=== PATIENT | male | born 1950 | race Caucasian/White ===

== ENCOUNTER 2020-04-26 06:22 | Inpatient (IN) | payer OTHER, SELFPAY ==
[2020-04-26] VITALS (37 sets, daily range): BP systolic 145–187; BP diastolic 67–129; PULSE 78–105; RESP 14–96; TEMP 36.2–37; O2SAT 20–98; BMI 22.8
--- NOTE | ~2020-04-26 | XR_ITS ---
XR chest 2V 04/28/2020 09:47 Indication: Shortness of breath and weakness Procedure: 2 view chest Comparison: 04/26/2020 Findings: There is improving bibasilar airspace disease. Heart size upper normal. There is atheroscle rosis. There is evidence for chronic granulomatous disease. The lungs are hyperinflated which is cons istent with, but not diagnostic of chronic obstructive pulmonary disease. No pneumothorax. Impression: 1: Improving bibasilar airspace disease which may represent resolving atelectasis and/or pneumonia. Reviewed, dictated and finalized at location B. Impression: 1: Improving bibasilar airspace disease which may represent resolving atelectas is and/or pneumonia.
--- NOTE | ~2020-04-26 | US_ITS ---
US renal BI 04/26/2020 13:56 Procedure: Realtime transabdominal ultrasound of the kidneys and bladder. Indication: Elevated creatinine Comparison: Ultrasound dated 01/27/2018 Findings: There multiple bilateral renal cysts, largest in the right kidney measuring 7.2 cm. Largest on the left measures 2.7 cm. The right kidney measures 14 cm and left kidney measures 9.7 cm. Bladd er within normal limits. Impression: 1: Multiple bilateral renal cysts. Reviewed, dictated and finalized at location B. Impression: 1: Multiple bilateral renal cysts.
--- NOTE | ~2020-04-26 | XR_ITS ---
EXAMINATION: XR chest 2V DATE: 04/26/2020 07:10 INDICATION: 2 weeks of shortness of breath and chest tightness TECHNIQUE: PA and lateral views of the chest were obtained. COMPARISON: None FINDINGS: Small bilateral pleural effusions. Airspace opacities in the right mid and bilateral lower lung zones . No pneumothorax. The cardiomediastinal silhouette is normal. Atherosclerotic aorta. Suggestion of r ight rotator cuff arthropathy. IMPRESSION: 1. Opacities in the right mid and bilateral lower lung zones which could represent pneumonia and/or a telectasis. 2. Small bilateral pleural effusions. Reviewed, dictated and finalized at location A. IMPRESSION: 1. Opacities in the right mid and bilateral lower lung zones which could repres ent pneumonia and/or atelectasis. 2. Small bilateral pleural effusions.
--- NOTE | 2020-04-26 06:47 | ECG_ITS ---
Measurements Intervals [place] Rate: 104 P: 70 KS: 189 QRS: 16 QRSD: 97 T: 146 QT: 357 QTc: 471 Interpretive Statements SINUS TACHYCARDIA LEFT VENTRICULAR HYPERTROPHY AND ST-T CHANGE CANNOT RULE OUT SEPTAL INFARCT, AGE INDETERMINATE ST-T WAVE ABNORMALITY IN ANTEROLAT/HIGH LAT LEADS- CONSIDER ISCHEMIA ABNORMAL ECG Electronically Signed On 04-26-2020 6:53:56 CDT by Corby Walters D.O.
[2020-04-26 06:59] LABS: Basophils Percent Auto 0.6 % (0.2-1.2); Eosinophils Absolute Auto 0.3 K/mm3 (0-0.3); Immature Granulocyte Absolute 0.08 K/mm3 (0.00-0.031); Immature Granulocyte Percent A 1.2 % (0-0.5); Lymphocytes Absolute Auto 0.96 K/mm3 (0.9-3.2); Lymphocytes Percent Auto 14.2 % (18.3-44.2); Mean Corpuscular HGB Conc 29.7 g/dl (32-36); Mean Corpuscular Hemoglobin 27.4 pg (26-34); Mean Corpuscular Volume 92.5 fl (80-100); Mean Platelet Volume 11.5 fl (7.4-10.4); Monocytes Absolute Auto 0.5 K/mm3 (0.1-0.6); Monocytes Percent Auto 7.7 % (2.6-8.5); Neutrophils Absolute Auto 4.9 K/mm3 (1.3-6.7); Neutrophils Percent Auto 72.3 % (45.5-73.1); Platelet Count Result 271 k/mm3 (150-375); Red Blood Count 2.26 M/mm3 (4.6-6.20); Red Cell Distribution Width 16.8 % (11.5-14.5); White Blood Count 6.8 K/mm3 (4.5-10.0)
[2020-04-26 07:05] LABS: Hematocrit 20.9 % (42.0-52.0); Hemoglobin 6.2 g/dL (14.0-18.0)
[2020-04-26 07:09] LABS: Anisocytosis 1+ (NORMAL); Burr Cells 1+ (NORMAL); Microcytosis 1+ (NORMAL); Ovalocytes 1+ (NORMAL); Poikilocytosis 1+ (NORMAL)
[2020-04-26 07:10] LABS: Anion Gap 19 mmol/L (8-16); Blood Urea Nitrogen 89 mg/dL (9-20); Calcium 6.6 mg/dL (8.4-10.2); Carbon Dioxide 11 mmol/L (22-30); Chloride 117 mmol/L (98-107); Estimated CRCL calculation 9 ml/min; Estimated Glomerular Filt Rate 8; Glucose 152 mg/dL (75-110); Hypochromasia 1+ (NORMAL); Platelet Estimate Adequate (Adequate); Potassium 5.3 mmol/L (3.4-5.0); Sodium 147 mmol/L (137-145)
--- NOTE | 2020-04-26 07:14 | ED.SOB ---
HPI - SOB/Dyspnea General Chief Complaint: Shortness of Breath/Dyspnea Stated Complaint: SOB Time Seen by Provider: 04/26/20 07:01 History of Present Illness HPI Narrative: 69 yo male w/ h/o COPD, HTN, CKD presents to the ED for SOB. He has had increasing SOB for quite some time. Worse over the past few days. orthopnea, ATKINSON. Associated with occasional chest pressure and cough. Daught noted that he does appear more pale. No dark or bloody stools. Denies fever, chills, nausea, vomiting. Related Data Home Medications Medication Instructions Recorded Confirmed amlodipine 04/26/20 hydralazine 04/26/20 insulin glargine [Lantus U-100 SUBCUT 04/26/20 Insulin] pravastatin 04/26/20 Allergies Allergy/AdvReac Type Severity Reaction Status Date / Time No Known Allergies Allergy Unknown Unverified 11/11/08 15:19 Review of Systems Review of Systems: All systems reviewed & are unremarkable except as noted in HPI and below Constitutional: Constitutional: Denies chills and Denies fever(s) ENT: Denies sore throat Cardiovascular: Cardiovascular: Denies chest pain Respiratory: Respiratory: Reports cough and Reports dyspnea Gastrointestinal: Gastrointestinal: Denies abdominal pain, Denies nausea and Denies vomiting Genitourinary: Genitourinary: Denies dysuria Neurologic: Denies dizziness Hematologic/Lymphatic: Hematologic/Lymphatic: Denies easy bleeding and Denies easy bruising PMFSH Past Medical History Medical History (Updated 04/26/20 @ 10:06 by Isaak Deleon MD) CKD (chronic kidney disease) COPD (chronic obstructive pulmonary disease) HTN (hypertension) Family History Family History (Updated 02/03/16 @ 23:19 by DOCTOR UNKNOWN) Father Family history of diabetes mellitus in first degree relative Mother Family history of primary malignant neoplasm of liver Social History Social History Second hand tobacco smoke exposure: Yes Alcohol intake: never Exam Const: General: no acute distress, alert and ill appearing Nutritional Appearance: well nourished Orientation/consciousness: patient oriented x3 HENMT: Head: normal to inspection Other: pale MM Eyes: Pupils: Equal, round and reactive pupils present Resp: Effort & Inspection: tachypneic Auscultation: clear to auscultation bilaterally and crackles bilateral in the lower lung wheeler Cardio: Rate: regular rate Rhythm: regular rhythm GI: GI Palp: Yes Soft to palpation and No Tenderness to palpation present (GI) Skin: General skin exam: normal color Neuro: General: patient oriented x3, moves all extremities and CN's II-XI intact bilaterally Speech: normal speech Extrem: General: edema bilateral (trace) Course Vital Signs Vital signs: Vital Signs Temperature 36.9 C 04/26/20 06:30 Pulse Rate 105 H 04/26/20 06:30 Respiratory Rate 21 H 04/26/20 06:30 Blood Pressure 156/73 H 04/26/20 06:30 Pulse Oximetry 96 04/26/20 06:30 Temperature 36.9 C 04/26/20 09:42 Pulse Rate 89 04/26/20 09:42 Respiratory Rate 20 04/26/20 09:42 Blood Pressure 162/67 H 04/26/20 09:42 Pulse Oximetry 96 04/26/20 09:42 MDM - SOB/Dyspnea Lab Data Result diagrams: 04/26/20 06:50 04/26/20 06:50 Labs: Lab Results 04/26/20 04/26/20 04/26/20 Range/Units 06:50 06:50 07:30 WBC 6.8 (4.5-10.0) K/mm3 RBC 2.26 L (4.6-6.20) M/mm3 Hgb 6.2 L* (14.0-18.0) g/dL Hct 20.9 L* (42.0-52.0) % MCV 92.5 (80-100) fl MCH 27.4 (26-34) pg MCHC 29.7 L (32-36) g/dl RDW 16.8 H (11.5-14.5) % Plt Count 271 (150-375) k/mm3 MPV 11.5 H (7.4-10.4) fl Immature Gran % (Auto) 1.2 H (0-0.5) % Neut % (Auto) 72.3 (45.5-73.1) % Lymph % (Auto) 14.2 L (18.3-44.2) % [place]lin % (Auto) 7.7 (2.6-8.5) % Eos % (Auto) 4.0 (0-4.4) % Baso % (Auto) 0.6 (0.2-1.2) % Lymph # (Auto) 0.96 (0.9-3.2) K/mm3 [place]lin # (Auto) 0.5 (0.1-0.6) K/mm3 Eos
[2020-04-26] MEDS: ALBUTEROL SULFATE NEB 2.5 MG/0.5 ML INH 5 MG INHALATION (07:35)
[2020-04-26] MEDS: IPRATROPIUM BR 0.02% INH SOLN 0.5 MG/2.5 ML VIAL INHALATION (07:35)
[2020-04-26 07:54] LABS: Alanine Aminotransferase 19 U/L (4-50); Albumin Level 4.1 g/dL (3.5-5.1); Alkaline Phosphatase 89 U/L (38-126); Aspartate Amino Transferase 20 U/L (17-59); Bilirubin,Total 0.1 mg/dL (0.2-1.3)
[2020-04-26 08:07] LABS: NT Pro B Type Natriuretic Pept > 35000 PG/ML (5-100); Troponin I 0.114 ng/mL (0.000-0.034)
[2020-04-26 08:30] LABS: Iron 46 ug/dL (49-181)
[2020-04-26 08:41] LABS: Percent Iron Saturation 20 % (20-50)
[2020-04-26] MEDS: FUROSEMIDE INJ 40 MG/4 ML VIAL 80 MG (09:14)
[2020-04-26] MEDS: SODIUM CHLORIDE 0.9% IV 250 ML 30 ML IV CONT (09:29)
[2020-04-26] MEDS: TUBING, BLOOD PLUM PUMP TUBING 1 EACH XX (09:38)
[2020-04-26 09:46] LABS: Folic Acid 4.9 ng/mL (2.76->20)
--- NOTE | 2020-04-26 10:00 | PC.NURSE ---
This patient, Cristi Adams, was admitted to IMU status, and placed in Intensive Care Unit-1. Patient/family oriented to hospital policies and general routines including ID bracelet, bed and alarms, visiting hours, pain management, procedures, bathroom and other care routines, personal items, smoking policy, room service/diet, and visiting hours. Valuables list has been completed. Information on how to activate the Rapid Response Team has been discussed. Patient/Family are encouraged to report perceived risks to care and to ask questions if they do not understand what they are told or what they should do.
--- NOTE | 2020-04-26 11:12 | PM.CNNEP ---
Assessment and Plan Assessment and plan (1) Chronic kidney disease, stage 4 (severe): Code(s): N18.4 - Chronic kidney disease, stage 4 (severe) Status: Acute Assessment and Plan: the patient has chronic kidney disease. This is due to diabetes and hypertension. Over year ago he had stage 4 chronic kidney disease with a GFR of around 17. At that time he was lost to follow-up in would not make an appointment. Most likely he does have chronic progression of his renal disease and his creatinine is higher now. It is possible that is my PA and acute insult: see below (2) Acute kidney failure, unspecified: Code(s): N17.9 - Acute kidney failure, unspecified Status: Acute Assessment and Plan: the patient has possible acute on chronic kidney disease. We do not have any labs between last August and his current labs, so it is unclear how much of this if any has an acute component. To evaluate this will get a renal ultrasound urine electrolytes and eosinophils. He has volume overload and so we need to get fluid off. (3) Erythropoietin deficiency anemia: Code(s): D63.1 - Anemia in chronic kidney disease Status: Acute Assessment and Plan: The patient has severe anemia. His hemoglobin is only 6.2. This may be from blood loss but also could be from chronic kidney disease. He is getting a blood transfusion now. Will go ahead start Epogen. We can check iron studies B12 and folate. We can check stool guaiacs as well. (4) Essential (primary) hypertension: Code(s): I10 - Essential (primary) hypertension Status: Acute Assessment and Plan: The patient has hypertension. His blood pressure is a bit high. He is on amlodipine and hydralazine for this. Taking fluid off with diuretics may help his blood pressure as well. So will restart his home medications. (5) Diabetes: Code(s): E11.9 - Type 2 diabetes mellitus without complications Status: Acute Assessment and Plan: The patient has diabetes. On Accu-Cheks and sliding-scale (6) Fluid overload, unspecified: Code(s): E87.70 - Fluid overload, unspecified Status: Acute Assessment and Plan: the patient has edema. He is short of breath. His chest x-ray is not convincingly expressive of volume overload though. He does have pleural effusions and some fluid in the fissures on the right. It is unclear if there is a component of pneumonia as well. COVID is being tested as well. Will try diuretics to see if this makes him feel better in addition to other measures to help his pulmonary status per hospitalist. (7) Electrolyte abnormality: Code(s): E87.8 - Other disorders of electrolyte and fluid balance, not elsewhere classified Status: Acute Assessment and Plan: the patient has a high sodium level. This is probably from his renal failure and not drinking enough fluid. Patient's potassium level is high. This is mild. Diuretics might help this. Bicarbonate level is low. Will start him on some bicarbonate pills. Calcium level is low as well. This can happen with chronic kidney disease.Check ionized calcium. Will also check a phosphorus level. History of Present Illness Reason for Consult Consult date: 04/27/20 Chief Complaint Chief complaint: Shortness of breath. History of Present Illness Narrative: Cristi is a very pleasant 61-year-old gentleman who has multiple medical problems including diabetes, hyperlipidemia, hypertension, chronic kidney disease last seen in my office about little more than a year ago and at that time he had a creatinine of 4 with a GFR of 14. His office note is unavailable because hisnote is not on my current medical record software. Patient was lost to follow-up after that. In 2019 the pharmacy called me for refill over [place] . We called him to make an appointment to get the refill but
[2020-04-26 11:35] LABS: Troponin I 0.113 ng/mL (0.000-0.034)
[2020-04-26] MEDS: SODIUM BICARBONATE TAB 650 MG TABLET 1300 MG PO ×2 (13:00→17:08)
[2020-04-26 14:10] LABS: Immature Reticulocyte Fraction 16.2 % (3.0-15.9); Reticulocyte Hemoglobin Conten 29.1 pg (28.2-35.7); Reticulocyte Percent 1.07 % (0.7-4.3); Reticulocytes Absolute 0.03 B/L (32.2-175.7)
[2020-04-26 14:15] LABS: Creatine Kinase 155 U/L (55-170)
[2020-04-26 14:27] LABS: Parathyroid Intact 362.9 pg/mL (7.5-53.5)
[2020-04-26 14:29] LABS: Troponin I 0.122 ng/mL (0.000-0.034)
[2020-04-26 14:37] LABS: Iron 89 ug/dL (49-181)
[2020-04-26 15:03] LABS: Hepatitis B Surface Antigen Negative (Negative)
[2020-04-26 15:06] LABS: Percent Iron Saturation 27 % (20-50); Vitamin D 25 Hydroxy 23.2 ng/mL
[2020-04-26 15:21] LABS: Hepatitis B Surface Anti Res Negative; Hepatitis C Virus Antibody Negative (Negative)
--- NOTE | 2020-04-26 16:30 | PM.IMHP ---
H&P: HPI History of Present Illness Date/Time: 04/26/20 16:30 Chief complaint: Shortness of breath. Narrative: Cristi Adams is a 69-year-old male with insulin-dependent type 2 diabetes, chronic kidney disease stage 4, hypertension, and hyperlipidemia who presented to the emergency department earlier today for evaluation of shortness of breath. He is a bit vague regarding his symptoms but notes that for ?quite some time? he has had progressive dyspnea on lesser and lesser exertion although it has been much worse in the past couple of days with the development of orthopnea and nonproductive cough. Additionally he has occasional midsternal chest heaviness or pressure that seems to occur around the time that he is feeling especially short of breath. He has not had fever, chills, sweats, cold or flu symptoms, pleuritic pain, palpitations, nausea, vomiting, or diarrhea. He denies epistaxis, hematemesis, melena, hematuria, and hematochezia. No significant lower extremity edema, calf pain, or tenderness. He denies recent travel, sick contacts, and history of venous thromboembolism. No known history of coronary artery disease or congestive heart failure. Review of Systems Review of Systems: Narrative: Twelve systems were reviewed with pertinent positives and negatives as per HPI. Denies headache, vertigo, and focal weakness. He has had some mild sinus congestion. No rhinorrhea, otalgia, or odynophagia. He denies pleuritic pain and palpitations. No significant lower extremity edema. Appetite has been okay. He has not noticed a significant change in his weight. No blurry vision, polydipsia, or polyuria. Except as documented, all other systems were reviewed and are negative. [facility] Past Medical History Medical History (Updated 04/26/20 @ 20:35 by Olga Shahid PA-C) Chronic kidney disease, stage 4 (severe) Has previously been followed by Dr. Federico Venegas. Creatinine in 2019 was around 4.0 with a GFR 14%. Erythropoietin deficiency anemia Hyperlipidemia Hypertension Insulin dependent type 2 diabetes mellitus Osteoarthritis Surgical History Surgical History (Updated 04/26/20 @ 18:36 by Olga Shahid PA-C) History of cardiac radiofrequency ablation History of right knee surgery Family History Family History Father Family history of diabetes mellitus in first degree relative Mother Family history of primary malignant neoplasm of liver Social History Social History (Updated 04/26/20 @ 20:32 by Olga Shahid PA-C) Social History: Surrogate decision maker: Kim Adams, spouse. Code status: Full code. Smoking packs per day: 0.5 Smoking cigarettes per day: 10.0 Years smoked: 50 Smoking pack-years: 25.00 Smoking status: Former smoker Tobacco type: cigarettes Second hand tobacco smoke exposure: Yes Alcohol intake: never Substance use: never Substance use type: does not use Additional living arrangements comments: Lives in [place] with his . Additional occupation/education comments: Retired. Spiritual care concerns: No Meds Home Medications and Allergies Home Medications Medication Instructions Recorded Confirmed Type amlodipine 10 mg PO DAILY 04/26/20 04/26/20 History hydralazine 50 mg PO TID 04/26/20 04/26/20 History hydrocodone-acetaminophen 1 tablet PO TID PRN 04/26/20 04/26/20 History insulin glargine [Lantus U-100 30 unit SUBCUT HS 04/26/20 04/26/20 History Insulin] pravastatin 20 mg PO DAILY 04/26/20 04/26/20 History Allergies Allergy/AdvReac Type Severity Reaction Status Date / Time No Known Allergies Allergy Unknown Verified 04/26/20 10:11 Vital Signs Vital Signs - 24 hr 04/26/20 06:30 04/26/20 06:56 04/26/20 07:13 Temperature 98.4 F Pulse Rate 105 H 91 Respiratory Rate 21 H 18 Blood Pressure 156/73 H Pulse Oximetry 96 96 97 04/26/20 07:15 04/26/20 0
[2020-04-26 19:01] LABS: SARS-CoV-2 RNA PCR Negative
[2020-04-26] MEDS: FUROSEMIDE INJ 100 MG/10 ML VIAL 80 MG IV PUSH (20:00)
[2020-04-26 20:03] LABS: Creatinine Urine 41.2 mg/dL; Sodium Urine Random 102 meq/L
[2020-04-26 20:25] LABS: Total Protein Urine Random 291 mg/dL
[2020-04-26] MEDS: INSULIN GLARGINE (*BKC) 100 UNITS/ML 30 UNITS SUB-Q (21:13)
[2020-04-26] MEDS: hydrALAZINE HCL 50 MG TABLET PO (21:15)
--- NOTE | 2020-04-26 21:27 | PCDIET ---
This patient, Cristi Adams, was received from [ icu1] on 04/26/20 at 2127. Personal belongings list checked and signed. Patient/family oriented to unit policies and routines
--- NOTE | 2020-04-26 21:52 | PC.NURSE ---
This patient, Cristi Adams, was transferred to [201 ] on 04/26/20 at 2140. Personal belongings sent with patient. Report given to [Darien GARCÍA]. Appropriate documentation sent with patient.
[2020-04-26 23:35] LABS: Glucose Point of Care 207 (65-105)
[2020-04-27] VITALS (10 sets, daily range): BP systolic 146–167; BP diastolic 62–80; PULSE 75–87; RESP 16–22; TEMP 35.9–37.3; O2SAT 96–99
[2020-04-27 00:10] LABS: IFOB Positive Control Positive; Immunochemical Fecal Occult Bl Negative (N)
[2020-04-27 05:27] LABS: Hematocrit 23.7 % (42.0-52.0); Hemoglobin 7.2 g/dL (14.0-18.0); Mean Corpuscular HGB Conc 30.4 g/dl (32-36); Mean Corpuscular Hemoglobin 27.5 pg (26-34); Mean Corpuscular Volume 90.5 fl (80-100); Mean Platelet Volume 11.8 fl (7.4-10.4); Platelet Count Result 253 k/mm3 (150-375); Red Blood Count 2.62 M/mm3 (4.6-6.20); Red Cell Distribution Width 16.7 % (11.5-14.5); White Blood Count 6.5 K/mm3 (4.5-10.0)
[2020-04-27] MEDS: hydrALAZINE HCL 50 MG TABLET PO ×3 (05:37→20:46)
[2020-04-27 05:43] LABS: Alanine Aminotransferase 15 U/L (4-50); Albumin Level 4.2 g/dL (3.5-5.1); Alkaline Phosphatase 86 U/L (38-126); Anion Gap 17 mmol/L (8-16); Aspartate Amino Transferase 20 U/L (17-59); Bilirubin,Total 0.3 mg/dL (0.2-1.3); Blood Urea Nitrogen 95 mg/dL (9-20); CRP 0.7 mg/dL (<1.0); Calcium 6.8 mg/dL (8.4-10.2); Carbon Dioxide 16 mmol/L (22-30); Chloride 112 mmol/L (98-107); Estimated CRCL calculation 9 ml/min; Estimated Glomerular Filt Rate 7; Glucose 61 mg/dL (75-110); Magnesium 2.3 mg/dL (1.6-2.3); Phosphorus 8.1 mg/dL (2.5-4.5); Potassium 4.9 mmol/L (3.4-5.0); Sodium 145 mmol/L (137-145)
[2020-04-27 05:45] LABS: Hemoglobin A1C 6.5 % (<5.7)
--- NOTE | 2020-04-27 06:00 | ECHO_ITS ---
Patient Info Name: Cristi Adams Age: 69 years : 1950 Gender: Male Ht: 68 in Wt: 150 lbs BSA: 1.81 m2 HR: 82 bpm BP: 148 / 80 mmHg Heart Rhythm: Sinus Rhythm Technical Quality: Good Exam Date: 04/27/2020 8:25 AM Exam Location: [facility] Patient Status: Inpatient Admit Date: 04/26/2020 Staff Ordering Physician: Isaak Deleon MD Hop Strainer: Nirmal Arteaga RDCS, RT Attending Provider: Ninfa Mcnally MD Referring Physician: Adrienne SAHU; Exam Type: CA echo doppler color flow Study Info Indications I50.9 - Heart failure, unspecified Complete two-dimensional, color flow and Doppler transthoracic echocardiogram is performed. Strain analysis performed. Summary 1. Complete two-dimensional, color flow and Doppler transthoracic echocardiogram is performed. 2. Left ventricular systolic function is moderately reduced, estimated at 35-40%. 3. There is moderately increased left ventricular wall thickness. 4. There is hypokinesis of the anterolateral and inferolateral abraham. 5. The left ventricular diastolic function is grade I diastolic dysfunction. 6. There is no aortic valve stenosis. 7. There is mild mitral valve regurgitation. 8. Unable to estimate PA systolic pressure due to poor spectral resolution of tricuspid regurgitant jet velocity. Left Ventricle Left ventricular chamber dimension is mildly enlarged. Left ventricular systolic function is moderately reduced, estimated at 35-40%. There is moderately increased left ventricular wall thickness. The left ventricular diastolic function is grade I diastolic dysfunction. Global longitudinal strain is severely elevated at -8 %. There is hypokinesis of the anterolateral and inferolateral abraham. Right Ventricle Right ventricular chamber dimension is normal. Right ventricular systolic function is normal. Left Atria Left atrial chamber dimension is mildly enlarged. Right Atria Right atrial chamber dimension is normal. Aortic Valve The aortic valve is not well visualized. There is mild aortic valve sclerosis. There is no aortic valve stenosis. There is no aortic valve regurgitation. Pulmonic Valve The pulmonic valve is not well visualized. Mitral Valve The mitral valve has thickened leaflets. There is mild mitral valve regurgitation. The mitral valve annulus is moderately calcified. Tricuspid Valve The tricuspid valve leaflets are normal. There is trace tricuspid valve regurgitation. Unable to estimate PA systolic pressure due to poor spectral resolution of tricuspid regurgitant jet velocity. Pericardium/Pleural The pericardium appears normal. There is no pericardial effusion. Inferior Vena Cava Normal inferior vena cava with >50% collapse upon inspiration consistent with normal right atrial pressure, 5 mmHg. Aorta The aortic root size at the sinus of Valsalva is normal. Left Ventricular Outflow Tract Name Value Normal LVOT 2D LVOT Diameter 2.3 cm LVOT Doppler LVOT Peak Gradient 3 mmHg LVOT Mean Gradient 2 mmHg LVOT VTI
[2020-04-27] MEDS: GLUCOSE ORAL GEL 15 GM OF GLUCSE IN 37.5 GM TUBE PO (07:59)
[2020-04-27 08:42] LABS: Glucose Point of Care 42 (65-105)
[2020-04-27 08:42] LABS: Glucose Point of Care 66 (65-105)
[2020-04-27] MEDS: SODIUM BICARBONATE TAB 650 MG TABLET 1300 MG PO ×3 (08:58→18:19)
[2020-04-27] MEDS: PRAVASTATIN SODIUM 20 MG TABLET PO (08:59)
[2020-04-27] MEDS: FUROSEMIDE INJ 100 MG/10 ML VIAL 80 MG IV PUSH (09:00)
[2020-04-27] MEDS: amLODIPine BESYLATE 5 MG TABLET 10 MG PO (09:01)
[2020-04-27 09:29] LABS: Glucose Point of Care 146 (65-105)
--- NOTE | 2020-04-27 10:35 | PM.PNNEP ---
Progress Note: A&P Assessment and Plan (1) Chronic kidney disease, stage 4 (severe): Code(s): N18.4 - Chronic kidney disease, stage 4 (severe) Status: Acute Assessment and Plan: the patient has chronic kidney disease. This is due to diabetes and hypertension. Over year ago he had stage 4 chronic kidney disease with a GFR of around 17. At that time he was lost to follow-up in would not make an appointment. Most likely he does have chronic progression of his renal disease and his creatinine is higher now. He has no symptoms of uremia. He denies weakness or nausea, however he is a bit stoic. His lungs are clear any does not have much swelling. Will change his diuretics to p.o.. We can recheck his creatinine tomorrow. Consider just getting access and starting treatments when he is more symptomatic. (2) Acute kidney failure, unspecified: Code(s): N17.9 - Acute kidney failure, unspecified Status: Acute Assessment and Plan: the patient has possible acute on chronic kidney disease. Ultrasound does not show hydronephrosis or other acute injury. Urine electrolytes are non pre renal. I suspect that he does not have acute kidney injury. (3) Erythropoietin deficiency anemia: Code(s): D63.1 - Anemia in chronic kidney disease Status: Acute Assessment and Plan: The patient has severe anemia. He received blood yesterday. T sat 27. Hemoccult negative. Will start Epogen. If he does not start on dialysis then we can have him see Dr. michelle guzman for outpatient EPO dosing. (4) Essential (primary) hypertension: Code(s): I10 - Essential (primary) hypertension Status: Acute Assessment and Plan: The patient has hypertension. His blood pressure is a bit high. He is on amlodipine and hydralazine for this. BP is a bit better this morning. (5) Diabetes: Code(s): E11.9 - Type 2 diabetes mellitus without complications Status: Acute Assessment and Plan: The patient has diabetes. On Accu-Cheks and sliding-scale (6) Fluid overload, unspecified: Code(s): E87.70 - Fluid overload, unspecified Status: Acute Assessment and Plan: Swelling is better. Breathing is better. Will cut diuretics to p.o. (7) Electrolyte abnormality: Code(s): E87.8 - Other disorders of electrolyte and fluid balance, not elsewhere classified Status: Acute Assessment and Plan: Sodium level is better. Potassium level is normal now. Bicarbonate level is low But better. On bicarbonate supplementation. Calcium level is low as well. This can happen with chronic kidney disease. Ionized calcium okay. Phosphorus very high. Will start binders. Subjective Date/time seen: 04/27/20 10:35 Interval history: Patient is getting an echocardiogram. He feels okay today. On no oxygen on lying flat and does not appear short of breath. he says he feels a little better than when he came to the ER. But he has not gotten up and walked yet. No nausea. Eating okay. Review of Systems Cardiovascular: Cardiovascular: Reports no additional cardiovascular complaints Respiratory: Respiratory: Reports no additional respiratory complaints Gastrointestinal: Gastrointestinal: Reports no additional gastrointestinal complaints Genitourinary: Genitourinary: Reports no additional male genitourinary complaints Exam Narrative: Exam Narrative: WDWN in NAD skin no rash head ncat lungs clear cor reg no rub abd BS+ nontender and soft ext no edema. Objective Data Vital Signs Vital Signs: Vital Signs - 24 hr 04/26/20 10:42 04/26/20 11:42 04/26/20 12:00 Temperature 36.7 C 36.4 C 36.4 C Pulse Rate 85 84 83 Respiratory Rate 17 17 14 Blood Pressure 167/70 H 145/71 H 163/73 H Pulse Oximetry 98 95 94 04/26/20 14:00 04/26/20 16:00 04/26/20 16:35 Temperature 36.8
[2020-04-27 12:09] LABS: Glucose Point of Care 194 (65-105)
[2020-04-27] MEDS: EPOETIN ALFA-EPBX 10,000 UNITS/ML VIAL 10000 UNITS SUB-Q (12:39)
[2020-04-27] MEDS: CALCIUM ACETATE 667 MG TABLET PO ×2 (12:39→18:19)
--- NOTE | 2020-04-27 13:44 | PM.IMPN ---
Progress Note: A&P Assessment and Plan (1) Shortness of breath: Code(s): R06.02 - Shortness of breath Status: Acute Assessment and Plan: 04/27/20 13:44 patient is 69-year-old male with history of hypertension diabetes and chronic kidney disease stage 4, patient presented emergency department with a complaint of shortness of breath and was progressive getting worse he also appeared pale with hemoglobin of 6.2 there was no complaint GI bleeding and stools Hemoccult is negative and patient is seen by Nephrology and suspect most likely secondary chronic kidney disease and patient was given pack RBC, in terms of patient's shortness of breath most likely volume overload due to chronic kidney disease patient had been seen by telephone appointment clerk a year ago his GFR was 17 and now it is 7, patient had been noncompliant with follow-up and has not seen the telephone appointment clerk in sometime, and in Hospital patient is seen by Dr Venegas patient being gently diuresed, patient is urinating well, today patient states is feeling little better not a short of breath as when he arrived, denies any chest pain palpitation fever or chills. will continue present management further recommendation to follow (2) Fluid overload, unspecified: Code(s): E87.70 - Fluid overload, unspecified Status: Acute Assessment and Plan: patient being diuresed will monitor (3) Acute kidney injury superimposed on chronic kidney disease: Code(s): N17.9 - Acute kidney failure, unspecified; N18.9 - Chronic kidney disease, unspecified Status: Acute Assessment and Plan: patient seen by telephone appointment clerk and further recommendation to follow (4) Profound anemia: Code(s): D64.9 - Anemia, unspecified Status: Acute Assessment and Plan: most likely secondary to chronic kidney disease will benefit from Epogen seen by telephone appointment clerk (5) Electrolyte abnormality: Code(s): E87.8 - Other disorders of electrolyte and fluid balance, not elsewhere classified Status: Acute Assessment and Plan: most likely secondary to acute on chronic kidney disease patient is being diuresed will monitor. (6) Elevated troponin level: Code(s): R77.8 - Other specified abnormalities of plasma proteins Status: Acute (7) Abnormality of lung on chest x-ray: Code(s): R91.8 - Other nonspecific abnormal finding of lung field Status: Acute (8) Insulin dependent type 2 diabetes mellitus: Code(s): E11.9 - Type 2 diabetes mellitus without complications; Z79.4 - termite exterminator (current) use of insulin Status: Inactive Assessment and Plan: will continue home regimen and monitor (9) Hypertension: Code(s): I10 - Essential (primary) hypertension Status: Inactive Assessment and Plan: continue home regimen and (10) Hyperlipidemia: Code(s): E78.5 - Hyperlipidemia, unspecified Status: Inactive Assessment and Plan: will continue home regimen and (11) Chronic obstructive pulmonary disease: Code(s): J44.9 - Chronic obstructive pulmonary disease, unspecified Status: Inactive Assessment and Plan: patient will benefit from CPAP Subjective Date/time seen: 04/27/20 13:44 patient is 69-year-old male with history of hypertension diabetes and chronic kidney disease stage 4, patient presented emergency department with a complaint of shortness of breath and was progressive getting worse he also appeared pale with hemoglobin of 6.2 there was no complaint GI bleeding and stools Hemoccult is negative and patient is seen by Nephrology and suspect most likely secondary chronic kidney disease and patient was given pack RBC, in terms of patient's shortness of breath most likely volume overload due to chronic kidney disease patient had been seen by telephone appointment clerk a year ago his GFR was 17 and now it is 7, patient had been noncompliant with follow-up and has not seen the neph
[2020-04-27 14:59] LABS: Add Urine Microscopic? YES; Appearance Urine Clear (Clear); Bilirubin Urine Negative (Negative); Blood Urine Negative (Negative); Color Urine Colorless (Yellow); Glucose Urine UA 1+ mg/dL (Negative); Ketones Urine Negative (Negative); Leukocyte Esterase Ur Negative LEU/UL (NEGATIVE); Mucus Urine Rare /lpf; Nitrate Urine Negative (Negative); Protein Urine 2+ mg/dL (Negative); RBC Urine 0-2 /hpf (0-2); Urobilinogen Urine Negative mg/dL (<2.0); WBC Urine 0-3 /hpf (0-3)
--- NOTE | 2020-04-27 15:19 | PC.NURSE ---
This patient, Cristi Adams, was transferred to [facility] on 04/27/20 at 1519. Personal belongings sent with patient. Report given to Travis GARCÍA. Appropriate documentation sent with patient.
--- NOTE | 2020-04-27 15:20 | PC.NURSE ---
This patient, Cristi Adams, was received from IMU on 04/27/20 at 1520. Report received from RAQUEL Vital. Patient/family oriented to unit policies and routines
[2020-04-27 16:42] LABS: Glucose Point of Care 71 (65-105)
[2020-04-27] MEDS: FUROSEMIDE 40 MG TABLET PO (18:19)
[2020-04-27 20:51] LABS: Glucose Point of Care 122 (65-105)
[2020-04-28] VITALS (12 sets, daily range): BP systolic 129–163; BP diastolic 46–69; PULSE 77–88; RESP 12–20; TEMP 36.6–37.7; O2SAT 96–99
[2020-04-28] MEDS: hydrALAZINE HCL 50 MG TABLET PO ×2 (05:21→13:17)
[2020-04-28 05:33] LABS: Mean Corpuscular HGB Conc 31.3 g/dl (32-36); Mean Corpuscular Hemoglobin 27.1 pg (26-34); Mean Corpuscular Volume 86.7 fl (80-100); Mean Platelet Volume 11.1 fl (7.4-10.4); Platelet Count Result 229 k/mm3 (150-375); Red Cell Distribution Width 16.3 % (11.5-14.5); White Blood Count 5.1 K/mm3 (4.5-10.0)
[2020-04-28 05:54] LABS: Hematocrit 20.8 % (42.0-52.0); Hemoglobin 6.5 g/dL (14.0-18.0)
[2020-04-28 05:58] LABS: Albumin Level 3.7 g/dL (3.5-5.1); Anion Gap 15 mmol/L (8-16); Blood Urea Nitrogen 90 mg/dL (9-20); Calcium 6.4 mg/dL (8.4-10.2); Carbon Dioxide 16 mmol/L (22-30); Chloride 111 mmol/L (98-107); Estimated CRCL calculation 9 ml/min; Estimated Glomerular Filt Rate 8; Glucose 42 mg/dL (75-110); Phosphorus 7.7 mg/dL (2.5-4.5); Potassium 4.4 mmol/L (3.4-5.0); Sodium 142 mmol/L (137-145)
--- NOTE | 2020-04-28 06:14 | PC.NURSE ---
called dr odom with am lab results: hgb 6.5 and glucose 45 and new orders recieved.
[2020-04-28] MEDS: SODIUM CHLORIDE 0.9% IV 250 ML 30 ML IV CONT (06:51)
[2020-04-28 07:43] LABS: Glucose Point of Care 164 (65-105)
[2020-04-28] MEDS: amLODIPine BESYLATE 5 MG TABLET 10 MG PO (07:51)
[2020-04-28] MEDS: SODIUM BICARBONATE TAB 650 MG TABLET 1300 MG PO ×3 (07:51→17:14)
[2020-04-28] MEDS: PRAVASTATIN SODIUM 20 MG TABLET PO (07:51)
[2020-04-28] MEDS: CALCIUM ACETATE 667 MG TABLET PO ×2 (07:51→11:43)
[2020-04-28] MEDS: FUROSEMIDE 40 MG TABLET PO ×2 (07:51→17:14)
[2020-04-28] MEDS: SODIUM CHLORIDE 0.9% IV 250 ML 30 ML (11:41)
[2020-04-28 11:50] LABS: Glucose Point of Care 142 (65-105)
--- NOTE | 2020-04-28 12:06 | PM.PNNEP ---
Progress Note: A&P Assessment and Plan (1) Chronic kidney disease, stage 4 (severe): Code(s): N18.4 - Chronic kidney disease, stage 4 (severe) Status: Acute Assessment and Plan: the patient has chronic kidney disease. This is due to diabetes and hypertension. Over year ago he had stage 4 chronic kidney disease with a GFR of around 17. he now has close to end-stage renal disease. He has no symptoms right now. I discussed at length with the patient. We discussed peritoneal dialysis and hemodialysis. Preliminarily, he thinks he would do peritoneal dialysis. He does need more education about the modalities so that he is well informed about which way he would want to go. I will have him get dialysis education as an outpatient and then we can place a peritoneal dialysis catheter if he wants to go this way. I do not think any of this needs to happen as an inpatient right now as he is not having any symptoms. (2) Acute kidney failure, unspecified: Code(s): N17.9 - Acute kidney failure, unspecified Status: Acute Assessment and Plan: No sign of a KI (3) Erythropoietin deficiency anemia: Code(s): D63.1 - Anemia in chronic kidney disease Status: Acute Assessment and Plan: The patient has severe anemia. He received blood yesterday and is getting another unit today. T sat 27. Hemoccult negative. He is on Epogen. Will consult Dr. Rasmussen for the anemia. We can continue outpatient EPO dosing. (4) Essential (primary) hypertension: Code(s): I10 - Essential (primary) hypertension Status: Acute Assessment and Plan: The patient has hypertension. BP is a bit better this morning. (5) Diabetes: Code(s): E11.9 - Type 2 diabetes mellitus without complications Status: Acute Assessment and Plan: The patient has diabetes. On Accu-Cheks and sliding-scale (6) Fluid overload, unspecified: Code(s): E87.70 - Fluid overload, unspecified Status: Acute Assessment and Plan: Swelling is better. Breathing is better. On oral diuretics (7) Electrolyte abnormality: Code(s): E87.8 - Other disorders of electrolyte and fluid balance, not elsewhere classified Status: Acute Assessment and Plan: Sodium level is better. Potassium level is normal now. Bicarbonate level is low But better. On bicarbonate supplementation. Calcium level is low as well. This can happen with chronic kidney disease. Ionized calcium okay. Phosphorus very high. on PhosLo. Subjective Date/time seen: 04/28/20 12:06 Interval history: He feels okay today. No nausea or vomiting. He is eating well. He is getting another unit of blood today. Review of Systems Cardiovascular: Cardiovascular: Reports no additional cardiovascular complaints Respiratory: Respiratory: Reports no additional respiratory complaints Gastrointestinal: Gastrointestinal: Reports no additional gastrointestinal complaints Genitourinary: Genitourinary: Reports no additional male genitourinary complaints Exam Narrative: Exam Narrative: WDWN in NAD skin no rash head ncat lungs clear To auscultation cor reg no rub or gallop abd BS+ nontender and soft ext no edema. Objective Data Vital Signs Vital Signs: Vital Signs - 24 hr 04/27/20 20:00 04/28/20 04:00 04/28/20 07:47 Temperature 37.3 C 36.7 C 36.6 C Pulse Rate 80 78 87 Respiratory Rate 16 20 18 Blood Pressure 146/64 H 143/59 H 129/46 L Pulse Oximetry 96 97 99 04/28/20 08:02 04/28/20 09:02 04/28/20 10:02 Temperature 36.8 C 36.8 C 37.3 C Pulse Rate 77 77 78 Respiratory Rate 14 16 18 Blood Pressure 144/59 H 147/61 H 154/68 H Pulse Oximetry 98 98 98 04/28/20 11:02 04/28/20 11:25 Temperature 37.2 C 37.4 C Pulse Rate 78 80 Respiratory Rate 12 16 Blood Pressure 148/66 H 147/62 H Pulse Oximetry 98 98 Inta
--- NOTE | 2020-04-28 12:32 | PM.DS ---
DS: Admitting Diagnosis Admitting Diagnosis Admitting Diagnosis: Shortness of breath. DS: Discharge Diagnosis Discharge Diagnosis (1) Shortness of breath: Code(s): R06.02 - Shortness of breath Status: Acute Assessment and Plan: patient is 69-year-old male with history of hypertension diabetes and chronic kidney disease stage 4, patient presented emergency department with a complaint of shortness of breath and was progressive getting worse he also appeared pale with hemoglobin of 6.2 there was no complaint GI bleeding and stools Hemoccult is negative and patient is seen by Nephrology and suspect most likely secondary chronic kidney disease and patient was given pack RBC, and has been on lasix for diuresis. Pt to follow with Nephrology and Hematology teams as outpatient. Pt will need dialysis education as an outpatient and a peritoneal dialysis catheter later maybe. Continue outpatient EPO dosing. (2) Fluid overload, unspecified: Code(s): E87.70 - Fluid overload, unspecified Status: Acute Assessment and Plan: Patient being diuresed (3) Acute kidney injury superimposed on chronic kidney disease: Code(s): N17.9 - Acute kidney failure, unspecified; N18.9 - Chronic kidney disease, unspecified Status: Acute Assessment and Plan: Patient seen by sail maker see recommendations (4) Profound anemia: Code(s): D64.9 - Anemia, unspecified Status: Acute Assessment and Plan: Most likely secondary to chronic kidney disease will benefit from Epogen, continue Epogen shots. (5) Electrolyte abnormality: Code(s): E87.8 - Other disorders of electrolyte and fluid balance, not elsewhere classified Status: Acute Assessment and Plan: Secondary to acute on chronic kidney disease (6) Elevated troponin level: Code(s): R77.8 - Other specified abnormalities of plasma proteins Status: Acute (7) Abnormality of lung on chest x-ray: Code(s): R91.8 - Other nonspecific abnormal finding of lung field Status: Acute (8) Insulin dependent type 2 diabetes mellitus: Code(s): E11.9 - Type 2 diabetes mellitus without complications; Z79.4 - ferry terminal agent (current) use of insulin Status: Inactive Assessment and Plan: Will continue home regimen and monitor (9) Hypertension: Code(s): I10 - Essential (primary) hypertension Status: Inactive Assessment and Plan: Continue home regimen and (10) Hyperlipidemia: Code(s): E78.5 - Hyperlipidemia, unspecified Status: Inactive Assessment and Plan: Continue home regimen (11) Chronic obstructive pulmonary disease: Code(s): J44.9 - Chronic obstructive pulmonary disease, unspecified Status: Inactive Assessment and Plan: Patient will benefit from CPAP DS: Summary Time Spent with Patient Time attestation: Total time spent providing and/or coordinating discharge services:40 minutes on day of discharge Exam Narrative: Exam Narrative: Chronically ill older than his age Patient is comfortable, NAD HEENT: eyes are clear and none icteric LUNGS: cleari HEART: RR S1S2 ABD: BS+, Soft and nontender Lower extremities: edema SKIN: nonjaundiced Neuro: grossly intact. DS: Data Data Completed and Pending Labs on day of discharge: Labs from last 24 hours 04/28/20 04/28/20 04/28/20 11:16 07:40 04:57 WBC 5.1 RBC 2.40 L Hgb 6.5 L* Hct 20.8 L* MCV 86.7 MCH 27.1 MCHC 31.3 L RDW 16.3 H Plt Count 229 MPV 11.1 H Sodium Potassium Chloride Carbon Dioxide Anion Gap BUN Creatinine Estim Creat Clear Calc Estimated GFR Glucose POC Capillary Glucose 142 H 164 H Calcium Phosphorus Albumin Urine Color Urine Appearance Urine pH Ur Specific [place] Urine Protein Urine Glucose (UA) Urine Ketones Ur Blood (Man) Urine Nitrat
[2020-04-28 13:53] LABS: Hepatitis B Surface Antigen Negative (Negative)
[2020-04-28 14:10] LABS: Hepatitis C Virus Antibody Negative (Negative)
[2020-04-28 16:33] LABS: Hematocrit 27.9 % (42.0-52.0); Hemoglobin 8.9 g/dL (14.0-18.0)
[2020-04-28 18:41] LABS: Hepatitis B Core Ab Total Nonreactive (Nonreactive)
[2020-04-29 04:43] LABS: Ionized Calcium 3.5 mg/dL (4.8-5.6)
== END 2020-04-28 17:45 | disposition home or self-care (01) | DRG 683 ==
LOC: ANHED 07:43 → ANHICU 10:30 → ANHIMU 21:28 → ANH2MED 04-27 21:58 → ANHIMU 05-02 14:06
PROVIDERS: Emergency Medicine; Internal Medicine Nephrology; Physician Assistant; Admitting Provider Family Medicine; Emergency Provider Emergency Medicine; PCP Family Medicine; Visit Provider Family Medicine
DX: I12.9 Hypertensive chronic kidney disease with stage 1 through stage 4 chronic kidney disease, or unspecified chronic kidney disease (principal); N17.9 Acute kidney failure, unspecified; N18.4 Chronic kidney disease, stage 4 (severe); E11.22 Type 2 diabetes mellitus with diabetic chronic kidney disease; D63.1 Anemia in chronic kidney disease; E87.70 Fluid overload, unspecified; Z20.828 Contact with and (suspected) exposure to other viral communicable diseases; E87.8 Other disorders of electrolyte and fluid balance, not elsewhere classified; R77.8 Other specified abnormalities of plasma proteins; R91.8 Other nonspecific abnormal finding of lung field; J44.9 Chronic obstructive pulmonary disease, unspecified; E78.5 Hyperlipidemia, unspecified; M19.90 Unspecified osteoarthritis, unspecified site; Z28.21 Immunization not carried out because of patient refusal; Z79.4 Long term (current) use of insulin; Z79.899 Other long term (current) drug therapy
CPT/HCPCS: 36415; 36430; 71046; 76775; 80048; 80053; 80069; 80076; 81001; 82274; 82306; 82330; 82550; 82570; 82607; 82728; 82746; 83036; 83540; 83550; 83735; 83880; 83970; 84100; 84145; 84156; 84300; 84443; 84484; 85014; 85018; 85025; 85027; 85046; 85999; 86140; 86704; 86706; 86803; 86850; 86900; 86901; 86923; 87040; 87340; 87635; 93005; 93306; 94640; 96361; 96365; 96367; 96375; 96376; 99285; A9270; C9803; G0378; J0456; J0696; J1815; J1940; J7050; P9016; Q5106; U0003

== ENCOUNTER → 2020-05-25 14:43 | Outpatient (CLI) | payer OTHER, SELFPAY ==
--- NOTE | ~2020-05-25 | XR_ITS ---
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 TECHNIQUE: Frontal and lateral projections of the chest obtained and reviewed. Comparison is made to prior examination from 04/28/2020. FINDINGS: The lungs are clear. There are no pleural effusions. The cardiomediastinal silhouette is within normal limits. There is no pneumothorax suspected. There is aortic arteriosclerosis. There a re mild bony degenerative changes. IMPRESSION: No acute cardiopulmonary findings. Reviewed, dictated and finalized at location A. IDE PROPERTY AGENT
== END ==
PROVIDERS: PCP Family Medicine; Visit Provider Internal Medicine Nephrology
DX: R76.11 Nonspecific reaction to tuberculin skin test without active tuberculosis (principal)
CPT/HCPCS: 71046

== ENCOUNTER 2020-07-05 10:04 | Inpatient (IN) | payer OTHER, SELFPAY ==
[2020-07-05] VITALS (40 sets, daily range): BP systolic 100–154; BP diastolic 54–96; PULSE 73–145; RESP 8–25; TEMP 36.1–36.6; O2SAT 95–99; BMI 20.9
--- NOTE | ~2020-07-05 | XR_ITS ---
EXAMINATION: XR chest 1V portable EXAM DATE: 07/05/2020 11:06 INDICATION: hypotension, dizziness. History of hypertension. TECHNIQUE: Frontal and lateral projections of the chest obtained and reviewed. Comparison is made to prior examination from 05/25/2020. FINDINGS: The lungs are clear. There are no pleural effusions. Cardiac silhouette is prominent but magnified on this AP technique. There is no pneumothorax suspected. The bones and soft tissues are unremarkable. There is aortic arteriosclerosis. IMPRESSION: No acute cardiopulmonary findings. Reviewed, dictated and finalized at location B. RENTAL SALES ASSISTANT
--- NOTE | 2020-07-05 10:38 | ECG_ITS ---
Measurements Intervals [place] Rate: 137 P: AL: 0 QRS: 19 QRSD: 104 T: 193 QT: 307 QTc: 465 Interpretive Statements ATRIAL FIBRILLATION WITH RAPID VENTRICULAR RESPONSE LEFT VENTRICULAR HYPERTROPHY WITH ST-T CHANGE ST-T WAVE ABNORMALITY IN DIFFUSE LEADS- CONSIDER ISCHEMIA ABNORMAL ECG Electronically Signed On 07-05-2020 13:31:23 MACHINE I ENGRAVER by Corby Walters D.O.
[2020-07-05 11:00] LABS: Hemoglobin 8.7 g/dL (14.0-18.0); Mean Corpuscular HGB Conc 32.2 g/dl (32-36); Mean Corpuscular Hemoglobin 29.3 pg (26-34); Mean Corpuscular Volume 90.9 fl (80-100); Mean Platelet Volume 12.3 fl (7.4-10.4); Platelet Count Result 233 k/mm3 (150-375); Red Blood Count 2.97 M/mm3 (4.6-6.20); Red Cell Distribution Width 15.2 % (11.5-14.5); White Blood Count 11.1 K/mm3 (4.5-10.0)
[2020-07-05 11:10] LABS: Lymphocytes Absolute Manual 0.33 K/mm3 (1.1-4.5); Monocytes Absolute Manual 0.33 K/mm3 (0.1-0.90); Monocytes Percent Manual 3 % (3-9); Neutrophils Percent Manual 94 % (46-73); Total Cells Counted 100
[2020-07-05 11:11] LABS: Hypochromasia 1+ (NORMAL); Ovalocytes 2+ (NORMAL); Platelet Estimate Adequate (Adequate)
[2020-07-05 11:17] LABS: Alanine Aminotransferase 16 U/L (4-50); Albumin Level 4.2 g/dL (3.5-5.1); Alkaline Phosphatase 92 U/L (38-126); Anion Gap 19 mmol/L (8-16); Aspartate Amino Transferase 23 U/L (17-59); Bilirubin,Total 0.4 mg/dL (0.2-1.3); Calcium 6.1 mg/dL (8.4-10.2); Carbon Dioxide 22 mmol/L (22-30); Chloride 94 mmol/L (98-107); Estimated CRCL calculation 8 ml/min; Estimated Glomerular Filt Rate 7; Glucose 410 mg/dL (75-110); Potassium 5.1 mmol/L (3.4-5.0); Sodium 135 mmol/L (137-145)
[2020-07-05 11:18] LABS: Lactic Acid Reflex 0.6 mmol/L (0.7-2.1)
[2020-07-05 11:31] LABS: Blood Urea Nitrogen 147 mg/dL (9-20)
[2020-07-05] MEDS: dilTIAZem HCl INJ 25 MG/5 ML VIAL 10 MG IV PUSH (11:57)
[2020-07-05 12:15] LABS: Add Urine Microscopic? YES; Appearance Urine Clear (Clear); Bilirubin Urine Negative (Negative); Blood Urine Negative (Negative); Color Urine Straw (Yellow); Glucose Urine UA 3+ mg/dL (Negative); Ketones Urine Negative (Negative); Leukocyte Esterase Ur Negative LEU/UL (Negative); Mucus Urine Rare /lpf; Nitrate Urine Negative (Negative); Protein Urine 3+ mg/dL (Negative); RBC Urine 0-2 /hpf (0-2); Specific Grav Ur 1.012 (1.001-1.035); Squamous Epithelial Cell Urine Rare /hpf (Few); Urobilinogen Urine Negative mg/dL (<2.0); WBC Urine 0-3 /hpf
--- NOTE | 2020-07-05 12:25 | ED.GENADULT ---
HPI - General Adult General Chief complaint: Recheck/Abnormal Lab/Rx Stated complaint: low bp per dialysis Time Seen by Provider: 07/05/20 10:07 Source: patient and family Mode of arrival: EMS Limitations: no limitations History of Present Illness HPI narrative: 69-year-old with a history of CKD on PD was sent from dialysis center with complaints of low blood pressure, lightheadedness since this morning. Patient states for the past few days has not been feeling well. No history of nausea, vomiting or abdominal pain he denies any fever or chills. Patient reports that they were at the dialysis center for training for home PD. According to his his systolic blood pressure was in 60s, he presently denies any other complaints. Onset (ago): day(s) Associated symptoms: denies other symptoms Related Data Home Medications Medication Instructions Recorded Confirmed Lantus U-100 Insulin 30 unit SUBCUT HS 04/26/20 04/26/20 amlodipine 10 mg PO DAILY 04/26/20 04/26/20 hydralazine 50 mg PO TID 04/26/20 04/26/20 hydrocodone-acetaminophen 1 tablet PO TID PRN 04/26/20 04/26/20 pravastatin 20 mg PO DAILY 04/26/20 04/26/20 Allergies Allergy/AdvReac Type Severity Reaction Status Date / Time No Known Allergies Allergy Unknown Verified 07/05/20 10:19 Review of Systems Review of Systems: All systems reviewed & are unremarkable except as noted in HPI and below Constitutional: Constitutional: Reports no additional constitutional complaints Eyes: Eyes: Reports no additional eye complaints ENT: Reports system reviewed and no additional complaints, except as documented Cardiovascular: Cardiovascular: Reports no additional cardiovascular complaints Respiratory: Respiratory: Reports no additional respiratory complaints Gastrointestinal: Gastrointestinal: Reports no additional gastrointestinal complaints Musculoskeletal: Musculoskeletal: Reports no additional musculoskeletal complaints PMFSH Past Medical History Medical History Chronic kidney disease, stage 4 (severe) Has previously been followed by Dr. Federico Venegas. Creatinine in 2019 was around 4.0 with a GFR 14%. Erythropoietin deficiency anemia Hyperlipidemia Hypertension Insulin dependent type 2 diabetes mellitus Osteoarthritis Surgical History Surgical History History of cardiac radiofrequency ablation History of right knee surgery Family History Family History Father Family history of diabetes mellitus in first degree relative Mother Family history of primary malignant neoplasm of liver Social History Social History Social History: Surrogate decision maker: Kim Adams, spouse. Code status: Full code. Smoking packs per day: 0.5 Smoking cigarettes per day: 10.0 Years smoked: 50 Smoking pack-years: 25.00 Smoking status: Former smoker Tobacco type: cigarettes Second hand tobacco smoke exposure: Yes Alcohol intake: never Substance use: never Substance use type: does not use Additional living arrangements comments: Lives in [place] with his . Additional occupation/education comments: Retired. Gender identity (if verbalized by the patient): Male Spiritual care concerns: No Exam Narrative: Exam Narrative: GENERAL: ill-appearing, well-nourished, and in no acute distress. HEAD: Normocephalic, atraumatic. EYES: PERRLA and EOMI. NECK: Supple. CHEST: Clear to auscultation. No respiratory distress. HEART: Tachycardic and irregularly irregular. ABDOMEN: Soft, nontender, nondistended, normal active bowel sounds.Has a PD cath EXTREMITIES: Normal range of motion. No edema. SKIN: Warm, dry, no rash. NEURO: No focal deficits. Alert and oriented x3. PSYCH: Normal mood and affect. Course Course Emergency
--- NOTE | 2020-07-05 13:45 | ADMGEN ---
This patient, Cristi Adams, was admitted [facility] VIA STRETCHER FROM ER AN IMU OF. Patient/family oriented to hospital policies and general routines including ID bracelet, bed and alarms, visiting hours, pain management, procedures, bathroom and other care routines, personal items, smoking policy, room service/diet, and visiting hours. CARDIZEM GTT RUNNING AT 10MG/HR (10ML/HR) VIA PUMP ON ARRIVAL. MONITOR AFIB. BP STABLE. DENIES CP, SOB, DIZZINESS OR NAUSEA ON ARRIVAL. WILL CONTINUE TO MONITOR. Information on how to activate the Rapid Response Team has been discussed. Patient/Family are encouraged to report perceived risks to care and to ask questions if they do not understand what they are told or what they should do.
--- NOTE | 2020-07-05 16:00 | PC.NURSE ---
DR. ANAYA HERE TO SEE PT. CONDITION UPDATE GIVEN. ORDERS RECEIVED TO CONSULT CARDIOLGY, HEART CARE GROUP, AND DO ACCUCHECKS AC/HS.
--- NOTE | 2020-07-05 16:03 | PC.NURSE ---
GAYLE BARKSDALE FERRYBOAT OPERATOR NOTIFIED OF CARDIOLOGY CONSULT AND THAT PT.CURRENTLY ON CARDIZEM GTT AT 10MG/HR.
[2020-07-05 16:19] LABS: Troponin I 0.226 ng/mL (0.000-0.034)
[2020-07-05 16:20] LABS: Glucose Point of Care 410 (65-105)
--- NOTE | 2020-07-05 16:30 | PM.IMHP ---
H&P: HPI History of Present Illness Date/Time: 07/05/20 16:30 Chief Complaint: hypotension Narrative: Cristi Adams is a 69 year old male with end-stage renal disease patient had decided to do the peritoneal dialysis and he was getting training at the dialysis center became hypotensive and was sent to emergency department for further evaluation, patient is a very poor historian he only response in few words, patient stated he did not have any complaint of chest pain, dizziness or palpitation, upon arrival to emergency depart patient was in AFib with RVR, does have history of atrial fibrillation and had abalation 20 years ago, in the emergency depart patient was placed on diltiazem drip and his rate is now trending down, he was here in April and had a cardiac echo showed patient has ejection fraction 35-40%, will consult residential treatment counselor for further recommendation, patient is scheduled to have peritoneal dialysis tonight and will be seen by e business consultant will continue to monitor the patient Review of Systems Review of Systems: All systems reviewed & are unremarkable except as noted in HPI and below PMFSH Past Medical History Medical History Chronic kidney disease, stage 4 (severe) Has previously been followed by Dr. Federico Venegas. Creatinine in 2019 was around 4.0 with a GFR 14%. Erythropoietin deficiency anemia Hyperlipidemia Hypertension Insulin dependent type 2 diabetes mellitus Osteoarthritis Surgical History Surgical History History of cardiac radiofrequency ablation History of right knee surgery Family History Family History Father Family history of diabetes mellitus in first degree relative Mother Family history of primary malignant neoplasm of liver Social History Social History Social History: Surrogate decision maker: Kim Adams, spouse. Code status: Full code. Smoking packs per day: 0.5 Smoking cigarettes per day: 10.0 Years smoked: 50 Smoking pack-years: 25.00 Smoking status: Former smoker Tobacco type: cigarettes Second hand tobacco smoke exposure: Yes Alcohol intake: never Substance use: never Substance use type: does not use Additional living arrangements comments: Lives in [place] with his . Additional occupation/education comments: Retired. Gender identity (if verbalized by the patient): Male Spiritual care concerns: No Meds Home Medications and Allergies Home Medications Medication Instructions Recorded Confirmed Type Lantus U-100 Insulin 30 unit SUBCUT HS 04/26/20 07/05/20 History amlodipine 10 mg PO DAILY 04/26/20 07/05/20 History hydralazine 50 mg PO TID 04/26/20 07/05/20 History hydrocodone-acetaminophen 1 tablet PO TID PRN 04/26/20 07/05/20 History pravastatin 20 mg PO DAILY 04/26/20 07/05/20 History calcium acetate(phosphat bind) 667 mg PO TIDWM #60 tablet 04/28/20 07/05/20 Rx epoetin sophy-epbx [Retacrit] 10,000 unit SUBCUT MoWeFr@0900 30 04/28/20 07/05/20 Rx Days #13 ml furosemide 40 mg PO BID #20 tablet 04/28/20 07/05/20 Rx sodium bicarbonate 1,300 mg PO TID #60 tablet 04/28/20 07/05/20 Rx Allergies Allergy/AdvReac Type Severity Reaction Status Date / Time No Known Allergies Allergy Unknown Verified 07/05/20 15:12 Vital Signs Vital Signs - 24 hr 07/05/20 10:11 07/05/20 10:16 07/05/20 10:17 Temperature 97 F L Pulse Rate 137 H 135 H 138 H Respiratory Rate 14 13 16 Blood Pressure 122/90 122/90 Pulse Oximetry 97 97 97 07/05/20 10:29 07/05/20 10:30 07/05/20 10:31 Temperature Pulse Rate 76 75 76 Respiratory Rate 12 10 L 13 Blood Pressure 154/67 H 149/67 H Pulse Oximetry 97 07/05/20 10:45 07/05/20 10:46 07/05/20 11:00 Temperature Pulse Rate 77 79 78 Respiratory Rate 20 17 12 Blood P
[2020-07-05 17:02] LABS: Troponin I 0.118 ng/mL (0.000-0.034)
[2020-07-05] MEDS: INSULIN ASPART (*BKC) 100 UNITS/ML 6 UNITS SUB-Q (17:20)
[2020-07-05] MEDS: INSULIN GLARGINE (*BKC) 100 UNITS/ML 20 UNITS SUB-Q (17:21)
[2020-07-05] MEDS: ONDANSETRON INJ 4 MG/2 ML VIAL IV PUSH (17:36)
--- NOTE | 2020-07-05 17:36 | PC.NURSE ---
PT. WITH EMESIS AND NAUSEA AFTER EATING DINNER. ZOFRAN 4MG GIVEN IVP.
--- NOTE | 2020-07-05 18:30 | PC.NURSE ---
CHANGE MANAGEMENT SPECIALIST, YADY RN, HERE FROM [facility] TO SET PT. UP ON PERITONEAL DIALYSIS.
[2020-07-05] MEDS: HEPARIN SODIUM 5,000 UNITS/ML VIAL 5000 UNITS SUB-Q (19:42)
[2020-07-05] MEDS: FUROSEMIDE 40 MG TABLET PO (19:43)
[2020-07-05] MEDS: hydrALAZINE HCL 50 MG TABLET PO (19:43)
[2020-07-05] MEDS: SODIUM BICARBONATE TAB 650 MG TABLET 1300 MG PO (19:43)
[2020-07-05] MEDS: CALCIUM ACETATE 667 MG TABLET PO (19:43)
[2020-07-05 20:19] LABS: Troponin I 0.362 ng/mL (0.000-0.034)
[2020-07-05 20:57] LABS: Glucose Point of Care 290 (65-105)
[2020-07-06] VITALS (16 sets, daily range): BP systolic 95–142; BP diastolic 53–75; PULSE 69–94; RESP 11–18; TEMP 36.1–36.7; O2SAT 99
[2020-07-06] MEDS: HEPARIN SODIUM 5,000 UNITS/ML VIAL 5000 UNITS SUB-Q ×3 (02:20→17:22)
[2020-07-06 05:42] LABS: Hematocrit 23.5 % (42.0-52.0); Hemoglobin 7.7 g/dL (14.0-18.0); Mean Corpuscular HGB Conc 32.8 g/dl (32-36); Mean Corpuscular Hemoglobin 28.5 pg (26-34); Mean Platelet Volume 11.7 fl (7.4-10.4); Platelet Count Result 215 k/mm3 (150-375); White Blood Count 6.5 K/mm3 (4.5-10.0)
[2020-07-06 06:07] LABS: Anion Gap 18 mmol/L (8-16); Calcium 6.3 mg/dL (8.4-10.2); Carbon Dioxide 23 mmol/L (22-30); Chloride 94 mmol/L (98-107); Estimated CRCL calculation 8 ml/min; Estimated Glomerular Filt Rate 7; Glucose 298 mg/dL (75-110); Magnesium 2.8 mg/dL (1.6-2.3); Potassium 4.3 mmol/L (3.4-5.0); Sodium 135 mmol/L (137-145)
[2020-07-06 06:40] LABS: Blood Urea Nitrogen 135 mg/dL (9-20)
[2020-07-06 07:25] LABS: Glucose Point of Care 282 (65-105)
[2020-07-06] MEDS: INSULIN ASPART (*BKC) 100 UNITS/ML SUB-Q ×3 (08:00→17:24)
[2020-07-06] MEDS: FUROSEMIDE 40 MG TABLET PO ×2 (08:01→17:18)
[2020-07-06] MEDS: SODIUM BICARBONATE TAB 650 MG TABLET 1300 MG PO ×3 (08:01→17:17)
[2020-07-06] MEDS: amLODIPine BESYLATE 5 MG TABLET 10 MG PO (08:01)
[2020-07-06] MEDS: CALCIUM ACETATE 667 MG TABLET PO ×3 (08:01→17:18)
[2020-07-06] MEDS: hydrALAZINE HCL 50 MG TABLET PO ×3 (08:02→17:17)
[2020-07-06] MEDS: PRAVASTATIN SODIUM 20 MG TABLET PO (08:02)
--- NOTE | 2020-07-06 09:00 | PM.CNCAR ---
Assessment and Plan Additional Plan 69-year-old man with background of hypertension diabetes and end-stage renal disease and a known history of paroxysmal atrial fibrillation presents with hypotension and noted to be in AFib with RVR. He is otherwise not greatly symptomatic with his atrial fib in history that I am obtaining today sounds like he probably has P AFib as an outpatient based on his symptoms. At this point I would recommend anticoagulation and rate control strategy. I am going to stop his diltiazem am and amlodipine and start metoprolol orally to see how he response hemodynamically and with rate control. According to the records he had a recent echocardiogram that shows his ejection fraction to be around 40% making long-term diltiazem treatment probably not the ideal agent for rate control. Depending on how he response to the beta-gucci he can be discharged for follow-up in the office. I told the patient that most likely he will be in the hospital until at least tomorrow to assess his hemodynamics/rate control response to metoprolol Michelet Bills MD [facility] History of Present Illness History of Present Illness Consult date/time: 07/06/20 09:00 Consult reason: atrial fibrillation Reason For Visit: Atrial Fibrillation w/RVR, CKD Narrative: This is a 69-year-old patient with the history of atrial fibrillation am seeing at the request of the hospitalist for assistance with evaluation and management of his arrhythmia. The patient is unknown to me prior to this consultation. According to the records and had the patient he has a history of atrial fibrillation which was treated by Cardiology/left electrophysiology at [facility] many years ago. He states that he underwent medical treatment followed by an ablation procedure which was successful and he followed with those physicians for a while and apparently it was deemed to be successful and ongoing longitudinal follow-up after that did not occur. He does not describe any other cardiac problems or have any knowledge of any other cardiac issues that he is aware of. No other cardiac problems are mentioned in the chart. He has hypertension and diabetes and developed end-stage renal disease within the last 1-2 years. He follows with Dr. Venegas for his renal failure and states that he was recently started on dialysis. He was at a dialysis center yesterday for a teaching session regarding peritoneal dialysis and was noted to be hypotensive and was sent to the emergency room. The patient was not specifically aware of palpitations at that time but in the emergency room he was found to be in atrial fib with rapid ventricular response. He was placed on intravenous diltiazem and [facility] as an [facility] overflow patient. He is essentially asymptomatic at this time and offers no complaints IV diltiazem still running. He states that he does occasionally have the sense of palpitations or irregularity of his heart that is occurs intermittently for quite a long time as an outpatient he really has not mentioned this to his physicians or had any further specific evaluation of these symptoms. He denies any symptoms of chest pain pressure or heaviness he has not been having any orthopnea PND or accumulating lower extremity edema he has never had a syncopal episode. Looking at his chart he is receiving intravenous diltiazem as I mentioned above at home he has been receiving amlodipine and hydralazine as part of his hypertension management the amlodipine has not been discontinued. Review of Systems Constitutional: Constitutional: Reports no additional constitutional complaints and Reports fatigue Eyes: Eyes: Reports no additional eye complaints ENT: Reports system reviewed and no additional complaints, except as documented Cardiovascular: Cardiovascular: Reports palpitations Respiratory: Respiratory: Reports no additional respiratory complaints Gastrointestinal: Gastroi
[2020-07-06] MEDS: METOPROLOL TARTRATE 50 MG TAB PO ×2 (10:06→20:46)
--- NOTE | 2020-07-06 11:58 | PM.CNNEP ---
Assessment and Plan Assessment and plan (1) End stage renal disease: Code(s): N18.6 - End stage renal disease Status: Chronic Assessment and Plan: continue low dose peritoneal dialysis while hospitalized follow electrolytes, volume status, and clearance will resume training for CCPD on dishcharge (2) Atrial fibrillation with rapid ventricular response: Code(s): I48.91 - Unspecified atrial fibrillation Status: Acute Assessment and Plan: continue rate control strategy wean off IV diltiazem transition to oral medications anticoagulation Cardiology following (3) Anemia: Code(s): D64.9 - Anemia, unspecified Status: Acute Assessment and Plan: most likely due to ESRD started on Epogen as an outpatient follow trend of H/H (4) Essential (primary) hypertension: Code(s): I10 - Essential (primary) hypertension Status: Acute Assessment and Plan: reasonable control follow trend with addition of rate-controlling agents (5) Diabetes: Code(s): E11.9 - Type 2 diabetes mellitus without complications Status: Acute Assessment and Plan: follow accuchecks glycemic control Will continue to follow. History of Present Illness Reason for Consult Consult date: 07/06/20 Reason for consult: end stage renal disease Chief Complaint Chief complaint: Atrial Fibrillation w/RVR, CKD History of Present Illness Narrative: Most of the information I have obtained is from review of the electronic medical record and discussion with the physicians/ nurses involved in his care as the patient is not very forthcoming with information regarding his history and the events that led to his presentation to [facility]. The patient is a 69 year old male With a past medical history as outlined below who presented to [facility] ER due to low blood pressure. The patient was at a training session with his peritoneal dialysis nurse at [facility] for ongoing instruction regarding his peritoneal dialysis for treatment of his end-stage renal disease. He recently had a peritoneal dialysis catheter placed for his long-term dialysis needs an and after adequate healing time, was being trained on the mechanics and strategy for his ongoing need for home peritoneal dialysis. During this training session, he became quite hypotensive and unresponsive to conservative therapy. Given the severity of the hypotension, he was transferred to [facility] Emergency room for further evaluation. Workup and evaluation in the emergency room demonstrated the patient to be relative highly hypotensive with BP readings in the 100 systolic however he was quite tachycardic. Subsequent testing demonstrated the patient was actually in atrial fibrillation with rapid ventricular response. Routine blood tests were consistent with his known history of end-stage renal disease and given his hemodynamic instability at his dialysis center ) he was reportedly in the 60 systolic), the patient was started on IV diltiazem with some improvement in his rate and he was subsequent admitted to the hospital for further evaluation and therapy as well as Cardiology consultation. Since his admission, he has been seen by Cardiology and has been instituted on rate control medications with the eventual plan to wean him off the IV diltiazem. It should be noted that he did not have any other real symptoms other than some lightheadedness with regard to chest pain, shortness of breath, dizzy days, lightheadedness, or palpitations. Renal consultation was requested due to his end-stage renal disease. The patient normally follows with Dr. Federico Venegas with regard to his end-stage renal disease and only recently in the last few weeks has he been initiated on peritoneal dialysis therapy. As already mentioned above, he was at a training session with his peritoneal dialysis
[2020-07-06 12:20] LABS: Glucose Point of Care 263 (65-105)
--- NOTE | 2020-07-06 15:06 | PM.IMPN ---
Progress Note: A&P Assessment and Plan (1) Atrial fibrillation with rapid ventricular response: Code(s): I48.91 - Unspecified atrial fibrillation Status: Acute Assessment and Plan: 07/06/20 15:06 Cristi Adams is a 69 year old male with end-stage renal disease patient had decided to do the peritoneal dialysis and he was getting training at the dialysis center became hypotensive and was sent to emergency department for further evaluation, patient is a very poor historian he only response in few words, patient stated he did not have any complaint of chest pain, dizziness or palpitation, upon arrival to emergency depart patient was in AFib with RVR, does have history of atrial fibrillation and had abalation 20 years ago, in the emergency depart patient was placed on diltiazem drip and his rate is now trending down, he was here in April and had a cardiac echo showed patient has ejection fraction 35-40%, will consult cone winder for further recommendation, patient is scheduled to have peritoneal dialysis tonight and will be seen by vehicle insurance agent will continue to monitor the patient Today patient was seen by cone winder Started the patient on metoprolol for rate control and will wean patient off diltiazem drip will monitor rate, will switch over to to Eliquis for anticoagulation, will monitor patient overnight and if remains clinically stable heart rate is trending down may discharge the patient home tomorrow, patient will be seen by Nephrology and may have have peritoneal dialysis. Patient states is feeling much better denies any chest pain shortness of breath palpitation fever or chills. (2) Acute kidney injury superimposed on chronic kidney disease: Code(s): N17.9 - Acute kidney failure, unspecified; N18.9 - Chronic kidney disease, unspecified Status: Acute Assessment and Plan: Patient will have return dialysis tonight be seen by vehicle insurance agent and further recommendation to follow (3) Essential (primary) hypertension: Code(s): I10 - Essential (primary) hypertension Status: Acute Assessment and Plan: Will continue home regimen and monitor (4) Diabetes: Code(s): E11.9 - Type 2 diabetes mellitus without complications Status: Acute Assessment and Plan: Will continue home regimen and monitor Subjective Date/time seen: 07/06/20 15:06 Cristi Adams is a 69 year old male with end-stage renal disease patient had decided to do the peritoneal dialysis and he was getting training at the dialysis center became hypotensive and was sent to emergency department for further evaluation, patient is a very poor historian he only response in few words, patient stated he did not have any complaint of chest pain, dizziness or palpitation, upon arrival to emergency depart patient was in AFib with RVR, does have history of atrial fibrillation and had abalation 20 years ago, in the emergency depart patient was placed on diltiazem drip and his rate is now trending down, he was here in April and had a cardiac echo showed patient has ejection fraction 35-40%, will consult cone winder for further recommendation, patient is scheduled to have peritoneal dialysis tonight and will be seen by vehicle insurance agent will continue to monitor the patient Today patient was seen by cone winder Started the patient on metoprolol for rate control and will wean patient off diltiazem drip will monitor rate, will switch over to to Eliquis for anticoagulation, will monitor patient overnight and if remains clinically stable heart rate is trending down may discharge the patient home tomorrow, patient will be seen by Nephrology and may have have peritoneal dialysis. Patient states is feeling much better denies any chest pain shortness of breath palpitation fever or chills. Review of Systems Review of Systems: All systems reviewed & are unremarkable except as noted in HPI and below Exam Narrative: Exam Narrative: Ap
[2020-07-06 17:31] LABS: Glucose Point of Care 204 (65-105)
[2020-07-06 17:31] LABS: Alanine Aminotransferase 13 U/L (4-50); Albumin Level 3.6 g/dL (3.5-5.1); Alkaline Phosphatase 61 U/L (38-126); Anion Gap 18 mmol/L (8-16); Aspartate Amino Transferase 16 U/L (17-59); Bilirubin,Total 0.3 mg/dL (0.2-1.3); Carbon Dioxide 23 mmol/L (22-30); Chloride 92 mmol/L (98-107); Estimated CRCL calculation 8 ml/min; Estimated Glomerular Filt Rate 7; Glucose 243 mg/dL (75-110); Potassium 4.3 mmol/L (3.4-5.0); Sodium 133 mmol/L (137-145)
[2020-07-06 17:53] LABS: Blood Urea Nitrogen 138 mg/dL (9-20)
[2020-07-06 20:49] LABS: Glucose Point of Care 320 (65-105)
[2020-07-07] VITALS (7 sets, daily range): BP systolic 126–134; BP diastolic 66–69; PULSE 55–58; RESP 12–16; TEMP 36.9–37.3; O2SAT 99
[2020-07-07] MEDS: HEPARIN SODIUM 5,000 UNITS/ML VIAL 5000 UNITS SUB-Q (01:32)
--- NOTE | 2020-07-07 01:50 | PC.NURSE ---
Mo from [facility] paged regarding low flow alarm. Directions received from Mo regarding restart of dialysis. Dialysis restarted at this time with no alarms. Will continue to monitor patient and dialysis and contact Mo as needed.
[2020-07-07 06:02] LABS: Hematocrit 22.6 % (42.0-52.0); Hemoglobin 7.4 g/dL (14.0-18.0); Mean Corpuscular HGB Conc 32.7 g/dl (32-36); Mean Corpuscular Hemoglobin 28.9 pg (26-34); Mean Corpuscular Volume 88.3 fl (80-100); Mean Platelet Volume 12.1 fl (7.4-10.4); Platelet Count Result 206 k/mm3 (150-375); Red Blood Count 2.56 M/mm3 (4.6-6.20); Red Cell Distribution Width 15.3 % (11.5-14.5); White Blood Count 5.9 K/mm3 (4.5-10.0)
[2020-07-07 07:22] LABS: Glucose Point of Care 259 (65-105)
[2020-07-07] MEDS: INSULIN ASPART (*BKC) 100 UNITS/ML SUB-Q ×2 (07:34→11:39)
[2020-07-07] MEDS: FUROSEMIDE 40 MG TABLET PO (09:33)
[2020-07-07] MEDS: SODIUM BICARBONATE TAB 650 MG TABLET 1300 MG PO ×2 (09:33→11:39)
[2020-07-07] MEDS: CALCIUM ACETATE 667 MG TABLET PO ×2 (09:33→11:39)
[2020-07-07] MEDS: METOPROLOL TARTRATE 50 MG TAB PO (09:34)
[2020-07-07] MEDS: PRAVASTATIN SODIUM 20 MG TABLET PO (09:34)
--- NOTE | 2020-07-07 09:36 | ECG_ITS ---
Measurements Intervals [place] Rate: 54 P: 51 [place]: 218 QRS: 13 QRSD: 101 T: 192 QT: 491 QTc: 467 Interpretive Statements SINUS BRADYCARDIA WITH FIRST DEGREE AV BLOCK POSSIBLE LEFT ATRIAL ENLARGEMENT LEFT VENTRICULAR HYPERTROPHY AND ST-T CHANGE ST-T WAVE ABNORMALITY IN ANTEROLAT/HIGH LAT LEADS- CONSIDER ISCHEMIA ABNORMAL ECG Electronically Signed On 07-07-2020 11:02:52 TAKE DOWN [employer]ORTER by Corby Walters D.O.
--- NOTE | 2020-07-07 09:49 | PM.PNCARD ---
Progress Note: A&P Assessment and Plan (1) Atrial fibrillation with rapid ventricular response: Code(s): I48.91 - Unspecified atrial fibrillation Status: Acute Assessment and Plan: Converted to normal sinus rhythm/sinus bradycardia at 10:21 p.m. on 07/06/2020. Maintaining sinus bradycardia of through the night. Had some hypotension yesterday afternoon after receiving his hydralazine. Discontinue hydralazine. Continue Metoprolol 50 mg q.12 hours. Anticoagulate with apixaban at 2.5 mg every 12 hours. First dose before discharge. Additional Plan OK to discharge from cardiac standpoint See discharge instructions for follow-up Plan discussed with Dr Ellen Limon0 07/07/2020 Subjective Date/time seen: 07/07/20 09:49 Interval history: Follow-up for: Atrial fibrillation with rapid ventricular response, hypotension Date of service: 07/07/2020 Subjective:. Denied chest discomfort, shortness of breath, lightheadedness or palpitations. Able to tell that he is in sinus rhythm. Review of Systems Constitutional: Constitutional: Denies fatigue Eyes: Eyes: Denies blurry vision ENT: Reports Normal hearing present and Denies dizziness Cardiovascular: Cardiovascular: Denies chest pain and Denies palpitations Respiratory: Respiratory: Denies cough and Denies dyspnea on exertion Gastrointestinal: Gastrointestinal: Denies abdominal pain, Denies nausea and Denies vomiting Musculoskeletal: Musculoskeletal: Denies back pain and Denies myalgias Neurologic: Reports Normal hearing present and Denies abnormal gait Psychiatric: Psychiatric: Denies depression Endocrine: Endocrine: Denies fatigue and Denies palpitations Hematologic/Lymphatic: Hematologic/Lymphatic: Denies easy bleeding and Denies easy bruising Allergic/Immunologic: Allergic/Immunologic: Denies lip swelling and Denies throat swelling Exam Const: General: comfortable and no acute distress Other: Pleasant, cooperative somewhat flat affect. No distress. Denied any discomfort HENMT: Mouth: Yes moist mucous membranes Eyes: Sclera: sclerae normal Pupils: Equal, round and reactive pupils present Neck: Neck: supple and no JVD Resp: Effort & Inspection: normal respiratory effort Auscultation: clear to auscultation bilaterally Cardio: Jugular venous distension: no JVD Rhythm: regular rhythm Peripheral pulses: Peripheral pulses 2+ throughout Other: Very soft systolic murmur which does not appear to radiate from the left sternal border GI: Auscultation: normal bowel sounds Skin: General skin exam: normal color Neuro: Cranial nerves: Yes Equal, round and reactive pupils present Cognition (Neuro): normal cognition Extrem: General: normal to inspection Psych: Appearance: grossly normal Mental Status: mental status grossly normal Speech and movement: Normal speech and movement present Affect: normal affect Attitude: cooperative Objective Data Vital Signs Vital Signs: Vital Signs - 24 hr 07/06/20 10:00 07/06/20 10:06 07/06/20 12:00 Temperature Pulse Rate 78 77 77 Respiratory Rate 13 Blood Pressure 138/72 Pulse Oximetry 99 07/06/20 13:52 07/06/20 16:00 07/06/20 17:48 Temperature Pulse Rate 69 74 75 Respiratory Rate 18 Blood Pressure 95/65 L Pulse Oximetry 99 07/06/20 20:00 07/06/20 20:46 07/06/20 22:00 Temperature 36.7 C Pulse Rate 90 87 81 Respiratory Rate 18 Blood Pressure 111/67 Pulse Oximetry 99 07/07/20 00:00 07/07/20 02:00 07/07/20 04:00 Temperature 37.3 C 36.9 C Pulse Rate 55 L 58 L 57 L Respiratory Rate 16 16 Blood Pressure 126/66 134/68 Pulse Oximetry 99 99 07/07/20 06:00 07/07/20 09:34 Temperature Pulse Rate 55 L 55 L Respiratory Rate Blood Pressure Pulse Oximetry Intake/Output Intake/Output: Intake & Output 07/04/20 07/05/20 07/06/20 07/07/20 23:59 23:59 23:59 23:59 Intake Total 357 1310 Output Total 375 67 Balance -18 1243 Meds/Results
--- NOTE | 2020-07-07 10:50 | PM.DS ---
DS: Admitting Diagnosis Admitting Diagnosis Admitting Diagnosis: hypotension DS: Discharge Diagnosis Discharge Diagnosis (1) Atrial fibrillation with rapid ventricular response: Code(s): I48.91 - Unspecified atrial fibrillation Status: Acute Assessment and Plan: Cristi Adams is a 69 year old male with end-stage renal disease patient had decided to do the peritoneal dialysis and he was getting training at the dialysis center became hypotensive and was sent to emergency department for further evaluation, patient is a very poor historian he only response in few words, patient stated he did not have any complaint of chest pain, dizziness or palpitation, upon arrival to emergency depart patient was in AFib with RVR, does have history of atrial fibrillation and had abalation 20 years ago, in the emergency depart patient was placed on diltiazem drip and his rate is now trending down, he was here in April and had a cardiac echo showed patient has ejection fraction 35-40%, will consult dough machine operator for further recommendation, patient is scheduled to have peritoneal dialysis tonight and will be seen by nursing clinical director will continue to monitor the patient (2) Acute kidney injury superimposed on chronic kidney disease: Code(s): N17.9 - Acute kidney failure, unspecified; N18.9 - Chronic kidney disease, unspecified Status: Acute Assessment and Plan: Patient will have return dialysis tonight be seen by nursing clinical director and further recommendation to follow (3) Essential (primary) hypertension: Code(s): I10 - Essential (primary) hypertension Status: Acute Assessment and Plan: Will continue home regimen and monitor (4) Diabetes: Code(s): E11.9 - Type 2 diabetes mellitus without complications Status: Acute Assessment and Plan: Will continue home regimen and monitor DS: Summary Hospital Course Reason for hospitalization: Chief Complaint: hypotension Narrative: Cristi Adams is a 69 year old male with end-stage renal disease patient had decided to do the peritoneal dialysis and he was getting training at the dialysis center became hypotensive and was sent to emergency department for further evaluation, patient is a very poor historian he only response in few words, patient stated he did not have any complaint of chest pain, dizziness or palpitation, upon arrival to emergency depart patient was in AFib with RVR, does have history of atrial fibrillation and had abalation 20 years ago, in the emergency depart patient was placed on diltiazem drip and his rate is now trending down, he was here in April and had a cardiac echo showed patient has ejection fraction 35-40%, will consult dough machine operator for further recommendation, patient is scheduled to have peritoneal dialysis tonight and will be seen by nursing clinical director will continue to monitor the patient Hospital Course: Patient is 69-year-old male with end-stage renal disease on peritoneal dialysis presented emergency department with a fibrillation with RVR, upon arrival patient was hypotension, he was gently hydrated patient converted back to sinus rhythm clinically stable, will monitor patient overnight patient was seen by Nephrology and Cardiology, clinically stable will discharge the patient today Status at Discharge Functional status at discharge: independent ambulation Overall status at discharge: patient is back to baseline Time Spent with Patient Time attestation: Total time spent providing and/or coordinating discharge services: Patient was seen and examined at the time of the discharge Condition at discharge is stable Code status: Full code. Time spent preparing discharge summary, discharge medications, discussing discharge planning with mattress spring encaser and patient is 35 minutes. Exam Narrative: Exam Narrative: Appears chronically ill older than his age Patient is comfortable, NAD HEENT: eyes are clear and none icteric LUNGS: Bilater
[2020-07-07] MEDS: APIXABAN 2.5 MG TABLET PO (11:37)
[2020-07-07 11:43] LABS: Glucose Point of Care 336 (65-105)
--- NOTE | 2020-07-07 12:01 | P.PNNP_ITS ---
Progress Note: A&P Assessment and Plan (1) End stage renal disease: Code(s): N18.6 - End stage renal disease Status: Chronic Assessment and Plan: * continue low dose peritoneal dialysis while hospitalized * follow electrolytes, volume status, and clearance * will resume training for CCPD on dishcharge (2) Atrial fibrillation with rapid ventricular response: Code(s): I48.91 - Unspecified atrial fibrillation Status: Acute Assessment and Plan: * continue rate control strategy * transition to oral medications (metoprolol) * anticoagulation * Cardiology following (3) Anemia: Code(s): D64.9 - Anemia, unspecified Status: Acute Assessment and Plan: * most likely due to ESRD * started on Epogen as an outpatient * follow trend of H/H (4) Essential (primary) hypertension: Code(s): I10 - Essential (primary) hypertension Status: Acute Assessment and Plan: * reasonable control * follow trend with addition of rate-controlling agents (5) Diabetes: Code(s): E11.9 - Type 2 diabetes mellitus without complications Status: Acute Assessment and Plan: * follow accuchecks * glycemic control Will continue to follow - not opposed to discharge from renal perspective. Subjective Date/time seen: 07/07/20 12:01 Tolerated CCPD overnight without any issues or problems; converted to normal sinus rhythm yesterday evening; no other acute issues or problems to report; no apparent distress at the time of my visit -- noted plans for discharge. Exam Narrative: Exam Narrative: General: WD/WN female in NAD Heart: normal S1 and S2; no rub Lungs: clear to auscultation Abdomen: soft, nontender, nondistended, positive bowel sounds Extremities: no cyanosis or clubbing; no edema Skin: warm and dry Objective Data Vital Signs Vital Signs: Vital Signs Temp Pulse Resp BP Pulse Ox 07/07/20 10:00 57 L 07/07/20 09:34 55 L 07/07/20 08:00 56 L 15 128/69 99 07/07/20 06:00 55 L 07/07/20 04:00 36.9 C 57 L 16 134/68 99 07/07/20 02:00 58 L 07/07/20 00:00 37.3 C 55 L 16 126/66 99 07/06/20 22:00 81 07/06/20 20:46 87 07/06/20 20:00 36.7 C 90 18 111/67 99 07/06/20 17:48 75 07/06/20 16:00 74 18 95/65 L 99 07/06/20 13:52 69 Intake/Output Intake/Output: Intake & Output 07/04/20 07/05/20 07/06/20 07/07/20 23:59 23:59 23:59 23:59 Intake Total 357 1310 240 Output Total 375 67 Balance -18 1243 240 Meds/Results Radiology Results: ITS Impressions Chest X-Ray 07/05/20 11:16 IMPRESSION: No acute cardiopulmonary findings. Labs Labs: Laboratory Tests 07/07/20 05:43 07/06/20 17:02 Microbiology 07/05/20 10:57 Blood Blood Culture - Preliminary 07/05/20 10:52 Blood Blood Culture - Preliminary Quality Patient tolerated peritoneal dialysis overnight without any problems or issues ([id number]).
== END 2020-07-07 12:31 | disposition home or self-care (01) | DRG 308 ==
LOC: ANHED 12:34 → ANHCPC 13:01
PROVIDERS: Admitting Provider Family Medicine; Emergency Provider Family Medicine; PCP Family Medicine; Visit Provider Family Medicine
DX: I48.91 Unspecified atrial fibrillation (principal); N18.6 End stage renal disease; I12.0 Hypertensive chronic kidney disease with stage 5 chronic kidney disease or end stage renal disease; E11.22 Type 2 diabetes mellitus with diabetic chronic kidney disease; D63.1 Anemia in chronic kidney disease; Z99.2 Dependence on renal dialysis; Z28.21 Immunization not carried out because of patient refusal; Z79.4 Long term (current) use of insulin; Z79.899 Other long term (current) drug therapy; Z87.891 Personal history of nicotine dependence
CPT/HCPCS: 36415; 71045; 80048; 80053; 81001; 83605; 83735; 84484; 85025; 85027; 87040; 90945; 93005; 96374; 99285; A9270; J1644; J1815; J2405

== ENCOUNTER 2020-08-05 13:59 | Outpatient (CLI) | payer OTHER, SELFPAY ==
--- NOTE | ~2020-08-05 | US_ITS ---
EXAMINATION: US arterial ankle brachial ind DATE: 08/05/2020 14:42 INDICATION: Peripheral vascular disease and claudication. TECHNIQUE: Segmental pressures and plethysmographic and Doppler waveforms of the brachial and lower e xtremity arteries were obtained. COMPARISON: None. FINDINGS: Right and left brachial artery pressures of 163 mm Hg and 180 mm Hg, respectively, are concordant (no rmal difference <= 30 mmHg). The right ankle-brachial index (KARAN) is unable to be obtained due to inability to occlude the vessels at the right ankle (normal >= 0.9-1.0). The right great toe-brachial index (TBI) is 0.22 (normal >= 0.65). Arterial Doppler waveforms at the right posterior tibial and dorsalis pedis arteries demonstra te broadened systolic peaks with delayed upstrokes. The left KARAN is also unable to be obtained due to inability to occlude the vessels at the left ankle. The left TBI is 0.23. Arterial Doppler waveforms at the left posterior tibial and dorsalis pedis art eries also demonstrate broad systolic peaks with delayed upstrokes. IMPRESSION: 1. Bilateral arterial occlusive disease with at least moderately decreased bilateral TBIs and with br oadened systolic peaks with delayed upstrokes at the bilateral posterior tibial and dorsalis pedis ar teries. Reviewed, dictated and finalized at location B. AR TACKER IMPRESSION: 1. Bilateral arterial occlusive disease with at least moderately decreased bila teral TBIs and with broadened systolic peaks with delayed upstrokes at the bila teral posterior tibial and dorsalis pedis arteries.
== END 2020-08-05 14:00 | disposition home or self-care (01) ==
PROVIDERS: Family Provider Family Medicine; PCP Internal Medicine; Visit Provider Internal Medicine
DX: I73.9 Peripheral vascular disease, unspecified (principal)
CPT/HCPCS: 93922

== ENCOUNTER → 2020-09-21 09:27 | Outpatient (CLI) | payer OTHER, SELFPAY ==
--- NOTE | ~2020-09-21 | XR_ITS ---
EXAMINATION: XR hand LT 2V, XR hand RT 2V DATE: 09/21/2020 10:27 INDICATION: Bilateral hand pain TECHNIQUE: 1. Posteroanterior and lateral views of the left hand were obtained. 2. Posteroanterior and lateral views of the right hand were obtained. COMPARISON: None. FINDINGS: Diffuse osteopenia at the bilateral hands and wrists. Minimal to mild palmar subluxation with mild to moderate osteoarthritis at the bilateral first-fourth metacarpophalangeal joints. Alignment is other bermudez normal. No fracture. Additional mild osteoarthritis at the bilateral distal radioulnar, first ca rpometacarpal and multiple predominantly distal interphalangeal joints. No erosions. Extensive Moncke larios vascular calcifications throughout the arteries at the bilateral hands and wrists. IMPRESSION: 1. Mild to moderate polyarticular osteoarthritis at the bilateral first and fourth metacarpophalangea l joints. Reviewed, dictated and finalized at location B. IMPRESSION: 1. Mild to moderate polyarticular osteoarthritis at the bilateral first and fou rth metacarpophalangeal joints.
--- NOTE | ~2020-09-21 | XR_ITS ---
EXAMINATION: XR lumbar spine min 4V EXAM DATE: 09/21/2020 10:27 INDICATION: Lumbago . Low back pain for years. TECHNIQUE: Lumbar spine frontal, lateral, lateral flexion, lateral extension, L5-S1 junction lateral projections. There is no prior study for comparison. FINDINGS: There is mild to moderate disc disease L3-4 and L5-S1, mild at the other lumbar levels. Th ere is 2 mm retrolisthesis L1 on L2 and L3 on L4 on the lateral projections. There is moderate lower lumbar facet arthropathy. Vertebral body heights relatively well-maintained. Rather extensive aortoil iac arterial sclerosis. There is a peritoneal dialysis catheter. Sacrum, sacroiliac joints, sacral ar randall lines are intact. IMPRESSION: Moderate lumbar arthropathy, mild to moderate disc disease. Reviewed, dictated and finalized at location A.
== END ==
PROVIDERS: Visit Provider Nurse Practitioner Family
DX: M51.36 Other intervertebral disc degeneration, lumbar region (principal); M19.041 Primary osteoarthritis, right hand; M19.042 Primary osteoarthritis, left hand
CPT/HCPCS: 72110; 73120

== ENCOUNTER → 2021-05-17 08:43 | Outpatient (CLI) | payer OTHER, SELFPAY ==
--- NOTE | ~2021-05-17 | XR_ITS ---
XR chest 2V 05/17/2021 08:54 Indication: Chronic cough Procedure: 2 view chest Comparison: Comparison to multiple prior studies sequentially, with oldest reviewed study dated 04/08. Findings: Bibasilar airspace disease. Heart size upper normal. There is atherosclerosis. Small pleura l effusion. No pneumothorax. No acute osseous abnormality. Impression: 1: Bibasilar airspace disease, suspicious for pneumonia. Reviewed, dictated and finalized at location A. RRING MACHINE OPERATOR Impression: 1: Bibasilar airspace disease, suspicious for pneumonia.
== END ==
PROVIDERS: Visit Provider Internal Medicine Nephrology
DX: R05.3 Chronic cough (principal); R91.8 Other nonspecific abnormal finding of lung field
CPT/HCPCS: 71046

== ENCOUNTER 2021-06-01 16:42 | Inpatient (IN) | payer OTHER, SELFPAY ==
[2021-06-01] VITALS (10 sets, daily range): BP systolic 120–163; BP diastolic 55–74; PULSE 58–66; RESP 17–20; TEMP 36.5–36.6; O2SAT 92–94; BMI 24.5
--- NOTE | ~2021-06-01 | XR_ITS ---
EXAMINATION: XR thoracic spine 3V EXAM DATE: 06/09/2021 14:01 INDICATION: Fall, back pain. TECHNIQUE: Frontal and lateral projections of the thoracic spine as well as lateral swimmers projecti on of the upper thoracic spine for interpretation. There is no prior study for comparison. FINDINGS: Mid and lower thoracic diffuse idiopathic skeletal hyperostosis. No fracture line identifi ed through the osteophytes. The vertebral body heights are maintained. Multifocal left basilar airspa ce disease. IMPRESSION: 1. No acute thoracic fracture identified. 2. Multifocal left basilar airspace disease. Reviewed, dictated and finalized at location B. Y IN WORKER
--- NOTE | ~2021-06-01 | XR_ITS ---
XR chest 1V portable 06/05/2021 09:02 Indication: Shortness of breath Procedure: AP portable chest Comparison: Comparison to multiple prior studies sequentially, with oldest reviewed study dated 06/08. Findings: There are patchy bilateral airspace disease. Small left pleural effusion. No pneumothorax. Cardiomegaly. There is atherosclerosis of the aorta. Impression: 1: Patchy bilateral airspace disease, compatible with pneumonia. 2: Small left pleural effusion. 3: Cardiomegaly. Reviewed, dictated and finalized at location B. M WINDOW INSTALLER Impression: 1: Patchy bilateral airspace disease, compatible with pneumonia. 2: Small left pleural effusion. 3: Cardiomegaly.
--- NOTE | ~2021-06-01 | XR_ITS ---
EXAMINATION: XR abdomen/kub 1V INDICATION: Peritoneal dialysis catheter insertion TECHNIQUE: Supine view of the abdomen is obtained. COMPARISON: None FINDINGS: A peritoneal dialysis catheter coils in the left pelvis. There is mild gaseous distention o f the stomach. An endovascular stent is noted in the right common iliac artery. Calcified atheroscler osis is noted. The bowel gas pattern is normal. IMPRESSION: 1. Peritoneal dialysis catheter coiling in the left pelvis. Reviewed, dictated and finalized at location A. FEEDER
--- NOTE | ~2021-06-01 | XR_ITS ---
EXAMINATION: XR chest 1V portable INDICATION: Shortness of breath TECHNIQUE: Portable AP chest at 1313 hours COMPARISON: 06/01/2021 FINDINGS: Patchy bilateral airspace opacities persist but have improved. Cardiomegaly is noted. There is no pleural effusion or pneumothorax. Calcified atherosclerosis is noted. IMPRESSION: 1. Persistent but improved bilateral airspace opacities, likely resolving pneumonia. Reviewed, dictated and finalized at location A. ETARY BOOK KEEPER IMPRESSION: 1. Persistent but improved bilateral airspace opacities, likely resolving pneum onia.
--- NOTE | ~2021-06-01 | XR_ITS ---
XR chest 2V 06/01/2021 17:11 Indication: Dyspnea for 3 days Procedure: AP portable chest Comparison: Comparison to multiple prior studies sequentially, with oldest reviewed study dated 04/08. Findings: Developing patchy bilateral airspace disease, compatible with pneumonia. Small pleural effu sions. No pneumothorax. No acute osseous abnormality. Impression: 1: Developing patchy bilateral pneumonia. Reviewed, dictated and finalized at location A. OLATE PRODUCTION MACHINE OPERATOR Impression: 1: Developing patchy bilateral pneumonia.
--- NOTE | ~2021-06-01 | XR_ITS ---
EXAMINATION: XR_RIBSBI_CR EXAM DATE: 06/09/2021 14:01 INDICATION: Ribs bilaterally. Fall. TECHNIQUE: Frontal projection of the upper left ribs, frontal projection of the lower left ribs, obli que projection of the left ribs. Frontal projection of the upper right ribs, frontal projection of t he lower right ribs, oblique projection of the right ribs, without chest x-ray(s) for interpretation. Comparison is made to prior examination from 06/07/2021 chest x-ray. FINDINGS: Suspicion of right 6th rib fracture which could be acute identified on the oblique projecti on. Probably probably anterolateral position. Age-indeterminate left 6th rib fracture. Multifocal lef t basilar airspace disease. There is aortic arteriosclerosis. IMPRESSION: 1. Right 6th rib fracture anterolaterally, could be acute. 2. Age-indeterminate left 6th rib fracture. Reviewed, dictated and finalized at location B. CIATE MANAGER
--- NOTE | ~2021-06-01 | CT_ITS ---
EXAMINATION: CT brain wo con EXAM DATE: 06/09/2021 14:06 INDICATION: Fall, on anticoagulation. TECHNIQUE: Spiral CT of the head was performed without contrast. Axial, coronal and sagittal images were reviewed. The dose-length product (DLP) for this examination was 681.00 mGy-cm. The exposure w as tailored according to patient size, and iterative reconstruction (ASIR) was used as additional dos e reduction technique. There is no prior study for comparison. FINDINGS: There is no acute intraparenchymal hemorrhage. No evidence of intraparenchymal brain mass lesion. No evidence of acute infarction. Please note that initial head CT has limited sensitivity f or small or acute infarctions. Punctate old right periventricular infarction. There is mild to mode rate periventricular and subcortical hypodensity, nonspecific but probably related to small vessel is chemic disease. There is mild prominence of the sulci and ventricles related to cerebral atrophy. There is intracranial carotid arteriosclerosis. There are no extra-axial collections. There is no mass effect or midline shift. Patient has had bilateral ocular lens surgery. Soft tissue is unremar kable. The visualized sinuses and mastoid air cells are well aerated. IMPRESSION: 1. No acute intracranial findings. 2. Chronic age related findings. 3. 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 Reviewed, dictated and finalized at location B. OGY TEACHER
--- NOTE | ~2021-06-01 | XR_ITS ---
EXAMINATION: XR chest 1V portable DATE: 06/07/2021 06:21 INDICATION: Shortness of breath TECHNIQUE: frontal view of the chest was obtained. COMPARISON: Chest radiograph dated 06/06/2021 FINDINGS: Opacities in the bilateral lower lung zones. This includes a small left pleural effusion. No pneumoth orax. Cardiomegaly. IMPRESSION: 1. Opacities in the bilateral lower lung zones consistent with small left pleural effusion and bibasi lar atelectasis, pneumonia and/or pulmonary edema. Reviewed, dictated and finalized at location A. BOARD WORKER IMPRESSION: 1. Opacities in the bilateral lower lung zones consistent with small left pleur al effusion and bibasilar atelectasis, pneumonia and/or pulmonary edema.
--- NOTE | ~2021-06-01 | XR_ITS ---
XR chest 2V 06/06/2021 11:26 Indication: Shortness of breath and weakness Procedure: 2 view chest Comparison: Comparison to multiple prior studies sequentially, with oldest reviewed study dated 05/08. Findings: Cardiomegaly. Patchy bilateral airspace disease. Small left pleural effusion. There is athe rosclerosis of the aorta. No acute osseous abnormality. Impression: 1: Patchy bilateral airspace disease, compatible with pneumonia. No significant change. 2: Small left pleural effusion. 3: Cardiomegaly. Reviewed, dictated and finalized at location B. CHUTE RIGGER Impression: 1: Patchy bilateral airspace disease, compatible with pneumonia. No significant change. 2: Small left pleural effusion. 3: Cardiomegaly.
[2021-06-01] MEDS: ALBUTEROL SULFATE NEB 2.5 MG/0.5 ML INH 5 MG INHALATION ×2 (17:09→17:58)
[2021-06-01] MEDS: IPRATROPIUM BR 0.02% INH SOLN 0.5 MG/2.5 ML VIAL INHALATION (17:09)
[2021-06-01] MEDS: FUROSEMIDE INJ 40 MG/4 ML VIAL 80 MG IV PUSH (17:20)
--- NOTE | 2021-06-01 17:22 | ED.SOB ---
HPI - SOB/Dyspnea General Chief Complaint: Shortness of Breath/Dyspnea Stated Complaint: dyspnea Time Seen by Provider: 06/01/21 16:48 Source: patient History of Present Illness HPI Narrative: Patient with a history of COPD, CHF, chronic kidney disease with peritoneal dialysis presents with shortness of breath. Reports he had increasing shortness of breath over the past few days today was more severe so he came to the ER for evaluation. Is not noted any cough fevers or congestion. Denies associated chest pain. Denies any nausea vomiting or diarrhea. Denies any known sick contacts. He reports he has not been doing his dialysis for the past few days due to his shortness of breath he wants to get up and move around Related Data Home Medications Medication Instructions Recorded Confirmed hydrocodone-acetaminophen 1 tablet PO TID PRN 04/26/20 05/25/21 sodium bicarbonate 650 mg tablet 650 mg PO TID tablet 09/12/20 05/25/21 doxycycline monohydrate 100 mg 100 mg PO DAILY 04/12/21 05/25/21 capsule fluconazole 100 mg tablet 100 mg PO DAILY 04/12/21 05/25/21 levofloxacin 250 mg tablet 250 mg PO DAILY 04/12/21 05/25/21 Allergies Allergy/AdvReac Type Severity Reaction Status Date / Time No Known Allergies Allergy Unknown Verified 05/25/21 10:19 Review of Systems Review of Systems: CONSTITUTIONAL: Denies fever, chills, or sweats. EYES: Denies visual changes, redness, or discharge. ENT: Denies rhinorrhea, congestion, sore throat, or otalgia. CARDIOVASCULAR: Denies chest pain, palpitations, or edema. RESPIRATORY: Reports shortness of breath GASTROINTESTINAL: Denies abdominal pain, nausea, vomiting, or diarrhea. GENITOURINARY: Denies dysuria or hematuria. SKIN: Denies rash or itching. MUSCULOSKELETAL: Denies back pain, joint pain, or myalgia. NEUROLOGIC: Denies headache, numbness, dizziness, or weakness. PSYCHIATRIC: Denies anxiety or depression. All systems reviewed & are unremarkable except as noted in HPI and below PMFSH Past Medical History Medical History Chronic kidney disease, stage 4 (severe) Has previously been followed by Dr. Federico Venegas. Creatinine in 2019 was around 4.0 with a GFR 14%. Erythropoietin deficiency anemia Hyperlipidemia Hypertension Insulin dependent type 2 diabetes mellitus Osteoarthritis Surgical History Surgical History History of cardiac radiofrequency ablation History of right knee surgery Family History Family History Father Family history of diabetes mellitus in first degree relative Mother Family history of primary malignant neoplasm of liver Social History Social History Social History: Surrogate decision maker: Kim Adams, spouse. Code status: Full code. Smoking packs per day: 0.5 Smoking cigarettes per day: 10.0 Years smoked: 30 Smoking pack-years: 15.00 Smoking status: Former smoker Tobacco type: cigarettes Second hand tobacco smoke exposure: No Smoking end date: 07/08/15 Alcohol intake: former Substance use: never Substance use type: does not use Additional living arrangements comments: Lives in [place] with his . Additional occupation/education comments: Retired. Gender identity (if verbalized by the patient): Male Spiritual care concerns: No Exam Narrative: GENERAL: Well-appearing, well-nourished, and in moderate acute distress. HEAD: Normocephalic, atraumatic. EYES: PERRLA and EOMI. ENT: Nares clear, no rhinorrhea or epistaxis. Mucous membranes moist. NECK: Supple. No masses. No JVD CHEST: Clear to auscultation. Moderate respiratory distress HEART: Regular rate and rhythm. No murmur heard. Normal peripheral pulses. ABDOMEN: Soft, nontender, nondistended, normal active bowel sounds. EXTREM
[2021-06-01 17:29] LABS: Basophils Absolute Auto 0.1 K/mm3 (0.0-0.1); Basophils Percent Auto 0.8 % (0.2-1.2); Eosinophils Absolute Auto 0.2 K/mm3 (0-0.3); Eosinophils Percent Auto 2.6 % (0-4.4); Hemoglobin 8.3 g/dL (14.0-18.0); Immature Granulocyte Absolute 0.05 K/mm3 (0.00-0.031); Immature Granulocyte Percent A 0.8 % (0-0.5); Lymphocytes Absolute Auto 0.47 K/mm3 (0.9-3.2); Lymphocytes Percent Auto 7.8 % (18.3-44.2); Mean Corpuscular HGB Conc 29.6 g/dl (32-36); Mean Corpuscular Volume 108.1 fl (80-100); Mean Platelet Volume 11.4 fl (7.4-10.4); Monocytes Absolute Auto 0.4 K/mm3 (0.1-0.6); Neutrophils Absolute Auto 4.9 K/mm3 (1.3-6.7); Platelet Count Result 281 k/mm3 (150-375); Red Blood Count 2.59 M/mm3 (4.6-6.20); Red Cell Distribution Width 17.3 % (11.5-14.5)
[2021-06-01 17:42] LABS: Alanine Aminotransferase 12 U/L (4-50); Alkaline Phosphatase 104 U/L (38-126); Anion Gap 21 mmol/L (8-16); Aspartate Amino Transferase 17 U/L (17-59); Bilirubin,Total 0.3 mg/dL (0.2-1.3); Blood Urea Nitrogen 106 mg/dL (9-20); Calcium 5.4 mg/dL (8.4-10.2); Carbon Dioxide 16 mmol/L (22-30); Chloride 108 mmol/L (98-107); Estimated CRCL calculation 6 ml/min; Estimated Glomerular Filt Rate 5; Glucose 238 mg/dL (65-110); Magnesium 2.1 mg/dL (1.6-2.3); Sodium 145 mmol/L (137-145)
--- NOTE | 2021-06-01 17:50 | ECG_ITS ---
Measurements Intervals Roxana Rate: 58 P: 24 NV: 182 QRS: -12 QRSD: 116 T: 168 QT: 545 QTc: 539 Interpretive Statements SINUS BRADYCARDIA INTRAVENTRICULAR CONDUCTION DELAY DELAYED PRECORDIAL R/S TRANSITION LEFT VENTRICULAR HYPERTROPHY AND ST-T CHANGE BORDERLINE ST-T WAVE ABNORMALITY- LATERAL LEADS BASELINE ARTIFACT- I, II, AVR, AVL, AVF, V1, V3-V6 ABNORMAL ECG Electronically Signed On 06-01-2021 22:03:30 [employer] by Corby Walters D.O.
[2021-06-01 17:56] LABS: NT Pro B Type Natriuretic Pept > 35000 pg/mL (5-100)
[2021-06-01] MEDS: INSULIN HUMAN REGULAR (*BKC) 100 UNITS/ML 10 UNITS IV PUSH (18:08)
[2021-06-01] MEDS: DEXTROSE 50% 25 GM/50 ML SYRINGE IV PUSH (18:09)
[2021-06-01] MEDS: CALCIUM GLUC 1,000 MG/NS 50 ML 1,000 MG/50 ML BAG 100 MG IVPB (18:10)
[2021-06-01] MEDS: SODIUM POLYSTYRENE SULFONONATE 15 GM/60 ML BTL 30 GM PO (18:23)
--- NOTE | 2021-06-01 19:52 | PM.IMHP ---
H&P: HPI History of Present Illness Date/Time: 06/01/21 19:52 Chief Complaint: Shortness of breath Narrative: This is a 70-year-old male with past medical history significant for arterial occlusive peripheral disease, status post stent, graft, recently in March of this year at outside facility, end-stage renal disease on peritoneal dialysis, hypertension, type 2 diabetes mellitus. Patient presented to the emergency room due to worsening shortness of breath, cough, sputum production, fevers chills. Preliminary workup was significant for chest x-ray with bilateral diffuse lung infiltrates, brain natriuretic peptide of 35,000, BUN 95 creatinine 9.5. Patient denies any palpitations chest pain, dizziness, lightheadedness, syncope or near-syncope, no nausea, no vomiting, no abdominal pain, no diarrhea. Patient received 1 dose of Rocephin and Zithromax in the emergency room. He has been admitted for further management evaluation and treatment. Review of Systems Review of Systems: Shortness of breath, cough, sputum production, chills, fevers. Constitutional: Constitutional: Reports chills, Reports fever(s) and Reports poor appetite Eyes: Eyes: Denies change in vision ENT: Denies dysphagia, Denies vertigo, Denies dizziness, Denies nasal congestion, Denies nasal discharge, Denies nasal obstruction and Denies odynophagia Cardiovascular: Cardiovascular: Reports pedal edema, Denies edema, Denies claudication, Reports leg edema, Denies lightheadedness, Denies radiating jaw, neck or arm pain, Denies palpitations, Denies dyspnea on exertion and Denies orthopnea Respiratory: Respiratory: Reports change in phlegm color, Reports cough, Reports excessive phlegm production and Reports dyspnea Gastrointestinal: Gastrointestinal: Denies abdominal pain, Denies dyspepsia, Denies heartburn, Denies diarrhea, Denies nausea and Denies vomiting Genitourinary: Genitourinary: Denies dysuria and Denies flank pain Musculoskeletal: Musculoskeletal: Denies arthralgias and Denies joint swelling Integumentary/Breasts: Skin/Breast: Denies rash Neurologic: Denies focal weakness and Denies Sensory deficit (Neuro) Psychiatric: Psychiatric: Reports no additional psychiatric complaints and Reports as per HPI Endocrine: Endocrine: Reports no additional endocrine complaints and Reports as per HPI Hematologic/Lymphatic: Hematologic/Lymphatic: Reports no additional hematologic/lymphatic complaints and Reports as per HPI Allergic/Immunologic: Allergic/Immunologic: Reports no additional allergic/immunologic complaints and Reports as per HPI PMFSH Past Medical History Medical History Chronic kidney disease, stage 4 (severe) Has previously been followed by Dr. Federico Venegas. Creatinine in 2019 was around 4.0 with a GFR 14%. Erythropoietin deficiency anemia Hyperlipidemia Hypertension Insulin dependent type 2 diabetes mellitus Osteoarthritis Surgical History Surgical History History of cardiac radiofrequency ablation History of right knee surgery Family History Family History Father Family history of diabetes mellitus in first degree relative Mother Family history of primary malignant neoplasm of liver Social History Social History Social History: Surrogate decision maker: Kim Adams, spouse. Code status: Full code. Smoking packs per day: 0.5 Smoking cigarettes per day: 10.0 Years smoked: 30 Smoking pack-years: 15.00 Smoking status: Former smoker Tobacco type: cigarettes Alcohol intake: never Substance use: never Substance use type: does not use Additional living arrangements comments: Lives in [place] with his . Additional occupation/education comments: Retired. Gender identity (if verbalized by th
[2021-06-01 20:22] LABS: Anion Gap 18 mmol/L (8-16); Blood Urea Nitrogen 95 mg/dL (9-20); Carbon Dioxide 15 mmol/L (22-30); Chloride 112 mmol/L (98-107); Estimated CRCL calculation 7 ml/min; Estimated Glomerular Filt Rate 6; Glucose 243 mg/dL (65-110); Sodium 145 mmol/L (137-145)
--- NOTE | 2021-06-01 21:55 | PC.NURSE ---
This patient, Cristi Adams, was admitted to IMU Room 231-01 on 06/01/21 at 2004. Patient/family oriented to hospital policies and general routines including ID bracelet, bed and alarms, visiting hours, pain management, procedures, bathroom and other care routines, personal items, smoking policy, room service/diet, and visiting hours. Information on how to activate the Rapid Response Team has been discussed. Patient/Family are encouraged to report perceived risks to care and to ask questions if they do not understand what they are told or what they should do.
[2021-06-02] VITALS (24 sets, daily range): BP systolic 126–185; BP diastolic 66–82; PULSE 42–129; RESP 20–22; TEMP 36.5–36.9; O2SAT 92–100
[2021-06-02] MEDS: ALBUTEROL SULFATE (*SP) INHALER 2 PUFF INHALATION ×4 (02:09→20:34)
[2021-06-02] MEDS: WATER FOR IRRIGATION, STERILE 1,000 ML BOTTLE 1000 ML (02:25)
[2021-06-02 08:28] LABS: Glucose Point of Care 123 mg/dl (65-105)
[2021-06-02] MEDS: OPTI-GEN TAB 1 TABLET PO ×2 (10:41→18:57)
[2021-06-02] MEDS: METOPROLOL TARTRATE 50 MG TAB PO ×2 (10:42→20:25)
[2021-06-02] MEDS: lisinopriL 20 MG TABLET PO ×2 (10:42→18:57)
[2021-06-02] MEDS: CALCIUM ACETATE 667 MG TABLET 1334 MG PO ×3 (10:43→18:56)
[2021-06-02] MEDS: hydrALAZINE HCL 50 MG TABLET PO ×3 (10:43→18:57)
[2021-06-02] MEDS: SODIUM BICARBONATE TAB 650 MG TABLET PO ×3 (10:44→18:57)
[2021-06-02] MEDS: amLODIPine BESYLATE 5 MG TABLET 10 MG PO (10:44)
[2021-06-02] MEDS: FUROSEMIDE 80 MG TABLET 160 MG PO (10:45)
[2021-06-02] MEDS: APIXABAN 2.5 MG TABLET PO (10:45)
[2021-06-02] MEDS: ASPIRIN 81 MG ENTERIC TABLET PO (10:45)
[2021-06-02] MEDS: INSULIN ASPART MIX 70/30 100 UNITS/ML 20 UNITS SUB-Q (11:06)
[2021-06-02 11:52] LABS: Hepatitis B Surface Antigen Negative (Negative)
[2021-06-02 12:07] LABS: Hepatitis B Surface Anti Res Negative
[2021-06-02 12:49] LABS: Glucose Point of Care 204 mg/dl (65-105)
--- NOTE | 2021-06-02 13:26 | PM.CNNEP ---
Assessment and Plan Assessment and plan (1) End stage renal disease: Code(s): N18.6 - End stage renal disease Status: Chronic Assessment and Plan: continue/resume CCPD while hospitalized follow electrolytes, volume status, and clearance (2) Hyperkalemia: Code(s): E87.5 - Hyperkalemia Status: Acute Assessment and Plan: better s/p medical management and CCPD follow repeat levels (3) Pneumonia: Qualifiers: Laterality: unspecified laterality Lung location: unspecified part of lung Pneumonia type: due to unspecified organism Qualified Code(s): J18.9 - Pneumonia, unspecified organism Code(s): J18.9 - Pneumonia, unspecified organism Status: Acute Assessment and Plan: as evidenced by admission CXR follow cultures continue antibiotic therapy (4) Anemia: Code(s): D64.9 - Anemia, unspecified Status: Chronic Assessment and Plan: due to ESRD and exacerbated by acute illness start Epogen 3x/week follow trend of H/H Will continue to follow. History of Present Illness Reason for Consult Consult date: 06/02/21 Reason for consult: end stage renal disease Chief Complaint Chief complaint: Hyperkalemia History of Present Illness Narrative: The patient is a 70-year-old male with a past medical history as outlined below who presented to [facility] Emergency room due to complaints of shortness of breath. The patient states that he has been having problems/issues with shortness of breath for the past several days associated with productive cough as well as fever and chills. Because of the symptoms he states he has been unable to his peritoneal dialysis for the last few days as well. As the symptoms seem to be progressively getting worse he came the emergency room for further evaluation. Workup and evaluation emergency room demonstrated the patient be hemodynamically stable with routine blood test that demonstrated labs consistent with his known history of end-stage renal disease although he was severely hyperkalemia with a potassium of 7.0, a BNP of greater than 35,000, and a chest x-ray that demonstrated bilateral diffuse lung infiltrates. He gave no other symptoms with regard to chest pain dizziness lightheadedness syncope nausea vomiting or diarrhea. It was felt that these findings were consistent with pneumonia with a possible component of fluid overload and so appropriate cultures were obtained and was started on IV antibiotic therapy with subsequent admission to the hospital. He did receive aggressive medical management for his hyperkalemia in the emergency room as well. Renal consultation was requested due to his end-stage renal disease. The patient normally does peritoneal dialysis at home under the care of Dr. Federico Venegas through [facility]. As already mentioned above, due to his symptoms he did not to his peritoneal dialysis for several days which likely explains his high BUN and creatinine as well as his significant Hyperkalemia. His repeat potassium was within normal limits and hopefully with continued renal replacement therapy/ peritoneal dialysis while he is hospitalized, his potassium will continue to stabilize as well as his volume status. Currently, at the time of the visit, he still feels a little bit short of breath but no worse than what he was on presentation to the hospital. Review of Systems Review of Systems: As per HPI. [facility] Past Medical History Medical History Chronic kidney disease, stage 4 (severe) Has previously been followed by Dr. Federico Venegas. Creatinine in 2019 was around 4.0 with a GFR 14%. Erythropoietin deficiency anemia Hyperlipidemia Hypertension Insulin dependent type 2 diabetes mellitus Osteoarthritis Surgical History Surgical History History
--- NOTE | 2021-06-02 15:53 | PM.IMPN ---
Progress Note: A&P Assessment and Plan (1) Pneumonia: Qualifiers: Laterality: unspecified laterality Lung location: unspecified part of lung Pneumonia type: due to unspecified organism Qualified Code(s): J18.9 - Pneumonia, unspecified organism Code(s): J18.9 - Pneumonia, unspecified organism Status: Acute Assessment and Plan: Patient received Rocephin and Zithromax Will discontinue Rocephin start cefepime and vancomycin due to patient's recent hospitalization in March Await cultures COVID PCR is pending 06/02/2021 interval history: patient is 70-year-old male with history of end-stage renal disease on peritoneal dialysis, patient presented emergency department with a complaint shortness of breath with BNP of 35,000 serum creatinine of 9.5 most likely patient is volume overload secondary to missed dialysis as patient symptoms of shortness of breath were worsening and he was not able home peritoneal dialysis, patient seen by building maintenance engineer patient is receiving peritoneal dialysis currently continue to monitor, patient is suspected of positive for COVID-19 tested an isolated will continue to monitor. (2) COPD (chronic obstructive pulmonary disease): Qualifiers: COPD type: unspecified COPD Qualified Code(s): J44.9 - Chronic obstructive pulmonary disease, unspecified Code(s): J44.9 - Chronic obstructive pulmonary disease, unspecified Status: Acute Assessment and Plan: Not actively wheezing Albuterol MDI 2 puffs q.4 hours (3) ESRD on peritoneal dialysis: Code(s): N18.6 - End stage renal disease; Z99.2 - Dependence on renal dialysis Status: Acute Assessment and Plan: Nephrology consult Patient does peritoneal dialysis (4) Essential (primary) hypertension: Code(s): I10 - Essential (primary) hypertension Status: Acute Assessment and Plan: Continue home meds Continue to monitor (5) CHF (congestive heart failure): Qualifiers: Heart failure chronicity: chronic Heart failure type: combined systolic and diastolic Qualified Code(s): I50.42 - Chronic combined systolic (congestive) and diastolic (congestive) heart failure Code(s): I50.9 - Heart failure, unspecified Status: Acute Assessment and Plan: BNP is 35,000 however patient has had these value before suspect renal disease contributing to this Patient is on peritoneal dialysis Monitor intake and output (6) Afib: Qualifiers: Atrial fibrillation type: paroxysmal Qualified Code(s): I48.0 - Paroxysmal atrial fibrillation Code(s): I48.91 - Unspecified atrial fibrillation Status: Acute Assessment and Plan: Rate controlled Anticoagulated (7) Peripheral vascular disease of extremity with claudication: Code(s): I73.9 - Peripheral vascular disease, unspecified Status: Acute Assessment and Plan: Status post right iliac artery angioplasty Right popliteal femoral bypass and right femoral endarterectomy Continue to monitor Subjective Date/time seen: 06/02/21 15:53 Chief Complaint: Shortness of breath Narrative: This is a 70-year-old male with past medical history significant for arterial occlusive peripheral disease, status post stent, graft, recently in March of this year at outside facility, end-stage renal disease on peritoneal dialysis, hypertension, type 2 diabetes mellitus. Patient presented to the emergency room due to worsening shortness of breath, cough, sputum production, fevers chills. Preliminary workup was significant for chest x-ray with bilateral diffuse lung infiltrates, brain natriuretic peptide of 35,000, BUN 95 creatinine 9.5. Patient denies any palpitations chest pain, dizziness, lightheadedness, syncope or near-syncope, no nausea, no vomiting, no abdominal pain, no diarrhea. Patient received 1 dose of Rocephin and Zithromax in the emergency room. He has been admitted for further management
[2021-06-02 17:02] LABS: Glucose Point of Care 73 mg/dl (65-105)
[2021-06-02 17:10] LABS: SARS-CoV-2 RNA PCR Negative
[2021-06-02 18:01] LABS: Glucose Point of Care 57 mg/dl (65-105)
[2021-06-02] MEDS: DEXTROSE 50% 25 GM/50 ML SYRINGE IV PUSH (18:02)
[2021-06-02] MEDS: PANTOPRAZOLE 40 MG TABLET PO (18:57)
[2021-06-02] MEDS: FUROSEMIDE 80 MG TABLET PO (18:57)
[2021-06-02 19:16] LABS: Glucose Point of Care 154 mg/dl (65-105)
--- NOTE | 2021-06-02 20:18 | PC.NURSE ---
Patient stated he wqas having chest pain. Preformed a STAT EKG. Called Olga Shahid with results. She ordered STAT Troponin. Patient stated he was feeling better.
[2021-06-02 20:21] LABS: Troponin I 0.078 ng/mL (0.000-0.034)
[2021-06-02] MEDS: GABAPENTIN 100 MG CAPSULE PO (20:25)
--- NOTE | 2021-06-02 20:35 | PC.NURSE ---
Blood sugar at 17:57 was 57. Gave glucose, called . Recheck at 19:13 was 154.
[2021-06-02 23:10] LABS: Add Urine Microscopic? YES; Appearance Urine Cloudy (Clear); Bacteria Urine 4+ /hpf; Bilirubin Urine Negative (Negative); Blood Urine 2+ (Negative); Color Urine Amber (Yellow); Glucose Urine UA 2+ mg/dL (Negative); Ketones Urine Negative (Negative); Leukocyte Esterase Ur Negative LEU/UL (Negative); Mucus Urine Few /lpf; Nitrate Urine Negative (Negative); Protein Urine 2+ mg/dL (Negative); RBC Urine 21-50 /hpf (0-2); Specific Grav Ur 1.013 (1.001-1.035); Squamous Epithelial Cell Urine Few /hpf (Few); Urobilinogen Urine Negative mg/dL (<2.0); WBC Urine 21-30 /hpf
[2021-06-03] VITALS (19 sets, daily range): BP systolic 101–168; BP diastolic 70–122; PULSE 62–126; RESP 16–20; TEMP 36.4–36.9; O2SAT 90–100
[2021-06-03] MEDS: ALBUTEROL SULFATE (*SP) INHALER 2 PUFF INHALATION ×4 (02:55→20:56)
[2021-06-03] MEDS: METOPROLOL TARTRATE 50 MG TAB PO ×2 (08:52→21:01)
[2021-06-03] MEDS: CALCIUM ACETATE 667 MG TABLET 1334 MG PO ×3 (08:52→17:14)
[2021-06-03] MEDS: SODIUM BICARBONATE TAB 650 MG TABLET PO ×3 (08:53→17:15)
[2021-06-03] MEDS: hydrALAZINE HCL 50 MG TABLET PO ×3 (08:53→17:14)
[2021-06-03] MEDS: OPTI-GEN TAB 1 TABLET PO ×2 (08:53→17:15)
[2021-06-03] MEDS: lisinopriL 20 MG TABLET PO ×2 (08:53→17:15)
[2021-06-03] MEDS: ASPIRIN 81 MG ENTERIC TABLET PO (08:54)
[2021-06-03] MEDS: APIXABAN 2.5 MG TABLET PO (08:54)
[2021-06-03] MEDS: amLODIPine BESYLATE 5 MG TABLET 10 MG PO (08:54)
[2021-06-03] MEDS: FUROSEMIDE 80 MG TABLET 160 MG PO (08:55)
[2021-06-03 09:38] LABS: Glucose Point of Care 122 mg/dl (65-105)
--- NOTE | 2021-06-03 10:50 | PM.PNNEP ---
Progress Note: A&P Assessment and Plan (1) End stage renal disease: Code(s): N18.6 - End stage renal disease Status: Chronic Assessment and Plan: On peritoneal dialysis. Patient has volume overload. Will increase fluid removal to use red bags. BUN coming down. (2) Hyperkalemia: Code(s): E87.5 - Hyperkalemia Status: Acute Assessment and Plan: better s/p medical management and CCPD follow repeat levels (3) Pneumonia: Qualifiers: Laterality: unspecified laterality Lung location: unspecified part of lung Pneumonia type: due to unspecified organism Qualified Code(s): J18.9 - Pneumonia, unspecified organism Code(s): J18.9 - Pneumonia, unspecified organism Status: Acute Assessment and Plan: as evidenced by admission CXR follow cultures continue antibiotic therapy (4) Anemia: Code(s): D64.9 - Anemia, unspecified Status: Chronic Assessment and Plan: due to ESRD and exacerbated by acute illness On Epogen. Hemoglobin 8.3 Will continue to follow. Subjective Date/time seen: 06/03/21 10:50 Interval history: Patient is on peritoneal dialysis. Tolerating it well. He has a cough still but it is a little better. Some shortness of breath. He was on all greens yesterday and got about 1500cc of fluid off. Will add reds tonight to get more fluid off. Exam Narrative: GENERAL APPEARANCE: well developed well nourished male in no acute distress HEENT: normocephalic, atraumatic, CARDIOVASCULAR: RRR, normal S1 and S2, no rub RESPIRATORY: coarse breath sounds ABDOMEN: soft, nontender, nondistended, positive bowel sounds present EXTREMITIES: no evidence of cyanosis, clubbing; 2+ edema Objective Data Vital Signs Vital Signs: Vital Signs - 24 hr 06/02/21 12:00 06/02/21 13:03 06/02/21 14:00 Temperature 36.6 C Pulse Rate 65 62 63 Respiratory Rate 20 Blood Pressure 173/80 H Pulse Oximetry 100 97 06/02/21 14:20 06/02/21 16:00 06/02/21 17:08 Temperature 36.6 C 36.9 C Pulse Rate 62 64 63 Respiratory Rate 20 20 Blood Pressure 173/80 H 185/66 H Pulse Oximetry 100 100 06/02/21 18:00 06/02/21 18:54 06/02/21 19:26 Temperature 36.6 C Pulse Rate 68 125 H 111 H Respiratory Rate 21 H Blood Pressure 126/82 Pulse Oximetry 100 06/02/21 20:00 06/02/21 20:25 06/02/21 20:34 Temperature Pulse Rate 111 H 125 H 72 Respiratory Rate 21 H Blood Pressure Pulse Oximetry 100 100 06/02/21 22:00 06/03/21 00:00 06/03/21 02:00 Temperature 36.6 C Pulse Rate 121 H 115 H 124 H Respiratory Rate 20 Blood Pressure 141/99 H Pulse Oximetry 99 06/03/21 03:35 06/03/21 03:53 06/03/21 04:00 Temperature 36.8 C Pulse Rate 120 H 120 H 115 H Respiratory Rate 18 18 Blood Pressure 135/81 Pulse Oximetry 98 98 06/03/21 05:49 06/03/21 08:00 06/03/21 08:52 Temperature 36.4 C L Pulse Rate 117 H 125 H 126 H Respiratory Rate 16 Blood Pressure 136/122 H Pulse Oximetry 90 06/03/21 08:54 Temperature 36.8 C Pulse Rate 120 H Respiratory Rate 18 Blood Pressure 135/81 Pulse Oximetry Intake/Output Intake/Output: Intake & Output 05/31/21 06/01/21 06/02/21 06/03/21 23:59 23:59 23:59 23:59 Intake Total 100 2020 100 Output Total 200 1415 Balance 100 1820 -1315 Meds/Results Medications: Active Medications Generic Name Dose Route Start Last Admin Trade Name Freq PRN Reason Stop Dose Admin Hydrocodone Bitart/Acetaminophen 1 tab 06/02/21 00:10 Hydrocodone/Acetaminophen (*Crx) 5-325 Mg Tablet PO TID PRN Pain Albuterol 2 puff 06/02/21 02:00 06/03/21 02:55 Albuterol Sulfate (*Sp) Inhaler INHALATION 2 puff Q6HRT PARISH Administration Amlodipine Besylate 10 mg 06/02/21 09:00 06/03/21 08:54 Amlodipine Besylate 5 Mg Tablet PO 10 mg DAILY PARISH Administration Apixaban 2.5 mg 06/02/21 09:00 06/03/21 08:54 Apixaban 2.5 M
[2021-06-03 11:05] LABS: Vancomycin Random 8.1 ug/mL (10-20)
[2021-06-03] MEDS: EPOETIN ALFA-EPBX 10,000 UNITS/ML VIAL 10000 UNITS SUB-Q (12:17)
[2021-06-03] MEDS: INSULIN ASPART MIX 70/30 100 UNITS/ML 20 UNITS SUB-Q (12:18)
[2021-06-03 16:32] LABS: Hematocrit 24.2 % (42.0-52.0); Hemoglobin 7.3 g/dL (14.0-18.0); Mean Corpuscular HGB Conc 30.2 g/dl (32-36); Mean Corpuscular Hemoglobin 31.7 pg (26-34); Mean Corpuscular Volume 105.2 fl (80-100); Mean Platelet Volume 11.1 fl (7.4-10.4); Platelet Count Result 271 k/mm3 (150-375); Red Cell Distribution Width 17.2 % (11.5-14.5); White Blood Count 5.3 K/mm3 (4.5-10.0)
--- NOTE | 2021-06-03 16:32 | PM.IMPN ---
Progress Note: A&P Assessment and Plan (1) Pneumonia: Qualifiers: Laterality: unspecified laterality Lung location: unspecified part of lung Pneumonia type: due to unspecified organism Qualified Code(s): J18.9 - Pneumonia, unspecified organism Code(s): J18.9 - Pneumonia, unspecified organism Status: Acute Assessment and Plan: Patient received Rocephin and Zithromax Will discontinue Rocephin start cefepime and vancomycin due to patient's recent hospitalization in March Await cultures COVID PCR is pending 06/02/2021 interval history: patient is 70-year-old male with history of end-stage renal disease on peritoneal dialysis, patient presented emergency department with a complaint shortness of breath with BNP of 35,000 serum creatinine of 9.5 most likely patient is volume overload secondary to missed dialysis as patient symptoms of shortness of breath were worsening and he was not able home peritoneal dialysis, patient seen by billing machine operator patient is receiving peritoneal dialysis currently continue to monitor, patient is suspected of positive for COVID-19 tested an isolated will continue to monitor. (2) COPD (chronic obstructive pulmonary disease): Qualifiers: COPD type: unspecified COPD Qualified Code(s): J44.9 - Chronic obstructive pulmonary disease, unspecified Code(s): J44.9 - Chronic obstructive pulmonary disease, unspecified Status: Acute Assessment and Plan: Not actively wheezing Albuterol MDI 2 puffs q.4 hours (3) ESRD on peritoneal dialysis: Code(s): N18.6 - End stage renal disease; Z99.2 - Dependence on renal dialysis Status: Acute Assessment and Plan: Nephrology consult Patient does peritoneal dialysis (4) Essential (primary) hypertension: Code(s): I10 - Essential (primary) hypertension Status: Acute Assessment and Plan: Continue home meds Continue to monitor (5) CHF (congestive heart failure): Qualifiers: Heart failure chronicity: chronic Heart failure type: combined systolic and diastolic Qualified Code(s): I50.42 - Chronic combined systolic (congestive) and diastolic (congestive) heart failure Code(s): I50.9 - Heart failure, unspecified Status: Acute Assessment and Plan: BNP is 35,000 however patient has had these value before suspect renal disease contributing to this Patient is on peritoneal dialysis Monitor intake and output (6) Afib: Qualifiers: Atrial fibrillation type: paroxysmal Qualified Code(s): I48.0 - Paroxysmal atrial fibrillation Code(s): I48.91 - Unspecified atrial fibrillation Status: Acute Assessment and Plan: Rate controlled Anticoagulated (7) Peripheral vascular disease of extremity with claudication: Code(s): I73.9 - Peripheral vascular disease, unspecified Status: Acute Assessment and Plan: Status post right iliac artery angioplasty Right popliteal femoral bypass and right femoral endarterectomy Continue to monitor Subjective Date/time seen: 06/02/2021 interval history: patient is 70-year-old male with history of end-stage renal disease on peritoneal dialysis, patient presented emergency department with a complaint shortness of breath with BNP of 35,000 serum creatinine of 9.5 most likely patient is volume overload secondary to missed dialysis as patient symptoms of shortness of breath were worsening and he was not able home peritoneal dialysis, patient seen by billing machine operator patient is receiving peritoneal dialysis currently continue to monitor, patient is suspected of positive for COVID-19 tested an isolated will continue to monitor. Exam Narrative: Patient is comfortable, NAD HEENT: eyes are clear and none icteric LUNGS: normal respiratory effort ABD: not distended Lower extremities: no edema SKIN: nonjaundiced Neuro: grossly intact. Objective Data Vital Signs Vital Signs: Vital Signs -
--- NOTE | 2021-06-03 16:35 | PM.IMPN ---
Progress Note: A&P Assessment and Plan (1) Pneumonia: Qualifiers: Laterality: unspecified laterality Lung location: unspecified part of lung Pneumonia type: due to unspecified organism Qualified Code(s): J18.9 - Pneumonia, unspecified organism Code(s): J18.9 - Pneumonia, unspecified organism Status: Acute Assessment and Plan: Patient received Rocephin and Zithromax Will discontinue Rocephin start cefepime and vancomycin due to patient's recent hospitalization in March Await cultures COVID PCR is pending 06/02/2021 interval history: patient is 70-year-old male with history of end-stage renal disease on peritoneal dialysis, patient presented emergency department with a complaint shortness of breath with BNP of 35,000 serum creatinine of 9.5 most likely patient is volume overload secondary to missed dialysis as patient symptoms of shortness of breath were worsening and he was not able home peritoneal dialysis, patient seen by machinery engineer patient is receiving peritoneal dialysis currently continue to monitor, patient is suspected of positive for COVID-19 tested an isolated will continue to monitor. 06/03/2021 Interval history: patient COVID test is negative, and had a peritoneal dialysis yesterday states feeling better, repeat chest x-ray showed slight improvement in infiltrats, will conitnue cefepime and vancomycin, patient is seen by Nephrology patient will have additional peritoneal dialysis will continue to monitor and further recommendation to follow. (2) COPD (chronic obstructive pulmonary disease): Qualifiers: COPD type: unspecified COPD Qualified Code(s): J44.9 - Chronic obstructive pulmonary disease, unspecified Code(s): J44.9 - Chronic obstructive pulmonary disease, unspecified Status: Acute Assessment and Plan: Not actively wheezing Albuterol MDI 2 puffs q.4 hours (3) ESRD on peritoneal dialysis: Code(s): N18.6 - End stage renal disease; Z99.2 - Dependence on renal dialysis Status: Acute Assessment and Plan: Nephrology consult Patient does peritoneal dialysis (4) Essential (primary) hypertension: Code(s): I10 - Essential (primary) hypertension Status: Acute Assessment and Plan: Continue home meds Continue to monitor (5) CHF (congestive heart failure): Qualifiers: Heart failure chronicity: chronic Heart failure type: combined systolic and diastolic Qualified Code(s): I50.42 - Chronic combined systolic (congestive) and diastolic (congestive) heart failure Code(s): I50.9 - Heart failure, unspecified Status: Acute Assessment and Plan: BNP is 35,000 however patient has had these value before suspect renal disease contributing to this Patient is on peritoneal dialysis Monitor intake and output (6) Afib: Qualifiers: Atrial fibrillation type: paroxysmal Qualified Code(s): I48.0 - Paroxysmal atrial fibrillation Code(s): I48.91 - Unspecified atrial fibrillation Status: Acute Assessment and Plan: Rate controlled Anticoagulated (7) Peripheral vascular disease of extremity with claudication: Code(s): I73.9 - Peripheral vascular disease, unspecified Status: Acute Assessment and Plan: Status post right iliac artery angioplasty Right popliteal femoral bypass and right femoral endarterectomy Continue to monitor Subjective Date/time seen: 06/03/21 16:35 06/02/2021 interval history: patient is 70-year-old male with history of end-stage renal disease on peritoneal dialysis, patient presented emergency department with a complaint shortness of breath with BNP of 35,000 serum creatinine of 9.5 most likely patient is volume overload secondary to missed dialysis as patient symptoms of shortness of breath were worsening and he was not able home peritoneal dialysis, patient seen by machinery engineer patient is receiving peritoneal dialysis currently continue
[2021-06-03 16:49] LABS: Albumin Level 3.5 g/dL (3.5-5.1); Anion Gap 15 mmol/L (8-16); Blood Urea Nitrogen 92 mg/dL (9-20); Calcium 6.9 mg/dL (8.4-10.2); Carbon Dioxide 24 mmol/L (22-30); Chloride 106 mmol/L (98-107); Estimated CRCL calculation 7 ml/min; Estimated Glomerular Filt Rate 6; Glucose 86 mg/dL (65-110); Magnesium 2.3 mg/dL (1.6-2.3); Phosphorus 8.8 mg/dL (2.5-4.5); Potassium 4.8 mmol/L (3.4-5.0); Sodium 145 mmol/L (137-145)
[2021-06-03 17:08] LABS: Glucose Point of Care 86 mg/dl (65-105)
[2021-06-03 17:12] LABS: Glucose Point of Care 69 mg/dl (65-105)
[2021-06-03] MEDS: PANTOPRAZOLE 40 MG TABLET PO (17:15)
[2021-06-03] MEDS: FUROSEMIDE 80 MG TABLET PO (17:16)
[2021-06-03] MEDS: GABAPENTIN 100 MG CAPSULE PO (21:01)
[2021-06-03 21:10] LABS: Glucose Point of Care 247 mg/dl (65-105)
[2021-06-04] VITALS (18 sets, daily range): BP systolic 135–180; BP diastolic 57–79; PULSE 53–86; RESP 14–20; TEMP 36.3–37.1; O2SAT 86–100
[2021-06-04] MEDS: ALBUTEROL SULFATE (*SP) INHALER 2 PUFF INHALATION ×4 (02:27→20:09)
[2021-06-04 07:39] LABS: Glucose Point of Care 257 mg/dl (65-105)
[2021-06-04] MEDS: FUROSEMIDE 80 MG TABLET 160 MG PO (08:16)
[2021-06-04] MEDS: lisinopriL 20 MG TABLET PO ×2 (08:17→17:09)
[2021-06-04] MEDS: METOPROLOL TARTRATE 50 MG TAB PO ×2 (08:17→20:01)
[2021-06-04] MEDS: ASPIRIN 81 MG ENTERIC TABLET PO (08:17)
[2021-06-04] MEDS: SODIUM BICARBONATE TAB 650 MG TABLET PO ×3 (08:17→17:09)
[2021-06-04] MEDS: APIXABAN 2.5 MG TABLET PO (08:17)
[2021-06-04] MEDS: CALCIUM ACETATE 667 MG TABLET 1334 MG PO ×3 (08:17→17:09)
[2021-06-04] MEDS: hydrALAZINE HCL 50 MG TABLET PO ×3 (08:17→17:09)
[2021-06-04] MEDS: OPTI-GEN TAB 1 TABLET PO ×2 (08:17→17:09)
[2021-06-04] MEDS: INSULIN ASPART MIX 70/30 100 UNITS/ML 20 UNITS SUB-Q (08:19)
--- NOTE | 2021-06-04 09:01 | PM.PNNEP ---
Progress Note: A&P Assessment and Plan (1) End stage renal disease: Code(s): N18.6 - End stage renal disease Status: Chronic Assessment and Plan: On peritoneal dialysis. Patient has volume overload. Will increase fluid removal to use red bags. His catheter did not work. We will need to use cathartics Will check an abdominal flat plate as well (2) Hyperkalemia: Code(s): E87.5 - Hyperkalemia Status: Acute Assessment and Plan: Resolved (3) Pneumonia: Qualifiers: Laterality: unspecified laterality Lung location: unspecified part of lung Pneumonia type: due to unspecified organism Qualified Code(s): J18.9 - Pneumonia, unspecified organism Code(s): J18.9 - Pneumonia, unspecified organism Status: Acute Assessment and Plan: as evidenced by admission CXR follow cultures continue antibiotic therapy (4) Anemia: Code(s): D64.9 - Anemia, unspecified Status: Chronic Assessment and Plan: due to ESRD and exacerbated by acute illness On Epogen. Hemoglobin 8.3 Subjective Date/time seen: 06/04/21 09:01 Interval history: Patient is on peritoneal dialysis. Tolerating it well. His catheter did not work well last night. On exchange 2 they had stopped the machine. He tried calling 1 800 number but their suggestions did not help. The patient has no shortness of breath but he is still swollen. Exam Narrative: GENERAL APPEARANCE: well developed well nourished male in no acute distress HEENT: normocephalic, atraumatic, CARDIOVASCULAR: RRR, normal S1 and S2, no rub RESPIRATORY: coarse breath sounds ABDOMEN: soft, nontender, nondistended, positive bowel sounds present EXTREMITIES: 2+ edema Objective Data Vital Signs Vital Signs: Vital Signs - 24 hr 06/03/21 10:00 06/03/21 12:00 06/03/21 14:00 Temperature Pulse Rate 117 H 121 H 107 H Respiratory Rate Blood Pressure Pulse Oximetry 99 06/03/21 16:00 06/03/21 18:00 06/03/21 18:33 Temperature 36.9 C 36.9 C Pulse Rate 104 H 62 102 H Respiratory Rate 18 18 Blood Pressure 101/75 101/75 Pulse Oximetry 99 06/03/21 20:00 06/03/21 20:57 06/03/21 21:01 Temperature 36.9 C Pulse Rate 64 65 Respiratory Rate 18 Blood Pressure 168/70 H Pulse Oximetry 99 98 06/03/21 22:00 06/04/21 00:00 06/04/21 02:00 Temperature 37.1 C Pulse Rate 65 59 L 55 L Respiratory Rate 19 Blood Pressure 135/70 Pulse Oximetry 94 06/04/21 03:32 06/04/21 04:00 06/04/21 06:00 Temperature 37.0 C Pulse Rate 56 L 54 L 53 L Respiratory Rate 19 Blood Pressure 158/78 H Pulse Oximetry 99 95 06/04/21 06:21 06/04/21 08:17 06/04/21 08:30 Temperature 37.0 C Pulse Rate 55 L 57 L Respiratory Rate 18 Blood Pressure 140/71 Pulse Oximetry 95 86 L 06/04/21 08:31 Temperature Pulse Rate Respiratory Rate Blood Pressure Pulse Oximetry 90 Intake/Output Intake/Output: Intake & Output 06/01/21 06/02/21 06/03/21 06/04/21 23:59 23:59 23:59 23:59 Intake Total 100 2020 100 150 Output Total 200 1415 100 Balance 100 1820 -1315 50 Meds/Results Medications: Active Medications Generic Name Dose Route Start Last Admin Trade Name Freq PRN Reason Stop Dose Admin Hydrocodone Bitart/Acetaminophen 1 tab 06/02/21 00:10 Hydrocodone/Acetaminophen (*Crx) 5-325 Mg Tablet PO TID PRN Pain Albuterol 2 puff 06/02/21 02:00 06/04/21 08:25 Albuterol Sulfate (*Sp) Inhaler INHALATION 2 puff Q6HRT PARISH Administration Amlodipine Besylate 10 mg 06/02/21 09:00 06/03/21 08:54 Amlodipine Besylate 5 Mg Tablet PO 10 mg DAILY PARISH Administration Apixaban 2.5 mg 06/02/21 09:00 06/04/21 08:17 Apixaban 2.5 Mg Tablet PO 2.5 mg QAM PARISH Administration Aspirin 81 mg 06/02/21 09:00 06/04/21 08:17 Aspirin 81 Mg Enteric Tablet PO 81 mg QAM PARISH Administration Calcium Acetate 1,334 mg 06/02/21
[2021-06-04 10:23] LABS: Hematocrit 24.5 % (42.0-52.0); Hemoglobin 7.2 g/dL (14.0-18.0); Mean Corpuscular HGB Conc 29.4 g/dl (32-36); Mean Corpuscular Hemoglobin 31.4 pg (26-34); Mean Platelet Volume 11.2 fl (7.4-10.4); Platelet Count Result 272 k/mm3 (150-375); Red Blood Count 2.29 M/mm3 (4.6-6.20); Red Cell Distribution Width 17.2 % (11.5-14.5); White Blood Count 5.7 K/mm3 (4.5-10.0)
[2021-06-04] MEDS: LACTULOSE 20 GM/30 ML UDC PO ×2 (10:30→15:44)
[2021-06-04 10:34] LABS: Albumin Level 3.6 g/dL (3.5-5.1); Anion Gap 15 mmol/L (8-16); Blood Urea Nitrogen 87 mg/dL (9-20); Calcium 6.9 mg/dL (8.4-10.2); Carbon Dioxide 24 mmol/L (22-30); Chloride 104 mmol/L (98-107); Estimated CRCL calculation 0 ml/min; Estimated Glomerular Filt Rate 6; Glucose 175 mg/dL (65-110); Phosphorus 8.5 mg/dL (2.5-4.5); Potassium 4.6 mmol/L (3.4-5.0); Sodium 143 mmol/L (137-145)
[2021-06-04 11:07] LABS: Vancomycin Trough 12.2 ug/mL (10.0-20.0)
[2021-06-04 12:17] LABS: Glucose Point of Care 160 mg/dl (65-105)
--- NOTE | 2021-06-04 13:56 | PM.IMPN ---
Progress Note: A&P Assessment and Plan (1) Pneumonia: Qualifiers: Laterality: unspecified laterality Lung location: unspecified part of lung Pneumonia type: due to unspecified organism Qualified Code(s): J18.9 - Pneumonia, unspecified organism Code(s): J18.9 - Pneumonia, unspecified organism Status: Acute Assessment and Plan: Patient received Rocephin and Zithromax Will discontinue Rocephin start cefepime and vancomycin due to patient's recent hospitalization in March Await cultures COVID PCR is pending 06/02/2021 interval history: patient is 70-year-old male with history of end-stage renal disease on peritoneal dialysis, patient presented emergency department with a complaint shortness of breath with BNP of 35,000 serum creatinine of 9.5 most likely patient is volume overload secondary to missed dialysis as patient symptoms of shortness of breath were worsening and he was not able home peritoneal dialysis, patient seen by substation mechanic patient is receiving peritoneal dialysis currently continue to monitor, patient is suspected of positive for COVID-19 tested an isolated will continue to monitor. 06/03/2021 Interval history: patient COVID test is negative, and had a peritoneal dialysis yesterday states feeling better, repeat chest x-ray showed slight improvement in infiltrats, will conitnue cefepime and vancomycin, patient is seen by Nephrology patient will have additional peritoneal dialysis will continue to monitor and further recommendation to follow. 06/04/2021 Interval history: patient COVID test is negative, and had a peritoneal dialysis daily, states feeling better, repeat chest x-ray on 06/03 showed slight improvement in infiltrats, will conitnue cefepime and vancomycin, patient is seen by Nephrology patient will have additional peritoneal dialysis will continue to monitor and further recommendation to follow.. (2) COPD (chronic obstructive pulmonary disease): Qualifiers: COPD type: unspecified COPD Qualified Code(s): J44.9 - Chronic obstructive pulmonary disease, unspecified Code(s): J44.9 - Chronic obstructive pulmonary disease, unspecified Status: Acute Assessment and Plan: Not actively wheezing Albuterol MDI 2 puffs q.4 hours (3) ESRD on peritoneal dialysis: Code(s): N18.6 - End stage renal disease; Z99.2 - Dependence on renal dialysis Status: Acute Assessment and Plan: Nephrology consult Patient does peritoneal dialysis (4) Essential (primary) hypertension: Code(s): I10 - Essential (primary) hypertension Status: Acute Assessment and Plan: Continue home meds Continue to monitor (5) CHF (congestive heart failure): Qualifiers: Heart failure chronicity: chronic Heart failure type: combined systolic and diastolic Qualified Code(s): I50.42 - Chronic combined systolic (congestive) and diastolic (congestive) heart failure Code(s): I50.9 - Heart failure, unspecified Status: Acute Assessment and Plan: BNP is 35,000 however patient has had these value before suspect renal disease contributing to this Patient is on peritoneal dialysis Monitor intake and output (6) Afib: Qualifiers: Atrial fibrillation type: paroxysmal Qualified Code(s): I48.0 - Paroxysmal atrial fibrillation Code(s): I48.91 - Unspecified atrial fibrillation Status: Acute Assessment and Plan: Rate controlled Anticoagulated (7) Peripheral vascular disease of extremity with claudication: Code(s): I73.9 - Peripheral vascular disease, unspecified Status: Acute Assessment and Plan: Status post right iliac artery angioplasty Right popliteal femoral bypass and right femoral endarterectomy Continue to monitor Subjective Date/time seen: 06/04/21 13:56 06/02/2021 interval history: patient is 70-year-old male with history of end-stage renal disease on peritoneal dialysis, josé manuel
[2021-06-04 17:07] LABS: Glucose Point of Care 118 mg/dl (65-105)
[2021-06-04] MEDS: PANTOPRAZOLE 40 MG TABLET PO (17:09)
[2021-06-04] MEDS: FUROSEMIDE 80 MG TABLET PO (17:10)
[2021-06-04] MEDS: GABAPENTIN 100 MG CAPSULE PO (20:02)
[2021-06-04] MEDS: HYDROcodone/acetaminophen (*CRX) 5-325 MG TABLET 1 TAB PO (20:02)
[2021-06-05] VITALS (21 sets, daily range): BP systolic 131–187; BP diastolic 57–86; PULSE 63–139; RESP 18–20; TEMP 35.8–37.2; O2SAT 91–99
[2021-06-05] MEDS: ALBUTEROL SULFATE (*SP) INHALER 2 PUFF INHALATION ×4 (02:07→22:41)
[2021-06-05] MEDS: METOPROLOL TARTRATE 50 MG TAB PO ×3 (02:14→21:04)
[2021-06-05] MEDS: HYDROcodone/acetaminophen (*CRX) 5-325 MG TABLET 1 TAB PO ×2 (04:37→19:34)
[2021-06-05 05:07] LABS: Hematocrit 26.3 % (42.0-52.0); Hemoglobin 7.7 g/dL (14.0-18.0); Mean Corpuscular HGB Conc 29.3 g/dl (32-36); Mean Platelet Volume 11.3 fl (7.4-10.4); Platelet Count Result 287 k/mm3 (150-375); Red Blood Count 2.48 M/mm3 (4.6-6.20); White Blood Count 5.9 K/mm3 (4.5-10.0)
[2021-06-05 05:20] LABS: Albumin Level 3.7 g/dL (3.5-5.1); Anion Gap 15 mmol/L (8-16); Blood Urea Nitrogen 77 mg/dL (9-20); Calcium 7.4 mg/dL (8.4-10.2); Carbon Dioxide 23 mmol/L (22-30); Chloride 100 mmol/L (98-107); Estimated CRCL calculation 8 ml/min; Estimated Glomerular Filt Rate 7; Glucose 419 mg/dL (65-110); Phosphorus 7.1 mg/dL (2.5-4.5); Potassium 4.4 mmol/L (3.4-5.0); Sodium 138 mmol/L (137-145)
--- NOTE | 2021-06-05 07:49 | PM.PNNEP ---
Progress Note: A&P Assessment and Plan (1) End stage renal disease: Code(s): N18.6 - End stage renal disease Status: Chronic Assessment and Plan: On peritoneal dialysis. Patient has volume overload. He is on red bags and lots of diuretics. Catheter worked better after catheterization are [place]. Abdominal flat Plate showed appropriate positioning of the peritoneal dialysis catheter. With edema and sudden resistance to fluid removal will check an echocardiogram to see what is going on. (2) Hyperkalemia: Code(s): E87.5 - Hyperkalemia Status: Acute Assessment and Plan: Resolved (3) Pneumonia: Qualifiers: Laterality: unspecified laterality Lung location: unspecified part of lung Pneumonia type: due to unspecified organism Qualified Code(s): J18.9 - Pneumonia, unspecified organism Code(s): J18.9 - Pneumonia, unspecified organism Status: Acute Assessment and Plan: as evidenced by admission CXR follow cultures On Zithromax and cefepime. (4) Anemia: Code(s): D64.9 - Anemia, unspecified Status: Chronic Assessment and Plan: due to ESRD and exacerbated by acute illness On Epogen. Hemoglobin 7.7 Subjective Date/time seen: 06/05/21 07:49 Interval history: Patient is on peritoneal dialysis. Tolerating it well. His catheter worked better last night after the bowel movement. However he only got about 800cc of ultrafiltration. \ He was seen at 7:30 a.m. He still has some swelling. Exam Narrative: GENERAL APPEARANCE: well developed well nourished male in no acute distress HEENT: normocephalic, atraumatic, CARDIOVASCULAR: RRR, normal S1 and S2, no rub RESPIRATORY: coarse breath sounds ABDOMEN: soft, nontender, nondistended, positive bowel sounds present EXTREMITIES: 2+ edema Objective Data Vital Signs Vital Signs: Vital Signs - 24 hr 06/04/21 08:00 06/04/21 08:17 06/04/21 08:30 Temperature Pulse Rate 56 L 57 L Respiratory Rate Blood Pressure Pulse Oximetry 95 86 L 06/04/21 08:31 06/04/21 10:00 06/04/21 12:00 Temperature 36.6 C Pulse Rate 58 L 56 L Respiratory Rate 16 Blood Pressure 147/65 H Pulse Oximetry 90 95 06/04/21 16:00 06/04/21 18:55 06/04/21 20:00 Temperature 36.6 C 36.6 C Pulse Rate 64 86 64 Respiratory Rate 14 16 Blood Pressure 177/79 H 147/65 H Pulse Oximetry 97 95 06/04/21 20:01 06/04/21 21:48 06/04/21 23:42 Temperature 36.3 C L 36.6 C Pulse Rate 64 66 64 Respiratory Rate 20 18 Blood Pressure 161/63 H 180/57 H Pulse Oximetry 95 98 99 06/05/21 00:00 06/05/21 00:24 06/05/21 01:55 Temperature Pulse Rate 63 Respiratory Rate Blood Pressure 187/57 H 145/86 H Pulse Oximetry 06/05/21 02:03 06/05/21 02:14 06/05/21 04:00 Temperature 36.4 C Pulse Rate 131 H 139 H 131 H Respiratory Rate 20 Blood Pressure 137/86 Pulse Oximetry 99 06/05/21 04:35 06/05/21 06:00 Temperature Pulse Rate 135 H 118 H Respiratory Rate Blood Pressure Pulse Oximetry Intake/Output Intake/Output: Intake & Output 06/02/21 06/03/21 06/04/21 06/05/21 23:59 23:59 23:59 23:59 Intake Total 2020 350 1200 200 Output Total 200 1415 100 0 Balance 1820 -1065 1100 200 Meds/Results Medications: Active Medications Generic Name Dose Route Start Last Admin Trade Name Freq PRN Reason Stop Dose Admin Hydrocodone Bitart/Acetaminophen 1 tab 06/02/21 00:10 06/05/21 04:37 Hydrocodone/Acetaminophen (*Crx) 5-325 Mg Tablet PO 1 tab TID PRN Administration Pain Albuterol 2 puff 06/02/21 02:00 06/05/21 02:07 Albuterol Sulfate (*Sp) Inhaler INHALATION 2 puff Q6HRT PARISH Administration Amlodipine Besylate 10 mg 06/02/21 09:00 06/03/21 08:54 Amlodipine Besylate 5 Mg Tablet PO 10 mg DAILY PARISH Administration Apixaban 2.5 mg 06/02/21 09:00 06/04/21 08:17 Apixaban 2.5 Mg Tablet PO 2.5 mg QAM PARISH
--- NOTE | 2021-06-05 07:50 | ECHO_ITS ---
Patient Info Name: Cristi Adams Age: 70 years : 1950 Gender: Male Ht: 68 in Wt: 163 lbs BSA: 1.89 m2 HR: 100 bpm BP: 137 / 86 mmHg Heart Rhythm: Atrial Fibrillation Technical Quality: Fair Exam Date: 06/05/2021 9:49 AM Exam Location: [facility] Patient Status: Inpatient Admit Date: 06/02/2021 Staff Ordering Physician: Federico Venegas MD Turning Sander Operator: Jojo Guan RDCS Attending Provider: Radha Cosme MD Referring Physician: Rubi CRAIG; Exam Type: CA echo doppler color flow Study Info Indications R60.9 - Edema, unspecified Complete two-dimensional, color flow and Doppler transthoracic echocardiogram is performed. Summary 1. Complete two-dimensional, color flow and Doppler transthoracic echocardiogram is performed. 2. Left ventricular systolic function is mildly reduced, estimated at 40-45%. 3. Left ventricular chamber dimension is mildly enlarged. 4. Left atrial chamber dimension is moderately enlarged. 5. There is mild aortic valve sclerosis. 6. The mitral valve annulus is mildly calcified. 7. Compared with examination from last year no significant change other than patient is now in AFib versus sinus rhythm. Left Ventricle Left ventricular chamber dimension is mildly enlarged. Left ventricular systolic function is mildly reduced, estimated at 40-45%. The left ventricular diastolic function is abnormal. Right Ventricle Right ventricular chamber dimension is normal. Left Atria Left atrial chamber dimension is moderately enlarged. Right Atria Right atrial chamber dimension is normal. Aortic Valve The aortic valve is trileaflet. There is mild aortic valve sclerosis. Pulmonic Valve The pulmonic valve is not well visualized. Mitral Valve The mitral valve has normal leaflets. The mitral valve annulus is mildly calcified. Tricuspid Valve The tricuspid valve leaflets are normal. There is trace tricuspid valve regurgitation. Pericardium/Pleural The pericardium appears normal. Aorta The aortic root size at the sinus of Valsalva is normal. Left Ventricular Outflow Tract Name Value Normal LVOT 2D LVOT Diameter 2.0 cm LVOT Doppler LVOT Peak Gradient 5 mmHg LVOT Mean Gradient 3 mmHg LVOT VTI 28 cm LVOT VTI/AV VTI Ratio 0.7 LVOT Stroke Volume 84 ml LVOT CO 3.3 l/min LVOT CI 1.8 l/min/m2 Pulmonic Valve Name Value Normal RVOT Doppler RVOT Peak Gradient 1 mmHg PV Doppler PV Peak Gradient 5 mmHg Mitral Valve
[2021-06-05 09:04] LABS: Glucose Point of Care 320 mg/dl (65-105)
[2021-06-05] MEDS: CALCIUM ACETATE 667 MG TABLET 1334 MG PO ×3 (10:06→19:05)
[2021-06-05] MEDS: ASPIRIN 81 MG ENTERIC TABLET PO (10:06)
[2021-06-05] MEDS: SODIUM BICARBONATE TAB 650 MG TABLET PO ×3 (10:07→19:06)
[2021-06-05] MEDS: APIXABAN 2.5 MG TABLET PO (10:07)
[2021-06-05] MEDS: hydrALAZINE HCL 50 MG TABLET PO ×3 (10:07→19:05)
[2021-06-05] MEDS: FUROSEMIDE 80 MG TABLET 160 MG PO (10:07)
[2021-06-05] MEDS: INSULIN ASPART MIX 70/30 100 UNITS/ML 20 UNITS SUB-Q (10:08)
[2021-06-05] MEDS: OPTI-GEN TAB 1 TABLET PO ×2 (10:08→19:05)
[2021-06-05] MEDS: lisinopriL 20 MG TABLET PO ×2 (10:08→19:06)
[2021-06-05 11:05] LABS: Glucose Point of Care 326 mg/dl (65-105)
[2021-06-05 11:14] LABS: Vancomycin Random 18.5 ug/mL (10-20)
--- NOTE | 2021-06-05 11:15 | PM.CNCAR ---
Assessment and Plan Additional Plan 70-year-old man with a history of paroxysmal atrial fibrillation. Despite his beta-gucci he is still having asymptomatic paroxysms of AFib since he has been in the hospital last week through the weekend. Consulted to see him today about this. Principal reason for admitting him to the hospital last week was because of volume overload and hyperkalemia which were the result of not being dialyzed for a few days. Regarding his arrhythmia I am going to initiate oral amiodarone at this time. Will start him on 400 mg q.12 hours and observe his rhythm while he is in the hospital. Since his atrial fibrillation is asymptomatic he does not have to be kept in the hospital for more than another day or 2 for this. I will stop the intravenous diltiazem and when he converts to sinus rhythm determine if his metoprolol dosage needs to be adjusted at all or not. He does tend to be mildly bradycardic when he is in sinus rhythm according to the telemetry strips that are in the chart. Another echocardiogram was ordered by his auto air conditioning mechanic on rounds today. Obviously that study has not been done he has had a significant outpatient workup I am not sure this will show any new pathology. Michelet Bills MD [facility] History of Present Illness History of Present Illness Consult date/time: 06/05/21 11:15 Consult reason: atrial fibrillation Reason For Visit: Hyperkalemia Narrative: This is a 70-year-old patient I am seeing today at the request of the hospitalist because of paroxysmal atrial fibrillation. He has a history of this arrhythmia and I have seen this patient in the hospital in the past as well as in the outpatient setting for ongoing management. The patient was admitted to the hospital here at the end of last week with fluid overload significant hyperkalemia because of lack of hemodialysis for several days. He is a patient with end-stage renal disease who does peritoneal dialysis and was not able to dialyze himself for several days. He became volume overloaded somewhat short of breath and was rather hyperkalemic on admission as last week as well. He has been dialyzed since he has been placed in the hospital and is symptomatic [place] improved today he was hoping to be discharged. During the hospitalization he has been on telemetry and he has been in paroxysmal atrial fibrillation with some rhythm strips demonstrating sinus rhythm with intraventricular conduction delay and other rhythm strips demonstrating AF with RVR. When he is in atrial fibrillation it appears that he is totally unaware of this and does not have any symptoms or complaints referable to his arrhythmia. When I saw this patient at the end of last year in June of 2020 initially this also appeared to be the case he was having episodes of atrial fib with which he was totally asymptomatic. At that time he was started on metoprolol and he did restore back into sinus rhythm and has not had any further episodes of AFib that I know of until now. As it happens he was just seen in my office a couple of times recently where he was undergoing an outpatient ischemia workup with a Lexiscan nuclear stress test several weeks ago and then a follow-up visit to discuss those findings. The patient had an ischemia workup done because he is known to have severe peripheral vascular disease and does have mild to moderately depressed LV systolic function raising the concern regarding coronary a occlusive disease as well. His nuclear stress test was negative for ischemia his ejection fraction is mildly reduced at about 40% on that exam. This is consistent with previous echocardiograms that have been done as well. Patient otherwise is comfortable today he does not offer any complaints he is somewhat unhappy about the concept of not being discharged today. He is now receiving intravenous diltiazem he is still in atrial fibrillation heart rate is well controlled at this time. Review of Systems Cons
--- NOTE | 2021-06-05 11:25 | PC.NURSE ---
Notified Dr. Mcnally of blood elevated sugars. 320 and the 326 upon recheck after giving 20 units of novolg 70/30. He said he will review orders and call me back.
[2021-06-05 12:41] LABS: Glucose Point of Care 253 mg/dl (65-105)
[2021-06-05] MEDS: AMIODARONE HCL 200 MG TABLET 400 MG PO ×2 (12:52→21:04)
--- NOTE | 2021-06-05 16:26 | PM.IMPN ---
Progress Note: A&P Assessment and Plan (1) Pneumonia: Qualifiers: Laterality: unspecified laterality Lung location: unspecified part of lung Pneumonia type: due to unspecified organism Qualified Code(s): J18.9 - Pneumonia, unspecified organism Code(s): J18.9 - Pneumonia, unspecified organism Status: Acute Assessment and Plan: Patient received Rocephin and Zithromax Will discontinue Rocephin start cefepime and vancomycin due to patient's recent hospitalization in March Await cultures COVID PCR is pending 06/02/2021 interval history: patient is 70-year-old male with history of end-stage renal disease on peritoneal dialysis, patient presented emergency department with a complaint shortness of breath with BNP of 35,000 serum creatinine of 9.5 most likely patient is volume overload secondary to missed dialysis as patient symptoms of shortness of breath were worsening and he was not able home peritoneal dialysis, patient seen by relocation associate patient is receiving peritoneal dialysis currently continue to monitor, patient is suspected of positive for COVID-19 tested an isolated will continue to monitor. 06/03/2021 Interval history: patient COVID test is negative, and had a peritoneal dialysis yesterday states feeling better, repeat chest x-ray showed slight improvement in infiltrats, will conitnue cefepime and vancomycin, patient is seen by Nephrology patient will have additional peritoneal dialysis will continue to monitor and further recommendation to follow. 06/04/2021 Interval history: patient COVID test is negative, and had a peritoneal dialysis daily, states feeling better, repeat chest x-ray on 06/03 showed slight improvement in infiltrats, will conitnue cefepime and vancomycin, patient is seen by Nephrology patient will have additional peritoneal dialysis will continue to monitor and further recommendation to follow.. 06/05/2021 Interval history: patient COVID test is negative, and had a peritoneal dialysis daily, states feeling better, repeat chest x-ray on 06/03 showed slight improvement in infiltrats, will conitnue cefepime and vancomycin, patient had developed atrial fibrillation and was placed on diltiazem drip, seen by cardiology S started the patient on amiodarone 400 mg b.i.d. and will monitor once the patient is in sinus stop the diltiazem drip, patient remains clinically stable has no symptoms, patient is seen by Nephrology, to further evaluate cardiac echo is ordered patient will have additional peritoneal dialysis will continue to monitor and further recommendation to follow.. (2) COPD (chronic obstructive pulmonary disease): Qualifiers: COPD type: unspecified COPD Qualified Code(s): J44.9 - Chronic obstructive pulmonary disease, unspecified Code(s): J44.9 - Chronic obstructive pulmonary disease, unspecified Status: Acute Assessment and Plan: Not actively wheezing Albuterol MDI 2 puffs q.4 hours (3) ESRD on peritoneal dialysis: Code(s): N18.6 - End stage renal disease; Z99.2 - Dependence on renal dialysis Status: Acute Assessment and Plan: Nephrology consult Patient does peritoneal dialysis (4) Essential (primary) hypertension: Code(s): I10 - Essential (primary) hypertension Status: Acute Assessment and Plan: Continue home meds Continue to monitor (5) CHF (congestive heart failure): Qualifiers: Heart failure type: combined systolic and diastolic Heart failure chronicity: chronic Qualified Code(s): I50.42 - Chronic combined systolic (congestive) and diastolic (congestive) heart failure Code(s): I50.9 - Heart failure, unspecified Status: Acute Assessment and Plan: BNP is 35,000 however patient has had these value before suspect renal disease contributing to this Patient is on peritoneal dialysis Monitor intake and output (6) Afib: Qualifiers: Atrial fibrillation typ
[2021-06-05 17:26] LABS: Glucose Point of Care 95 mg/dl (65-105)
[2021-06-05] MEDS: FUROSEMIDE 80 MG TABLET PO (19:06)
[2021-06-05] MEDS: PANTOPRAZOLE 40 MG TABLET PO (19:07)
[2021-06-05 19:28] LABS: Hepatitis B Core Ab Total Nonreactive (Nonreactive)
[2021-06-05 20:06] LABS: Glucose Point of Care 302 mg/dl (65-105)
[2021-06-05] MEDS: GABAPENTIN 100 MG CAPSULE PO (21:04)
[2021-06-06] VITALS (17 sets, daily range): BP systolic 138–178; BP diastolic 50–76; PULSE 53–104; RESP 12–20; TEMP 36.2–36.6; O2SAT 94–100
[2021-06-06] MEDS: ALBUTEROL SULFATE (*SP) INHALER 2 PUFF INHALATION ×4 (02:52→19:35)
[2021-06-06 05:38] LABS: Hematocrit 24.2 % (42.0-52.0); Hemoglobin 7.1 g/dL (14.0-18.0); Mean Corpuscular HGB Conc 29.3 g/dl (32-36); Mean Corpuscular Hemoglobin 31.4 pg (26-34); Mean Corpuscular Volume 107.1 fl (80-100); Mean Platelet Volume 12.4 fl (7.4-10.4); Platelet Count Result 304 k/mm3 (150-375); Red Blood Count 2.26 M/mm3 (4.6-6.20); Red Cell Distribution Width 17.2 % (11.5-14.5); White Blood Count 5.7 K/mm3 (4.5-10.0)
[2021-06-06 07:28] LABS: Albumin Level 3.6 g/dL (3.5-5.1); Anion Gap 17 mmol/L (8-16); Blood Urea Nitrogen 74 mg/dL (9-20); Calcium 7.8 mg/dL (8.4-10.2); Carbon Dioxide 19 mmol/L (22-30); Chloride 104 mmol/L (98-107); Estimated CRCL calculation 8 ml/min; Estimated Glomerular Filt Rate 7; Glucose 526 mg/dL (65-110); Phosphorus 6.2 mg/dL (2.5-4.5); Potassium 4.5 mmol/L (3.4-5.0); Sodium 140 mmol/L (137-145)
--- NOTE | 2021-06-06 07:49 | PM.PNNEP ---
Progress Note: A&P Assessment and Plan (1) End stage renal disease: Code(s): N18.6 - End stage renal disease Status: Chronic Assessment and Plan: On peritoneal dialysis. Patient has volume overload. He is on red bags and lots of diuretics. It is unclear what exactly happened with the machine last night. It sounds like he might have had low patient drain. I am not sure if the patient reprogrammed the machine and that is why all the fluid ran out. Yesterday when the nurse was setting the patient up he kept complaining about having too much fluid in so he talked her into lower volumes. The nurse called me and I had her increase the time on dialysis and do an extra exchange so that we get enough fluid removal. I will give more cathartics today to try to get the catheter working property. Abdominal flat Plate showed appropriate positioning of the peritoneal dialysis catheter. Echocardiogram shows 40% ejection fraction. Consider cardio consult? (2) Hyperkalemia: Code(s): E87.5 - Hyperkalemia Status: Acute Assessment and Plan: Resolved (3) Pneumonia: Qualifiers: Laterality: unspecified laterality Lung location: unspecified part of lung Pneumonia type: due to unspecified organism Qualified Code(s): J18.9 - Pneumonia, unspecified organism Code(s): J18.9 - Pneumonia, unspecified organism Status: Acute Assessment and Plan: as evidenced by admission CXR follow cultures On Zithromax and cefepime. Will repeat a chest x-ray to see where we are with the infiltrates. (4) Anemia: Code(s): D64.9 - Anemia, unspecified Status: Chronic Assessment and Plan: due to ESRD and exacerbated by acute illness On Epogen. Hemoglobin 7.1 Subjective Date/time seen: 06/06/21 07:49 Interval history: Patient is on peritoneal dialysis. Last night it did not work again. The nurse said that it ran out of fluid at 2 a.m.. She called the 1 [phone] number and that person told her to disconnect the patient and turn the machine off. The patient said that the machine mention ?check patient line ? and ?feel he would her bag ? Since the machine was turned off we have no information about how much fluid came off or where he was in his fill. Exam Narrative: GENERAL APPEARANCE: well developed well nourished male in no acute distress HEENT: normocephalic, atraumatic, CARDIOVASCULAR: RRR, normal S1 and S2, no rub RESPIRATORY: coarse breath sounds ABDOMEN: soft, nontender, nondistended, positive bowel sounds present EXTREMITIES: 2+ edema Objective Data Vital Signs Vital Signs: Vital Signs - 24 hr 06/05/21 08:00 06/05/21 10:00 06/05/21 10:05 Temperature 35.8 C L Pulse Rate 102 H 90 88 Respiratory Rate 18 Blood Pressure 142/80 H Pulse Oximetry 98 06/05/21 12:00 06/05/21 12:52 06/05/21 14:00 Temperature 36.3 C L Pulse Rate 84 96 76 Respiratory Rate 18 Blood Pressure 131/63 Pulse Oximetry 98 06/05/21 14:55 06/05/21 16:00 06/05/21 18:00 Temperature 37.2 C Pulse Rate 74 94 93 Respiratory Rate 20 Blood Pressure 147/84 H Pulse Oximetry 98 06/05/21 20:00 06/05/21 21:04 06/05/21 22:00 Temperature 36.6 C Pulse Rate 118 H 109 H 95 Respiratory Rate 18 Blood Pressure 137/80 Pulse Oximetry 99 06/05/21 22:42 06/06/21 00:00 06/06/21 02:00 Temperature 36.6 C Pulse Rate 115 H 104 H 57 L Respiratory Rate 20 20 Blood Pressure 141/76 H Pulse Oximetry 97 06/06/21 04:00 06/06/21 06:00 Temperature 36.4 C Pulse Rate 58 L 58 L Respiratory Rate 18 Blood Pressure 138/71 Pulse Oximetry 97 Intake/Output Intake/Output: Intake & Output 06/03/21 06/04/21 06/05/21 06/06/21 23:59 23:59 23:59 23:59 Intake Total 400 1200 1330 150 Output Total 1415 100 900 Balance -1015 1100 430 150 Meds/Results Medications: Active Medications Generic Name Dose Route Start Last Admin Tr
[2021-06-06] MEDS: LACTULOSE 20 GM/30 ML UDC PO ×2 (08:45→14:52)
[2021-06-06] MEDS: EPOETIN ALFA-EPBX 10,000 UNITS/ML VIAL 10000 UNITS SUB-Q (08:45)
[2021-06-06] MEDS: hydrALAZINE HCL 50 MG TABLET PO ×3 (08:48→17:42)
[2021-06-06] MEDS: OPTI-GEN TAB 1 TABLET PO ×2 (08:48→17:41)
[2021-06-06] MEDS: ASPIRIN 81 MG ENTERIC TABLET PO (08:49)
[2021-06-06] MEDS: CALCIUM ACETATE 667 MG TABLET 1334 MG PO ×3 (08:49→17:40)
[2021-06-06] MEDS: SODIUM BICARBONATE TAB 650 MG TABLET PO ×3 (08:49→17:41)
[2021-06-06 08:52] LABS: Glucose Point of Care 372 mg/dl (65-105)
[2021-06-06] MEDS: APIXABAN 2.5 MG TABLET PO (08:52)
[2021-06-06] MEDS: FUROSEMIDE 80 MG TABLET 160 MG PO (08:52)
[2021-06-06] MEDS: lisinopriL 20 MG TABLET PO ×2 (08:52→17:42)
[2021-06-06] MEDS: AMIODARONE HCL 200 MG TABLET 400 MG PO (08:53)
[2021-06-06] MEDS: INSULIN ASPART MIX 70/30 100 UNITS/ML 20 UNITS SUB-Q ×2 (08:56→17:38)
[2021-06-06] MEDS: INSULIN ASPART (*BKC) 100 UNITS/ML SUB-Q ×2 (08:56→12:40)
[2021-06-06 10:05] LABS: Vancomycin Random 16.7 ug/mL (10-20)
[2021-06-06] MEDS: INSULIN ASPART MIX 70/30 100 UNITS/ML 10 UNITS SUB-Q (12:39)
[2021-06-06 14:25] LABS: Glucose Point of Care 261 mg/dl (65-105)
--- NOTE | 2021-06-06 15:08 | PM.PNCARD ---
Progress Note: A&P Assessment and Plan (1) Afib: Qualifiers: Atrial fibrillation type: paroxysmal Qualified Code(s): I48.0 - Paroxysmal atrial fibrillation Code(s): I48.91 - Unspecified atrial fibrillation Status: Acute Assessment and Plan: Patient has converted to sinus rhythm on Amiodarone. Now is a little bradycardic. Will reduce amiodarone to 200 mg daily with close office follow-up to look for any significant bradycardia. Continue Eliquis. (2) CHF (congestive heart failure): Qualifiers: Heart failure type: combined systolic and diastolic Heart failure chronicity: chronic Qualified Code(s): I50.42 - Chronic combined systolic (congestive) and diastolic (congestive) heart failure Code(s): I50.9 - Heart failure, unspecified Status: Acute Assessment and Plan: Acute systolic CHF 2nd volume overload and CHF 2nd to cardiomyopathy and missing peritoneal dialysis. CXR improved though still on O2. OK for discharge when OK w/ others, though pt is still significantly volume overloaded. (3) Essential (primary) hypertension: Code(s): I10 - Essential (primary) hypertension Status: Acute Assessment and Plan: BP running on the high side here. (4) Cardiomyopathy: Code(s): I42.9 - Cardiomyopathy, unspecified Status: Acute Assessment and Plan: EF 40-45%. On guideline directed medical therapy with lisinopril, metoprolol, hydralazine. Unable to use Entresto because of his end-stage renal disease (5) End stage renal disease: Code(s): N18.6 - End stage renal disease Status: Chronic Assessment and Plan: On peritoneal dialysis, still volume overloaded. Subjective Date/time seen: 06/06/21 15:08 Interval history: Follow-up for paroxysmal atrial fibrillation, volume overload, hyperkalemia. Amiodarone initiated 06/05/2021 and IV diltiazem discontinued. Getting peritoneal dialysis and missed some treatments as he felt bad with cough and shortness of breath. Being treated for pneumonia.. Date of service 06/06/2021: Strongly desires to go home. Feels a lot better, denies SOB or ATKINSON when up in room. Tele = NSR HR 60's Echo showed EF of 40-45%. Review of Systems Constitutional: Constitutional: Reports no additional constitutional complaints Eyes: Eyes: Reports no additional eye complaints ENT: Denies epistaxis Cardiovascular: Cardiovascular: Denies chest pain, Reports pedal edema and Reports leg edema Comments: Swelling is still a lot more than normal. Respiratory: Respiratory: Denies dyspnea and Denies dyspnea on exertion Gastrointestinal: Gastrointestinal: Denies abdominal pain Genitourinary: Genitourinary: Reports no additional male genitourinary complaints Musculoskeletal: Musculoskeletal: Reports no additional musculoskeletal complaints Comments: Tired of sitting here. Integumentary/Breasts: Skin/Breast: Denies wounds Neurologic: Reports system reviewed and no additional complaints, except as documented Psychiatric: Psychiatric: Reports no additional psychiatric complaints Exam Narrative: Pt up in chair, family member at bedside. Appeared angry; No eye contact, did not initiate any conversation, answered questions briefly. Const: General: comfortable and no acute distress HENMT: General nose exam: no epistaxis Eyes: EOM: EOMs intact bilaterally Neck: Neck: supple Resp: Effort & Inspection: normal respiratory effort Auscultation: rales (rales 1/4 up bilaterally) Cardio: Rate: regular rate and bradycardic Rhythm: regular rhythm Heart sounds: Murmur heart sound present (2/6 harsh ANABELLA USB) GI: GI Palp: Yes Soft to palpation and No Tenderness to palpation present (GI) Skin: General skin exam: normal color Neuro: Speech: normal speech Extrem: General: edema and pedal edema Other: Jie
--- NOTE | 2021-06-06 15:54 | PM.IMPN ---
Progress Note: A&P Assessment and Plan (1) Pneumonia: Qualifiers: Laterality: unspecified laterality Lung location: unspecified part of lung Pneumonia type: due to unspecified organism Qualified Code(s): J18.9 - Pneumonia, unspecified organism Code(s): J18.9 - Pneumonia, unspecified organism Status: Acute Assessment and Plan: Patient received Rocephin and Zithromax Will discontinue Rocephin start cefepime and vancomycin due to patient's recent hospitalization in March Await cultures COVID PCR is pending 06/02/2021 interval history: patient is 70-year-old male with history of end-stage renal disease on peritoneal dialysis, patient presented emergency department with a complaint shortness of breath with BNP of 35,000 serum creatinine of 9.5 most likely patient is volume overload secondary to missed dialysis as patient symptoms of shortness of breath were worsening and he was not able home peritoneal dialysis, patient seen by egg separator patient is receiving peritoneal dialysis currently continue to monitor, patient is suspected of positive for COVID-19 tested an isolated will continue to monitor. 06/03/2021 Interval history: patient COVID test is negative, and had a peritoneal dialysis yesterday states feeling better, repeat chest x-ray showed slight improvement in infiltrats, will conitnue cefepime and vancomycin, patient is seen by Nephrology patient will have additional peritoneal dialysis will continue to monitor and further recommendation to follow. 06/04/2021 Interval history: patient COVID test is negative, and had a peritoneal dialysis daily, states feeling better, repeat chest x-ray on 06/03 showed slight improvement in infiltrats, will conitnue cefepime and vancomycin, patient is seen by Nephrology patient will have additional peritoneal dialysis will continue to monitor and further recommendation to follow.. 06/05/2021 Interval history: patient COVID test is negative, and had a peritoneal dialysis daily, states feeling better, repeat chest x-ray on 06/03 showed slight improvement in infiltrats, will conitnue cefepime and vancomycin, patient had developed atrial fibrillation and was placed on diltiazem drip, seen by cardiology S started the patient on amiodarone 400 mg b.i.d. and will monitor once the patient is in sinus stop the diltiazem drip, patient remains clinically stable has no symptoms, patient is seen by Nephrology, to further evaluate cardiac echo is ordered patient will have additional peritoneal dialysis 06/06/2021 Interval history: rpt cxr nico hopeful DC nico rpt CBC nico may need epogen shot prior to dc (2) COPD (chronic obstructive pulmonary disease): Qualifiers: COPD type: unspecified COPD Qualified Code(s): J44.9 - Chronic obstructive pulmonary disease, unspecified Code(s): J44.9 - Chronic obstructive pulmonary disease, unspecified Status: Acute Assessment and Plan: Not actively wheezing Albuterol MDI 2 puffs q.4 hours (3) ESRD on peritoneal dialysis: Code(s): N18.6 - End stage renal disease; Z99.2 - Dependence on renal dialysis Status: Acute Assessment and Plan: Nephrology consult Patient does peritoneal dialysis (4) Essential (primary) hypertension: Code(s): I10 - Essential (primary) hypertension Status: Acute Assessment and Plan: Continue home meds Continue to monitor (5) CHF (congestive heart failure): Qualifiers: Heart failure type: combined systolic and diastolic Heart failure chronicity: chronic Qualified Code(s): I50.42 - Chronic combined systolic (congestive) and diastolic (congestive) heart failure Code(s): I50.9 - Heart failure, unspecified Status: Acute Assessment and Plan: BNP is 35,000 however patient has had these value before suspect renal disease contributing to this Patient is on peritoneal dialysis Monitor intake and output (6) Afib: Qu
[2021-06-06 17:31] LABS: Glucose Point of Care 159 mg/dl (65-105)
[2021-06-06] MEDS: FUROSEMIDE 80 MG TABLET PO (17:42)
[2021-06-06] MEDS: PANTOPRAZOLE 40 MG TABLET PO (17:42)
[2021-06-06 20:12] LABS: Glucose Point of Care 171 mg/dl (65-105)
[2021-06-06] MEDS: GABAPENTIN 100 MG CAPSULE PO (20:23)
[2021-06-06] MEDS: HYDROcodone/acetaminophen (*CRX) 5-325 MG TABLET 1 TAB PO (20:23)
[2021-06-06] MEDS: METOPROLOL TARTRATE 50 MG TAB PO (20:23)
[2021-06-07] VITALS (14 sets, daily range): BP systolic 149–194; BP diastolic 57–90; PULSE 48–81; RESP 16–20; TEMP 36.5–36.7; O2SAT 94–100
[2021-06-07] MEDS: ALBUTEROL SULFATE (*SP) INHALER 2 PUFF INHALATION ×3 (03:58→13:34)
[2021-06-07 05:12] LABS: Hematocrit 27.6 % (42.0-52.0); Hemoglobin 8.2 g/dL (14.0-18.0); Mean Corpuscular HGB Conc 29.7 g/dl (32-36); Mean Corpuscular Hemoglobin 31.7 pg (26-34); Mean Corpuscular Volume 106.6 fl (80-100); Mean Platelet Volume 11.3 fl (7.4-10.4); Platelet Count Result 330 k/mm3 (150-375); Red Blood Count 2.59 M/mm3 (4.6-6.20); White Blood Count 5.7 K/mm3 (4.5-10.0)
[2021-06-07 05:25] LABS: Albumin Level 3.7 g/dL (3.5-5.1); Anion Gap 14 mmol/L (8-16); Blood Urea Nitrogen 66 mg/dL (9-20); Calcium 8.4 mg/dL (8.4-10.2); Carbon Dioxide 27 mmol/L (22-30); Chloride 102 mmol/L (98-107); Estimated CRCL calculation 7 ml/min; Estimated Glomerular Filt Rate 6; Glucose 353 mg/dL (65-110); Potassium 4.2 mmol/L (3.4-5.0); Sodium 143 mmol/L (137-145)
[2021-06-07] MEDS: METOPROLOL TARTRATE 50 MG TAB PO ×2 (08:49→20:47)
[2021-06-07] MEDS: CALCIUM ACETATE 667 MG TABLET 1334 MG PO ×3 (08:49→18:24)
[2021-06-07] MEDS: SODIUM BICARBONATE TAB 650 MG TABLET PO ×3 (08:49→18:28)
[2021-06-07] MEDS: APIXABAN 2.5 MG TABLET PO (08:49)
[2021-06-07] MEDS: FUROSEMIDE 80 MG TABLET 160 MG PO (08:50)
[2021-06-07] MEDS: lisinopriL 20 MG TABLET PO ×2 (08:50→18:27)
[2021-06-07] MEDS: hydrALAZINE HCL 50 MG TABLET PO ×2 (08:50→13:49)
[2021-06-07] MEDS: AMIODARONE HCL 200 MG TABLET PO (08:51)
[2021-06-07] MEDS: ASPIRIN 81 MG ENTERIC TABLET PO (08:51)
[2021-06-07] MEDS: OPTI-GEN TAB 1 TABLET PO ×2 (08:52→18:28)
[2021-06-07 08:59] LABS: Glucose Point of Care 278 mg/dl (65-105)
[2021-06-07] MEDS: INSULIN ASPART MIX 70/30 100 UNITS/ML 20 UNITS SUB-Q ×2 (09:00→18:23)
[2021-06-07] MEDS: INSULIN ASPART (*BKC) 100 UNITS/ML SUB-Q (09:01)
[2021-06-07 13:34] LABS: Glucose Point of Care 187 mg/dl (65-105)
[2021-06-07] MEDS: INSULIN ASPART MIX 70/30 100 UNITS/ML 10 UNITS SUB-Q (13:50)
--- NOTE | 2021-06-07 14:33 | PM.PNNEP ---
Progress Note: A&P Assessment and Plan (1) End stage renal disease: Code(s): N18.6 - End stage renal disease Status: Chronic Assessment and Plan: On peritoneal dialysis. Patient has volume overload. He is on red bags and lots of diuretics. dialysis work last night. I will give cathartics daily to keep the bowels moving. Abdominal flat Plate showed appropriate positioning of the peritoneal dialysis catheter. Echocardiogram shows 40% ejection fraction. Consider cardio consult? (2) Hyperkalemia: Code(s): E87.5 - Hyperkalemia Status: Acute Assessment and Plan: Resolved (3) Pneumonia: Qualifiers: Laterality: unspecified laterality Lung location: unspecified part of lung Pneumonia type: due to unspecified organism Qualified Code(s): J18.9 - Pneumonia, unspecified organism Code(s): J18.9 - Pneumonia, unspecified organism Status: Acute Assessment and Plan: as evidenced by admission CXR follow cultures On Zithromax and cefepime. Chest x-ray has been stable. (4) Anemia: Code(s): D64.9 - Anemia, unspecified Status: Chronic Assessment and Plan: due to ESRD and exacerbated by acute illness On Epogen. Hemoglobin Up to 8.2. (5) Renal osteodystrophy: Code(s): N25.0 - Renal osteodystrophy Status: Acute Assessment and Plan: calcium level is 6. Subjective Date/time seen: 06/07/21 14:33 Interval history: Patient is on peritoneal dialysis. His dialysis worked well last night. He did have 1 episode of low drain volume but otherwise had a good treatment. 1100cc came off last night. On dialysis and tolerating it well. Seen at 8:30 a.m. Exam Narrative: GENERAL APPEARANCE: well developed well nourished male in no acute distress HEENT: normocephalic, atraumatic, CARDIOVASCULAR: RRR, normal S1 and S2, no rub or gallop RESPIRATORY: coarse breath sounds ABDOMEN: soft, nontender, nondistended, positive bowel sounds present EXTREMITIES: 2+ edema Objective Data Vital Signs Vital Signs: Vital Signs - 24 hr 06/06/21 16:00 06/06/21 17:55 06/06/21 18:00 Temperature 36.5 C 36.5 C Pulse Rate 53 L 54 L 58 L Respiratory Rate 16 16 Blood Pressure 152/50 H 154/50 H Pulse Oximetry 100 06/06/21 19:36 06/06/21 20:00 06/06/21 20:23 Temperature 36.6 C Pulse Rate 58 L 59 L Respiratory Rate 20 Blood Pressure 141/71 H Pulse Oximetry 96 97 06/06/21 22:00 06/06/21 23:01 06/07/21 00:00 Temperature 36.6 C Pulse Rate 54 L 57 L 57 L Respiratory Rate 20 Blood Pressure 138/70 Pulse Oximetry 94 94 06/07/21 02:00 06/07/21 04:00 06/07/21 06:00 Temperature 36.6 C Pulse Rate 52 L 81 55 L Respiratory Rate 20 Blood Pressure 150/90 H Pulse Oximetry 95 06/07/21 06:50 06/07/21 08:00 06/07/21 10:00 Temperature 36.6 C 36.5 C Pulse Rate 81 58 L 57 L Respiratory Rate 20 20 Blood Pressure 150/90 H 194/72 H Pulse Oximetry 99 06/07/21 12:00 Temperature 36.6 C Pulse Rate 54 L Respiratory Rate 20 Blood Pressure 149/69 H Pulse Oximetry 98 Intake/Output Intake/Output: Intake & Output 06/04/21 06/05/21 06/06/21 06/07/21 23:59 23:59 23:59 23:59 Intake Total 1200 1330 855 100 Output Total 100 900 0 1380 Balance 1100 430 855 -1280 Meds/Results Medications: Active Medications Generic Name Dose Route Start Last Admin Trade Name Freq PRN Reason Stop Dose Admin Hydrocodone Bitart/Acetaminophen 1 tab 06/02/21 00:10 06/06/21 20:23 Hydrocodone/Acetaminophen (*Crx) 5-325 Mg Tablet PO 1 tab TID PRN Administration Pain Albuterol 2 puff 06/02/21 02:00 06/07/21 13:34 Albuterol Sulfate (*Sp) Inhaler INHALATION 2 puff Q6HRT PARISH Administration Amiodarone HCl 200 mg 06/07/21 08:00 06/07/21 08:51 Amiodarone Hcl 200 Mg Tablet PO 200 mg DAILY@0800 PARISH Administration Amlodipine Besylate 10 mg 06/02/21 09:
--- NOTE | 2021-06-07 15:57 | PM.PNCARD ---
Progress Note: A&P Assessment and Plan (1) Afib: Qualifiers: Atrial fibrillation type: paroxysmal Qualified Code(s): I48.0 - Paroxysmal atrial fibrillation Code(s): I48.91 - Unspecified atrial fibrillation Status: Acute Assessment and Plan: Patient has converted to sinus rhythm on Amiodarone. Now is a little bradycardic. Reduced amiodarone to 200 mg daily with close office follow-up to look for any significant bradycardia. Continue Eliquis. (2) CHF (congestive heart failure): Qualifiers: Heart failure type: combined systolic and diastolic Heart failure chronicity: chronic Qualified Code(s): I50.42 - Chronic combined systolic (congestive) and diastolic (congestive) heart failure Code(s): I50.9 - Heart failure, unspecified Status: Acute Assessment and Plan: Acute systolic CHF 2nd volume overload and CHF 2nd to cardiomyopathy and missing peritoneal dialysis. CXR improved though still on O2. OK for discharge when OK w/ others, though pt is still significantly volume overloaded. Hopefully with regular peritoneal dialysis this will improve. (3) Essential (primary) hypertension: Code(s): I10 - Essential (primary) hypertension Status: Acute Assessment and Plan: BP running on the high side here. (4) Cardiomyopathy: Code(s): I42.9 - Cardiomyopathy, unspecified Status: Acute Assessment and Plan: EF 40-45% this admission, was 35-40% in April 2020. On guideline directed medical therapy with lisinopril, metoprolol, hydralazine. Unable to use Entresto or Farxiga because of his end-stage renal disease. Unable to titrate the metoprolol further because of bradycardia. Not able to use spironolactone because of hyperkalemia (7.0 on admission). Blood pressure runs high, I can titrate these hydralazine to 75 mg b.i.d. and also add isosorbide mononitrate 30 mg daily. Can reduce amlodipine and push hydralazine/nitrates if blood pressure gets too low. (5) End stage renal disease: Code(s): N18.6 - End stage renal disease Status: Chronic Assessment and Plan: On peritoneal dialysis, still volume overloaded. Subjective Date/time seen: 06/07/21 15:57 Interval history: Follow-up for paroxysmal atrial fibrillation, volume overload, hyperkalemia. Amiodarone initiated 06/05/2021 and IV diltiazem discontinued. Getting peritoneal dialysis and missed some treatments as he felt bad with cough and shortness of breath. Being treated for pneumonia.. Date of service 06/06/2021: Strongly desires to go home. Feels a lot better, denies SOB or ATKINSON when up in room. Tele = NSR HR 60's Echo showed EF of 40-45%. Date of service 06/07/2021: Patient's peritoneal dialysis went well last night. He is still on O2. Heart rate is still in the 50s; amiodarone reduced yesterday. Wants to go home in thinks he will do fine without oxygen. Family member at bedside. Review of Systems Constitutional: Constitutional: Reports lethargy Eyes: Eyes: Reports no additional eye complaints ENT: Denies epistaxis Cardiovascular: Cardiovascular: Denies chest pain, Reports pedal edema, Reports leg edema, Denies dyspnea and Denies dyspnea on exertion Respiratory: Respiratory: Denies dyspnea and Denies dyspnea on exertion Gastrointestinal: Gastrointestinal: Denies abdominal pain Genitourinary: Genitourinary: Reports no additional male genitourinary complaints Musculoskeletal: Musculoskeletal: Reports no additional musculoskeletal complaints Integumentary/Breasts: Skin/Breast: Reports system reviewed and no additional complaints, except as docu and Denies wounds Neurologic: Reports system reviewed and no additional complaints, except as documented Psychiatric: Psychiatric: Reports no additional psychiatric complaints Endocrine: Endocrine: Reports no additi
[2021-06-07 17:06] LABS: Glucose Point of Care 92 mg/dl (65-105)
[2021-06-07 17:06] LABS: Glucose Point of Care 97 mg/dl (65-105)
[2021-06-07] MEDS: hydrALAZINE HCL 25 MG TABLET 75 MG PO (18:26)
[2021-06-07] MEDS: PANTOPRAZOLE 40 MG TABLET PO (18:28)
[2021-06-07] MEDS: FUROSEMIDE 80 MG TABLET PO (18:29)
[2021-06-07] MEDS: GABAPENTIN 100 MG CAPSULE PO (20:48)
[2021-06-07] MEDS: HYDROcodone/acetaminophen (*CRX) 5-325 MG TABLET 1 TAB PO (20:53)
--- NOTE | 2021-06-07 20:57 | PM.IMPN ---
Progress Note: A&P Assessment and Plan (1) Pneumonia: Qualifiers: Laterality: unspecified laterality Lung location: unspecified part of lung Pneumonia type: due to unspecified organism Qualified Code(s): J18.9 - Pneumonia, unspecified organism Code(s): J18.9 - Pneumonia, unspecified organism Status: Acute Assessment and Plan: Patient received Rocephin and Zithromax Will discontinue Rocephin start cefepime and vancomycin due to patient's recent hospitalization in March Await cultures COVID PCR is negative. 06/02/2021 interval history: patient is 70-year-old male with history of end-stage renal disease on peritoneal dialysis, patient presented emergency department with a complaint shortness of breath with BNP of 35,000 serum creatinine of 9.5 most likely patient is volume overload secondary to missed dialysis as patient symptoms of shortness of breath were worsening and he was not able home peritoneal dialysis, patient seen by hull inspector patient is receiving peritoneal dialysis currently continue to monitor, patient is suspected of positive for COVID-19 tested an isolated will continue to monitor. 06/03/2021 Interval history: patient COVID test is negative, and had a peritoneal dialysis yesterday states feeling better, repeat chest x-ray showed slight improvement in infiltrats, will conitnue cefepime and vancomycin, patient is seen by Nephrology patient will have additional peritoneal dialysis will continue to monitor and further recommendation to follow. 06/04/2021 Interval history: patient COVID test is negative, and had a peritoneal dialysis daily, states feeling better, repeat chest x-ray on 06/03 showed slight improvement in infiltrats, will conitnue cefepime and vancomycin, patient is seen by Nephrology patient will have additional peritoneal dialysis will continue to monitor and further recommendation to follow.. 06/05/2021 Interval history: patient COVID test is negative, and had a peritoneal dialysis daily, states feeling better, repeat chest x-ray on 06/03 showed slight improvement in infiltrats, will conitnue cefepime and vancomycin, patient had developed atrial fibrillation and was placed on diltiazem drip, seen by cardiology S started the patient on amiodarone 400 mg b.i.d. and will monitor once the patient is in sinus stop the diltiazem drip, patient remains clinically stable has no symptoms, patient is seen by Nephrology, to further evaluate cardiac echo is ordered patient will have additional peritoneal dialysis 06/06/2021 Interval history: rpt cxr nico hopeful DC nico rpt CBC nico may need epogen shot prior to dc (2) COPD (chronic obstructive pulmonary disease): Qualifiers: COPD type: unspecified COPD Qualified Code(s): J44.9 - Chronic obstructive pulmonary disease, unspecified Code(s): J44.9 - Chronic obstructive pulmonary disease, unspecified Status: Acute Assessment and Plan: Not actively wheezing Albuterol MDI 2 puffs q.4 hours (3) ESRD on peritoneal dialysis: Code(s): N18.6 - End stage renal disease; Z99.2 - Dependence on renal dialysis Status: Acute Assessment and Plan: Appreciate nephrology recommendation for pay toenail dialysis. (4) Essential (primary) hypertension: Code(s): I10 - Essential (primary) hypertension Status: Acute Assessment and Plan: Blood pressure moderately controlled. Single peak at 194/72 today. Remaining measurements in the 149/60 9-150 5/67 range. Continue home medication and aggressive ultrafiltration per Nephrology (5) CHF (congestive heart failure): Qualifiers: Heart failure type: combined systolic and diastolic Heart failure chronicity: chronic Qualified Code(s): I50.42 - Chronic combined systolic (congestive) and diastolic (congestive) heart failure Code(s): I50.9 - Heart failure, unspecified Status: Acute Assessment and Plan: Patient is clin
[2021-06-07 21:30] LABS: Glucose Point of Care 212 mg/dl (65-105)
[2021-06-08] VITALS (17 sets, daily range): BP systolic 93–157; BP diastolic 62–67; PULSE 47–112; RESP 18–22; TEMP 36.1–36.9; O2SAT 92–99
--- NOTE | 2021-06-08 00:35 | PCRCNOTE ---
Pt did not receive 20:00 inhaler on 06/07/21. RT not available to administer due to emergencies elsewhere in hospital.
[2021-06-08] MEDS: ALBUTEROL SULFATE (*SP) INHALER 2 PUFF INHALATION ×3 (02:17→14:34)
[2021-06-08 06:14] LABS: Hematocrit 28.5 % (42.0-52.0); Hemoglobin 8.4 g/dL (14.0-18.0); Mean Corpuscular HGB Conc 29.5 g/dl (32-36); Mean Corpuscular Hemoglobin 30.8 pg (26-34); Mean Corpuscular Volume 104.4 fl (80-100); Platelet Count Result 344 k/mm3 (150-375); Red Blood Count 2.73 M/mm3 (4.6-6.20); Red Cell Distribution Width 16.9 % (11.5-14.5); White Blood Count 6.3 K/mm3 (4.5-10.0)
[2021-06-08 06:19] LABS: Albumin Level 3.7 g/dL (3.5-5.1); Anion Gap 12 mmol/L (8-16); Blood Urea Nitrogen 67 mg/dL (9-20); Calcium 8.3 mg/dL (8.4-10.2); Carbon Dioxide 27 mmol/L (22-30); Chloride 100 mmol/L (98-107); Estimated CRCL calculation 8 ml/min; Estimated Glomerular Filt Rate 7; Glucose 384 mg/dL (65-110); Phosphorus 5.9 mg/dL (2.5-4.5); Potassium 4.3 mmol/L (3.4-5.0); Sodium 139 mmol/L (137-145)
[2021-06-08] MEDS: HYDROcodone/acetaminophen (*CRX) 5-325 MG TABLET 1 TAB PO ×2 (08:35→18:53)
[2021-06-08] MEDS: FUROSEMIDE 80 MG TABLET 160 MG PO (08:38)
[2021-06-08] MEDS: lisinopriL 20 MG TABLET PO ×2 (08:38→17:17)
[2021-06-08] MEDS: CALCIUM ACETATE 667 MG TABLET 1334 MG PO ×3 (08:38→17:16)
[2021-06-08] MEDS: AMIODARONE HCL 200 MG TABLET PO (08:38)
[2021-06-08] MEDS: METOPROLOL TARTRATE 50 MG TAB PO ×2 (08:38→20:38)
[2021-06-08] MEDS: OPTI-GEN TAB 1 TABLET PO ×2 (08:40→17:17)
[2021-06-08] MEDS: ASPIRIN 81 MG ENTERIC TABLET PO (08:40)
[2021-06-08] MEDS: SODIUM BICARBONATE TAB 650 MG TABLET PO ×3 (08:40→17:18)
[2021-06-08] MEDS: APIXABAN 2.5 MG TABLET PO (08:40)
[2021-06-08] MEDS: LACTULOSE 20 GM/30 ML UDC PO (08:41)
[2021-06-08] MEDS: ISOSORBIDE MONONITRATE 30 MG TAB.ER.24H PO (08:41)
[2021-06-08] MEDS: hydrALAZINE HCL 25 MG TABLET 75 MG PO ×3 (08:41→17:16)
[2021-06-08] MEDS: INSULIN ASPART (*BKC) 100 UNITS/ML SUB-Q ×2 (08:49→13:07)
[2021-06-08] MEDS: EPOETIN ALFA-EPBX 10,000 UNITS/ML VIAL 10000 UNITS SUB-Q (08:49)
[2021-06-08] MEDS: INSULIN ASPART MIX 70/30 100 UNITS/ML 20 UNITS SUB-Q ×2 (08:50→18:18)
[2021-06-08 10:23] LABS: Glucose Point of Care 324 mg/dl (65-105)
[2021-06-08 11:56] LABS: Glucose Point of Care 217 mg/dl (65-105)
[2021-06-08 12:03] LABS: Glucose Point of Care 244 mg/dl (65-105)
[2021-06-08] MEDS: INSULIN ASPART MIX 70/30 100 UNITS/ML 10 UNITS SUB-Q (13:07)
--- NOTE | 2021-06-08 13:36 | PC.NURSE ---
On 06/08/21, the student, [Donavon Harmon], provided care and completed [facility] documentation on this patient. I have reviewed the student's documentation and agree with the findings.
--- NOTE | 2021-06-08 13:40 | PM.PNNEP ---
Progress Note: A&P Assessment and Plan (1) End stage renal disease: Code(s): N18.6 - End stage renal disease Status: Chronic Assessment and Plan: On peritoneal dialysis. Patient has volume overload. He is on red bags and lots of diuretics. dialysis work last night. continue cathartics daily to keep the bowels moving. Abdominal flat Plate showed appropriate positioning of the peritoneal dialysis catheter. Echocardiogram shows 40% ejection fraction. (2) Hyperkalemia: Code(s): E87.5 - Hyperkalemia Status: Acute Assessment and Plan: Resolved (3) Pneumonia: Qualifiers: Laterality: unspecified laterality Lung location: unspecified part of lung Pneumonia type: due to unspecified organism Qualified Code(s): J18.9 - Pneumonia, unspecified organism Code(s): J18.9 - Pneumonia, unspecified organism Status: Acute Assessment and Plan: as evidenced by admission CXR follow cultures On Zithromax and cefepime. (4) Anemia: Code(s): D64.9 - Anemia, unspecified Status: Chronic Assessment and Plan: due to ESRD and exacerbated by acute illness On Epogen. Hemoglobin Up to 8.2. (5) Renal osteodystrophy: Code(s): N25.0 - Renal osteodystrophy Status: Acute Assessment and Plan: calcium level is up to 8.3. phos down to 5.9 Subjective Date/time seen: 06/08/21 13:40 Interval history: Patient is on peritoneal dialysis. his PD catheter put out 3800cc net. I think he needs to stay on lactulose daily. Discussed with patient and he agrees Exam Narrative: GENERAL APPEARANCE: well developed well nourished male in no acute distress HEENT: normocephalic, atraumatic, CARDIOVASCULAR: RRR, normal S1 and S2, no rub RESPIRATORY: coarse breath sounds ABDOMEN: soft, nontender, nondistended, positive bowel sounds present EXTREMITIES: 2+ edema and no cyanosis Objective Data Vital Signs Vital Signs: Vital Signs - 24 hr 06/07/21 14:00 06/07/21 16:00 06/07/21 18:00 Temperature 36.6 C Pulse Rate 56 L 53 L 54 L Respiratory Rate 20 Blood Pressure 155/67 H Pulse Oximetry 98 06/07/21 20:00 06/07/21 20:47 06/07/21 22:00 Temperature 36.7 C Pulse Rate 54 L 61 48 L Respiratory Rate 16 Blood Pressure 149/57 H Pulse Oximetry 100 06/08/21 00:00 06/08/21 02:00 06/08/21 02:18 Temperature 36.6 C Pulse Rate 48 L 47 L 49 L Respiratory Rate 20 Blood Pressure 157/67 H Pulse Oximetry 97 99 06/08/21 04:00 06/08/21 06:00 06/08/21 07:50 Temperature 36.8 C 36.8 C Pulse Rate 55 L 57 L 57 L Respiratory Rate 20 20 Blood Pressure 150/65 H 150/65 H Pulse Oximetry 94 06/08/21 08:00 06/08/21 09:13 06/08/21 12:00 Temperature 36.1 C L Pulse Rate 52 L Respiratory Rate 18 Blood Pressure 145/63 H Pulse Oximetry 92 92 92 Intake/Output Intake/Output: Intake & Output 06/05/21 06/06/21 06/07/21 06/08/21 23:59 23:59 23:59 23:59 Intake Total 1016 827 3613 1002 Output Total 900 0 3130 3875 Balance 430 968 -1954 -0475 Meds/Results Medications: Active Medications Generic Name Dose Route Start Last Admin Trade Name Freq PRN Reason Stop Dose Admin Hydrocodone Bitart/Acetaminophen 1 tab 06/02/21 00:10 06/08/21 08:35 Hydrocodone/Acetaminophen (*Crx) 5-325 Mg Tablet PO 1 tab TID PRN Administration Pain Albuterol 2 puff 06/02/21 02:00 06/08/21 09:11 Albuterol Sulfate (*Sp) Inhaler INHALATION 2 puff Q6HRT PARISH Administration Amiodarone HCl 200 mg 06/07/21 08:00 06/08/21 08:38 Amiodarone Hcl 200 Mg Tablet PO 200 mg DAILY@0800 PARISH Administration Amlodipine Besylate 10 mg 06/02/21 09:00 06/03/21 08:54 Amlodipine Besylate 5 Mg Tablet PO 10 mg DAILY PARISH Administration Apixaban 2.5 mg 06/02/21 09:00 06/08/21 08:40 Apixaban 2.5 Mg Tablet PO 2.5 mg QAM PARISH Administration Aspirin 81 mg 06/02/21 0
--- NOTE | 2021-06-08 16:07 | PM.PNCARD ---
Progress Note: A&P Assessment and Plan (1) Afib: Qualifiers: Atrial fibrillation type: paroxysmal Qualified Code(s): I48.0 - Paroxysmal atrial fibrillation Code(s): I48.91 - Unspecified atrial fibrillation Status: Acute Assessment and Plan: Patient had converted to NSR on amiodarone but has reverted to atrial fibrillation this morning. Rate in the 120's. He is asymptomatic. Will attempt to cardiovert with IV amiodarone. 150mg bolus x1 followed by 1mg/min x6 hours. Continue Oral amiodarone 200mg daily, may increase dose depending on response to IV load Continue Eliquis. (2) CHF (congestive heart failure): Qualifiers: Heart failure type: combined systolic and diastolic Heart failure chronicity: chronic Qualified Code(s): I50.42 - Chronic combined systolic (congestive) and diastolic (congestive) heart failure Code(s): I50.9 - Heart failure, unspecified Status: Acute Assessment and Plan: Acute systolic CHF 2nd volume overload and CHF 2nd to cardiomyopathy and missing peritoneal dialysis. Much better today, on room air and LE edema improved. Hopefully with regular peritoneal dialysis this will improve. (3) Essential (primary) hypertension: Code(s): I10 - Essential (primary) hypertension Status: Acute Assessment and Plan: BP running on the high side here. (4) Cardiomyopathy: Code(s): I42.9 - Cardiomyopathy, unspecified Status: Acute Assessment and Plan: EF 40-45% this admission, was 35-40% in April 2020. On guideline directed medical therapy with lisinopril, metoprolol, hydralazine. Unable to use Entresto or Farxiga because of his end-stage renal disease. Unable to titrate the metoprolol further because of bradycardia. Not able to use spironolactone because of hyperkalemia (7.0 on admission). Blood pressure runs high, I can titrate these hydralazine to 75 mg b.i.d. and also add isosorbide mononitrate 30 mg daily. Can reduce amlodipine and push hydralazine/nitrates if blood pressure gets too low. (5) End stage renal disease: Code(s): N18.6 - End stage renal disease Status: Chronic Assessment and Plan: On peritoneal dialysis, still volume overloaded. Subjective Date/time seen: 06/08/21 11:07 Interval history: Follow-up for paroxysmal atrial fibrillation, volume overload, hyperkalemia. Amiodarone initiated 06/05/2021 and IV diltiazem discontinued. Getting peritoneal dialysis and missed some treatments as he felt bad with cough and shortness of breath. Being treated for pneumonia.. Date of service 06/06/2021: Strongly desires to go home. Feels a lot better, denies SOB or ATKINSON when up in room. Tele = NSR HR 60's Echo showed EF of 40-45%. Date of service 06/07/2021: Patient's peritoneal dialysis went well last night. He is still on O2. Heart rate is still in the 50s; amiodarone reduced yesterday. Wants to go home in thinks he will do fine without oxygen. Family member at bedside. Date of service 06/08/2021: Sitting up in the chair this morning feeling well and denies complaints of any sort. On room air breathing comfortably. Unfortunately he has reverted back to atrial fibrillation with rate in the 120's. He is completely asymptomatic with this. Review of Systems Constitutional: Constitutional: Reports lethargy Eyes: Eyes: Reports no additional eye complaints ENT: Denies epistaxis Cardiovascular: Cardiovascular: Denies chest pain, Reports pedal edema, Reports leg edema, Denies dyspnea and Denies dyspnea on exertion Respiratory: Respiratory: Denies dyspnea and Denies dyspnea on exertion Gastrointestinal: Gastrointestinal: Denies abdominal pain Genitourinary: Genitourinary: Reports no additional male genitourinary complaints Musculoskeletal: Musculoskeletal: Reports no additional musculoskeletal
--- NOTE | 2021-06-08 16:34 | PM.IMPN ---
Progress Note: A&P Assessment and Plan (1) Pneumonia: Qualifiers: Laterality: unspecified laterality Lung location: unspecified part of lung Pneumonia type: due to unspecified organism Qualified Code(s): J18.9 - Pneumonia, unspecified organism Code(s): J18.9 - Pneumonia, unspecified organism Status: Acute Assessment and Plan: Patient is 70-year-old male with history of end-stage renal disease on peritoneal dialysis, patient presented emergency department with a complaint shortness of breath with BNP of 35,000 serum creatinine of 9.5 most likely patient is volume overload secondary to missed dialysis as patient symptoms of shortness of breath were worsening and he was not able to perform home peritoneal dialysis. Patient was initially started on Rocephin and Zithromax. Due to his recent hospitalization in March he was switched to cefepime and vancomycin. Blood cultures have remained negative to date. Patient has improved symptomatically. (2) COPD (chronic obstructive pulmonary disease): Qualifiers: COPD type: unspecified COPD Qualified Code(s): J44.9 - Chronic obstructive pulmonary disease, unspecified Code(s): J44.9 - Chronic obstructive pulmonary disease, unspecified Status: Acute Assessment and Plan: No recent cough, sputum production. On examination, the patient is not actively wheezing Albuterol MDI 2 puffs q.4 hours (3) ESRD on peritoneal dialysis: Code(s): N18.6 - End stage renal disease; Z99.2 - Dependence on renal dialysis Status: Acute Assessment and Plan: Peritoneal dialysis per Nephrology recommendation. Patient has daily exchanges with good ultrafiltration and improvement of his fluid balance status. (4) Essential (primary) hypertension: Code(s): I10 - Essential (primary) hypertension Status: Acute Assessment and Plan: Blood pressure moderately controlled, for the most part. Single peak at 194/72 yesterday. Blood pressure today is in the 108/66-157/67 range Continue home medication and aggressive ultrafiltration per Nephrology (5) CHF (congestive heart failure): Qualifiers: Heart failure type: combined systolic and diastolic Heart failure chronicity: chronic Qualified Code(s): I50.42 - Chronic combined systolic (congestive) and diastolic (congestive) heart failure Code(s): I50.9 - Heart failure, unspecified Status: Acute Assessment and Plan: Patient is clinically fluid overloaded on admission. In addition, his BNP is 35,000. In the setting of chronic renal failure, the significance of these persistent elevated BNP is uncertain. Patient is likely chronically fluid overloaded. Patient is on peritoneal dialysis. He has been undergoing daily exchanges with 4.25 dextrose, with adequate ultrafiltration and improvement of fluid balance status. Monitor intake and output (6) Afib: Qualifiers: Atrial fibrillation type: paroxysmal Qualified Code(s): I48.0 - Paroxysmal atrial fibrillation Code(s): I48.91 - Unspecified atrial fibrillation Status: Acute Assessment and Plan: Patient was rythm controlled in sinus rhythm; due to hypotension his amiodarone dose was reduced.Telemetry shows atrial fibrillation in the 120s. Patient has returned to atrial fibrillation in the 120s. Cardiology was updated about the current situation. They will perform an attempt at medical conversion to this normal sinus rhythm. Continue chronic anticoagulation with Eliquis. Patient started on amiodarone drip. Currently amlodipine 10 mg p.o. daily on hold in view of relative hypotension. Follow-up cardiology recommendations. (7) Peripheral vascular disease of extremity with claudication: Code(s): I73.9 - Peripheral vascular disease, unspecified Status: Acute Assessment and Plan: Status post right iliac artery angioplasty. Right popliteal femoral bypass and right femo
[2021-06-08] MEDS: AMIODARONE 150 MG/D5W 100 ML 150 MG/100 ML BAG 600 MG IV CONT (16:55)
[2021-06-08] MEDS: PANTOPRAZOLE 40 MG TABLET PO (17:17)
[2021-06-08] MEDS: FUROSEMIDE 80 MG TABLET PO (17:18)
[2021-06-08] MEDS: AMIODARONE 360 MG/D5W 200 ML 360 MG/200 ML BAG 33.33 MG IV CONT (17:28)
[2021-06-08 17:42] LABS: Glucose Point of Care 189 mg/dl (65-105)
[2021-06-08] MEDS: GABAPENTIN 100 MG CAPSULE PO (20:38)
[2021-06-08 22:15] LABS: Glucose Point of Care 146 mg/dl (65-105)
[2021-06-09] VITALS (9 sets, daily range): BP systolic 117–138; BP diastolic 51–83; PULSE 56–100; RESP 14–20; TEMP 36.4–37.1; O2SAT 94–99
[2021-06-09 05:41] LABS: Hematocrit 28.2 % (42.0-52.0); Hemoglobin 8.3 g/dL (14.0-18.0); Mean Corpuscular HGB Conc 29.4 g/dl (32-36); Mean Corpuscular Hemoglobin 30.7 pg (26-34); Mean Corpuscular Volume 104.4 fl (80-100); Mean Platelet Volume 11.6 fl (7.4-10.4); Platelet Count Result 346 k/mm3 (150-375); Red Cell Distribution Width 16.9 % (11.5-14.5); White Blood Count 7.2 K/mm3 (4.5-10.0)
[2021-06-09 06:06] LABS: Albumin Level 3.6 g/dL (3.5-5.1); Anion Gap 14 mmol/L (8-16); Blood Urea Nitrogen 68 mg/dL (9-20); Calcium 8.6 mg/dL (8.4-10.2); Carbon Dioxide 27 mmol/L (22-30); Chloride 101 mmol/L (98-107); Estimated CRCL calculation 8 ml/min; Estimated Glomerular Filt Rate 6; Glucose 272 mg/dL (65-110); Phosphorus 5.1 mg/dL (2.5-4.5); Potassium 4.5 mmol/L (3.4-5.0); Sodium 142 mmol/L (137-145)
[2021-06-09] MEDS: hydrALAZINE HCL 25 MG TABLET 75 MG PO ×2 (08:26→12:07)
[2021-06-09] MEDS: HYDROcodone/acetaminophen (*CRX) 5-325 MG TABLET 1 TAB PO (08:26)
[2021-06-09] MEDS: lisinopriL 20 MG TABLET PO (08:27)
[2021-06-09] MEDS: OPTI-GEN TAB 1 TABLET PO (08:27)
[2021-06-09] MEDS: AMIODARONE HCL 200 MG TABLET PO (08:27)
[2021-06-09] MEDS: APIXABAN 2.5 MG TABLET PO (08:27)
[2021-06-09] MEDS: ISOSORBIDE MONONITRATE 30 MG TAB.ER.24H PO (08:27)
[2021-06-09] MEDS: CALCIUM ACETATE 667 MG TABLET 1334 MG PO ×2 (08:27→12:07)
[2021-06-09] MEDS: ASPIRIN 81 MG ENTERIC TABLET PO (08:27)
[2021-06-09] MEDS: LACTULOSE 20 GM/30 ML UDC PO (08:27)
[2021-06-09] MEDS: SODIUM BICARBONATE TAB 650 MG TABLET PO ×2 (08:27→12:07)
[2021-06-09] MEDS: FUROSEMIDE 80 MG TABLET 160 MG PO (08:28)
[2021-06-09] MEDS: METOPROLOL TARTRATE 50 MG TAB PO (08:28)
[2021-06-09] MEDS: INSULIN ASPART MIX 70/30 100 UNITS/ML 20 UNITS SUB-Q (08:32)
[2021-06-09 08:48] LABS: Glucose Point of Care 258 mg/dl (65-105)
[2021-06-09] MEDS: ALBUTEROL SULFATE (*SP) INHALER 2 PUFF INHALATION (09:15)
--- NOTE | 2021-06-09 09:46 | PM.IMPN ---
Progress Note: A&P Assessment and Plan (1) Pneumonia: Qualifiers: Laterality: unspecified laterality Lung location: unspecified part of lung Pneumonia type: due to unspecified organism Qualified Code(s): J18.9 - Pneumonia, unspecified organism Code(s): J18.9 - Pneumonia, unspecified organism Status: Acute Assessment and Plan: Patient is 70-year-old male with history of end-stage renal disease on peritoneal dialysis, patient presented emergency department with a complaint shortness of breath with BNP of 35,000 serum creatinine of 9.5 most likely patient is volume overload secondary to missed dialysis as patient symptoms of shortness of breath were worsening and he was not able to perform home peritoneal dialysis. Patient was initially started on Rocephin and Zithromax. Due to his recent hospitalization in March he was switched to cefepime and vancomycin. Blood cultures have remained negative to date. Patient has improved symptomatically. Patient is 70-year-old male with history of end-stage renal disease on peritoneal dialysis, patient presented emergency department with a complaint shortness of breath with BNP of 35,000 serum creatinine of 9.5 most likely patient is volume overload secondary to missed dialysis as patient symptoms of shortness of breath were worsening and he was not able to perform home peritoneal dialysis. Patient was initially started on Rocephin and Zithromax. Due to his recent hospitalization in March he was switched to cefepime and vancomycin. Blood cultures have remained negative to date. Patient has improved symptomatically. (2) COPD (chronic obstructive pulmonary disease): Qualifiers: COPD type: unspecified COPD Qualified Code(s): J44.9 - Chronic obstructive pulmonary disease, unspecified Code(s): J44.9 - Chronic obstructive pulmonary disease, unspecified Status: Acute Assessment and Plan: No recent cough, sputum production. On examination, the patient is not actively wheezing Albuterol MDI 2 puffs q.4 hours No recent cough, sputum production. On examination, the patient is not actively wheezing Albuterol MDI 2 puffs q.4 hours (3) ESRD on peritoneal dialysis: Code(s): N18.6 - End stage renal disease; Z99.2 - Dependence on renal dialysis Status: Acute Assessment and Plan: Peritoneal dialysis per Nephrology recommendation. Patient has daily exchanges with good ultrafiltration and improvement of his fluid balance status. Peritoneal dialysis per Nephrology recommendation. Patient has daily exchanges with good ultrafiltration and improvement of his fluid balance status. (4) Essential (primary) hypertension: Code(s): I10 - Essential (primary) hypertension Status: Acute Assessment and Plan: Blood pressure moderately controlled, for the most part. Single peak at 194/72 yesterday. Blood pressure today is in the 108/66-157/67 range Continue home medication and aggressive ultrafiltration per Nephrology Blood pressure moderately controlled, for the most part. Single peak at 194/72 yesterday. Blood pressure today is in the 108/66-157/67 range Continue home medication and aggressive ultrafiltration per Nephrology (5) CHF (congestive heart failure): Qualifiers: Heart failure chronicity: chronic Heart failure type: combined systolic and diastolic Qualified Code(s): I50.42 - Chronic combined systolic (congestive) and diastolic (congestive) heart failure Code(s): I50.9 - Heart failure, unspecified Status: Acute Assessment and Plan: Patient is clinically fluid overloaded on admission. In addition, his BNP is 35,000. In the setting of chronic renal failure, the significance of these persistent elevated BNP is uncertain. Patient is likely chronically fluid overloaded. Patient is on peritoneal dialysis. He has been undergoing daily exchanges with 4.25 dextrose, with adequate ultrafiltratio
--- NOTE | 2021-06-09 10:24 | PCNWS ---
Weekly nutritional screen. Patient is tolerating current diet with adequate intake of 75-100% of meals. No weight loss reported. No nutritional needs at this time.
--- NOTE | 2021-06-09 11:07 | PM.PNNEP ---
Progress Note: A&P Assessment and Plan (1) End stage renal disease: Code(s): N18.6 - End stage renal disease Status: Chronic Assessment and Plan: On peritoneal dialysis. Patient has volume overload. He is on red bags and lots of diuretics. dialysis worked better last night than before but not quite as good is night before last. continue cathartics daily to keep the bowels moving. Abdominal flat Plate showed appropriate positioning of the peritoneal dialysis catheter. Echocardiogram shows 40% ejection fraction. (2) Hyperkalemia: Code(s): E87.5 - Hyperkalemia Status: Acute Assessment and Plan: Resolved (3) Pneumonia: Qualifiers: Laterality: unspecified laterality Lung location: unspecified part of lung Pneumonia type: due to unspecified organism Qualified Code(s): J18.9 - Pneumonia, unspecified organism Code(s): J18.9 - Pneumonia, unspecified organism Status: Acute Assessment and Plan: as evidenced by admission CXR follow cultures On Zithromax and cefepime. (4) Anemia: Code(s): D64.9 - Anemia, unspecified Status: Chronic Assessment and Plan: due to ESRD and exacerbated by acute illness On Epogen. Hemoglobin Up to 8.2. (5) Renal osteodystrophy: Code(s): N25.0 - Renal osteodystrophy Status: Acute Assessment and Plan: calcium level is up to 8.3. phos down to 5.9 (6) Atrial fibrillation with rapid ventricular response: Code(s): I48.91 - Unspecified atrial fibrillation Status: Acute Assessment and Plan: Patient had rapid ventricular rate last night. Cardiology saw and adjusted medications. Subjective Date/time seen: 06/09/21 11:07 Interval history: Patient is on peritoneal dialysis. his PD catheter put out 1355 yesterday. Was some trouble with the 5th exchange the patient says. He was seen at 10:45 a.m. Exam Narrative: GENERAL APPEARANCE: well developed well nourished male in no acute distress HEENT: normocephalic, atraumatic, CARDIOVASCULAR: IRR, rate in the 80s and 90s normal S1 and S2, no rub RESPIRATORY: coarse breath sounds ABDOMEN: soft, nontender, nondistended, positive bowel sounds present EXTREMITIES: 2+ edema and no cyanosis Objective Data Vital Signs Vital Signs: Vital Signs - 24 hr 06/08/21 12:00 06/08/21 14:00 06/08/21 16:00 Temperature 36.2 C L 36.4 C L Pulse Rate 108 H 109 H 103 H Respiratory Rate 22 H 20 Blood Pressure 108/66 Pulse Oximetry 95 99 06/08/21 17:00 06/08/21 18:00 06/08/21 20:00 Temperature 36.2 C L 36.9 C Pulse Rate 109 H 112 H 106 H Respiratory Rate 22 H 20 Blood Pressure 108/66 93/62 L Pulse Oximetry 94 06/08/21 20:38 06/08/21 22:00 06/09/21 00:00 Temperature 37.0 C Pulse Rate 110 H 102 H 98 Respiratory Rate 19 Blood Pressure 117/71 Pulse Oximetry 94 06/09/21 02:00 06/09/21 04:00 06/09/21 06:00 Temperature 37.1 C Pulse Rate 100 99 100 Respiratory Rate 20 Blood Pressure 123/80 Pulse Oximetry 95 06/09/21 07:41 06/09/21 08:00 Temperature 37.1 C 36.8 C Pulse Rate 100 62 Respiratory Rate 20 14 Blood Pressure 123/80 136/83 Pulse Oximetry 99 Intake/Output Intake/Output: Intake & Output 06/06/21 06/07/21 06/08/21 06/09/21 23:59 23:59 23:59 23:59 Intake Total 855 1170 1802 350 Output Total 0 3130 4175 1355 Balance 855 -1960 -2373 -1005 Meds/Results Medications: Active Medications Generic Name Dose Route Start Last Admin Trade Name Freq PRN Reason Stop Dose Admin Hydrocodone Bitart/Acetaminophen 1 tab 06/02/21 00:10 06/09/21 08:26 Hydrocodone/Acetaminophen (*Crx) 5-325 Mg Tablet PO 1 tab TID PRN Administration Pain Albuterol 2 puff 06/02/21 02:00 06/09/21 09:15 Albuterol Sulfate (*Sp) Inhaler INHALATION 2 puff Q6HRT PARISH Administration Amiodarone HCl 200 mg 06/07/21 08:00 06/09/21 08:27 Amiodarone Hcl
[2021-06-09 11:21] LABS: Vancomycin Random 24.8 ug/mL (10-20)
--- NOTE | 2021-06-09 12:03 | PM.PNCARD ---
Progress Note: A&P Assessment and Plan (1) Afib: Qualifiers: Atrial fibrillation type: paroxysmal Qualified Code(s): I48.0 - Paroxysmal atrial fibrillation Code(s): I48.91 - Unspecified atrial fibrillation Status: Acute Assessment and Plan: Patient had converted to NSR on amiodarone but has reverted to atrial fibrillation again yesterday. Rate in the 120's. Rec'd amiodarone bolus followed by amiodarione drip last evening. Remains on p.o. amiodarone now. Continue amiodarone 200mg daily Continue anticoagulation with apixiban (2) CHF (congestive heart failure): Qualifiers: Heart failure type: combined systolic and diastolic Heart failure chronicity: chronic Qualified Code(s): I50.42 - Chronic combined systolic (congestive) and diastolic (congestive) heart failure Code(s): I50.9 - Heart failure, unspecified Status: Acute Assessment and Plan: Acute systolic CHF secondary to volume overload and CHF secondary to cardiomyopathy and missing peritoneal dialysis. Improved with resumption of PD. Symptoms slightly worse today than yesterday due to missing part of PD treatment last night Hopefully this will continue to improve with consistent dialysis treatments (3) Essential (primary) hypertension: Code(s): I10 - Essential (primary) hypertension Status: Acute Assessment and Plan: BP running on the high side here. (4) Cardiomyopathy: Code(s): I42.9 - Cardiomyopathy, unspecified Status: Acute Assessment and Plan: EF 40-45% this admission, was 35-40% in April 2020. On guideline directed medical therapy with lisinopril, metoprolol, hydralazine. Unable to use Entresto or Farxiga because of his end-stage renal disease. Had some bradycardia during this admission limiting titration of metoprolol. Not able to use spironolactone because of hyperkalemia (7.0 on admission). (5) End stage renal disease: Code(s): N18.6 - End stage renal disease Status: Chronic Assessment and Plan: On peritoneal dialysis, still volume overloaded but improved. Subjective Date/time seen: 06/09/21 12:03 Interval history: Follow-up for paroxysmal atrial fibrillation, volume overload, hyperkalemia. Amiodarone initiated 06/05/2021 and IV diltiazem discontinued. Getting peritoneal dialysis and missed some treatments as he felt bad with cough and shortness of breath. Being treated for pneumonia.. Date of service 06/06/2021: Strongly desires to go home. Feels a lot better, denies SOB or ATKINSON when up in room. Tele = NSR HR 60's Echo showed EF of 40-45%. Date of service 06/07/2021: Patient's peritoneal dialysis went well last night. He is still on O2. Heart rate is still in the 50s; amiodarone reduced yesterday. Wants to go home in thinks he will do fine without oxygen. Family member at bedside. Date of service 06/08/2021: Sitting up in the chair this morning feeling well and denies complaints of any sort. On room air breathing comfortably. Unfortunately he has reverted back to atrial fibrillation with rate in the 120's. He is completely asymptomatic with this. Date of service 06/09/2021: No major changes overnight clinically. He remains in atrial fibrillation but his rate is better controlled today; mostly in the 80's, 90's. He does not have any chest pain, palpitations, shortness of breath. Apparently he had some trouble with his PD treatment last night and did not complete the treatment. Review of Systems Constitutional: Constitutional: Reports lethargy Eyes: Eyes: Reports no additional eye complaints ENT: Denies epistaxis Cardiovascular: Cardiovascular: Denies chest pain, Reports pedal edema, Reports leg edema, Denies dyspnea and Denies dyspnea on exertion Respiratory: Respiratory: Denies dyspnea and Denies dyspnea on exertion Gastrointe
[2021-06-09] MEDS: INSULIN ASPART (*BKC) 100 UNITS/ML SUB-Q (12:07)
[2021-06-09] MEDS: INSULIN ASPART MIX 70/30 100 UNITS/ML 10 UNITS SUB-Q (12:08)
--- NOTE | 2021-06-09 12:12 | PM.DS ---
DS: Admitting Diagnosis Discharge Date 06/09/2021 Admitting Diagnosis (1) Pneumonia: (2) COPD (chronic obstructive pulmonary disease): (3) ESRD on peritoneal dialysis: (4) Essential (primary) hypertension: (5) CHF (congestive heart failure): (6) Afib: (7) Peripheral vascular disease of extremity with claudication. DS: Discharge Diagnosis Discharge Diagnosis (1) Pneumonia: Qualifiers: Laterality: unspecified laterality Lung location: unspecified part of lung Pneumonia type: due to unspecified organism Qualified Code(s): J18.9 - Pneumonia, unspecified organism Code(s): J18.9 - Pneumonia, unspecified organism Status: Acute Assessment and Plan: Patient is 70-year-old male with history of end-stage renal disease on peritoneal dialysis, patient presented emergency department with a complaint shortness of breath with BNP of 35,000 serum creatinine of 9.5 most likely patient is volume overload secondary to missed dialysis as patient symptoms of shortness of breath were worsening and he was not able to perform home peritoneal dialysis. Patient was initially started on Rocephin and Zithromax. Due to his recent hospitalization in March he was switched to cefepime and vancomycin. Blood cultures have remained negative to date. Patient has improved symptomatically. (2) COPD (chronic obstructive pulmonary disease): Qualifiers: COPD type: unspecified COPD Qualified Code(s): J44.9 - Chronic obstructive pulmonary disease, unspecified Code(s): J44.9 - Chronic obstructive pulmonary disease, unspecified Status: Acute Assessment and Plan: No recent cough, sputum production. On examination, the patient is not actively wheezing Albuterol MDI 2 puffs q.4 hours (3) ESRD on peritoneal dialysis: Code(s): N18.6 - End stage renal disease; Z99.2 - Dependence on renal dialysis Status: Acute Assessment and Plan: Peritoneal dialysis per Nephrology recommendation. Patient has daily exchanges with good ultrafiltration and improvement of his fluid balance status. (4) Essential (primary) hypertension: Code(s): I10 - Essential (primary) hypertension Status: Acute Assessment and Plan: Blood pressure moderately controlled, for the most part. Single peak at 194/72 yesterday. Blood pressure today is in the 108/66-157/67 range Continue home medication and aggressive ultrafiltration per Nephrology (5) CHF (congestive heart failure): Qualifiers: Heart failure chronicity: chronic Heart failure type: combined systolic and diastolic Qualified Code(s): I50.42 - Chronic combined systolic (congestive) and diastolic (congestive) heart failure Code(s): I50.9 - Heart failure, unspecified Status: Acute Assessment and Plan: Patient is clinically fluid overloaded on admission. In addition, his BNP is 35,000. In the setting of chronic renal failure, the significance of these persistent elevated BNP is uncertain. Patient is likely chronically fluid overloaded. Patient is on peritoneal dialysis. He has been undergoing daily exchanges with 4.25 dextrose, with adequate ultrafiltration and improvement of fluid balance status. Monitor intake and output (6) Afib: Qualifiers: Atrial fibrillation type: paroxysmal Qualified Code(s): I48.0 - Paroxysmal atrial fibrillation Code(s): I48.91 - Unspecified atrial fibrillation Status: Acute Assessment and Plan: Patient was rythm controlled in sinus rhythm; due to hypotension his amiodarone dose was reduced.Telemetry shows atrial fibrillation in the 120s. Patient has returned to atrial fibrillation in the 120s. Cardiology was updated about the current situation. They will perform an attempt at medical conversion to this normal sinus rhythm. Continue chronic anticoagulation with Eliquis. Patient started on amiodarone drip. Currently amlodipine 10 mg p.o. daily on hold in view of re
[2021-06-09 13:01] LABS: Glucose Point of Care 205 mg/dl (65-105)
--- NOTE | 2021-06-09 14:17 | PCNSR ---
On 06/09/21, the student, Cass Rojas, provided care and completed [facility] documentation on this patient. I have reviewed the student's documentation and agree with the findings.
== END 2021-06-09 14:55 | disposition home health service (06) | DRG 193 ==
LOC: ANHED 18:43 → ANHIMU 18:54
PROVIDERS: Family Medicine; Internal Medicine; Internal Medicine Nephrology; Physician Assistant; Admitting Provider Internal Medicine; Emergency Provider Emergency Medicine; PCP Internal Medicine; Visit Provider Internal Medicine
DX: J18.9 Pneumonia, unspecified organism (principal); N18.6 End stage renal disease; S22.31XA Fracture of one rib, right side, initial encounter for closed fracture; I50.23 Acute on chronic systolic (congestive) heart failure; J44.0 Chronic obstructive pulmonary disease with (acute) lower respiratory infection; I13.2 Hypertensive heart and chronic kidney disease with heart failure and with stage 5 chronic kidney disease, or end stage renal disease; I42.9 Cardiomyopathy, unspecified; D63.1 Anemia in chronic kidney disease; E11.22 Type 2 diabetes mellitus with diabetic chronic kidney disease; E11.51 Type 2 diabetes mellitus with diabetic peripheral angiopathy without gangrene; Z99.2 Dependence on renal dialysis; W01.10XA Fall on same level from slipping, tripping and stumbling with subsequent striking against unspecified object, initial encounter; Z20.822 Contact with and (suspected) exposure to COVID-19; N25.0 Renal osteodystrophy; E87.5 Hyperkalemia; R09.02 Hypoxemia; E78.5 Hyperlipidemia, unspecified; I48.0 Paroxysmal atrial fibrillation; M19.90 Unspecified osteoarthritis, unspecified site; Z28.21 Immunization not carried out because of patient refusal; Z79.01 Long term (current) use of anticoagulants; Z79.4 Long term (current) use of insulin; Z79.82 Long term (current) use of aspirin; Z87.891 Personal history of nicotine dependence; Z95.820 Peripheral vascular angioplasty status with implants and grafts
CPT/HCPCS: 36415; 70450; 71045; 71046; 71110; 72072; 74018; 80048; 80053; 80069; 80202; 81001; 82948; 83735; 83880; 84484; 85025; 85027; 86704; 86706; 87040; 87086; 87340; 90945; 93005; 93306; 94640; 96365; 96367; 96375; 97161; 97165; 99285; A9270; C9803; G0378; J0282; J0456; J0610; J0692; J0696; J1815; J1940; J3370; Q5105; U0003; U0005

== ENCOUNTER 2021-06-20 06:24 | Inpatient (IN) | payer OTHER, SELFPAY ==
[2021-06-20] VITALS (36 sets, daily range): BP systolic 100–159; BP diastolic 60–134; PULSE 74–151; RESP 11–26; TEMP 36.6–38.1; O2SAT 83–98
--- NOTE | ~2021-06-20 | XR_ITS ---
EXAMINATION: XR chest 1V portable DATE: 06/26/2021 06:06 INDICATION: Shortness of breath. TECHNIQUE: A single frontal view of the chest was obtained. COMPARISON: Chest single view 06/20/2021, CT abdomen 01/31/2007 FINDINGS: There are airspace opacities in the mid and lower lung zones with a peripheral predominance . No pleural effusion or pneumothorax. Cardiomegaly is noted. IMPRESSION: 1. Worsened airspace opacities in the mid and lower lung zones with a peripheral predominance, consis tent with pulmonary edema versus pneumonia. 2. Cardiomegaly. Reviewed, dictated and finalized at location A. GRINDER MACHINE IMPRESSION: 1. Worsened airspace opacities in the mid and lower lung zones with a periphera l predominance, consistent with pulmonary edema versus pneumonia. 2. Cardiomegaly.
--- NOTE | ~2021-06-20 | XR_ITS ---
EXAMINATION: XR tibia fibula RT 2V DATE: 06/20/2021 10:39 INDICATION: Right leg pain post fall TECHNIQUE: AP and lateral views of the right lower leg were obtained on overlapping proximal and dist al images. COMPARISON: None. FINDINGS: Bone alignment is normal. No fracture. There is a metallic staple at the posterolateral aspect of the intercondylar notch expected location of the femoral insertion of the anterior cruciate ligament sug gesting prior cruciate ligament repair. Joint spaces appear relatively preserved on nonweightbearing imaging. Small Achilles calcaneal spur. No right knee or ankle joint effusion. Extensive scattered at herosclerotic calcifications extending from the popliteal artery into multiple arteries at the right lower leg. IMPRESSION: 1. No acute osseous abnormality. 2. Metallic staple at the intercondylar notch suggesting prior anterior cruciate ligament repair. Cor relate with surgical history. Reviewed, dictated and finalized at location A. [employer] IMPRESSION: 1. No acute osseous abnormality. 2. Metallic staple at the intercondylar notch suggesting prior anterior cruciat e ligament repair. Correlate with surgical history.
--- NOTE | ~2021-06-20 | CT_ITS ---
EXAMINATION: CT abdomen pelvis w con DATE: 06/30/2021 17:11 INDICATION: Leukocytosis and thrombocytosis TECHNIQUE: Computed tomography (CT) of the abdomen and pelvis was performed with 100 mL Omnipaque-350 intravenous contrast. Automated exposure control and iterative reconstruction technique were employe d. The dose-length product was 537.91 mGy-cm. COMPARISON: 01/31/2007 FINDINGS: Respiratory motion and mild atelectasis at the bilateral lung bases. Cardiomegaly. Atherosclerotic co ronary artery calcification. Aortic valve and mitral annular calcification. No pericardial or pleural effusion. Calcified mediastinal lymph nodes along with scattered hepatic and splenic calcifications consistent with old granulomatous disease. Gallbladder and bilateral adrenal glands are normal. Appro ximately 5 mm calcification in the region of the distal common bile duct which is at the upper limits of normal measuring 6 mm in diameter is unclear this represents a stone within the duct or in the im mediately adjacent head of the pancreas. There are a couple additional calcifications at the neck of the pancreas suggesting sequela of chronic pancreatitis. Moderate diffuse parenchymal atrophy of the pancreas. Mild bilateral renal atrophy. Bilateral renal cysts, the largest on the right measuring 6.1 cm. Oral contrast material in the distal small bowel and proximal colon likely related to a modified barium swallow study performed earlier in the day. No bowel obstruction. There is moderate colonic d iverticulosis with a sigmoid and descending colon predominance. There is no adjacent inflammatory ch marce to suggest diverticulitis. Small fat-containing left inguinal hernia. Diffuse mild bladder wall thickening. Likely peritoneal dialysis catheter arising slightly left and cephalad to the umbilicus w hich extends into the pelvis with distal coil in the deep right pelvis. Trace amount of ascites in th e pelvis. No abscess or free intraperitoneal gas. There is extensive calcified atherosclerosis of the aorta and numerous arteries throughout the abdomen and pelvis which could be seen with diabetes. No pathologically enlarged abdominal or pelvic lymphadenopathy. Mild thoracolumbar spondylosis with brid ging osteophytes at multiple levels in the lower thoracic spine, consistent with diffuse idiopathic s keletal hyperostosis (DISH). IMPRESSION: 1. A couple calcifications at the head and neck of the pancreas most likely sequela of chronic pancre atitis although one lies near the distal common bile duct which is at the upper limits of normal alecia uring 6 mm in diameter and could not absolutely exclude choledocholithiasis. There is however no intr ahepatic biliary ductal dilation. Correlate with liver function tests and if indicated could consider MRCP for further evaluation. 2. Peritoneal dialysis catheter in the pelvis with mild bilateral renal atrophy. 3. Diffuse mild bladder wall thickening which could be due to incomplete distention although differen tial would include cystitis either acute or chronic. Correlate with urinalysis. 4. Prominent descending and sigmoid: Predominant diverticulosis. Reviewed, dictated and finalized at location H. SPRAYER IMPRESSION: 1. A couple calcifications at the head and neck of the pancreas most likely seq uela of chronic pancreatitis although one lies near the distal common bile duct which is at the upper limits of normal measuring 6 mm in diameter and could no t absolutely exclude choledocholithiasis. There is however no intrahepatic bili layo ductal dilation. Correlate with liver function tests and if indicated could consider MRCP for further evaluation. 2. Peritoneal dialysis catheter in the pelvis with mild bilateral renal atrophy . 3. Diffuse mild bladder wall thickening which coul
--- NOTE | ~2021-06-20 | XR_ITS ---
EXAMINATION: XR barium swallow modified DATE: 06/30/2021 09:36 INDICATION: Dysphagia. TECHNIQUE: The patient was given barium-containing material of multiple consistencies to swallow by t abida speech pathologist while I performed fluoroscopy. Dose-area product was 1.695 Gy-cm2. 3 minutes fluoroscopy time FINDINGS: Oral Stage: Within functional limits Pharyngeal Phase: Reduced tongue base retraction Reduced pharyngeal squeeze Vallecular and piriform sinus residue Cervical/Esophageal Stage: Within functional limits IMPRESSION: Modified esophagram findings as above. Please refer to the speech therapy report [facility]. Reviewed, dictated and finalized at Location A. Reviewed, dictated and finalized at location A. [employer] IMPRESSION: Modified esophagram findings as above. Please refer to the speech t herapy report for specific recommendations.
--- NOTE | ~2021-06-20 | XR_ITS ---
EXAMINATION: XR foot LT min 3V EXAM DATE: 06/20/2021 12:32 INDICATION: Left toe ulcer. TECHNIQUE: Left foot dorsoplantar, lateral and oblique projections obtained and reviewed. There is n o prior study for comparison. FINDINGS: Left metatarsal bones unremarkable. There are no acute fractures or dislocations identifi ed. There is no subcutaneous gas. There are arterial calcifications, arteriosclerosis. There are no radiopaque foreign bodies. There are no bony erosions identified. IMPRESSION: No acute osseous findings. Reviewed, dictated and finalized at location B. LABORER IMPRESSION: No acute osseous findings.
--- NOTE | ~2021-06-20 | US_ITS ---
EXAMINATION: US art doppler w arianne CORREA DATE: 06/30/2021 10:25 INDICATION: Bilateral foot pain. TECHNIQUE: Segmental pressures and plethysmographic and Doppler waveforms of the brachial and lower e xtremity arteries were obtained. COMPARISON: None. FINDINGS: Right and left brachial artery pressures of 200 mm Hg and 182 mm Hg, respectively, are concordant (no rmal difference <= 30 mmHg). The right ankle-brachial index (KARAN) is 0.07 (normal >= 0.9-1) based only upon pressures at the right posterior tibial artery with no discernible pulse at the right dorsalis pedis artery. The right grea t toe-brachial index (TBI) was also unable to be obtained due to inability to discern a pulse at the great toe. Arterial waveforms are biphasic at the right common femoral, superficial femoral arteries and monophasic with delayed upstrokes and broadened systolic peaks at the right popliteal and more pr ominently at the right posterior tibial arteries. The left KARAN is 0.28. As at the right lower limb there was no discernible pulse at either the left do rsalis pedis or left great toe precluding a left great toe brachial index measurement. Arterial wavef orms are biphasic with brisk systolic upstrokes at both the left common femoral and superficial femor al arteries with monophasic waveforms with mildly broadened systolic peaks and mildly delayed upstrok es at the left popliteal and posterior tibial arteries. IMPRESSION: 1. Severe arterial occlusive disease to the bilateral lower limbs with severely decreased bilateral A BIs, right greater than left, based upon measurements in the posterior tibial arteries with no discer nible pulses in the bilateral dorsalis pedis arteries or at the great toes. Reviewed, dictated and finalized at location H. RN IMPRESSION: 1. Severe arterial occlusive disease to the bilateral lower limbs with severely decreased bilateral ABIs, right greater than left, based upon measurements in the posterior tibial arteries with no discernible pulses in the bilateral dorsa lis pedis arteries or at the great toes.
--- NOTE | ~2021-06-20 | CT_ITS ---
EXAMINATION: CT brain wo con DATE: 06/20/2021 07:26 INDICATION: Seizure activity TECHNIQUE: Computed tomography (CT) of the head was performed without intravenous contrast. Sagittal and coronal reconstructions were performed. The mA was adjusted according to patient size. Iterative reconstruction technique was employed. The dose-length product was 605.33 mGy-cm. COMPARISON: head CT dated 06/09/2021 FINDINGS: No acute intracranial hemorrhage, acute infarction or abnormal extra axial fluid collection. Unchange d small old lacunar infarct in the periventricular right parietal lobe. There is moderate scattered w cortez matter hypoattenuation consistent with chronic small vessel ischemic disease. Symmetric prominen ce of the sulci and ventricles consistent with mild age-appropriate diffuse cerebral volume loss. No mass/mass effect. Changes of bilateral intraocular lens replacement. The orbits, paranasal sinuses an d mastoid air cells are normal. Intracranial calcified cerebral atherosclerosis is noted. IMPRESSION: 1. No acute intracranial process. 2. Unchanged small lacunar infarct in the right parietal periventricular white matter. 3. Age-related changes including mild diffuse volume loss and mild to moderate scattered white matter hypoattenuation consistent with chronic small vessel ischemic disease. Reviewed, dictated and finalized at location A. MATIC CHIEF IMPRESSION: 1. No acute intracranial process. 2. Unchanged small lacunar infarct in the right parietal periventricular white matter. 3. Age-related changes including mild diffuse volume loss and mild to moderate scattered white matter hypoattenuation consistent with chronic small vessel isc hemic disease.
--- NOTE | ~2021-06-20 | XR_ITS ---
EXAMINATION: XR lumbar spine 2-3V DATE: 06/20/2021 10:39 INDICATION: Back pain post fall TECHNIQUE: Anteroposterior and lateral views of the lumbar spine, and cone-down lateral view of the l umbosacral junction were obtained. COMPARISON: 09/21/2020 FINDINGS: Alignment is normal. Vertebral body heights are normal. Mild disc height loss with tiny foci of vacuu m phenomena at T12-L1 and L1-L2. Mild disc height loss at L3-L4. Mild to moderate disc height loss at L5-S1. Mild to moderate lower lumbar predominant facet osteoarthritis. Moderate bilateral sacroiliac osteoarthritis. Scattered atherosclerotic calcifications along the aorta and many of the other arter ies in the abdomen and pelvis. Stenting at the right common iliac artery. Peroneal dialysis catheter coiled in the right hemipelvis. IMPRESSION: 1. Mild to moderate lumbar spondylosis. No evident acute osseous abnormality. Reviewed, dictated and finalized at location A. OR OF PHARMACY
--- NOTE | ~2021-06-20 | XR_ITS ---
EXAMINATION: XR chest 1V portable DATE: 07/01/2021 14:07 INDICATION: Pulmonary edema. Pneumonia. TECHNIQUE: frontal view of the chest was obtained. COMPARISON: Chest radiograph dated 06/26/2021 FINDINGS: Ulnar vascular congestion. Interval resolution of the prior mild opacities scattered throughout both lungs. No pulmonary edema, pleural effusion or pneumothorax. Cardiomegaly. Retained oral contrast mat erial in the visualized colon. Right rotator cuff arthropathy. IMPRESSION: 1. Resolution of prior bilateral lung disease which may represent pulmonary edema, pneumonia and/or a telectasis. 2. Cardiomegaly with persistent pulmonary vascular congestion. Reviewed, dictated and finalized at location . CT MARKETING COORDINATOR IMPRESSION: 1. Resolution of prior bilateral lung disease which may represent pulmonary lei ma, pneumonia and/or atelectasis. 2. Cardiomegaly with persistent pulmonary vascular congestion.
--- NOTE | ~2021-06-20 | XR_ITS ---
EXAMINATION: XR chest 1V DATE: 06/20/2021 07:28 INDICATION: Seizure. Hypertension. TECHNIQUE: frontal view of the chest was obtained. COMPARISON: Chest radiograph dated 06/07/2021 FINDINGS: Cardiomegaly and pulmonary vascular congestion without yaritza pulmonary edema. Somewhat bandlike opaci ty at the left lower lung zone and favor atelectasis over pneumonia. Skin folds project over the bila teral apices of the lungs. No pleural effusion or pneumothorax. Atherosclerotic aorta. IMPRESSION: 1. Cardiomegaly with pulmonary vascular congestion but without yaritza pulmonary edema. 2. Bandlike opacity in the left lower lung zone and favor discoid atelectasis over pneumonia. Reviewed, dictated and finalized at location A. TMENT PROPERTY MANAGER IMPRESSION: 1. Cardiomegaly with pulmonary vascular congestion but without yaritza pulmonary edema. 2. Bandlike opacity in the left lower lung zone and favor discoid atelectasis o la nena pneumonia.
--- NOTE | 2021-06-20 06:28 | ECG_ITS ---
Measurements Intervals [place] Rate: 127 P: [place]: 0 QRS: 24 QRSD: 105 T: 197 QT: 330 QTc: 480 Interpretive Statements ATRIAL FIBRILLATION WITH RAPID VENTRICULAR RESPONSE LEFT VENTRICULAR HYPERTROPHY WITH ST-T CHANGE ST-T WAVE ABNORMALITY IN DIFFUSE LEADS- CONSIDER ISCHEMIA BASELINE ARTIFACT- II, III, AVF, V3-V5 ABNORMAL ECG Electronically Signed On 06-20-2021 7:24:09 ECONOMETRICIAN by Corby Walters D.O.
--- NOTE | 2021-06-20 06:30 | ED.SEIZURE ---
HPI - Seizure General Chief Complaint: Seizure <Johnnie Abel MD - Last Filed: 06/20/21 07:18> Stated Complaint: possible sz <Johnnie Abel MD - Last Filed: 06/20/21 07:18> Time Seen by Provider: 06/20/21 06:27 <Johnnie Abel MD - Last Filed: 06/20/21 07:18> Source: EMS <Johnnie Abel MD - Last Filed: 06/20/21 07:18> History of Present Illness HPI Narrative: Patient presents with concern for seizure. Patient has a history of A. fib, CHF, peritoneal dialysis, diabetes. Patient is resting in his recliner overnight per his usual routine family found him fall out of the recliner multiple times and replaced him back up in the recliner the last episode when they went to check on him they noted full body repetitive motion they were concerned for seizures so EMS was called. EMS blood sugar report was in the 300s he seemed confused no witnessed seizure activity by EMS arrival to the ER they report he appeared to be waking up. <Johnnie Abel MD - Last Filed: 06/20/21 07:18> Related Data Home Medications: Home Medications Medication Instructions Recorded Confirmed hydrocodone-acetaminophen 1 tablet PO TID PRN 04/26/20 06/01/21 sodium bicarbonate 650 mg tablet 650 mg PO TID tablet 09/12/20 06/01/21 Eliquis 2.5 mg PO QAM 06/01/21 06/01/21 aspirin [Adult Aspirin Regimen] 81 mg PO QAM 06/01/21 06/01/21 calcium acetate(phosphat bind) 1,334 mg PO TIDWM 06/01/21 06/01/21 furosemide 80 mg PO QPM 06/01/21 06/01/21 furosemide 160 mg PO QAM 06/01/21 06/01/21 omeprazole 40 mg PO QPM 06/01/21 06/01/21 insulin asp prt-insulin aspart 20 unit SUBCUT QPM 06/02/21 06/02/21 [Novolog Mix 70-30FlexPen U-100] <Johnnie Abel MD - Last Filed: 06/20/21 07:18> Allergies/Adverse Reactions: Allergies Allergy/AdvReac Type Severity Reaction Status Date / Time No Known Allergies Allergy Unknown Verified 06/20/21 07:21 <Johnnie bAel MD - Last Filed: 06/20/21 07:18> Review of Systems Review of Systems: ROS unobtainable: Yes unobtainable due to mental status <Johnnie Abel MD - Last Filed: 06/20/21 07:18> PMFSH Past Medical History Medical History: Medical History Cardiomyopathy Chronic kidney disease, stage 4 (severe) Has previously been followed by Dr. Federico Venegas. Creatinine in 2019 was around 4.0 with a GFR 14%. Erythropoietin deficiency anemia Hyperlipidemia Hypertension Insulin dependent type 2 diabetes mellitus Osteoarthritis Renal osteodystrophy Rib fracture <Johnnie Abel MD - Last Filed: 06/20/21 07:18> Surgical History Surgical History: Surgical History History of cardiac radiofrequency ablation History of right knee surgery <Johnnie Abel MD - Last Filed: 06/20/21 07:18> Family History Family History: Family History Father Family history of diabetes mellitus in first degree relative Mother Family history of primary malignant neoplasm of liver <Johnnie Abel MD - Last Filed: 06/20/21 07:18> Social History Social History: Social History Social History: Surrogate decision maker: Kim Adams, spouse. Code status: Full code. Smoking packs per day: 0.5 Smoking cigarettes per day: 10.0 Years smoked: 30 Smoking pack-years: 15.00 Smoking status: Former smoker Tobacco type: cigarettes Alcohol intake: never Substance use: never Substance use type: does not use Additional living arrangements comments: Lives in [place] with his . Additional occupation/education comments: Retired. Gender identity (if verbalized by the patient): Male Spiritual care concerns: No <Johnnie Abel MD - Last Filed: 06/20/21 07:18> Exam Narrative: GENERAL: Well-appearing, well-nourished, and in n
[2021-06-20] MEDS: levETIRAcetam 1000MG/NACL100ML 1,000 MG/100 ML BAG 400 MG IVPB (06:37)
[2021-06-20 07:28] LABS: Basophils Absolute Auto 0.1 K/mm3 (0.0-0.1); Basophils Percent Auto 0.6 % (0.2-1.2); Eosinophils Absolute Auto 0.1 K/mm3 (0-0.3); Eosinophils Percent Auto 0.7 % (0-4.4); Hematocrit 26.8 % (42.0-52.0); Immature Granulocyte Absolute 0.08 K/mm3 (0.00-0.031); Immature Granulocyte Percent A 0.5 % (0-0.5); Lymphocytes Absolute Auto 0.36 K/mm3 (0.9-3.2); Lymphocytes Percent Auto 2.4 % (18.3-44.2); Mean Corpuscular HGB Conc 29.9 g/dl (32-36); Mean Corpuscular Hemoglobin 31.1 pg (26-34); Mean Corpuscular Volume 104.3 fl (80-100); Mean Platelet Volume 11.3 fl (7.4-10.4); Monocytes Absolute Auto 1.5 K/mm3 (0.1-0.6); Monocytes Percent Auto 10.3 % (2.6-8.5); Neutrophils Absolute Auto 12.7 K/mm3 (1.3-6.7); Neutrophils Percent Auto 85.5 % (45.5-73.1); Platelet Count Result 275 k/mm3 (150-375); Red Blood Count 2.57 M/mm3 (4.6-6.20); Red Cell Distribution Width 17.4 % (11.5-14.5); White Blood Count 14.8 K/mm3 (4.5-10.0)
[2021-06-20 07:34] LABS: Ammonia < 9 umol/L (9-30)
[2021-06-20 07:35] LABS: Add Urine Microscopic? YES; Appearance Urine Clear (Clear); Bilirubin Urine Negative (Negative); Blood Urine Negative (Negative); Color Urine Yellow (Yellow); Glucose Urine UA 1+ mg/dL (Negative); Ketones Urine Negative (Negative); Leukocyte Esterase Ur Negative LEU/UL (Negative); Mucus Urine Rare /lpf; Nitrate Urine Negative (Negative); Protein Urine 2+ mg/dL (Negative); RBC Urine 0-2 /hpf (0-2); Specific Grav Ur 1.016 (1.001-1.035); Urobilinogen Urine Negative mg/dL (<2.0); WBC Urine 0-3 /hpf
[2021-06-20 07:35] LABS: Alanine Aminotransferase 12 U/L (4-50); Albumin Level 3.6 g/dL (3.5-5.1); Alkaline Phosphatase 90 U/L (38-126); Anion Gap 27 mmol/L (8-16); Aspartate Amino Transferase 16 U/L (17-59); Bilirubin,Total 0.4 mg/dL (0.2-1.3); Blood Urea Nitrogen 67 mg/dL (9-20); Calcium 5.9 mg/dL (8.4-10.2); Carbon Dioxide 19 mmol/L (22-30); Chloride 97 mmol/L (98-107); Estimated CRCL calculation 5 ml/min; Estimated Glomerular Filt Rate 4; Glucose 293 mg/dL (65-110); Potassium 3.5 mmol/L (3.4-5.0); Sodium 143 mmol/L (137-145)
[2021-06-20 07:40] LABS: Partial Thromboplastin Time 40.6 SECONDS (22.3-36.8)
[2021-06-20 07:43] LABS: INR 1.3; Prothrombin Time 16.3 Seconds (11.1-14.7)
[2021-06-20] MEDS: METOPROLOL TARTRATE INJ 5 MG/5 ML VIAL IV PUSH (07:44)
[2021-06-20] MEDS: SODIUM CHLORIDE 0.9% IV 500 ML 999 ML IV CONT (07:45)
[2021-06-20 08:14] LABS: Anisocytosis 1+ (NORMAL); Hypochromasia 1+ (NORMAL); Platelet Estimate Adequate (Adequate)
[2021-06-20 09:15] LABS: Lactic Acid Reflex 0.7 mmol/L (0.7-2.1)
[2021-06-20 10:04] LABS: Amphetamine Screen Urine Negative (Negative); Barbiturate Screen Urine Negative (Negative); Benzodiazepines Screen Urine Negative (Negative); Cannabinoid Screen Urine Negative (Negative); Cocaine Screen Urine Negative (Negative); Methadone Screen Urine Negative (Negative); Opiate Screen Urine Positive (Negative); Phencyclidine Screen Urine Negative (Negative)
[2021-06-20 10:55] LABS: Eosinophils Peritoneal Fluid 3 %; Lymphocytes Peritoneal Fluid 36 %; Macrophages Peritoneal Fluid 19 %; Monocytes Peritoneal Fluid 36 %; Other Cells Peritoneal Fluid 7 %
[2021-06-20 10:56] LABS: Appearance Peritoneal Fluid Clear (Clear); Source Peritoneal Fluid Peritoneal Fluid
[2021-06-20 10:57] LABS: Color Peritoneal Fluid Colorless (Colorless)
[2021-06-20 10:58] LABS: Nucleated Cells Peritoneal Flu 54 /uL (0-500); RBC Peritoneal Fluid 0 /uL (0-100000)
--- NOTE | 2021-06-20 12:40 | WPDNEURCNPN ---
Consult date: 06/20/21 HPI: Cristi Adams is a 70 year old male admitted to the hospital for the possibility of seizure in addition to the ongoing history of 1. Atrial fibrillation 2. Congestive heart failure 3. Peritoneal dialysis 4. Diabetes mellitus. Family reportedly found him with fall out of the recliner multiple times they picked him up and put him in the recliner and when they checked on him a subsequent they found him with full-body rapidity of motion which made them concerned about the possibility of seizure. EMS were called to the scene his blood sugar was documented 300 he was reportedly confused but no obvious seizure activity and EMS brought him to the emergency. Patient has been on Eliquis 2.5 mg every morning along with aspirin 81 mg daily and furosemide, omeprazole, and insulin . Review of Systems Review of Systems: All systems reviewed & are unremarkable except as noted in HPI and below PMFSH Past Medical History Medical History Cardiomyopathy Chronic kidney disease, stage 4 (severe) Has previously been followed by Dr. Federico Venegas. Creatinine in 2019 was around 4.0 with a GFR 14%. Erythropoietin deficiency anemia Hyperlipidemia Hypertension Insulin dependent type 2 diabetes mellitus Osteoarthritis Renal osteodystrophy Rib fracture Surgical History Surgical History History of cardiac radiofrequency ablation History of right knee surgery Family History Family History Father Family history of diabetes mellitus in first degree relative Mother Family history of primary malignant neoplasm of liver Social History Social History Social History: Surrogate decision maker: Kim Adams, spouse. Code status: Full code. Smoking packs per day: 0.5 Smoking cigarettes per day: 10.0 Years smoked: 30 Smoking pack-years: 15.00 Smoking status: Former smoker Tobacco type: cigarettes Alcohol intake: never Substance use: never Substance use type: does not use Additional living arrangements comments: Lives in [place] with his . Additional occupation/education comments: Retired. Gender identity (if verbalized by the patient): Male Spiritual care concerns: No Meds Home Medications and Allergies Home Medications Medication Instructions Recorded Confirmed Type hydrocodone-acetaminophen 1 tablet PO TID PRN 10/20/20 11/25/21 History metoprolol tartrate 50 mg PO Q12HR #60 tablet 07/07/20 06/01/21 Rx blood sugar diagnostic #300 ea 09/12/20 06/03/21 Rx lancets 33 gauge #300 ea 09/12/20 06/03/21 Rx sodium bicarbonate 650 mg tablet 650 mg PO TID tablet 09/12/20 06/01/21 History blood sugar diagnostic #400 ea 09/13/20 06/03/21 Rx blood-glucose meter #1 ea 09/13/20 06/03/21 Rx pen needle, diabetic 32 gauge x #200 ea 03/14/21 06/03/21 Rx amlodipine 10 mg tablet 10 mg PO DAILY #90 tablet 04/11/21 06/01/21 Rx gabapentin 100 mg capsule 100 mg PO QHS #1 cap 04/11/21 06/01/21 Rx hydralazine 50 mg tablet 50 mg PO TID #1 tablet 04/11/21 06/01/21 Rx lisinopril 20 mg tablet 20 mg PO BID #1 tablet 04/11/21 06/01/21 Rx vit C 250 mg-vit E 90 mg-zinc 40 1 tablet PO BID #1 cap 04/11/21 06/01/21 Rx mg-copper 1 [id number] capsule Eliquis 2.5 mg PO QAM 06/01/21 06/01/21 History aspirin [Adult Aspirin Regimen] 81 mg PO QAM 06/01/21 06/01/21 History calcium acetate(phosphat bind) 1,334 mg PO TIDWM 06/01/21 06/01/21 History furosemide 80 mg PO QPM 06/01/21 06/01/21 History furosemide 160 mg PO QAM 06/01/21 06/01/21 History omeprazole 40 mg PO QPM 06/01/21 06/01/21 History insulin asp prt-insulin aspart 20 unit SUBCUT QPM 06/02/21 06/02/21 History [Novolog Mix 70-30FlexPen U-100] amiodarone [Pacerone] 200 mg PO DAILY@0800 #30 tablet 06/09/21 Rx isosorbide mononitrate 30 mg PO
[2021-06-20 12:58] LABS: EDCOVIDSCREEN Negative (Negative)
--- NOTE | 2021-06-20 14:52 | ADMGEN ---
This patient, Cristi Adams, was admitted to Medical Room 248-. Patient oriented to hospital policies and general routines including ID bracelet, bed and alarms, visiting hours, pain management, procedures, bathroom and other care routines, personal items, smoking policy, room service/diet, and visiting hours. Information on how to activate the Rapid Response Team has been discussed. Patient are encouraged to report perceived risks to care and to ask questions if they do not understand what they are told or what they should do.
--- NOTE | 2021-06-20 21:40 | PM.IMHP ---
H&P: HPI History of Present Illness Date/Time: 06/20/21 21:40 Chief Complaint: Possible seizure Narrative: Patient presents to the ER today via EMS due to recurrent falls and possible seizure. He states he was at his usual state of health until last evening while was resting in his recliner overnight and family found him out of his recliner multiple times. He was helped to get back on his recliner by his family multiple times until the last episode when family found him noted to have full body repetitive motion. EMS was then called. EMS reported him to be confused without any seizure-like activity and following some commands. He was tachycardic on evaluation with his blood sugar in 300s noted. He was then brought to the ER for evaluation. He reports no recollection of what has happened today but does mention that he had fallen quite a bit last night during his dialysis. He denies any fever or chills and denies any abdominal pain or nausea vomiting he also denies any diarrhea shortness of breath or chest pain. He was noted to be febrile in the ER at 100.6 degree. He reports he recently had a surgery on his right leg done in complains of pain in bilateral feet but right worse than left. In the ED was initially noted to be in AFib with RVR but has now gotten better. He was also noted to be mildly hypoxic on arrival which improved with oxygen supplementation via nasal cannula. He however is off oxygen and on room air currently. Workup in the ER showed a WBC count of 14.8 which is elevated hemoglobin of 8 which is around his baseline. His creatinine at 13.1 glucose of 293 normal lactic acid low calcium at 5.9 normal LFTs ammonia level of less than 9 CRP elevated at 21 prolactin level is pending. Urinalysis negative for any infection peritoneal fluid has been evaluated. Urine drug screen is positive for opiates otherwise negative for any other substances. Rapid COVID test has been done and is negative as well. Head CT was done which did not show any acute intracranial process but noted unchanged small lacunar infarct in the right parietal periventricular white matter.. Chest x-ray showed cardiomegaly with pulmonary vascular congestion but without yaritza pulmonary edema. There is band like opacity in the left lower lung zone which favored atelectasis over pneumonia. Right leg x-ray showed no acute osseous abnormality. Metallic staple at the intercondylar notch suggesting prior anterior cruciate ligament repair. Left foot x-ray showed no acute osseous finding. Lumbar x-ray showed mild to moderate lumbar spondylosis with no acute osseous abnormality. Blood cultures has been obtained. And culture from the peritoneal fluid has also been sent.. He has been given 1 g of Keppra and started on broad-spectrum antibiotic with vancomycin and Zosyn. Review of Systems Review of Systems: - CONSTITUTIONAL: Denies weight loss, fever and chills. - HEENT: Denies changes in vision and hearing - RESPIRATORY: Denies SOB and cough. - CV: Denies palpitations and CP. - GI: Denies abdominal pain, nausea, vomiting and diarrhea. - : Denies dysuria and urinary frequency. - MSK: Denies myalgia and reports joint pain. Particularly in both lower legs - SKIN: Reports rash and ulceration in his lower legs - NEUROLOGICAL: Denies headache and syncope. Recurrent falls as noted in HPI - PSYCHIATRIC: Denies recent changes in mood. Denies anxiety and depression. All systems reviewed & are unremarkable except as noted in HPI and below Constitutional: Constitutional: Reports fatigue and Reports weakness Neurologic: Reports weakness Endocrine: Endocrine: Reports fatigue [facility] Past Medical History Medical History Cardiomyopathy Chronic kidney disease, stage 4 (severe) Has previously been followed by Dr. Federico Venegas. Creatinine in 2019 was around 4.0 with a GFR 14%. Erythropoietin deficiency anemia Hyperlipid
[2021-06-20 23:30] LABS: Hemoglobin A1C 6.9 % (<5.7)
[2021-06-21] VITALS (15 sets, daily range): BP systolic 116–124; BP diastolic 48–71; PULSE 59–102; RESP 15–20; TEMP 36.6–37.2; O2SAT 90–97
[2021-06-21] MEDS: GABAPENTIN 100 MG CAPSULE PO ×2 (00:18→21:41)
[2021-06-21] MEDS: HYDROcodone/acetaminophen (*CRX) 5-325 MG TABLET 1 TAB PO (00:19)
[2021-06-21] MEDS: lisinopriL 20 MG TABLET PO ×2 (00:19→09:32)
[2021-06-21] MEDS: levETIRAcetam 500 MG TABLET PO ×3 (00:19→21:41)
[2021-06-21] MEDS: METOPROLOL TARTRATE 50 MG TAB PO ×3 (00:19→21:41)
[2021-06-21 06:31] LABS: Basophils Absolute Auto 0.1 K/mm3 (0.0-0.1); Basophils Percent Auto 0.4 % (0.2-1.2); Eosinophils Absolute Auto 0.2 K/mm3 (0-0.3); Eosinophils Percent Auto 1.3 % (0-4.4); Hematocrit 25.7 % (42.0-52.0); Hemoglobin 7.7 g/dL (14.0-18.0); Immature Granulocyte Absolute 0.08 K/mm3 (0.00-0.031); Immature Granulocyte Percent A 0.7 % (0-0.5); Lymphocytes Absolute Auto 0.64 K/mm3 (0.9-3.2); Lymphocytes Percent Auto 5.4 % (18.3-44.2); Mean Corpuscular Volume 103.6 fl (80-100); Mean Platelet Volume 11.7 fl (7.4-10.4); Monocytes Absolute Auto 1.1 K/mm3 (0.1-0.6); Monocytes Percent Auto 9.3 % (2.6-8.5); Neutrophils Absolute Auto 9.9 K/mm3 (1.3-6.7); Neutrophils Percent Auto 82.9 % (45.5-73.1); Platelet Count Result 269 k/mm3 (150-375); Red Blood Count 2.48 M/mm3 (4.6-6.20); Red Cell Distribution Width 17.2 % (11.5-14.5); White Blood Count 11.9 K/mm3 (4.5-10.0)
[2021-06-21 06:42] LABS: Glucose Point of Care 306 mg/dl (65-105)
[2021-06-21 06:43] LABS: Alanine Aminotransferase 8 U/L (4-50); Albumin Level 3.5 g/dL (3.5-5.1); Alkaline Phosphatase 79 U/L (38-126); Anion Gap 20 mmol/L (8-16); Aspartate Amino Transferase 16 U/L (17-59); Bilirubin,Total 0.4 mg/dL (0.2-1.3); Blood Urea Nitrogen 68 mg/dL (9-20); Calcium 6.1 mg/dL (8.4-10.2); Carbon Dioxide 24 mmol/L (22-30); Chloride 94 mmol/L (98-107); Estimated CRCL calculation 5 ml/min; Estimated Glomerular Filt Rate 4; Glucose 247 mg/dL (65-110); Potassium 3.5 mmol/L (3.4-5.0); Sodium 138 mmol/L (137-145)
[2021-06-21 08:05] LABS: Glucose Point of Care 191 mg/dl (65-105)
[2021-06-21] MEDS: AMIODARONE HCL 200 MG TABLET PO (09:27)
[2021-06-21] MEDS: CALCIUM ACETATE 667 MG TABLET 1334 MG PO ×3 (09:28→18:24)
[2021-06-21] MEDS: ASPIRIN 81 MG ENTERIC TABLET PO (09:28)
[2021-06-21] MEDS: OPTI-GEN TAB 1 TABLET PO ×2 (09:29→18:24)
[2021-06-21] MEDS: SODIUM BICARBONATE TAB 650 MG TABLET PO ×3 (09:29→18:24)
[2021-06-21] MEDS: ISOSORBIDE MONONITRATE 30 MG TAB.ER.24H PO (09:29)
[2021-06-21] MEDS: PANTOPRAZOLE 40 MG TABLET PO ×2 (09:29→18:23)
[2021-06-21] MEDS: LACTULOSE 20 GM/30 ML UDC PO (09:29)
[2021-06-21] MEDS: amLODIPine BESYLATE 5 MG TABLET 10 MG PO (09:32)
[2021-06-21] MEDS: hydrALAZINE HCL 50 MG TABLET PO ×3 (09:32→18:24)
[2021-06-21] MEDS: FUROSEMIDE 80 MG TABLET 160 MG PO (09:32)
--- NOTE | 2021-06-21 09:41 | PM.IMPN ---
Progress Note: A&P Assessment and Plan (1) Sepsis: Qualifiers: Sepsis acute organ dysfunction status: unspecified Sepsis type: sepsis due to unspecified organism Qualified Code(s): A41.9 - Sepsis, unspecified organism Code(s): A41.9 - Sepsis, unspecified organism Status: Acute Assessment and Plan: Concern for pneumonia COVID-19 is negative constipation on IV vanc and cefepime follow culture results Repeat chest x-ray in a.m. (2) Atrial fibrillation: Qualifiers: Atrial fibrillation type: unspecified Qualified Code(s): I48.91 - Unspecified atrial fibrillation Code(s): I48.91 - Unspecified atrial fibrillation Status: Acute Assessment and Plan: Associated with RVR improved continue amiodarone and Eliquis (3) ESRD (end stage renal disease) on dialysis: Code(s): N18.6 - End stage renal disease; Z99.2 - Dependence on renal dialysis Status: Acute Assessment and Plan: Patient on peritoneal dialysis no evidence of peritonitis nephrology consult (4) Fall: Code(s): W19.XXXA - Unspecified fall, initial encounter Status: Acute Assessment and Plan: Probably related to seizure PT OT evaluation seizure precaution fall precaution (5) Renal osteodystrophy: Code(s): N25.0 - Renal osteodystrophy Status: Acute Assessment and Plan: Pain control (6) Cardiomyopathy: Code(s): I42.9 - Cardiomyopathy, unspecified Status: Acute Assessment and Plan: Patient has ejection fraction 40-45% most likely chronic systolic CHF stable avoid fluid overload (7) Anemia: Code(s): D64.9 - Anemia, unspecified Status: Chronic Assessment and Plan: Most likely anemia of chronic disease transfuse if hemoglobin below 7 (8) Hyperkalemia: Code(s): E87.5 - Hyperkalemia Status: Acute Assessment and Plan: On peritoneal dialysis (9) Peripheral vascular disease of extremity with claudication: Code(s): I73.9 - Peripheral vascular disease, unspecified Status: Acute Assessment and Plan: Continue aspirin pain control (10) Type 2 diabetes mellitus with hyperglycemia: Qualifiers: Diabetes mellitus watermelon inspector insulin use: with fci use Qualified Code(s): E11.65 - Type 2 diabetes mellitus with hyperglycemia; Z79.4 - FPC (current) use of insulin Code(s): E11.65 - Type 2 diabetes mellitus with hyperglycemia Status: Acute Assessment and Plan: Uncontrolled with hyperglycemia and nephropathy continue insulin sliding scale continue home medication (11) Essential (primary) hypertension: Code(s): I10 - Essential (primary) hypertension Status: Acute Assessment and Plan: Stable continue amlodipine (12) Altered mental status: Code(s): R41.82 - Altered mental status, unspecified Status: Acute Assessment and Plan: Most likely acute metabolic encephalopathy secondary to seizure neurology was consulted patient was given loading dose of Keppra patient currently on Keppra 500 mg twice a day pending neurology final recommendation Subjective Date/time seen: 06/21/21 09:41 Interval history: 70 years old male with past medical history of AFib on Eliquis renal failure on peritoneal dialysis patient was in his usual state of health patient was sitting in recliner he had it been found on the floor has seizure-like activity patient had another seizure in the ER patient was found to have probable seizure AFib with RVR concern for sepsis in the ER chest x-ray shows concern for pneumonia patient was started on broad-spectrum IV antibiotic also was loaded with IV Keppra neurology and Nephrology was consulted Patient feels weak today Patient denies fever headache chest pain shortness of breath I am seeing the patient for sepsis Exam Narrative: Alert Chest decreased air entry bilateral intermittent cough Abdomen nontender nondist
--- NOTE | 2021-06-21 09:56 | WPDNEUROLOGY ---
Neurology EEG Report General Information Date of Study: 06/21/21 TEST eeg DIAGNOSIS Seizures CONDITION OF RECORDING awake drowsy and sleep EEG NUMBER [id number] CLINICAL HISTORY family found him on the floor shaking all over EEG DESCRIPTION basic resting occipital frequency consists of moderate amount of poorly organized low voltage 8 to 10 hertz per 2nd alpha admixed with low-voltage 15 to 18 hertz per 2nd beta. Low to medium voltage 5 to 7 hertz per 2nd theta activity seen intermittently during wakefulness and drowsiness. Hyperventilation not done. Photic stimulation not done. Non paroxysmal. Nonfocal. Nonlateralizing. IMPRESSION abnormal record due to the presence of excess amount of theta activity though there is no evidence of paroxysmal discharge throughout the tracing as per Se, this tracing is not diagnostic of seizure disorder but could be compatible with the postictal state or underlying encephalopathy clinical correlation recommended
--- NOTE | 2021-06-21 10:48 | PCHDNOTE ---
Initial drain 136 and total UF 864. Fluid was clear and yellow. Patient states machine ran without difficulty last night.
[2021-06-21] MEDS: APIXABAN 2.5 MG TABLET PO (11:13)
[2021-06-21 11:42] LABS: Glucose Point of Care 225 mg/dl (65-105)
[2021-06-21] MEDS: INSULIN ASPART (*BKC) 100 UNITS/ML SUB-Q (12:15)
--- NOTE | 2021-06-21 12:21 | WPDNEURCNPN ---
Assessment and Plan Additional Plan 1. Seven 2. Atrial fibrillation 3. Renal disease on dialysis 4. Seizure disorder has been loaded with Keppra continued on also will obtain the EEG Consult date: 06/21/21 HPI: Cristi Adams is a 70 year old male admitted to the hospital through the emergency room where he was brought with the complaints of recurrent falls and possible seizures as per the information available he was at his usual state of health up until the evening while resting in the recliner overnight and family found him out of her recliner multiple times though he was helped to get back on his [place] 9 it by family members multiple times EMS were called on the last fall with full-body rapidity of motion on observation EMS found him to be confused without any seizure-like activity but EB able to follow the simple commands he was noted to be 1. Tachycardic 2. Hypoglycemic with blood sugar of 300 3. With no recall what has actually happened today but he was febrile in the ER with temp of 100.6? he has had surgery on his right lower extremity and was complaining of bilateral foot pain he was also found to be in atrial fibrillation with rapid ventricular response in addition was found to mildly hypoxic on arrival which improved with the oxygen supplement subsequently was found to have leukocytosis, creatinine of 13.1, glucose of 293, normal lactic acid, normal serum ammonia level, CRP elevated and prolactin level 21, urine drug screen was positive for opiates rapid COVID testing was negative, CT scan of the head was negative for the bleed, except this small lacunar infarct in the right parietal periventricular white matter, x-ray of the chest suggestive of atelectasis versus pneumonia, he was given Keppra in the emergency room, past history particularly consistent with cardiomyopathy is stage IV chronic renal disease hypertension insulin-dependent diabetes mellitus renal osteodystrophy and osteoarthritis Review of Systems Review of Systems: All systems reviewed & are unremarkable except as noted in HPI and below [facility] Past Medical History Medical History Cardiomyopathy Chronic kidney disease, stage 4 (severe) Has previously been followed by Dr. Federico Venegas. Creatinine in 2019 was around 4.0 with a GFR 14%. Erythropoietin deficiency anemia Hyperlipidemia Hypertension Insulin dependent type 2 diabetes mellitus Osteoarthritis Renal osteodystrophy Rib fracture Surgical History Surgical History History of cardiac radiofrequency ablation History of right knee surgery Family History Family History Father Family history of diabetes mellitus in first degree relative Mother Family history of primary malignant neoplasm of liver Social History Social History Social History: Surrogate decision maker: Kim Adams, spouse. Code status: Full code. Smoking packs per day: 0.5 Smoking cigarettes per day: 10.0 Years smoked: 30 Smoking pack-years: 15.00 Smoking status: Former smoker Tobacco type: cigarettes Alcohol intake: never Substance use: never Substance use type: does not use Additional living arrangements comments: Lives in [place] with his . Additional occupation/education comments: Retired. Gender identity (if verbalized by the patient): Male Spiritual care concerns: No Meds Home Medications and Allergies Home Medications Medication Instructions Recorded Confirmed Type hydrocodone-acetaminophen 1 tablet PO TID PRN 04/26/20 06/20/21 History metoprolol tartrate 50 mg PO Q12HR #60 tablet 07/07/20 06/20/21 Rx blood sugar diagnostic #300 ea 09/12/20 06/20/21 Rx lancets 33 gauge #300 ea 09/12/20 06/20/21 Rx sodium bicarbonate 650 mg tablet 650 mg PO TID tablet 09/12/20 06/20/21 History b
--- NOTE | 2021-06-21 16:01 | PM.CNNEP ---
Assessment and Plan Assessment and plan (1) End stage renal disease: Code(s): N18.6 - End stage renal disease Status: Chronic Assessment and Plan: resume home CCPD while hospitalized follow electroltyes, volume status, and clearance (2) Seizure: Code(s): R56.9 - Unspecified convulsions Status: Acute Assessment and Plan: unclear if this is a true issue or not s/p initiation of keppra Neurology following (3) Pneumonia: Code(s): J18.9 - Pneumonia, unspecified organism Status: Acute Assessment and Plan: suggestive by admission CXR febrile on admission on antibiotics (4) Atrial fibrillation: Qualifiers: Atrial fibrillation type: unspecified Qualified Code(s): I48.91 - Unspecified atrial fibrillation Code(s): I48.91 - Unspecified atrial fibrillation Status: Resolved Assessment and Plan: rate control strategy on anticoagulation (5) Hypertension: Code(s): I10 - Essential (primary) hypertension Status: Chronic Assessment and Plan: reasonable control follow trend of hemodynamics (6) Anemia: Code(s): D64.9 - Anemia, unspecified Status: Chronic Assessment and Plan: related to ESRD and acute illness Epogen 3x/seek follow trend of H/H (7) Diabetes: Qualifiers: Diabetes mellitus type: type 2 Diabetes mellitus intermediate card tender insulin use: with shelter use Diabetes mellitus complication status: with kidney complications Diabetes mellitus complication detail: with chronic kidney disease Chronic kidney disease stage: on chronic dialysis Qualified Code(s): E11.22 - Type 2 diabetes mellitus with diabetic chronic kidney disease; N18.6 - End stage renal disease; Z79.4 - ocean transportation intermediary (current) use of insulin; Z99.2 - Dependence on renal dialysis Code(s): E11.9 - Type 2 diabetes mellitus without complications Status: Chronic Assessment and Plan: follow accuchecks glycemic control Will continue to follow. History of Present Illness Reason for Consult Consult date: 06/21/21 Reason for consult: end stage renal disease Chief Complaint Chief complaint: sepsis History of Present Illness Narrative: The patient is a 70-year-old male with extensive past medical history as outlined below who presented to [facility] Emergency room via EMS due to recurrent falls and possible seizure activity. The patient was just recently hospitalized here [facility] for generalized weakness, inability to do his peritoneal dialysis at home, and volume overload. He was treated with physical and occupational therapy and more aggressive dialysis in effort to optimize his volume status prior to his discharge. He was in his usual state of health up until the evening before this admission when it was noted by his family that he had seem to have fallen out of his recliner multiple times. On his last episode of this phenomenon, his family found him to be having repetitive body motions concerning for possible seizure activity. 911/EMS was called and found him to be confused but without any specific seizure-like activity and he was able to follow some commands. His blood sugar was elevated and he was tachycardic but he did not appear to be in any distress. He was subsequently brought to the emergency room for further evaluation. Workup and evaluation emergency room demonstrated that the patient was unaware of the events that led to his presentation to the ER. He did admit that he has fallen multiple times out of his recliner chair but did not think much of it. He gave no other cysts systemic symptoms with regard to fevers chills nausea vomiting diarrhea or abdominal pain. It should be noted that on evaluation in the emergency room he was noted to be febrile with a temperature 100.6?. There is no clear-cut source of infection noted at that time. He was also noted to be
[2021-06-21 17:11] LABS: Glucose Point of Care 195 mg/dl (65-105)
[2021-06-21] MEDS: FUROSEMIDE 80 MG TABLET PO (18:24)
[2021-06-21] MEDS: CEFEPIME 0.5 GM in DEXTROSE 5% IN WATER 50 ML IVPB (20:41)
[2021-06-21 21:13] LABS: Alveolar/Arterial O2 Gradient 103.8 mmHg; Base Excess ABG -0.5 mEq/l (+/-2.0); Carboxyhemoglobin 0.7 % THb (0-2.0); Fractional Inspired Oxygen 32 %; HCO3 ABG 23.5 mEq/l (22.0-26.0); Methemoglobin ABG 0.3 %THb (0-1.5); Oxygen Content ABG 11.2 %vol (16.0-22.0); Oxygen Saturation ABG 96.5 % (95.0-100.0); PCO2 ABG 35.7 mmHg (35.0-45.0); PO2 ABG 82.6 mmHg (80.0-100.0); PO2 FiO2 Ratio Arterial Blood 2.58 %; Total Hemoglobin 8.5 g/dL (12.0-18.0); pH ABG 7.437 (7.350-7.450)
[2021-06-21 21:14] LABS: Hepatitis B Surface Antigen Negative (Negative)
[2021-06-21 21:18] LABS: Device NASAL CANNULA; Modified Allen's Test Pass; Site Drawn RIGHT BRACHIAL
[2021-06-21 21:31] LABS: Hepatitis B Surface Anti Res Negative
[2021-06-21 21:55] LABS: Glucose Point of Care 54 mg/dl (65-105)
[2021-06-21 22:21] LABS: Glucose Point of Care 69 mg/dl (65-105)
[2021-06-21 23:51] LABS: Glucose Point of Care 96 mg/dl (65-105)
[2021-06-21 23:51] LABS: Glucose Point of Care 67 mg/dl (65-105)
[2021-06-22] VITALS (16 sets, daily range): BP systolic 103–128; BP diastolic 50–78; PULSE 55–100; RESP 16–18; TEMP 37.1–37.3; O2SAT 90–100
[2021-06-22 06:02] LABS: Basophils Absolute Auto 0.1 K/mm3 (0.0-0.1); Basophils Percent Auto 0.5 % (0.2-1.2); Eosinophils Absolute Auto 0.1 K/mm3 (0-0.3); Eosinophils Percent Auto 0.8 % (0-4.4); Hematocrit 25.3 % (42.0-52.0); Hemoglobin 7.5 g/dL (14.0-18.0); Immature Granulocyte Absolute 0.07 K/mm3 (0.00-0.031); Immature Granulocyte Percent A 0.5 % (0-0.5); Lymphocytes Absolute Auto 0.76 K/mm3 (0.9-3.2); Lymphocytes Percent Auto 5.7 % (18.3-44.2); Mean Corpuscular HGB Conc 29.6 g/dl (32-36); Mean Corpuscular Hemoglobin 30.5 pg (26-34); Mean Corpuscular Volume 102.8 fl (80-100); Mean Platelet Volume 11.4 fl (7.4-10.4); Monocytes Absolute Auto 1.2 K/mm3 (0.1-0.6); Monocytes Percent Auto 8.8 % (2.6-8.5); Neutrophils Absolute Auto 11.1 K/mm3 (1.3-6.7); Neutrophils Percent Auto 83.7 % (45.5-73.1); Platelet Count Result 287 k/mm3 (150-375); Red Blood Count 2.46 M/mm3 (4.6-6.20); Red Cell Distribution Width 17.1 % (11.5-14.5); White Blood Count 13.2 K/mm3 (4.5-10.0)
[2021-06-22 06:15] LABS: Alanine Aminotransferase 8 U/L (4-50); Albumin Level 3.3 g/dL (3.5-5.1); Alkaline Phosphatase 78 U/L (38-126); Anion Gap 23 mmol/L (8-16); Aspartate Amino Transferase 18 U/L (17-59); Bilirubin,Total 0.4 mg/dL (0.2-1.3); Blood Urea Nitrogen 64 mg/dL (9-20); Calcium 6.8 mg/dL (8.4-10.2); Carbon Dioxide 25 mmol/L (22-30); Chloride 96 mmol/L (98-107); Estimated CRCL calculation 5 ml/min; Estimated Glomerular Filt Rate 4; Glucose 281 mg/dL (65-110); Potassium 3.3 mmol/L (3.4-5.0); Sodium 144 mmol/L (137-145)
[2021-06-22 06:21] LABS: Vancomycin Random 21.3 ug/mL (10-20)
[2021-06-22 07:14] LABS: Anisocytosis 1+ (NORMAL); Hypochromasia 1+ (NORMAL); Large Platelets Present; Macrocytosis 1+ (NORMAL); Platelet Estimate Adequate (Adequate)
[2021-06-22 07:15] LABS: Hypersegmented Neutrophils Present
[2021-06-22 07:59] LABS: Glucose Point of Care 198 mg/dl (65-105)
[2021-06-22] MEDS: AMIODARONE HCL 200 MG TABLET PO (08:54)
[2021-06-22] MEDS: ASPIRIN 81 MG ENTERIC TABLET PO (08:55)
[2021-06-22] MEDS: CALCIUM ACETATE 667 MG TABLET 1334 MG PO ×3 (08:55→16:48)
[2021-06-22] MEDS: ISOSORBIDE MONONITRATE 30 MG TAB.ER.24H PO (08:56)
[2021-06-22] MEDS: METOPROLOL TARTRATE 50 MG TAB PO ×2 (08:56→20:40)
[2021-06-22] MEDS: OPTI-GEN TAB 1 TABLET PO ×2 (08:56→16:48)
[2021-06-22] MEDS: levETIRAcetam 500 MG TABLET PO (08:56)
[2021-06-22] MEDS: PANTOPRAZOLE 40 MG TABLET PO ×2 (08:56→16:48)
[2021-06-22] MEDS: LACTULOSE 20 GM/30 ML UDC PO (08:56)
[2021-06-22] MEDS: FUROSEMIDE 80 MG TABLET 160 MG PO (08:56)
[2021-06-22] MEDS: SODIUM BICARBONATE TAB 650 MG TABLET PO ×3 (08:57→16:48)
--- NOTE | 2021-06-22 10:46 | PM.IMPN ---
Progress Note: A&P Assessment and Plan (1) Sepsis: Qualifiers: Sepsis acute organ dysfunction status: unspecified Sepsis type: sepsis due to unspecified organism Qualified Code(s): A41.9 - Sepsis, unspecified organism Code(s): A41.9 - Sepsis, unspecified organism Status: Acute Assessment and Plan: Concern for pneumonia from cxr COVID-19 is negative pt is on iv vancomycin and iv zosyn cxr shows - Bandlike opacity in the left lower lung zone and favor discoid atelectasis over pneumonia. wcc still high, following cultures Wcc still [id number] (2) Atrial fibrillation: Qualifiers: Atrial fibrillation type: unspecified Qualified Code(s): I48.91 - Unspecified atrial fibrillation Code(s): I48.91 - Unspecified atrial fibrillation Status: Resolved Assessment and Plan: Associated with RVR improved continue amiodarone and Eliquis (3) ESRD (end stage renal disease) on dialysis: Code(s): N18.6 - End stage renal disease; Z99.2 - Dependence on renal dialysis Status: Acute Assessment and Plan: Patient on peritoneal dialysis no evidence of peritonitis, nephrology rounding (4) Fall: Code(s): W19.XXXA - Unspecified fall, initial encounter Status: Acute Assessment and Plan: Probably related to seizure PT OT evaluation seizure precaution fall precaution (5) Renal osteodystrophy: Code(s): N25.0 - Renal osteodystrophy Status: Acute Assessment and Plan: Pain control (6) Cardiomyopathy: Code(s): I42.9 - Cardiomyopathy, unspecified Status: Acute Assessment and Plan: Patient has ejection fraction 40-45% most likely chronic systolic CHF stable avoid fluid overload (7) Anemia: Code(s): D64.9 - Anemia, unspecified Status: Chronic Assessment and Plan: Most likely anemia of chronic disease transfuse if hemoglobin below 7 (8) Hyperkalemia: Code(s): E87.5 - Hyperkalemia Status: Acute Assessment and Plan: On peritoneal dialysis (9) Peripheral vascular disease of extremity with claudication: Code(s): I73.9 - Peripheral vascular disease, unspecified Status: Acute Assessment and Plan: Continue aspirin pain control (10) Type 2 diabetes mellitus with hyperglycemia: Qualifiers: Diabetes mellitus long-term insulin use: with roasterman use Qualified Code(s): E11.65 - Type 2 diabetes mellitus with hyperglycemia; Z79.4 - exterminator helper termite (current) use of insulin Code(s): E11.65 - Type 2 diabetes mellitus with hyperglycemia Status: Acute Assessment and Plan: Uncontrolled with hyperglycemia and nephropathy continue insulin sliding scale continue home medication (11) Essential (primary) hypertension: Code(s): I10 - Essential (primary) hypertension Status: Acute Assessment and Plan: Stable continue amlodipine (12) Altered mental status: Code(s): R41.82 - Altered mental status, unspecified Status: Resolved Assessment and Plan: Most likely acute metabolic encephalopathy secondary to seizure and infection -neurology was consulted patient was given loading dose of Keppra patient currently on Keppra 500 mg twice a day. Neurology rounding, CT head is negative AMS seems to have resolved. Subjective Date/time seen: 06/22/21 10:46 Interval history: Patient presents to the ER today via EMS due to recurrent falls and possible seizure. He states he was at his usual state of health until last evening while was resting in his recliner overnight and family found him out of his recliner multiple times. He was helped to get back on his recliner by his family multiple times until the last episode when family found him noted to have full body repetitive motion. Pt admitted for sepsis and AMS. pt has history of ESRD, DM Pt appears more alert and is answering questions appropriately. Review of Systems Review of Syst
[2021-06-22] MEDS: APIXABAN 2.5 MG TABLET PO (11:23)
[2021-06-22 11:28] LABS: Glucose Point of Care 231 mg/dl (65-105)
[2021-06-22] MEDS: INSULIN ASPART (*BKC) 100 UNITS/ML SUB-Q (11:58)
--- NOTE | 2021-06-22 13:08 | PM.PNNEP ---
Progress Note: A&P Assessment and Plan (1) End stage renal disease: Code(s): N18.6 - End stage renal disease Status: Chronic Assessment and Plan: resume home CCPD while hospitalized follow electroltyes, volume status, and clearance (2) Seizure: Code(s): R56.9 - Unspecified convulsions Status: Acute Assessment and Plan: unclear if this is a true issue or not s/p initiation of keppra Neurology following (3) Pneumonia: Code(s): J18.9 - Pneumonia, unspecified organism Status: Acute Assessment and Plan: suggestive by admission CXR febrile on admission on antibiotics (4) Atrial fibrillation: Qualifiers: Atrial fibrillation type: unspecified Qualified Code(s): I48.91 - Unspecified atrial fibrillation Code(s): I48.91 - Unspecified atrial fibrillation Status: Resolved Assessment and Plan: rate control strategy on anticoagulation (5) Hypertension: Code(s): I10 - Essential (primary) hypertension Status: Chronic Assessment and Plan: reasonable control follow trend of hemodynamics (6) Anemia: Code(s): D64.9 - Anemia, unspecified Status: Chronic Assessment and Plan: related to ESRD and acute illness Epogen 3x/seek follow trend of H/H (7) Diabetes: Qualifiers: Chronic kidney disease stage: on chronic dialysis Diabetes mellitus complication detail: with chronic kidney disease Diabetes mellitus complication status: with kidney complications Diabetes mellitus intermediate card tender insulin use: with fdc use Diabetes mellitus type: type 2 Qualified Code(s): E11.22 - Type 2 diabetes mellitus with diabetic chronic kidney disease; N18.6 - End stage renal disease; Z79.4 - alf (current) use of insulin; Z99.2 - Dependence on renal dialysis Code(s): E11.9 - Type 2 diabetes mellitus without complications Status: Chronic Assessment and Plan: follow accuchecks glycemic control Will continue to follow. Subjective Date/time seen: 06/22/21 13:08 Tolerated peritoneal dialysis treatment overnight without any issues or problems; awake and alert at this time; no distress voiced; mentation seems at baseline if not better since admission; no events overnight or earlier this morning; no other complaints to report. Exam Narrative: General: WD/WN male in NAD Heart: normal S1 and S2; no rub Lungs: clear to auscultation Abdomen: soft, nontender, nondistended, positive bowel sounds Extremities: no cyanosis or clubbing; no edema Skin: warm and dry Objective Data Vital Signs Vital Signs: Vital Signs Temp Pulse Resp BP Pulse Ox 06/22/21 13:07 103/64 06/22/21 12:00 86 06/22/21 08:58 113/61 06/22/21 08:56 89 06/22/21 08:54 89 06/22/21 08:34 37.2 C 17 06/22/21 08:00 84 99 06/22/21 04:00 99 06/22/21 03:16 37.2 C 65 17 128/70 95 06/22/21 00:00 100 06/21/21 23:51 37.2 C 102 H 20 124/71 90 06/21/21 22:00 97 06/21/21 21:41 100 06/21/21 20:00 61 06/21/21 19:45 36.6 C 62 15 116/48 L 94 Intake/Output Intake/Output: Intake & Output 06/19/21 06/20/21 06/21/21 06/22/21 23:59 23:59 23:59 23:59 Intake Total 1240 990 540 Output Total 900 0 Balance 340 990 540 Meds/Results Medications: Active Medications Generic Name Dose Route Start Last Admin Trade Name Freq PRN Reason Stop Dose Admin Hydrocodone Bitart/Acetaminophen 1 tab 06/20/21 22:11 06/21/21 00:19 Hydrocodone/Acetaminophen (*Crx) 5-325 Mg Tablet PO 1 tab TID PRN Administration Pain Rated 4-6 Amiodarone HCl 200 mg 06/21/21 08:00 06/22/21 08:54 Amiodarone Hcl 200 Mg Tablet PO 200 mg DAILY@0800 [place] Administration Amlodipine Besylate 10 mg 06/21/21 09:00 06/22/21 10:20 Amlodipine Besylate 5 Mg Tablet PO Not Given DAILY [facility] Apixaban 2.5 mg 06/22/21
--- NOTE | 2021-06-22 13:08 | P.PNNP_ITS ---
Progress Note: A&P Assessment and Plan (1) End stage renal disease: Code(s): N18.6 - End stage renal disease Status: Chronic Assessment and Plan: * resume home CCPD while hospitalized * follow electroltyes, volume status, and clearance (2) Seizure: Code(s): R56.9 - Unspecified convulsions Status: Acute Assessment and Plan: * unclear if this is a true issue or not * s/p initiation of keppra * Neurology following (3) Pneumonia: Code(s): J18.9 - Pneumonia, unspecified organism Status: Acute Assessment and Plan: * suggestive by admission CXR * febrile on admission * on antibiotics (4) Atrial fibrillation: Qualifiers: Atrial fibrillation type: unspecified Qualified Code(s): I48.91 - Unspecified atrial fibrillation Code(s): I48.91 - Unspecified atrial fibrillation Status: Resolved Assessment and Plan: * rate control strategy * on anticoagulation (5) Hypertension: Code(s): I10 - Essential (primary) hypertension Status: Chronic Assessment and Plan: * reasonable control * follow trend of hemodynamics (6) Anemia: Code(s): D64.9 - Anemia, unspecified Status: Chronic Assessment and Plan: * related to ESRD and acute illness * Epogen 3x/seek * follow trend of H/H (7) Diabetes: Qualifiers: Chronic kidney disease stage: on chronic dialysis Diabetes mellitus complication detail: with chronic kidney disease Diabetes mellitus complication status: with kidney complications Diabetes mellitus rn long term care insulin use: with half-way use Diabetes mellitus type: type 2 Qualified Code(s): E11.22 - Type 2 diabetes mellitus with diabetic chronic kidney disease; N18.6 - End stage renal disease; Z79.4 - care home (current) use of insulin; Z99.2 - Dependence on renal dialysis Code(s): E11.9 - Type 2 diabetes mellitus without complications Status: Chronic Assessment and Plan: * follow accuchecks * glycemic control Will continue to follow. Subjective Date/time seen: 06/22/21 13:08 Tolerated peritoneal dialysis treatment overnight without any issues or problems; awake and alert at this time; no distress voiced; mentation seems at baseline if not better since admission; no events overnight or earlier this morning; no other complaints to report. Exam Narrative: General: WD/WN male in NAD Heart: normal S1 and S2; no rub Lungs: clear to auscultation Abdomen: soft, nontender, nondistended, positive bowel sounds Extremities: no cyanosis or clubbing; no edema Skin: warm and dry Objective Data Vital Signs Vital Signs: Vital Signs Temp Pulse Resp BP Pulse Ox 06/22/21 13:07 103/64 06/22/21 12:00 86 06/22/21 08:58 113/61 06/22/21 08:56 89 06/22/21 08:54 89 06/22/21 08:34 37.2 C 17 06/22/21 08:00 84 99 06/22/21 04:00 99 06/22/21 03:16 37.2 C 65 17 128/70 95 06/22/21 00:00 100 06/21/21 23:51 37.2 C 102 H 20 124/71 90 06/21/21 22:00 97 06/21/21 21:41 100 06/21/21 20:00 61 06/21/21 19:45 36.6 C 62 15 116/48 L 94 Intake/Output Intake/Output: Intake & Output 06/19/21 06/20/21 06/21/21
[2021-06-22 16:38] LABS: Glucose Point of Care 153 mg/dl (65-105)
[2021-06-22] MEDS: FUROSEMIDE 80 MG TABLET PO (16:49)
[2021-06-22] MEDS: CEFEPIME 0.5 GM in DEXTROSE 5% IN WATER 50 ML IVPB (20:38)
[2021-06-22] MEDS: GABAPENTIN 100 MG CAPSULE PO (20:40)
[2021-06-22] MEDS: levETIRAcetam 250 MG TABLET PO (20:40)
[2021-06-22] MEDS: lisinopriL 20 MG TABLET PO (20:40)
[2021-06-22 21:48] LABS: Glucose Point of Care 350 mg/dl (65-105)
[2021-06-23] VITALS (11 sets, daily range): BP systolic 122–140; BP diastolic 61–71; PULSE 55–102; RESP 16; TEMP 37.1; O2SAT 91–96
[2021-06-23 05:25] LABS: Basophils Percent Auto 0.4 % (0.2-1.2); Eosinophils Absolute Auto 0.2 K/mm3 (0-0.3); Eosinophils Percent Auto 1.5 % (0-4.4); Hematocrit 25.7 % (42.0-52.0); Hemoglobin 7.6 g/dL (14.0-18.0); Immature Granulocyte Absolute 0.05 K/mm3 (0.00-0.031); Immature Granulocyte Percent A 0.4 % (0-0.5); Lymphocytes Percent Auto 4.4 % (18.3-44.2); Mean Corpuscular HGB Conc 29.6 g/dl (32-36); Mean Corpuscular Hemoglobin 30.5 pg (26-34); Mean Corpuscular Volume 103.2 fl (80-100); Mean Platelet Volume 11.5 fl (7.4-10.4); Monocytes Percent Auto 9.2 % (2.6-8.5); Neutrophils Absolute Auto 9.5 K/mm3 (1.3-6.7); Neutrophils Percent Auto 84.1 % (45.5-73.1); Platelet Count Result 296 k/mm3 (150-375); Red Blood Count 2.49 M/mm3 (4.6-6.20); Red Cell Distribution Width 17.1 % (11.5-14.5); White Blood Count 11.3 K/mm3 (4.5-10.0)
[2021-06-23 05:43] LABS: Alanine Aminotransferase 8 U/L (4-50); Albumin Level 3.3 g/dL (3.5-5.1); Alkaline Phosphatase 82 U/L (38-126); Anion Gap 20 mmol/L (8-16); Aspartate Amino Transferase 14 U/L (17-59); Bilirubin,Total 0.4 mg/dL (0.2-1.3); Blood Urea Nitrogen 62 mg/dL (9-20); Calcium 6.8 mg/dL (8.4-10.2); Carbon Dioxide 27 mmol/L (22-30); Chloride 97 mmol/L (98-107); Estimated CRCL calculation 5 ml/min; Estimated Glomerular Filt Rate 4; Glucose 345 mg/dL (65-110); Potassium 3.5 mmol/L (3.4-5.0); Sodium 144 mmol/L (137-145)
[2021-06-23 07:52] LABS: Glucose Point of Care 226 mg/dl (65-105)
[2021-06-23] MEDS: AMIODARONE HCL 200 MG TABLET PO (09:11)
[2021-06-23] MEDS: CALCIUM ACETATE 667 MG TABLET 1334 MG PO ×3 (09:11→16:49)
[2021-06-23] MEDS: APIXABAN 2.5 MG TABLET PO (09:12)
[2021-06-23] MEDS: amLODIPine BESYLATE 5 MG TABLET 10 MG PO (09:12)
[2021-06-23] MEDS: ASPIRIN 81 MG ENTERIC TABLET PO (09:13)
[2021-06-23] MEDS: ISOSORBIDE MONONITRATE 30 MG TAB.ER.24H PO (09:13)
[2021-06-23] MEDS: FUROSEMIDE 80 MG TABLET 160 MG PO (09:13)
[2021-06-23] MEDS: levETIRAcetam 250 MG TABLET PO ×2 (09:13→20:53)
[2021-06-23] MEDS: LACTULOSE 20 GM/30 ML UDC PO (09:13)
[2021-06-23] MEDS: OPTI-GEN TAB 1 TABLET PO ×2 (09:14→16:49)
[2021-06-23] MEDS: METOPROLOL TARTRATE 50 MG TAB PO ×2 (09:14→20:52)
[2021-06-23] MEDS: PANTOPRAZOLE 40 MG TABLET PO ×2 (09:14→16:48)
[2021-06-23] MEDS: SODIUM BICARBONATE TAB 650 MG TABLET PO ×3 (09:15→16:48)
[2021-06-23] MEDS: INSULIN ASPART (*BKC) 100 UNITS/ML SUB-Q ×3 (09:30→16:51)
[2021-06-23 10:58] LABS: Glucose Point of Care 204 mg/dl (65-105)
--- NOTE | 2021-06-23 12:13 | PM.IMPN ---
Progress Note: A&P Assessment and Plan (1) Sepsis: Qualifiers: Sepsis acute organ dysfunction status: unspecified Sepsis type: sepsis due to unspecified organism Qualified Code(s): A41.9 - Sepsis, unspecified organism Code(s): A41.9 - Sepsis, unspecified organism Status: Acute Assessment and Plan: Concern for pneumonia from cxr COVID-19 is negative pt is on iv vancomycin and iv zosyn cxr shows - Bandlike opacity in the left lower lung zone and favor discoid atelectasis [place] [id number] BC are negative to date (2) Atrial fibrillation: Qualifiers: Atrial fibrillation type: unspecified Qualified Code(s): I48.91 - Unspecified atrial fibrillation Code(s): I48.91 - Unspecified atrial fibrillation Status: Resolved Assessment and Plan: Associated with RVR improved continue amiodarone and Eliquis (3) ESRD (end stage renal disease) on dialysis: Code(s): N18.6 - End stage renal disease; Z99.2 - Dependence on renal dialysis Status: Acute Assessment and Plan: Patient on peritoneal dialysis no evidence of peritonitis, nephrology rounding (4) Fall: Code(s): W19.XXXA - Unspecified fall, initial encounter Status: Acute Assessment and Plan: Probably related to seizure PT OT evaluation seizure precaution fall precaution (5) Renal osteodystrophy: Code(s): N25.0 - Renal osteodystrophy Status: Acute Assessment and Plan: Pain control (6) Cardiomyopathy: Code(s): I42.9 - Cardiomyopathy, unspecified Status: Acute Assessment and Plan: Patient has ejection fraction 40-45% most likely chronic systolic CHF stable avoid fluid overload (7) Anemia: Code(s): D64.9 - Anemia, unspecified Status: Chronic Assessment and Plan: Most likely anemia of chronic disease transfuse if hemoglobin below 7, continue to monitor (8) Hyperkalemia: Code(s): E87.5 - Hyperkalemia Status: Acute Assessment and Plan: On peritoneal dialysis (9) Peripheral vascular disease of extremity with claudication: Code(s): I73.9 - Peripheral vascular disease, unspecified Status: Acute Assessment and Plan: Continue aspirin pain control (10) Type 2 diabetes mellitus with hyperglycemia: Qualifiers: Diabetes mellitus chcf insulin use: with chcf use Qualified Code(s): E11.65 - Type 2 diabetes mellitus with hyperglycemia; Z79.4 - roasterman (current) use of insulin Code(s): E11.65 - Type 2 diabetes mellitus with hyperglycemia Status: Acute Assessment and Plan: Uncontrolled with hyperglycemia and nephropathy continue insulin sliding scale continue home medication (11) Essential (primary) hypertension: Code(s): I10 - Essential (primary) hypertension Status: Acute Assessment and Plan: Stable continue amlodipine (12) Altered mental status: Code(s): R41.82 - Altered mental status, unspecified Status: Resolved Assessment and Plan: Most likely acute metabolic encephalopathy secondary to seizure and infection -neurology was consulted patient was given loading dose of Keppra patient currently on Keppra 500 mg twice a day. Neurology rounding, CT head is negative Subjective Date/time seen: 06/23/21 12:13 Interval history: Pt admitted for sepsis and AMS. pt has history of ESRD, DM Pt appears very tired pt started on keppra for new seizures, I am thinking it is making him tired. Review of Systems Review of Systems: All systems reviewed & are unremarkable except as noted in HPI and below Exam Narrative: Alert, elderly man very tired appearing Chest decreased BS Abdomen nontender nondistended CVS S1 + S2 Lower extremity non edematous Objective Data Vital Signs Vital Signs: Vital Signs - 24 hr 06/22/21 13:07 06/22/21 15:03 06/22/21 16:00 Temperature 37.3 C Pu
--- NOTE | 2021-06-23 12:39 | PM.PNNEP ---
Progress Note: A&P Assessment and Plan (1) End stage renal disease: Code(s): N18.6 - End stage renal disease Status: Chronic Assessment and Plan: continue CCPD while hospitalized follow electroltyes, volume status, and clearance (2) Seizure: Code(s): R56.9 - Unspecified convulsions Status: Acute Assessment and Plan: unclear if this is a true issue or not s/p initiation of keppra Neurology following (3) Pneumonia: Code(s): J18.9 - Pneumonia, unspecified organism Status: Acute Assessment and Plan: suggestive by admission CXR febrile on admission on antibiotics (4) Atrial fibrillation: Qualifiers: Atrial fibrillation type: unspecified Qualified Code(s): I48.91 - Unspecified atrial fibrillation Code(s): I48.91 - Unspecified atrial fibrillation Status: Resolved Assessment and Plan: rate control strategy on anticoagulation (5) Hypertension: Code(s): I10 - Essential (primary) hypertension Status: Chronic Assessment and Plan: reasonable control follow trend of hemodynamics (6) Anemia: Code(s): D64.9 - Anemia, unspecified Status: Chronic Assessment and Plan: related to ESRD and acute illness Epogen 3x/seek follow trend of H/H (7) Diabetes: Qualifiers: Chronic kidney disease stage: on chronic dialysis Diabetes mellitus complication detail: with chronic kidney disease Diabetes mellitus complication status: with kidney complications Diabetes mellitus terminal computer operator insulin use: with alf use Diabetes mellitus type: type 2 Qualified Code(s): E11.22 - Type 2 diabetes mellitus with diabetic chronic kidney disease; N18.6 - End stage renal disease; Z79.4 - shelter (current) use of insulin; Z99.2 - Dependence on renal dialysis Code(s): E11.9 - Type 2 diabetes mellitus without complications Status: Chronic Assessment and Plan: follow accuchecks glycemic control Will continue to follow. Subjective Date/time seen: 06/23/21 12:39 He appears more fatigued/tired in comparison to yesterday when I saw him; tolerated peritoneal dialysis treatment yesterday evening without any issue or problems; no apparent distress voiced; no other events overnight or earlier this morning. Exam Narrative: General: WD/WN male in NAD Heart: normal S1 and S2; no rub Lungs: clear to auscultation Abdomen: soft, nontender, nondistended, positive bowel sounds Extremities: no cyanosis or clubbing; no edema Skin: warm and dry Objective Data Vital Signs Vital Signs: Vital Signs Temp Pulse Resp BP Pulse Ox 06/23/21 12:00 89 06/23/21 09:14 87 06/23/21 09:11 93 06/23/21 09:03 122/62 06/23/21 05:20 37.1 C 88 16 125/61 91 06/23/21 04:00 102 H 06/23/21 00:00 91 06/22/21 22:00 37.1 C 55 L 16 122/50 L 100 06/22/21 20:40 95 06/22/21 20:00 89 100 06/22/21 17:48 37.3 C 18 06/22/21 16:00 87 Intake/Output Intake/Output: Intake & Output 06/20/21 06/21/21 06/22/21 06/23/21 23:59 23:59 23:59 23:59 Intake Total 1240 990 940 560 Output Total 900 0 Balance 340 990 940 560 Meds/Results Medications: Active Medications Generic Name Dose Route Start Last Admin Trade Name Freq PRN Reason Stop Dose Admin Hydrocodone Bitart/Acetaminophen 1 tab 06/20/21 22:11 06/21/21 00:19 Hydrocodone/Acetaminophen (*Crx) 5-325 Mg Tablet PO 1 tab TID PRN Administration Pain Rated 4-6 Amiodarone HCl 200 mg 06/21/21 08:00 06/23/21 09:11 Amiodarone Hcl 200 Mg Tablet PO 200 mg DAILY@0800 PARISH Administration Amlodipine Besylate 10 mg 06/21/21 09:00 06/23/21 09:12 Amlodipine Besylate 5 Mg Tablet PO 10 mg DAILY PARISH Administration Apixaban 2.5 mg 06/22/21 09:00 06/23/21 09:12 Apixaban 2.5 Mg Tablet PO 2.5 mg QAM PARISH Administration Aspirin 81 mg 12
--- NOTE | 2021-06-23 12:39 | P.PNNP_ITS ---
Progress Note: A&P Assessment and Plan (1) End stage renal disease: Code(s): N18.6 - End stage renal disease Status: Chronic Assessment and Plan: * continue CCPD while hospitalized * follow electroltyes, volume status, and clearance (2) Seizure: Code(s): R56.9 - Unspecified convulsions Status: Acute Assessment and Plan: * unclear if this is a true issue or not * s/p initiation of keppra * Neurology following (3) Pneumonia: Code(s): J18.9 - Pneumonia, unspecified organism Status: Acute Assessment and Plan: * suggestive by admission CXR * febrile on admission * on antibiotics (4) Atrial fibrillation: Qualifiers: Atrial fibrillation type: unspecified Qualified Code(s): I48.91 - U nspecified atrial fibrillation Code(s): I48.91 - Unspecified atrial fibrillation Status: Resolved Assessment and Plan: * rate control strategy * on anticoagulation (5) Hypertension: Code(s): I10 - Essential (primary) hypertension Status: Chronic Assessment and Plan: * reasonable control * follow trend of hemodynamics (6) Anemia: Code(s): D64.9 - Anemia, unspecified Status: Chronic Assessment and Plan: * related to ESRD and acute illness * Epogen 3x/seek * follow trend of H/H (7) Diabetes: Qualifiers: Chronic kidney disease stage: on chronic dialysis Diabetes mellitus complication detail: with chronic kidney disease Diabetes mellitus complication status: with kidney complications Diabetes mellitus snf insulin use: with buttermaker helper use Diabetes mellitus type: type 2 Qualified Code(s): E11.22 - Type 2 diabetes mellitus with diabetic chronic kidney disease; N18.6 - End stage renal disease; Z79.4 - termite treater (current) use of insulin; Z99.2 - Dependence on renal dialysis Code(s): E11.9 - Type 2 diabetes mellitus without complications Status: Chronic Assessment and Plan: * follow accuchecks * glycemic control Will continue to follow. Subjective Date/time seen: 06/23/21 12:39 He appears more fatigued/tired in comparison to yesterday when I saw him; tolerated peritoneal dialysis treatment yesterday evening without any issue or problems; no apparent distress voiced; no other events overnight or earlier this morning. Exam Narrative: General: WD/WN male in NAD Heart: normal S1 and S2; no rub Lungs: clear to auscultation Abdomen: soft, nontender, nondistended, positive bowel sounds Extremities: no cyanosis or clubbing; no edema Skin: warm and dry Objective Data Vital Signs Vital Signs: Vital Signs Temp Pulse Resp BP Pulse Ox 06/23/21 12:00 89 06/23/21 09:14 87 06/23/21 09:11 93 06/23/21 09:03 122/62 06/23/21 05:20 37.1 C 88 16 125/61 91 06/23/21 04:00 102 H 06/23/21 00:00 91 06/22/21 22:00 37.1 C 55 L 16 122/50 L 100 06/22/21 20:40 95 06/22/21 20:00 89 100 06/22/21 17:48 37.3 C 18 06/22/21 16:00 87 Intake/Output Intake/Output: Intake & Output 06/20/21 06/21/21 06/22/21 06/23/21 23:59 23:59 23:59 23:59 Intake Total 1240 990 940 560 Output Total 900 0 Balance 340 990 940 560
[2021-06-23 16:27] LABS: Glucose Point of Care 226 mg/dl (65-105)
[2021-06-23] MEDS: FUROSEMIDE 80 MG TABLET PO (17:50)
[2021-06-23] MEDS: hydrALAZINE HCL 50 MG TABLET PO (17:51)
[2021-06-23] MEDS: EPOETIN ALFA-EPBX 20,000 UNITS/ML VIAL 20000 UNITS SUB-Q (17:53)
[2021-06-23] MEDS: GABAPENTIN 100 MG CAPSULE PO (20:53)
[2021-06-23] MEDS: CEFEPIME 0.5 GM in DEXTROSE 5% IN WATER 50 ML IVPB (20:53)
[2021-06-23 22:04] LABS: Glucose Point of Care 264 mg/dl (65-105)
[2021-06-24] VITALS (8 sets, daily range): BP systolic 114–149; BP diastolic 42–76; PULSE 76–89; RESP 16–18; TEMP 36.6–37.4; O2SAT 90–99
[2021-06-24 05:50] LABS: Basophils Percent Auto 0.3 % (0.2-1.2); Eosinophils Absolute Auto 0.2 K/mm3 (0-0.3); Eosinophils Percent Auto 1.4 % (0-4.4); Hematocrit 26.7 % (42.0-52.0); Hemoglobin 7.9 g/dL (14.0-18.0); Immature Granulocyte Absolute 0.07 K/mm3 (0.00-0.031); Immature Granulocyte Percent A 0.6 % (0-0.5); Lymphocytes Absolute Auto 0.54 K/mm3 (0.9-3.2); Lymphocytes Percent Auto 4.6 % (18.3-44.2); Mean Corpuscular HGB Conc 29.6 g/dl (32-36); Mean Corpuscular Hemoglobin 30.5 pg (26-34); Mean Corpuscular Volume 103.1 fl (80-100); Mean Platelet Volume 11.2 fl (7.4-10.4); Monocytes Percent Auto 8.5 % (2.6-8.5); Neutrophils Percent Auto 84.6 % (45.5-73.1); Platelet Count Result 335 k/mm3 (150-375); Red Blood Count 2.59 M/mm3 (4.6-6.20); Red Cell Distribution Width 16.8 % (11.5-14.5); White Blood Count 11.8 K/mm3 (4.5-10.0)
[2021-06-24 06:01] LABS: Alanine Aminotransferase 10 U/L (4-50); Albumin Level 3.5 g/dL (3.5-5.1); Alkaline Phosphatase 85 U/L (38-126); Anion Gap 18 mmol/L (8-16); Aspartate Amino Transferase 18 U/L (17-59); Bilirubin,Total 0.4 mg/dL (0.2-1.3); Blood Urea Nitrogen 61 mg/dL (9-20); Calcium 7.2 mg/dL (8.4-10.2); Carbon Dioxide 29 mmol/L (22-30); Chloride 95 mmol/L (98-107); Estimated CRCL calculation 4 ml/min; Estimated Glomerular Filt Rate 4; Glucose 364 mg/dL (65-110); Potassium 3.3 mmol/L (3.4-5.0); Sodium 142 mmol/L (137-145)
[2021-06-24 06:07] LABS: Vancomycin Random 19.4 ug/mL (10-20)
[2021-06-24 08:26] LABS: Glucose Point of Care 273 mg/dl (65-105)
[2021-06-24] MEDS: LACTULOSE 20 GM/30 ML UDC PO (09:16)
[2021-06-24] MEDS: APIXABAN 2.5 MG TABLET PO (09:16)
[2021-06-24] MEDS: CALCIUM ACETATE 667 MG TABLET 1334 MG PO ×3 (09:16→17:23)
[2021-06-24] MEDS: ISOSORBIDE MONONITRATE 30 MG TAB.ER.24H PO (09:16)
[2021-06-24] MEDS: hydrALAZINE HCL 50 MG TABLET PO ×3 (09:16→17:24)
[2021-06-24] MEDS: amLODIPine BESYLATE 5 MG TABLET 10 MG PO (09:17)
[2021-06-24] MEDS: FUROSEMIDE 80 MG TABLET 160 MG PO (09:17)
[2021-06-24] MEDS: AMIODARONE HCL 200 MG TABLET PO (09:17)
[2021-06-24] MEDS: levETIRAcetam 250 MG TABLET PO ×2 (09:18→21:37)
[2021-06-24] MEDS: ASPIRIN 81 MG ENTERIC TABLET PO (09:18)
[2021-06-24] MEDS: METOPROLOL TARTRATE 50 MG TAB PO ×2 (09:19→21:43)
[2021-06-24] MEDS: SODIUM BICARBONATE TAB 650 MG TABLET PO ×3 (09:19→17:25)
[2021-06-24] MEDS: lisinopriL 20 MG TABLET PO ×2 (09:19→21:37)
[2021-06-24] MEDS: OPTI-GEN TAB 1 TABLET PO ×2 (09:19→17:24)
[2021-06-24] MEDS: PANTOPRAZOLE 40 MG TABLET PO ×2 (09:19→17:25)
[2021-06-24] MEDS: INSULIN ASPART (*BKC) 100 UNITS/ML SUB-Q ×3 (09:25→17:27)
--- NOTE | 2021-06-24 11:02 | PM.PNNEP ---
Progress Note: A&P Assessment and Plan (1) End stage renal disease: Code(s): N18.6 - End stage renal disease Status: Chronic Assessment and Plan: continue CCPD while hospitalized follow electroltyes, volume status, and clearance (2) Seizure: Code(s): R56.9 - Unspecified convulsions Status: Acute Assessment and Plan: unclear if this is a true issue or not s/p initiation of keppra Neurology following (3) Pneumonia: Code(s): J18.9 - Pneumonia, unspecified organism Status: Acute Assessment and Plan: suggestive by admission CXR febrile on admission on antibiotics (4) Atrial fibrillation: Qualifiers: Atrial fibrillation type: unspecified Qualified Code(s): I48.91 - Unspecified atrial fibrillation Code(s): I48.91 - Unspecified atrial fibrillation Status: Resolved Assessment and Plan: rate control strategy on anticoagulation (5) Hypertension: Code(s): I10 - Essential (primary) hypertension Status: Chronic Assessment and Plan: reasonable control follow trend of hemodynamics (6) Anemia: Code(s): D64.9 - Anemia, unspecified Status: Chronic Assessment and Plan: related to ESRD and acute illness Epogen 3x/seek follow trend of H/H (7) Diabetes: Qualifiers: Chronic kidney disease stage: on chronic dialysis Diabetes mellitus complication detail: with chronic kidney disease Diabetes mellitus complication status: with kidney complications Diabetes mellitus rn long term care insulin use: with penitentiary use Diabetes mellitus type: type 2 Qualified Code(s): E11.22 - Type 2 diabetes mellitus with diabetic chronic kidney disease; N18.6 - End stage renal disease; Z79.4 - snf (current) use of insulin; Z99.2 - Dependence on renal dialysis Code(s): E11.9 - Type 2 diabetes mellitus without complications Status: Chronic Assessment and Plan: follow accuchecks glycemic control Will continue to follow. Subjective Date/time seen: 06/24/21 11:02 No real issues or complaints voiced at this time; reports some discomfort in his feet/lower extremities due to his known diabetic neuropathy; tolerated his peritoneal dialysis treatment yesterday evening without any issue or problems; no apparent distress noted. Exam Narrative: General: WD/WN male in NAD Heart: normal S1 and S2; no rub Lungs: clear to auscultation Abdomen: soft, nontender, nondistended, positive bowel sounds Extremities: no cyanosis or clubbing; trace edema Skin: warm and intact Objective Data Vital Signs Vital Signs: Vital Signs Temp Pulse Resp BP Pulse Ox 06/24/21 09:19 89 06/24/21 09:17 89 06/24/21 05:39 37.4 C 89 16 149/72 H 92 06/23/21 22:00 37.1 C 55 L 16 127/71 94 06/23/21 20:52 63 06/23/21 20:50 94 06/23/21 14:55 37.1 C 63 16 140/70 96 Intake/Output Intake/Output: Intake & Output 06/21/21 06/22/21 06/23/21 06/24/21 23:59 23:59 23:59 23:59 Intake Total 990 940 730 860 Output Total 0 Balance 990 940 730 860 Meds/Results Medications: Active Medications Generic Name Dose Route Start Last Admin Trade Name Freq PRN Reason Stop Dose Admin Hydrocodone Bitart/Acetaminophen 1 tab 06/20/21 22:11 06/21/21 00:19 Hydrocodone/Acetaminophen (*Crx) 5-325 Mg Tablet PO 1 tab TID PRN Administration Pain Rated 4-6 Amiodarone HCl 200 mg 06/21/21 08:00 06/24/21 09:17 Amiodarone Hcl 200 Mg Tablet PO 200 mg DAILY@0800 PARISH Administration Amlodipine Besylate 10 mg 06/21/21 09:00 06/24/21 09:17 Amlodipine Besylate 5 Mg Tablet PO 10 mg DAILY PARISH Administration Apixaban 2.5 mg 06/22/21 09:00 06/24/21 09:16 Apixaban 2.5 Mg Tablet PO 2.5 mg QAM PARISH Administration Aspirin 81 mg 06/21/21 09:00 06/24/21 09:18 Aspirin 81 Mg Enteric Tablet PO 81 mg QAM PARISH Administration
--- NOTE | 2021-06-24 11:02 | P.PNNP_ITS ---
Progress Note: A&P Assessment and Plan (1) End stage renal disease: Code(s): N18.6 - End stage renal disease Status: Chronic Assessment and Plan: * continue CCPD while hospitalized * follow electroltyes, volume status, and clearance (2) Seizure: Code(s): R56.9 - Unspecified convulsions Status: Acute Assessment and Plan: * unclear if this is a true issue or not * s/p initiation of keppra * Neurology following (3) Pneumonia: Code(s): J18.9 - Pneumonia, unspecified organism Status: Acute Assessment and Plan: * suggestive by admission CXR * febrile on admission * on antibiotics (4) Atrial fibrillation: Qualifiers: Atrial fibrillation type: unspecified Qualified Code(s): I48.91 - U nspecified atrial fibrillation Code(s): I48.91 - Unspecified atrial fibrillation Status: Resolved Assessment and Plan: * rate control strategy * on anticoagulation (5) Hypertension: Code(s): I10 - Essential (primary) hypertension Status: Chronic Assessment and Plan: * reasonable control * follow trend of hemodynamics (6) Anemia: Code(s): D64.9 - Anemia, unspecified Status: Chronic Assessment and Plan: * related to ESRD and acute illness * Epogen 3x/seek * follow trend of H/H (7) Diabetes: Qualifiers: Chronic kidney disease stage: on chronic dialysis Diabetes mellitus complication detail: with chronic kidney disease Diabetes mellitus complication status: with kidney complications Diabetes mellitus continuous churn buttermaker insulin use: with retirement use Diabetes mellitus type: type 2 Qualified Code(s): E11.22 - Type 2 diabetes mellitus with diabetic chronic kidney disease; N18.6 - End stage renal disease; Z79.4 - custodial (current) use of insulin; Z99.2 - Dependence on renal dialysis Code(s): E11.9 - Type 2 diabetes mellitus without complications Status: Chronic Assessment and Plan: * follow accuchecks * glycemic control Will continue to follow. Subjective Date/time seen: 06/24/21 11:02 No real issues or complaints voiced at this time; reports some discomfort in his feet/lower extremities due to his known diabetic neuropathy; tolerated his peritoneal dialysis treatment yesterday evening without any issue or problems; no apparent distress noted. Exam Narrative: General: WD/WN male in NAD Heart: normal S1 and S2; no rub Lungs: clear to auscultation Abdomen: soft, nontender, nondistended, positive bowel sounds Extremities: no cyanosis or clubbing; trace edema Skin: warm and intact Objective Data Vital Signs Vital Signs: Vital Signs Temp Pulse Resp BP Pulse Ox 06/24/21 09:19 89 06/24/21 09:17 89 06/24/21 05:39 37.4 C 89 16 149/72 H 92 06/23/21 22:00 37.1 C 55 L 16 127/71 94 06/23/21 20:52 63 06/23/21 20:50 94 06/23/21 14:55 37.1 C 63 16 140/70 96 Intake/Output Intake/Output: Intake & Output 06/21/21 06/22/21 06/23/21 06/24/21 23:59 23:59 23:59 23:59 Intake Total 990 940 730 860 Output Total 0 Balance 990 940 730 860 Meds/Results Medications: Active Medications Generic Name Dose Route Start Last Admin
--- NOTE | 2021-06-24 11:40 | PM.IMPN ---
Progress Note: A&P Assessment and Plan (1) Sepsis: Qualifiers: Sepsis acute organ dysfunction status: unspecified Sepsis type: sepsis due to unspecified organism Qualified Code(s): A41.9 - Sepsis, unspecified organism Code(s): A41.9 - Sepsis, unspecified organism Status: Acute Assessment and Plan: -Concern for pneumonia from cxr -COVID-19 is negative -pt is on iv cefepime -WBC improving, 11.8 today -BC are negative to date -fevers and tachycardia have resolved (2) Atrial fibrillation: Qualifiers: Atrial fibrillation type: unspecified Qualified Code(s): I48.91 - Unspecified atrial fibrillation Code(s): I48.91 - Unspecified atrial fibrillation Status: Resolved Assessment and Plan: -Associated with RVR improved continue amiodarone and Eliquis (3) ESRD (end stage renal disease) on dialysis: Code(s): N18.6 - End stage renal disease; Z99.2 - Dependence on renal dialysis Status: Acute Assessment and Plan: -Patient on peritoneal dialysis no evidence of peritonitis, nephrology rounding (4) Fall: Code(s): W19.XXXA - Unspecified fall, initial encounter Status: Acute Assessment and Plan: -Probably related to seizure PT OT evaluation -seizure precautions -fall precautions (5) Renal osteodystrophy: Code(s): N25.0 - Renal osteodystrophy Status: Acute Assessment and Plan: Pain control (6) Cardiomyopathy: Code(s): I42.9 - Cardiomyopathy, unspecified Status: Acute Assessment and Plan: Patient has ejection fraction 40-45% most likely chronic systolic CHF stable avoid fluid overload (7) Anemia: Code(s): D64.9 - Anemia, unspecified Status: Chronic Assessment and Plan: Most likely anemia of chronic disease transfuse if hemoglobin below 7, continue to monitor (8) Hyperkalemia: Code(s): E87.5 - Hyperkalemia Status: Acute Assessment and Plan: On peritoneal dialysis (9) Peripheral vascular disease of extremity with claudication: Code(s): I73.9 - Peripheral vascular disease, unspecified Status: Acute Assessment and Plan: Continue aspirin pain control (10) Type 2 diabetes mellitus with hyperglycemia: Qualifiers: Diabetes mellitus terminal operations supervisor insulin use: with terminal operations supervisor use Qualified Code(s): E11.65 - Type 2 diabetes mellitus with hyperglycemia; Z79.4 - intermediate designer (current) use of insulin Code(s): E11.65 - Type 2 diabetes mellitus with hyperglycemia Status: Acute Assessment and Plan: -Uncontrolled with hyperglycemia and nephropathy -continue insulin sliding scale, increased to high dose sliding scale -was 364 this morning -he is on 70/30 novolog 20 units qpm, this had been held. Will do 10 units of Lantus tonight and continue monitoring closely. (11) Essential (primary) hypertension: Code(s): I10 - Essential (primary) hypertension Status: Acute Assessment and Plan: Stable continue amlodipine (12) Altered mental status: Code(s): R41.82 - Altered mental status, unspecified Status: Resolved Assessment and Plan: -CT head is negative -Most likely acute metabolic encephalopathy secondary to seizure and infection -Neurology was consulted patient was given loading dose of Keppra patient currently on Keppra 500 mg twice a day. -Neurology rounding -Improved Subjective Date/time seen: 06/24/21 11:40 Interval history: Pt is a 70 yo male w/ hx of HTN, HLD, DM, anemia, afib on eliquis, renal failure on peritoneal dialysis, admitted to the hospital for sepsis, pneumonia, and possible seizure activity. Today patient complains of tingling in his bilateral feet consistent with his chronic neuropathy. Otherwise he has no complaints. Had dialysis yesterday. No cp/sob. Review of Systems Review
[2021-06-24 12:20] LABS: Glucose Point of Care 283 mg/dl (65-105)
[2021-06-24 16:53] LABS: Prolactin 44.6 ng/mL (***)
[2021-06-24] MEDS: HYDROcodone/acetaminophen (*CRX) 5-325 MG TABLET 1 TAB PO (17:23)
[2021-06-24] MEDS: EPOETIN ALFA-EPBX 10,000 UNITS/ML VIAL 10000 UNITS SUB-Q (17:25)
[2021-06-24] MEDS: FUROSEMIDE 80 MG TABLET PO (17:26)
[2021-06-24 18:01] LABS: Glucose Point of Care 205 mg/dl (65-105)
[2021-06-24] MEDS: CEFEPIME 0.5 GM in DEXTROSE 5% IN WATER 50 ML IVPB (21:37)
[2021-06-24] MEDS: GABAPENTIN 100 MG CAPSULE PO (21:37)
[2021-06-24] MEDS: INSULIN GLARGINE (*BKC) 100 UNITS/ML 10 UNITS SUB-Q (21:49)
[2021-06-24 22:12] LABS: Glucose Point of Care 354 mg/dl (65-105)
[2021-06-24] MEDS: INSULIN ASPART (*BKC) 100 UNITS/ML 6 UNITS SUB-Q (22:46)
[2021-06-25] VITALS (7 sets, daily range): BP systolic 113–127; BP diastolic 51–55; PULSE 47–57; RESP 14–18; TEMP 36.5–36.6; O2SAT 2–100
[2021-06-25 06:59] LABS: Basophils Percent Auto 0.3 % (0.2-1.2); Eosinophils Absolute Auto 0.3 K/mm3 (0-0.3); Eosinophils Percent Auto 2.3 % (0-4.4); Hematocrit 26.6 % (42.0-52.0); Hemoglobin 7.8 g/dL (14.0-18.0); Immature Granulocyte Absolute 0.06 K/mm3 (0.00-0.031); Immature Granulocyte Percent A 0.4 % (0-0.5); Lymphocytes Absolute Auto 0.58 K/mm3 (0.9-3.2); Mean Corpuscular HGB Conc 29.3 g/dl (32-36); Mean Corpuscular Hemoglobin 30.2 pg (26-34); Mean Corpuscular Volume 103.1 fl (80-100); Mean Platelet Volume 11.5 fl (7.4-10.4); Monocytes Absolute Auto 1.1 K/mm3 (0.1-0.6); Monocytes Percent Auto 7.7 % (2.6-8.5); Neutrophils Absolute Auto 12.2 K/mm3 (1.3-6.7); Neutrophils Percent Auto 85.3 % (45.5-73.1); Platelet Count Result 380 k/mm3 (150-375); Red Blood Count 2.58 M/mm3 (4.6-6.20); Red Cell Distribution Width 16.9 % (11.5-14.5); White Blood Count 14.4 K/mm3 (4.5-10.0)
[2021-06-25 07:15] LABS: Alanine Aminotransferase 13 U/L (4-50); Albumin Level 3.5 g/dL (3.5-5.1); Alkaline Phosphatase 96 U/L (38-126); Anion Gap 20 mmol/L (8-16); Aspartate Amino Transferase 22 U/L (17-59); Bilirubin,Total 0.4 mg/dL (0.2-1.3); Blood Urea Nitrogen 65 mg/dL (9-20); Calcium 7.9 mg/dL (8.4-10.2); Carbon Dioxide 28 mmol/L (22-30); Chloride 97 mmol/L (98-107); Estimated CRCL calculation 5 ml/min; Estimated Glomerular Filt Rate 4; Glucose 200 mg/dL (65-110); Potassium 3.6 mmol/L (3.4-5.0); Sodium 145 mmol/L (137-145)
[2021-06-25] MEDS: ISOSORBIDE MONONITRATE 30 MG TAB.ER.24H PO (08:10)
[2021-06-25] MEDS: METOPROLOL TARTRATE 50 MG TAB PO ×2 (08:10→21:25)
[2021-06-25] MEDS: AMIODARONE HCL 200 MG TABLET PO (08:10)
[2021-06-25] MEDS: levETIRAcetam 250 MG TABLET PO ×2 (08:10→21:19)
[2021-06-25] MEDS: LACTULOSE 20 GM/30 ML UDC PO (08:10)
[2021-06-25] MEDS: hydrALAZINE HCL 50 MG TABLET PO ×3 (08:10→17:05)
[2021-06-25] MEDS: CALCIUM ACETATE 667 MG TABLET 1334 MG PO ×3 (08:10→17:04)
[2021-06-25] MEDS: APIXABAN 2.5 MG TABLET PO (08:10)
[2021-06-25] MEDS: OPTI-GEN TAB 1 TABLET PO ×2 (08:11→17:05)
[2021-06-25] MEDS: FUROSEMIDE 80 MG TABLET 160 MG PO (08:11)
[2021-06-25] MEDS: SODIUM BICARBONATE TAB 650 MG TABLET PO ×3 (08:11→17:06)
[2021-06-25] MEDS: lisinopriL 20 MG TABLET PO ×2 (08:11→21:19)
[2021-06-25] MEDS: ASPIRIN 81 MG ENTERIC TABLET PO (08:12)
[2021-06-25] MEDS: PANTOPRAZOLE 40 MG TABLET PO ×2 (08:12→17:05)
[2021-06-25] MEDS: amLODIPine BESYLATE 5 MG TABLET 10 MG PO (08:12)
[2021-06-25] MEDS: HYDROcodone/acetaminophen (*CRX) 5-325 MG TABLET 1 TAB PO ×2 (08:17→13:40)
[2021-06-25 09:22] LABS: Glucose Point of Care 183 mg/dl (65-105)
--- NOTE | 2021-06-25 10:11 | PCOTNOTE ---
Patient declined treatment this date due to pain and fatigue; currently receiving peritoneal dialysis.
--- NOTE | 2021-06-25 10:11 | PM.IMPN ---
Progress Note: A&P Assessment and Plan (1) Sepsis: Qualifiers: Sepsis acute organ dysfunction status: unspecified Sepsis type: sepsis due to unspecified organism Qualified Code(s): A41.9 - Sepsis, unspecified organism Code(s): A41.9 - Sepsis, unspecified organism Status: Acute Assessment and Plan: -Concern for pneumonia from cxr -COVID-19 is negative -pt is on iv cefepime -BC are negative to date -fevers and tachycardia have resolved, still has leukocytosis of 14.4 (2) Atrial fibrillation: Qualifiers: Atrial fibrillation type: unspecified Qualified Code(s): I48.91 - Unspecified atrial fibrillation Code(s): I48.91 - Unspecified atrial fibrillation Status: Resolved Assessment and Plan: -Associated with RVR improved continue amiodarone and Eliquis (3) ESRD (end stage renal disease) on dialysis: Code(s): N18.6 - End stage renal disease; Z99.2 - Dependence on renal dialysis Status: Acute Assessment and Plan: -Patient on peritoneal dialysis no evidence of peritonitis, nephrology rounding (4) Fall: Code(s): W19.XXXA - Unspecified fall, initial encounter Status: Acute Assessment and Plan: -Probably related to seizure -EEG reviewed -PT OT evaluation -seizure precautions -fall precautions -loaded with Keppra which was then continued -neurology rounding (5) Renal osteodystrophy: Code(s): N25.0 - Renal osteodystrophy Status: Acute Assessment and Plan: Pain control (6) Cardiomyopathy: Code(s): I42.9 - Cardiomyopathy, unspecified Status: Acute Assessment and Plan: -Patient has ejection fraction 40-45% most likely chronic systolic CHF -stable -avoid fluid overload -check BNP as pt is still requiring oxygen at this time (7) Anemia: Code(s): D64.9 - Anemia, unspecified Status: Chronic Assessment and Plan: -Most likely anemia of chronic disease -transfuse if hemoglobin below 7 -gets Epo 3x per week -continue to monitor (8) Hyperkalemia: Code(s): E87.5 - Hyperkalemia Status: Acute Assessment and Plan: On peritoneal dialysis (9) Peripheral vascular disease of extremity with claudication: Code(s): I73.9 - Peripheral vascular disease, unspecified Status: Acute Assessment and Plan: Continue aspirin pain control (10) Type 2 diabetes mellitus with hyperglycemia: Qualifiers: Diabetes mellitus mcfp insulin use: with mcfp use Qualified Code(s): E11.65 - Type 2 diabetes mellitus with hyperglycemia; Z79.4 - middle or intermediate school principal (current) use of insulin Code(s): E11.65 - Type 2 diabetes mellitus with hyperglycemia Status: Acute Assessment and Plan: -Uncontrolled with hyperglycemia and nephropathy -continue insulin sliding scale, increased to high dose sliding scale -was up to 364 yesterday 06/24/21 -he is on 70/30 novolog 20 units qpm, this had been held. -Replaced with 10 units of Lantus overnight, today he had improvement of his BS which was 200 this AM -Will increase to 12 units tonight -continue monitoring (11) Essential (primary) hypertension: Code(s): I10 - Essential (primary) hypertension Status: Acute Assessment and Plan: Stable continue amlodipine (12) Altered mental status: Code(s): R41.82 - Altered mental status, unspecified Status: Resolved Assessment and Plan: -CT head is negative -Most likely acute metabolic encephalopathy secondary to seizure and infection -Neurology was consulted patient was given loading dose of Keppra patient currently on Keppra 500 mg twice a day. -Neurology rounding -Improved -A/Ox3 at this time, no confusion Subjective Date/time seen: 06/25/21 10:11 Interval history: Pt is a 70 yo male w/ hx of HTN, HLD, DM, anemia, afib on
--- NOTE | 2021-06-25 11:45 | PM.PNNEP ---
Progress Note: A&P Assessment and Plan (1) End stage renal disease: Code(s): N18.6 - End stage renal disease Status: Chronic Assessment and Plan: continue CCPD while hospitalized follow electroltyes, volume status, and clearance (2) Seizure: Code(s): R56.9 - Unspecified convulsions Status: Acute Assessment and Plan: unclear if this is a true issue/event or not s/p initiation of [facility] following mentation back to baseline (3) Pneumonia: Code(s): J18.9 - Pneumonia, unspecified organism Status: Acute Assessment and Plan: suggestive by admission CXR febrile on admission on antibiotics recheck CXR since still requiring oxygen (4) Atrial fibrillation: Qualifiers: Atrial fibrillation type: unspecified Qualified Code(s): I48.91 - Unspecified atrial fibrillation Code(s): I48.91 - Unspecified atrial fibrillation Status: Resolved Assessment and Plan: rate control strategy on anticoagulation (5) Hypertension: Code(s): I10 - Essential (primary) hypertension Status: Chronic Assessment and Plan: reasonable control follow trend of hemodynamics (6) Anemia: Code(s): D64.9 - Anemia, unspecified Status: Chronic Assessment and Plan: related to ESRD and acute illness Epogen 3x/seek follow trend of H/H (7) Diabetes: Qualifiers: Chronic kidney disease stage: on chronic dialysis Diabetes mellitus complication detail: with chronic kidney disease Diabetes mellitus complication status: with kidney complications Diabetes mellitus shelter insulin use: with long term care administrator use Diabetes mellitus type: type 2 Qualified Code(s): E11.22 - Type 2 diabetes mellitus with diabetic chronic kidney disease; N18.6 - End stage renal disease; Z79.4 - longterm (current) use of insulin; Z99.2 - Dependence on renal dialysis Code(s): E11.9 - Type 2 diabetes mellitus without complications Status: Chronic Assessment and Plan: follow accuchecks on Lantus and SSI Will continue to follow. Subjective Date/time seen: 06/25/21 11:45 Continues to tolerate CCPD while hospitalized; still requiring supplement oxygen at this time but he denies any shortness of breath at the time of my visit.; no other acute issues or complaints voiced other severe neuropathy pain in his feet; mentation seems at baseline; no other events overnight or earlier this morning. Exam Narrative: General: WD/WN male in NAD Heart: normal S1 and S2; no rub Lungs: clear anteriorly; decreased at bases Abdomen: soft, nontender, nondistended, positive bowel sounds Extremities: no cyanosis or clubbing; trace edema Skin: no rash Objective Data Vital Signs Vital Signs: Vital Signs Temp Pulse Resp BP Pulse Ox 06/25/21 08:10 53 L 06/25/21 04:00 36.5 C 53 L 17 127/55 L 99 06/24/21 21:43 76 06/24/21 20:20 90 06/24/21 20:17 36.6 C 76 17 114/42 L 90 Intake/Output Intake/Output: Intake & Output 06/22/21 06/23/21 06/24/21 06/25/21 23:59 23:59 23:59 23:59 Intake Total 474 437 0387 320 Balance 305 012 7592 320 Meds/Results Medications: Active Medications Generic Name Dose Route Start Last Admin Trade Name Freq PRN Reason Stop Dose Admin Hydrocodone Bitart/Acetaminophen 1 tab 06/20/21 22:11 06/25/21 13:40 Hydrocodone/Acetaminophen (*Crx) 5-325 Mg Tablet PO 1 tab TID PRN Administration Pain Rated 4-6 Amiodarone HCl 200 mg 06/21/21 08:00 06/25/21 08:10 Amiodarone Hcl 200 Mg Tablet PO 200 mg DAILY@0800 PARISH Administration Amlodipine Besylate 10 mg 06/21/21 09:00 06/25/21 08:12 Amlodipine Besylate 5 Mg Tablet PO 10 mg DAILY PARISH Administration Apixaban 2.5 mg 06/22/21 09:00 06/25/21 08:10 Apixaban 2.5 Mg Tablet PO 2.5 mg QAM PARISH Administration Aspirin 81 mg 06/21/21 09:00 06/25/21 08:12 Aspir
--- NOTE | 2021-06-25 11:45 | P.PNNP_ITS ---
Progress Note: A&P Assessment and Plan (1) End stage renal disease: Code(s): N18.6 - End stage renal disease Status: Chronic Assessment and Plan: * continue CCPD while hospitalized * follow electroltyes, volume status, and clearance (2) Seizure: Code(s): R56.9 - Unspecified convulsions Status: Acute Assessment and Plan: * unclear if this is a true issue/event or not * s/p initiation of keppra * Neurology following * mentation back to baseline (3) Pneumonia: Code(s): J18.9 - Pneumonia, unspecified organism Status: Acute Assessment and Plan: * suggestive by admission CXR * febrile on admission * on antibiotics * recheck CXR since still requiring oxygen (4) Atrial fibrillation: Qualifiers: Atrial fibrillation type: unspecified Qualified Code(s): I48.91 - Unspecified atrial fibrillation Code(s): I48.91 - Unspecified atrial fibrillation Status: Resolved Assessment and Plan: * rate control strategy * on anticoagulation (5) Hypertension: Code(s): I10 - Essential (primary) hypertension Status: Chronic Assessment and Plan: * reasonable control * follow trend of hemodynamics (6) Anemia: Code(s): D64.9 - Anemia, unspecified Status: Chronic Assessment and Plan: * related to ESRD and acute illness * Epogen 3x/seek * follow trend of H/H (7) Diabetes: Qualifiers: Chronic kidney disease stage: on chronic dialysis Diabetes mellitus complication detail: with chronic kidney disease Diabetes mellitus complication status: with kidney complications Diabetes mellitus group home insulin use: with rat exterminator use Diabetes mellitus type: type 2 Qualified Code(s): E11.22 - Type 2 diabetes mellitus with diabetic chronic kidney disease; N18.6 - End stage renal disease; Z79.4 - snf (current) use of insulin; Z99.2 - Dependence on renal dialysis Code(s): E11.9 - Type 2 diabetes mellitus without complications Status: Chronic Assessment and Plan: * follow accuchecks * on Lantus and SSI Will continue to follow. Subjective Date/time seen: 06/25/21 11:45 Continues to tolerate CCPD while hospitalized; still requiring supplement oxygen at this time but he denies any shortness of breath at the time of my visit.; no other acute issues or complaints voiced other severe neuropathy pain in his feet; mentation seems at baseline; no other events overnight or earlier this morning. Exam Narrative: General: WD/WN male in NAD Heart: normal S1 and S2; no rub Lungs: clear anteriorly; decreased at bases Abdomen: soft, nontender, nondistended, positive bowel sounds Extremities: no cyanosis or clubbing; trace edema Skin: no rash Objective Data Vital Signs Vital Signs: Vital Signs Temp Pulse Resp BP Pulse Ox 06/25/21 08:10 53 L 06/25/21 04:00 36.5 C 53 L 17 127/55 L 99 06/24/21 21:43 76 06/24/21 20:20 90 06/24/21 20:17 36.6 C 76 17 114/42 L 90 Intake/Output Intake/Output: Intake & Output 06/22/21 06/23/21 06/24/21 06/25/21 23:59 23:59 23:59 23:59 Intake Total 251 577 1803 320 Balance 249 667 3084 320 Meds/Results Medications: Active Medications Gene
[2021-06-25] MEDS: FUROSEMIDE 80 MG TABLET PO (17:06)
[2021-06-25] MEDS: INSULIN ASPART (*BKC) 100 UNITS/ML SUB-Q (17:07)
[2021-06-25 17:32] LABS: Glucose Point of Care 284 mg/dl (65-105)
[2021-06-25 17:32] LABS: Glucose Point of Care 181 mg/dl (65-105)
[2021-06-25] MEDS: CEFEPIME 0.5 GM in DEXTROSE 5% IN WATER 50 ML IVPB (21:18)
[2021-06-25] MEDS: GABAPENTIN 100 MG CAPSULE 200 MG PO (21:19)
[2021-06-25] MEDS: INSULIN GLARGINE (*BKC) 100 UNITS/ML 12 UNITS SUB-Q (21:19)
[2021-06-25 22:12] LABS: Glucose Point of Care 268 mg/dl (65-105)
[2021-06-26] VITALS (9 sets, daily range): BP systolic 90–127; BP diastolic 52–59; PULSE 59–99; RESP 14–18; TEMP 36.5–37.2; O2SAT 92–98
[2021-06-26 05:17] LABS: Basophils Absolute Auto 0.1 K/mm3 (0.0-0.1); Basophils Percent Auto 0.5 % (0.2-1.2); Eosinophils Absolute Auto 0.5 K/mm3 (0-0.3); Eosinophils Percent Auto 3.5 % (0-4.4); Hematocrit 27.6 % (42.0-52.0); Immature Granulocyte Absolute 0.09 K/mm3 (0.00-0.031); Immature Granulocyte Percent A 0.7 % (0-0.5); Lymphocytes Absolute Auto 0.49 K/mm3 (0.9-3.2); Lymphocytes Percent Auto 3.6 % (18.3-44.2); Mean Corpuscular Hemoglobin 30.4 pg (26-34); Mean Corpuscular Volume 104.9 fl (80-100); Mean Platelet Volume 11.7 fl (7.4-10.4); Monocytes Absolute Auto 0.9 K/mm3 (0.1-0.6); Monocytes Percent Auto 6.5 % (2.6-8.5); Neutrophils Absolute Auto 11.6 K/mm3 (1.3-6.7); Neutrophils Percent Auto 85.2 % (45.5-73.1); Platelet Count Result 428 k/mm3 (150-375); Red Blood Count 2.63 M/mm3 (4.6-6.20); White Blood Count 13.6 K/mm3 (4.5-10.0)
[2021-06-26 05:25] LABS: Alanine Aminotransferase 12 U/L (4-50); Albumin Level 3.5 g/dL (3.5-5.1); Alkaline Phosphatase 99 U/L (38-126); Anion Gap 17 mmol/L (8-16); Aspartate Amino Transferase 16 U/L (17-59); Bilirubin,Total 0.4 mg/dL (0.2-1.3); Blood Urea Nitrogen 60 mg/dL (9-20); Carbon Dioxide 28 mmol/L (22-30); Chloride 93 mmol/L (98-107); Estimated CRCL calculation 5 ml/min; Estimated Glomerular Filt Rate 4; Glucose 349 mg/dL (65-110); Potassium 3.3 mmol/L (3.4-5.0); Sodium 138 mmol/L (137-145)
[2021-06-26 05:34] LABS: NT Pro B Type Natriuretic Pept > 35000 pg/mL (5-100)
[2021-06-26 05:56] LABS: Vancomycin Random 15.8 ug/mL (10-20)
[2021-06-26 08:01] LABS: Glucose Point of Care 265 mg/dl (65-105)
[2021-06-26] MEDS: INSULIN ASPART (*BKC) 100 UNITS/ML SUB-Q (08:19)
[2021-06-26] MEDS: amLODIPine BESYLATE 5 MG TABLET 10 MG PO (08:21)
[2021-06-26] MEDS: APIXABAN 2.5 MG TABLET PO (08:21)
[2021-06-26] MEDS: CALCIUM ACETATE 667 MG TABLET 1334 MG PO ×3 (08:21→16:25)
[2021-06-26] MEDS: ASPIRIN 81 MG ENTERIC TABLET PO (08:21)
[2021-06-26] MEDS: hydrALAZINE HCL 50 MG TABLET PO ×3 (08:21→16:57)
[2021-06-26] MEDS: PANTOPRAZOLE 40 MG TABLET PO ×2 (08:22→16:25)
[2021-06-26] MEDS: LACTULOSE 20 GM/30 ML UDC PO (08:22)
[2021-06-26] MEDS: lisinopriL 20 MG TABLET PO ×2 (08:22→21:41)
[2021-06-26] MEDS: METOPROLOL TARTRATE 50 MG TAB PO ×2 (08:22→21:41)
[2021-06-26] MEDS: levETIRAcetam 250 MG TABLET PO ×2 (08:22→21:40)
[2021-06-26] MEDS: SODIUM BICARBONATE TAB 650 MG TABLET PO ×3 (08:22→16:25)
[2021-06-26] MEDS: ISOSORBIDE MONONITRATE 30 MG TAB.ER.24H PO (08:22)
[2021-06-26] MEDS: AMIODARONE HCL 200 MG TABLET PO (08:23)
[2021-06-26] MEDS: FUROSEMIDE 80 MG TABLET 160 MG PO (08:23)
[2021-06-26] MEDS: OPTI-GEN TAB 1 TABLET PO ×2 (08:23→16:25)
--- NOTE | 2021-06-26 10:26 | P.PNNP_ITS ---
Progress Note: A&P Assessment and Plan (1) End stage renal disease: Code(s): N18.6 - End stage renal disease Status: Chronic Assessment and Plan: * continue CCPD while hospitalized * volume status looks better. * Electrolytes are okay (2) Seizure: Code(s): R56.9 - Unspecified convulsions Status: Acute Assessment and Plan: * unclear if this is a true issue/event or not * s/p initiation of keppra * Neurology following * mentation back to baseline (3) Pneumonia: Code(s): J18.9 - Pneumonia, unspecified organism Status: Acute Assessment and Plan: * suggestive by admission CXR * febrile on admission * on antibiotics * recheck CXR since still requiring oxygen (4) Atrial fibrillation: Qualifiers: Atrial fibrillation type: unspecified Qualified Code(s): I48.91 - Unspecified atrial fibrillation Code(s): I48.91 - Unspecified atrial fibrillation Status: Resolved Assessment and Plan: * heart rate under good control * on anticoagulation (5) Hypertension: Code(s): I10 - Essential (primary) hypertension Status: Chronic Assessment and Plan: * reasonable control * follow trend of hemodynamics (6) Anemia: Code(s): D64.9 - Anemia, unspecified Status: Chronic Assessment and Plan: * related to ESRD and acute illness * Epogen 3x/seek * follow trend of H/H (7) Diabetes: Qualifiers: Diabetes mellitus type: type 2 Diabetes mellitus fci insulin use: with technician terminal and repeater use Diabetes mellitus complication status: with kidney complications Diabetes mellitus complication detail: with chronic kidney disease Chronic kidney disease stage: on chronic dialysis Qualified Code(s): E11.22 - Type 2 diabetes mellitus with diabetic chronic kidney disease; N18.6 - End stage renal disease; Z79.4 - alf (current) use of insulin; Z99.2 - Dependence on renal dialysis Code(s): E11.9 - Type 2 diabetes mellitus without complications Status: Chronic Assessment and Plan: * follow accuchecks * on Lantus and SSI * he probably has diabetic neuropathy. * Will see if increased Gabapentin helps. Subjective Date/time seen: 06/26/21 10:26 Interval history: Patient is on PD and tolerating it well. 2L was removed. He is breathing okay. He is not coughing. His swelling is much better. He has tingling and burning in his feet. He can hardly walk. Exam Narrative: General: WD/WN male in NAD Heart: normal S1 and S2; no rub or gallop Lungs: clear anteriorly; decreased at bases Abdomen: soft, nontender, nondistended, positive bowel sounds Extremities: no cyanosis or clubbing; no edema Skin: no rash or subcu nodules Objective Data Vital Signs Vital Signs: Vital Signs - 24 hr 06/25/21 14:00 06/25/21 21:25 06/25/21 21:34 Temperature 36.6 C Pulse Rate 47 L 57 L Respiratory Rate 18 Blood Pressure 113/52 L Pulse Oximetry 98 98 06/25/21 21:51 06/26/21 06:00 06/26/21 08:00 Temperature 36.5 C 36.5 C Pulse Rate 52 L 59 L Respiratory Rate 14 16 Blood Pressure 118/51 L 120/57 L Pulse Oximetry 100 98 97 06/26/21 08:22 06/26/21 08:23 Temperature Pulse Rate 62 62 Respiratory Rate
--- NOTE | 2021-06-26 10:26 | PM.PNNEP ---
Progress Note: A&P Assessment and Plan (1) End stage renal disease: Code(s): N18.6 - End stage renal disease Status: Chronic Assessment and Plan: continue CCPD while hospitalized volume status looks better. Electrolytes are okay (2) Seizure: Code(s): R56.9 - Unspecified convulsions Status: Acute Assessment and Plan: unclear if this is a true issue/event or not s/p [facility] following mentation back to baseline (3) Pneumonia: Code(s): J18.9 - Pneumonia, unspecified organism Status: Acute Assessment and Plan: suggestive by admission CXR febrile on admission on antibiotics recheck CXR since still requiring oxygen (4) Atrial fibrillation: Qualifiers: Atrial fibrillation type: unspecified Qualified Code(s): I48.91 - Unspecified atrial fibrillation Code(s): I48.91 - Unspecified atrial fibrillation Status: Resolved Assessment and Plan: heart rate under good control on anticoagulation (5) Hypertension: Code(s): I10 - Essential (primary) hypertension Status: Chronic Assessment and Plan: reasonable control follow trend of hemodynamics (6) Anemia: Code(s): D64.9 - Anemia, unspecified Status: Chronic Assessment and Plan: related to ESRD and acute illness Epogen 3x/seek follow trend of H/H (7) Diabetes: Qualifiers: Diabetes mellitus type: type 2 Diabetes mellitus manager long term care insulin use: with shelter use Diabetes mellitus complication status: with kidney complications Diabetes mellitus complication detail: with chronic kidney disease Chronic kidney disease stage: on chronic dialysis Qualified Code(s): E11.22 - Type 2 diabetes mellitus with diabetic chronic kidney disease; N18.6 - End stage renal disease; Z79.4 - ocean transportation intermediary (current) use of insulin; Z99.2 - Dependence on renal dialysis Code(s): E11.9 - Type 2 diabetes mellitus without complications Status: Chronic Assessment and Plan: follow accuchecks on Lantus and SSI he probably has diabetic neuropathy. Will see if increased Gabapentin helps. Subjective Date/time seen: 06/26/21 10:26 Interval history: Patient is on PD and tolerating it well. 2L was removed. He is breathing okay. He is not coughing. His swelling is much better. He has tingling and burning in his feet. He can hardly walk. Exam Narrative: General: WD/WN male in NAD Heart: normal S1 and S2; no rub or gallop Lungs: clear anteriorly; decreased at bases Abdomen: soft, nontender, nondistended, positive bowel sounds Extremities: no cyanosis or clubbing; no edema Skin: no rash or subcu nodules Objective Data Vital Signs Vital Signs: Vital Signs - 24 hr 06/25/21 14:00 06/25/21 21:25 06/25/21 21:34 Temperature 36.6 C Pulse Rate 47 L 57 L Respiratory Rate 18 Blood Pressure 113/52 L Pulse Oximetry 98 98 06/25/21 21:51 06/26/21 06:00 06/26/21 08:00 Temperature 36.5 C 36.5 C Pulse Rate 52 L 59 L Respiratory Rate 14 16 Blood Pressure 118/51 L 120/57 L Pulse Oximetry 100 98 97 06/26/21 08:22 06/26/21 08:23 Temperature Pulse Rate 62 62 Respiratory Rate Blood Pressure Pulse Oximetry Intake/Output Intake/Output: Intake & Output 06/23/21 06/24/21 06/25/21 06/26/21 23:59 23:59 23:59 23:59 Intake Total 730 1350 950 440 Output Total 0 Balance 730 1350 950 440 Meds/Results Medications: Active Medications Generic Name Dose Route Start Last Admin Trade Name Freq PRN Reason Stop Dose Admin Hydrocodone Bitart/Acetaminophen 1 tab 06/20/21 22:11 06/25/21 13:40 Hydrocodone/Acetaminophen (*Crx) 5-325 Mg Tablet PO 1 tab TID PRN Administration Pain Rated 4-6 Amiodarone HCl 200 mg 06/21/21 08:00 06/26/21 08:23 Amiodarone Hcl 200 Mg Tablet PO 200 mg DAILY@0800 PAR[facility] Administration Amlodipine Be
[2021-06-26 11:35] LABS: Glucose Point of Care 108 mg/dl (65-105)
[2021-06-26] MEDS: GABAPENTIN 100 MG CAPSULE 200 MG PO ×2 (13:57→21:58)
--- NOTE | 2021-06-26 14:41 | PM.IMPN ---
Progress Note: A&P Assessment and Plan (1) Altered mental status: Code(s): R41.82 - Altered mental status, unspecified Status: Resolved Assessment and Plan: -CT head is negative -Most likely acute metabolic encephalopathy secondary to seizure and infection -Neurology was consulted patient was given loading dose of Keppra patient currently on Keppra 500 mg twice a day. -Neurology rounding -Improved -A/Ox3 at this time, no confusion (2) Fall: Code(s): W19.XXXA - Unspecified fall, initial encounter Status: Acute Assessment and Plan: -Possibly related to seizure -EEG reviewed -PT OT evaluation -seizure precautions -fall precautions -loaded with Keppra which was then continued -neurology rounding (3) Diabetic neuropathy: Code(s): E11.40 - Type 2 diabetes mellitus with diabetic neuropathy, unspecified Status: Acute Assessment and Plan: -chronic tank terminal gauger problem -increase gabapentin to 200 mg TID, will see if any improvement (4) Peripheral vascular disease of extremity with claudication: Code(s): I73.9 - Peripheral vascular disease, unspecified Status: Acute Assessment and Plan: -Continue aspirin and pain control -chronic changes -continue outpatient follow up (5) Pneumonia: Code(s): J18.9 - Pneumonia, unspecified organism Status: Acute Assessment and Plan: -Concern for pneumonia from cxr -rapid COVID-19 is negative -pt is on iv cefepime #5 -BC are negative to date -fevers and tachycardia have resolved, still has leukocytosis of 13.6 -repeat CXR w/ worsened opacities in the mid and lower lung zones with a peripheral predominance, consistent with pulmonary edema versus pneumonia. -will do covid pcr, check MRSA swab, add incentive spirometer, and add vancomycin to cover for HCAP (6) Cardiomyopathy: Code(s): I42.9 - Cardiomyopathy, unspecified Status: Acute Assessment and Plan: -Patient has ejection fraction 40-45% most likely chronic systolic CHF -repeat CXR w/ worsened opacities in the mid and lower lung zones with a peripheral predominance, consistent with pulmonary edema versus pneumonia. Cardiomegaly. -on lasix 80 mg QPM and 160 QAM -BP has been on the soft side -receiving PD dialysis daily (7) Type 2 diabetes mellitus with hyperglycemia: Qualifiers: Diabetes mellitus tank terminal gauger insulin use: with tank terminal gauger use Qualified Code(s): E11.65 - Type 2 diabetes mellitus with hyperglycemia; Z79.4 - tank terminal gauger (current) use of insulin Code(s): E11.65 - Type 2 diabetes mellitus with hyperglycemia Status: Acute Assessment and Plan: -Uncontrolled with hyperglycemia and nephropathy -continue insulin sliding scale, increased to high dose sliding scale -he is on 70/30 novolog 20 units qpm, this had been held. -Replaced with 12 units of Lantus QHS, BS was 349 this morning, will increase to 15 units QHS -continue monitoring (8) ESRD (end stage renal disease) on dialysis: Code(s): N18.6 - End stage renal disease; Z99.2 - Dependence on renal dialysis Status: Acute Assessment and Plan: -Patient on peritoneal dialysis no evidence of peritonitis, nephrology rounding (9) Essential (primary) hypertension: Code(s): I10 - Essential (primary) hypertension Status: Acute Assessment and Plan: -Stable continue amlodipine (10) Renal osteodystrophy: Code(s): N25.0 - Renal osteodystrophy Status: Acute Assessment and Plan: -Pain control (11) Hyperkalemia: Code(s): E87.5 - Hyperkalemia Status: Acute Assessment and Plan: -On peritoneal dialysis (12) Anemia: Code(s): D64.9 - Anemia, unspecified Status: Chronic Assessment and Plan: -Most likely anemia of chronic disease -transfuse if hemoglobin below 7 -gets Epo 3x per w
[2021-06-26 16:22] LABS: Glucose Point of Care 184 mg/dl (65-105)
[2021-06-26] MEDS: FUROSEMIDE 80 MG TABLET PO (16:57)
--- NOTE | 2021-06-26 17:31 | PC.NURSE ---
Patient transferred to room 328 via bed. Report given to RAQUEL Camp.
--- NOTE | 2021-06-26 18:04 | PC.NURSE ---
This patient, Cristi Adams, was received from [facility] on 06/26/21 at 1730. Patient/family oriented to unit policies and routines
[2021-06-26] MEDS: CEFEPIME 0.5 GM in DEXTROSE 5% IN WATER 50 ML IVPB (21:38)
[2021-06-26] MEDS: INSULIN GLARGINE (*BKC) 100 UNITS/ML 15 UNITS SUB-Q (21:59)
[2021-06-26 23:43] LABS: Glucose Point of Care 261 mg/dl (65-105)
[2021-06-27] VITALS (10 sets, daily range): BP systolic 101–116; BP diastolic 42–61; PULSE 50–94; RESP 12–18; TEMP 36.2–37; O2SAT 90–97
[2021-06-27] MEDS: GABAPENTIN 100 MG CAPSULE 200 MG PO ×3 (05:42→22:34)
[2021-06-27 06:02] LABS: Basophils Percent Auto 0.3 % (0.2-1.2); Eosinophils Absolute Auto 0.3 K/mm3 (0-0.3); Eosinophils Percent Auto 2.3 % (0-4.4); Hematocrit 27.5 % (42.0-52.0); Immature Granulocyte Absolute 0.09 K/mm3 (0.00-0.031); Immature Granulocyte Percent A 0.7 % (0-0.5); Lymphocytes Absolute Auto 0.53 K/mm3 (0.9-3.2); Lymphocytes Percent Auto 4.3 % (18.3-44.2); Mean Corpuscular HGB Conc 29.1 g/dl (32-36); Mean Corpuscular Hemoglobin 30.1 pg (26-34); Mean Corpuscular Volume 103.4 fl (80-100); Monocytes Absolute Auto 0.8 K/mm3 (0.1-0.6); Monocytes Percent Auto 6.7 % (2.6-8.5); Neutrophils Absolute Auto 10.6 K/mm3 (1.3-6.7); Neutrophils Percent Auto 85.7 % (45.5-73.1); Platelet Count Result 464 k/mm3 (150-375); Red Blood Count 2.66 M/mm3 (4.6-6.20); Red Cell Distribution Width 17.2 % (11.5-14.5); White Blood Count 12.4 K/mm3 (4.5-10.0)
[2021-06-27 06:30] LABS: Alanine Aminotransferase 11 U/L (4-50); Albumin Level 3.3 g/dL (3.5-5.1); Alkaline Phosphatase 91 U/L (38-126); Anion Gap 18 mmol/L (8-16); Aspartate Amino Transferase 15 U/L (17-59); Bilirubin,Total 0.4 mg/dL (0.2-1.3); Blood Urea Nitrogen 64 mg/dL (9-20); Calcium 7.9 mg/dL (8.4-10.2); Carbon Dioxide 30 mmol/L (22-30); Chloride 96 mmol/L (98-107); Estimated CRCL calculation 5 ml/min; Estimated Glomerular Filt Rate 4; Glucose 302 mg/dL (65-110); Potassium 3.3 mmol/L (3.4-5.0); Sodium 144 mmol/L (137-145)
--- NOTE | 2021-06-27 07:30 | P.PNNP_ITS ---
Progress Note: A&P Assessment and Plan (1) End stage renal disease: Code(s): N18.6 - End stage renal disease Status: Chronic Assessment and Plan: * continue CCPD while hospitalized * volume status looks better. * Electrolytes are okay * Will continue current prescription. (2) Seizure: Code(s): R56.9 - Unspecified convulsions Status: Acute Assessment and Plan: * unclear if this is a true issue/event or not * s/p initiation of keppra * Neurology following * mentation back to baseline (3) Pneumonia: Code(s): J18.9 - Pneumonia, unspecified organism Status: Acute Assessment and Plan: * suggestive by admission CXR * febrile on admission * Fevers have gone away and a white cell count has decreased. * Repeat chest x-ray shows some worsening. * On cefepime and now vancomycin. (4) Atrial fibrillation: Qualifiers: Atrial fibrillation type: unspecified Qualified Code(s): I48.91 - Unspecified atrial fibrillation Code(s): I48.91 - Unspecified atrial fibrillation Status: Resolved Assessment and Plan: * heart rate under good control * on anticoagulation (5) Hypertension: Code(s): I10 - Essential (primary) hypertension Status: Chronic Assessment and Plan: * Blood pressure is well controlled. (6) Anemia: Code(s): D64.9 - Anemia, unspecified Status: Chronic Assessment and Plan: * related to ESRD and acute illness * Epogen 3x/seek * follow trend of H/H (7) Diabetes: Qualifiers: Diabetes mellitus type: type 2 Diabetes mellitus medical terminologist insulin use: with group home use Diabetes mellitus complication status: with kidney complications Diabetes mellitus complication detail: with chronic kidney disease Chronic kidney disease stage: on chronic dialysis Qualified Code(s): E11.22 - Type 2 diabetes mellitus with diabetic chronic kidney disease; N18.6 - End stage renal disease; Z79.4 - jail (current) use of insulin; Z99.2 - Dependence on renal dialysis Code(s): E11.9 - Type 2 diabetes mellitus without complications Status: Chronic Assessment and Plan: * follow accuchecks * on Lantus and SSI * he probably has diabetic neuropathy. * Will see if increased Gabapentin helps. Subjective Date/time seen: 06/27/21 07:30 Interval history: Patient is on PD Ultrafiltration was about 1300cc overnight. Fluid is clear in flows are good. He is sleepy today. He is on isolation because they swabbed him for COVID-19 Exam Narrative: General: WD/WN male in NAD Heart: normal S1 and S2; no rub Lungs: clear anteriorly; decreased at bases Abdomen: soft, nontender, nondistended, positive bowel sounds Extremities: no edema Skin: no rash Objective Data Vital Signs Vital Signs: Vital Signs - 24 hr 06/26/21 08:00 06/26/21 08:22 06/26/21 08:23 Temperature Pulse Rate 62 62 Respiratory Rate Blood Pressure Pulse Oximetry 97 06/26/21 14:00 06/26/21 16:56 06/26/21 19:56 Temperature 37.2 C 36.7 C Pulse Rate 93 87 Respiratory Rate 16 18 Blood Pressure 90/58 L 118/52 L Pulse Oximetry 94 92 06/26/21 21:41 06/26/21 22:00 06/27/21 01:38 Temperature 36.7 C 36.4 C L Pu
--- NOTE | 2021-06-27 07:30 | PM.PNNEP ---
Progress Note: A&P Assessment and Plan (1) End stage renal disease: Code(s): N18.6 - End stage renal disease Status: Chronic Assessment and Plan: continue CCPD while hospitalized volume status looks better. Electrolytes are okay Will continue current prescription. (2) Seizure: Code(s): R56.9 - Unspecified convulsions Status: Acute Assessment and Plan: unclear if this is a true issue/event or not s/p initiation of kera Neurology following mentation back to baseline (3) Pneumonia: Code(s): J18.9 - Pneumonia, unspecified organism Status: Acute Assessment and Plan: suggestive by admission CXR febrile on admission Fevers have gone away and a white cell count has decreased. Repeat chest x-ray shows some worsening. On cefepime and now vancomycin. (4) Atrial fibrillation: Qualifiers: Atrial fibrillation type: unspecified Qualified Code(s): I48.91 - Unspecified atrial fibrillation Code(s): I48.91 - Unspecified atrial fibrillation Status: Resolved Assessment and Plan: heart rate under good control on anticoagulation (5) Hypertension: Code(s): I10 - Essential (primary) hypertension Status: Chronic Assessment and Plan: Blood pressure is well controlled. 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 Will see if increased Gabapentin helps. Subjective Date/time seen: 06/27/21 07:30 Interval history: Patient is on PD Ultrafiltration was about 1300cc overnight. Fluid is clear in flows are good. He is sleepy today. He is on isolation because they swabbed him for COVID-19 Exam Narrative: General: WD/WN male in NAD Heart: normal S1 and S2; no rub Lungs: clear anteriorly; decreased at bases Abdomen: soft, nontender, nondistended, positive bowel sounds Extremities: no edema Skin: no rash Objective Data Vital Signs Vital Signs: Vital Signs - 24 hr 06/26/21 08:00 06/26/21 08:22 06/26/21 08:23 Temperature Pulse Rate 62 62 Respiratory Rate Blood Pressure Pulse Oximetry 97 06/26/21 14:00 06/26/21 16:56 06/26/21 19:56 Temperature 37.2 C 36.7 C Pulse Rate 93 87 Respiratory Rate 16 18 Blood Pressure 90/58 L 118/52 L Pulse Oximetry 94 92 06/26/21 21:41 06/26/21 22:00 06/27/21 01:38 Temperature 36.7 C 36.4 C L Pulse Rate 99 99 91 Respiratory Rate 14 14 Blood Pressure 127/59 L 108/59 L Pulse Oximetry 96 95 06/27/21 06:00 Temperature 36.2 C L Pulse Rate 69 Respiratory Rate 14 Blood Pressure 116/54 L Pulse Oximetry 96 Intake/Output Intake/Output: Intake & Output 06/24/21 06/25/21 06/26/21 06/27/21 23:59 23:59 23:59 23:59 Intake Total 6395 283 4555 Output Total 0 0 Balance 9904 049 9001 0 Meds/Results Medications: Active Medications Generic Name Dose Route Start Last Admin Trade Name Freq PRN Reason Stop Dose Admin Hydrocodone Bitart/Acetaminophen 1 tab 06/20/21 22:11 06/25/21 13:40 Hydrocodone/Acetaminophen (*Crx) 5-325 Mg Tablet PO 1 tab TID PRN Adm
[2021-06-27 08:36] LABS: Glucose Point of Care 216 mg/dl (65-105)
[2021-06-27 09:12] LABS: Large Platelets Present; Macrocytosis 1+ (NORMAL)
[2021-06-27 09:13] LABS: Anisocytosis 1+ (NORMAL)
[2021-06-27] MEDS: CALCIUM ACETATE 667 MG TABLET 1334 MG PO ×3 (09:34→18:27)
[2021-06-27] MEDS: FUROSEMIDE 80 MG TABLET 160 MG PO (09:35)
[2021-06-27] MEDS: PANTOPRAZOLE 40 MG TABLET PO ×2 (09:35→18:29)
[2021-06-27] MEDS: levETIRAcetam 250 MG TABLET PO ×2 (09:35→22:22)
[2021-06-27] MEDS: ASPIRIN 81 MG ENTERIC TABLET PO (09:35)
[2021-06-27] MEDS: OPTI-GEN TAB 1 TABLET PO ×2 (09:35→18:29)
[2021-06-27] MEDS: AMIODARONE HCL 200 MG TABLET PO (09:36)
[2021-06-27] MEDS: INSULIN ASPART (*BKC) 100 UNITS/ML SUB-Q (09:37)
[2021-06-27] MEDS: amLODIPine BESYLATE 5 MG TABLET 10 MG PO (09:37)
[2021-06-27] MEDS: hydrALAZINE HCL 50 MG TABLET PO (09:38)
[2021-06-27] MEDS: SODIUM BICARBONATE TAB 650 MG TABLET PO ×3 (09:38→18:29)
[2021-06-27] MEDS: lisinopriL 20 MG TABLET PO (09:38)
[2021-06-27] MEDS: APIXABAN 2.5 MG TABLET PO (09:38)
[2021-06-27] MEDS: METOPROLOL TARTRATE 50 MG TAB PO (09:39)
[2021-06-27] MEDS: ISOSORBIDE MONONITRATE 30 MG TAB.ER.24H PO (09:39)
[2021-06-27 12:25] LABS: Glucose Point of Care 145 mg/dl (65-105)
[2021-06-27 15:19] LABS: Hepatitis B Core Ab Total Nonreactive (Nonreactive)
[2021-06-27 15:41] LABS: SARS-CoV-2 RNA PCR Negative (Negative)
--- NOTE | 2021-06-27 16:18 | PM.IMPN ---
Progress Note: A&P Assessment and Plan (1) Altered mental status: Code(s): R41.82 - Altered mental status, unspecified Status: Resolved Assessment and Plan: Presented with increased confusion after suspected seizure activity -CT head is negative -Most likely acute metabolic encephalopathy secondary to seizure and infection -Neurology was consulted patient was given loading dose of Keppra patient currently on Keppra 500 mg twice a day. -Neurology following -resolved. He is A&O x4 on my encounter (2) Seizure: Code(s): R56.9 - Unspecified convulsions Status: Acute Assessment and Plan: Noted to have 45 seconds of seizure-like activity by his -he was loaded with Keppra, remains on Keppra 500 mg b.i.d. -EEG reviewed, compatible with postictal state -seizure precautions in place -appreciate neurology consultation (3) Fall: Code(s): W19.XXXA - Unspecified fall, initial encounter Status: Acute Assessment and Plan: Likely secondary to seizure. -PT OT evaluation -seizure precautions -fall precautions (4) Pneumonia: Code(s): J18.9 - Pneumonia, unspecified organism Status: Acute Assessment and Plan: Concern for pneumonia from cxr -rapid COVID-19 is negative/PCR negative -pt is on iv cefepime #6 -started on vancomycin 06/27 to cover for HCAP -BC negative -fevers and tachycardia have resolved, still has mild leukocytosis which is improving -repeat CXR 06/26 w/ worsened opacities in the mid and lower lung zones with a peripheral predominance, consistent with pulmonary edema versus pneumonia. 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 No acute issues -Continue aspirin and pain control -continue outpatient follow up (7) Cardiomyopathy: Code(s): I42.9 - Cardiomyopathy, unspecified Status: Acute Assessment and Plan: -Patient has ejection fraction 40-45% most likely chronic systolic CHF -repeat CXR w/ worsened opacities in the mid and lower lung zones with a peripheral predominance, consistent with pulmonary edema versus pneumonia. Cardiomegaly. -on lasix 80 mg QPM and 160 QAM -BP has been on the soft side; continue to monitor closely will monitoring volume status -receiving PD dialysis daily -he appears generally euvolemic on exam today (8) Type 2 diabetes mellitus with hyperglycemia: Qualifiers: Diabetes mellitus [facility] [place] use: with [facility] Qualified Code(s): E11.65 - Type 2 diabetes mellitus with hyperglycemia; Z79.4 - residential (current) use of insulin Code(s): E11.65 - Type 2 diabetes mellitus with hyperglycemia Status: Acute Assessment and Plan: Uncontrolled with hyperglycemia and nephropathy. A1c is 6.9 -continue insulin sliding scale, increased to high dose sliding scale -home regimen 70/30 novolog 20 units qpm, this had been held. -Continue 15 units of Lantus qHS, sugars better controlled this afternoon though still elevated this AM -continue monitoring (9) ESRD (end stage renal disease) on dialysis: Code(s): N18.6 - End stage renal disease; Z99.2 - Dependence on renal dialysis Status: Acute Assessment and Plan: Patient on peritoneal dialysis -no evidence of peritonitis -nephrology rounding (10) Essential (primary) hypertension: Code(s): I10 - Essential (primary) hypertension Status: Acute Assessment and Plan: Blood pressures have been somewhat fluctuant -last
[2021-06-27 17:04] LABS: Glucose Point of Care 177 mg/dl (65-105)
[2021-06-27 17:17] LABS: Add Urine Microscopic? YES; Appearance Urine Clear (Clear); Bilirubin Urine Negative (Negative); Blood Urine Negative (Negative); Budding Yeast Urine Present /hpf; Color Urine Yellow (Yellow); Glucose Urine UA Negative (Negative); Ketones Urine Negative (Negative); Leukocyte Esterase Ur 1+ LEU/UL (Negative); Nitrate Urine Negative (Negative); Protein Urine 2+ mg/dL (Negative); Specific Grav Ur 1.015 (1.001-1.035); Urobilinogen Urine Negative mg/dL (<2.0)
[2021-06-27] MEDS: FUROSEMIDE 80 MG TABLET PO (18:29)
[2021-06-27] MEDS: EPOETIN ALFA-EPBX 10,000 UNITS/ML VIAL 10000 UNITS SUB-Q (19:02)
[2021-06-27] MEDS: INSULIN GLARGINE (*BKC) 100 UNITS/ML 15 UNITS SUB-Q (22:20)
[2021-06-27] MEDS: CEFEPIME 0.5 GM in DEXTROSE 5% IN WATER 50 ML IVPB (22:32)
[2021-06-27 23:36] LABS: Glucose Point of Care 383 mg/dl (65-105)
[2021-06-28] VITALS (7 sets, daily range): BP systolic 122–126; BP diastolic 42–49; PULSE 50–60; RESP 12–18; TEMP 36.4–36.8; O2SAT 90–100
[2021-06-28 06:55] LABS: Albumin Level 3.3 g/dL (3.5-5.1); Anion Gap 19 mmol/L (8-16); Blood Urea Nitrogen 65 mg/dL (9-20); Calcium 8.1 mg/dL (8.4-10.2); Carbon Dioxide 30 mmol/L (22-30); Chloride 94 mmol/L (98-107); Estimated CRCL calculation 5 ml/min; Estimated Glomerular Filt Rate 4; Glucose 353 mg/dL (65-110); Phosphorus 8.1 mg/dL (2.5-4.5); Potassium 2.9 mmol/L (3.4-5.0); Sodium 143 mmol/L (137-145)
[2021-06-28 07:14] LABS: Hematocrit 26.7 % (42.0-52.0); Hemoglobin 7.8 g/dL (14.0-18.0); Mean Corpuscular HGB Conc 29.2 g/dl (32-36); Mean Corpuscular Hemoglobin 30.7 pg (26-34); Mean Corpuscular Volume 105.1 fl (80-100); Mean Platelet Volume 11.6 fl (7.4-10.4); Platelet Count Result 484 k/mm3 (150-375); Red Blood Count 2.54 M/mm3 (4.6-6.20); Red Cell Distribution Width 17.1 % (11.5-14.5); White Blood Count 12.5 K/mm3 (4.5-10.0)
[2021-06-28 08:47] LABS: Glucose Point of Care 255 mg/dl (65-105)
[2021-06-28] MEDS: ASPIRIN 81 MG ENTERIC TABLET PO (10:30)
[2021-06-28] MEDS: APIXABAN 2.5 MG TABLET PO (10:30)
[2021-06-28] MEDS: PANTOPRAZOLE 40 MG TABLET PO ×2 (10:30→17:22)
[2021-06-28] MEDS: SODIUM BICARBONATE TAB 650 MG TABLET PO ×3 (10:30→17:22)
[2021-06-28] MEDS: CALCIUM ACETATE 667 MG TABLET 1334 MG PO ×3 (10:30→17:22)
[2021-06-28] MEDS: METOPROLOL TARTRATE 50 MG TAB PO (10:31)
[2021-06-28] MEDS: ISOSORBIDE MONONITRATE 30 MG TAB.ER.24H PO (10:31)
[2021-06-28] MEDS: FUROSEMIDE 80 MG TABLET 160 MG PO (10:31)
[2021-06-28] MEDS: AMIODARONE HCL 200 MG TABLET PO (10:32)
[2021-06-28] MEDS: OPTI-GEN TAB 1 TABLET PO ×2 (10:32→17:22)
[2021-06-28] MEDS: levETIRAcetam 250 MG TABLET PO ×2 (10:32→23:00)
--- NOTE | 2021-06-28 11:32 | PCNWS ---
Weekly nutritional screen. Patient is tolerating current diet with adequate intake. No weight loss reported. No nutritional needs at this time.
[2021-06-28 12:03] LABS: Glucose Point of Care 304 mg/dl (65-105)
[2021-06-28] MEDS: INSULIN ASPART (*BKC) 100 UNITS/ML SUB-Q ×3 (13:01→17:23)
[2021-06-28] MEDS: GABAPENTIN 100 MG CAPSULE 200 MG PO ×2 (13:05→23:00)
--- NOTE | 2021-06-28 13:55 | PM.IMPN ---
Progress Note: A&P Assessment and Plan (1) Altered mental status: Code(s): R41.82 - Altered mental status, unspecified Status: Resolved Assessment and Plan: Presented with increased confusion after seizure -CT head is negative -Most likely acute metabolic encephalopathy secondary to seizure and infection -Neurology was consulted patient was given loading dose of Keppra patient currently on Keppra 500 mg twice a day. -Neurology following -Resolved. He is A&O x4 on my encounter (2) Seizure: Code(s): R56.9 - Unspecified convulsions Status: Acute Assessment and Plan: Noted to have 45 seconds of seizure-like activity by his -he was loaded with Keppra, remains on Keppra 500 mg b.i.d. -EEG reviewed, compatible with postictal state -seizure precautions in place -appreciate neurology consultation (3) Fall: Code(s): W19.XXXA - Unspecified fall, initial encounter Status: Acute Assessment and Plan: Likely secondary to seizure. -PT OT evaluation -seizure precautions -fall precautions (4) Pneumonia: Code(s): J18.9 - Pneumonia, unspecified organism Status: Acute Assessment and Plan: Concern for pneumonia from cxr -rapid COVID-19 is negative/PCR negative -pt is on iv cefepime #7 and vancomycin (started 06/26) -concern for aspiration given seizure history. Will add Flagyl. Will also proceed with bedside swallow study -BC negative -fevers and tachycardia have resolved, still has mild leukocytosis which has slowly improved -repeat CXR 06/26 w/ worsened opacities in the mid and lower lung zones with a peripheral predominance, consistent with pulmonary edema versus pneumonia. 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 No acute issues -Continue aspirin -KARAN performed in July 2020 -continue outpatient follow up; no need at this time for urgent vascular evaluation -no acute ischemia. Will monitor for ischemic change -supportive care. Pain control (7) Cardiomyopathy: Code(s): I42.9 - Cardiomyopathy, unspecified Status: Acute Assessment and Plan: Patient has ejection fraction 40-45% most likely chronic systolic CHF -repeat CXR w/ worsened opacities in the mid and lower lung zones with a peripheral predominance, consistent with pulmonary edema versus pneumonia. Cardiomegaly. 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 A1c is 6.9 -continue insulin sliding scale, increased to high dose sliding scale -home regimen 70/30 novolog 20 units qpm has been held. -Increase Lantus to 18 units qHS -Add novolog 5 units scheduled with meals for improved BS control -monitor glucose trends and adjust medication regimen as needed (9) ESRD (end stage renal disease) on dialysis: Code(s): N18.6 - End stage renal disease; Z99.2 - Dependence on renal dialysis Status: Acute Assessment and Plan: Patient
[2021-06-28] MEDS: POTASSIUM CHLORIDE 20 MEQ TABLET 40 MEQ PO (14:10)
--- NOTE | 2021-06-28 14:32 | P.PNNP_ITS ---
Progress Note: A&P Assessment and Plan (1) End stage renal disease: Code(s): N18.6 - End stage renal disease Status: Chronic Assessment and Plan: * continue CCPD while hospitalized * volume status looks better, But still has pulmonary infiltrates and hypoxia. COVID test was negative. Fluid is still a possibility. Will try a red bag tonight. * Electrolytes are okay * Will continue current prescription. (2) Seizure: Code(s): R56.9 - Unspecified convulsions Status: Acute Assessment and Plan: * unclear if this is a true issue/event or not * s/p initiation of keppra * Neurology following * mentation back to baseline (3) Pneumonia: Code(s): J18.9 - Pneumonia, unspecified organism Status: Acute Assessment and Plan: * suggestive by admission CXR * febrile on admission * Fevers have gone away and a white cell count has decreased. * Repeat chest x-ray shows some worsening. * On cefepime and now vancomycin. (4) Atrial fibrillation: Qualifiers: Atrial fibrillation type: unspecified Qualified Code(s): I48.91 - Unspecified atrial fibrillation Code(s): I48.91 - Unspecified atrial fibrillation Status: Resolved Assessment and Plan: * heart rate under good control * on anticoagulation (5) Hypertension: Code(s): I10 - Essential (primary) hypertension Status: Chronic Assessment and Plan: * Blood pressure is well controlled. 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 insulin use: with [facility] use Diabetes mellitus complication status: with kidney complications Diabetes mellitus complication detail: with chronic kidney disease Chronic kidney disease stage: on chronic dialysis Qualified Code(s): E11.22 - Type 2 diabetes mellitus with diabetic chronic kidney disease; N18.6 - End stage renal disease; Z79.4 - buttermaker continuous churn (current) use of insulin; Z99.2 - Dependence on renal dialysis Code(s): E11.9 - Type 2 diabetes mellitus without complications Status: Chronic Assessment and Plan: * follow accuchecks * on Lantus and SSI * he probably has diabetic neuropathy. * Will see if increased Gabapentin helps. Subjective Date/time seen: 06/28/21 14:32 Interval history: Patient is on PD 2100cc came off yesterday. tolerating it well. He was seen at 12:30 p.m. Fluid is clear in flows are good. He is sleepy today. COVID-19 test was negative. Exam Narrative: General: WD/WN male in NAD Heart: normal S1 and S2; no rub Lungs: clear anteriorly; decreased at bases Abdomen: soft, nontender, nondistended, positive bowel sounds Extremities: no edema Skin: no rash Objective Data Vital Signs Vital Signs: Vital Signs - 24 hr 06/27/21 18:06 06/27/21 18:40 06/27/21 22:00 Temperature 36.2 C L 37.0 C Pulse Rate 50 L Respiratory Rate 12 18 Blood Pressure 106/42 L 109/48 L Pulse Oximetry 90 06/28/21 06:00 06/28/21 09:10 06/28/21 10:25 Temperature 36.4 C Pulse Rate 50 L 50 L Respiratory Rate 18 Blood Pressure 126/49 L 1
--- NOTE | 2021-06-28 14:32 | PM.PNNEP ---
Progress Note: A&P Assessment and Plan (1) End stage renal disease: Code(s): N18.6 - End stage renal disease Status: Chronic Assessment and Plan: continue CCPD while hospitalized volume status looks better, But still has pulmonary infiltrates and hypoxia. COVID test was negative. Fluid is still a possibility. Will try a red bag tonight. Electrolytes are okay Will continue current prescription. (2) Seizure: Code(s): R56.9 - Unspecified convulsions Status: Acute Assessment and Plan: unclear if this is a true issue/event or not s/p initiation of [facility] Neurology following mentation back to baseline (3) Pneumonia: Code(s): J18.9 - Pneumonia, unspecified organism Status: Acute Assessment and Plan: suggestive by admission CXR febrile on admission Fevers have gone away and a white cell count has decreased. Repeat chest x-ray shows some worsening. On cefepime and now vancomycin. (4) Atrial fibrillation: Qualifiers: Atrial fibrillation type: unspecified Qualified Code(s): I48.91 - Unspecified atrial fibrillation Code(s): I48.91 - Unspecified atrial fibrillation Status: Resolved Assessment and Plan: heart rate under good control on anticoagulation (5) Hypertension: Code(s): I10 - Essential (primary) hypertension Status: Chronic Assessment and Plan: Blood pressure is well controlled. (6) Anemia: Code(s): D64.9 - Anemia, unspecified Status: Chronic Assessment and Plan: related to ESRD and acute illness Epogen 3x/seek follow trend of H/H (7) Diabetes: Qualifiers: Diabetes mellitus type: type 2 Diabetes mellitus shelter insulin use: with shelter use Diabetes mellitus complication status: with kidney complications Diabetes mellitus complication detail: with chronic kidney disease Chronic kidney disease stage: on chronic dialysis Qualified Code(s): E11.22 - Type 2 diabetes mellitus with diabetic chronic kidney disease; N18.6 - End stage renal disease; Z79.4 - detention (current) use of insulin; Z99.2 - Dependence on renal dialysis Code(s): E11.9 - Type 2 diabetes mellitus without complications Status: Chronic Assessment and Plan: follow accuchecks on Lantus and SSI he probably has diabetic neuropathy. Will see if increased Gabapentin helps. Subjective Date/time seen: 06/28/21 14:32 Interval history: Patient is on PD 2100cc came off yesterday. tolerating it well. He was seen at 12:30 p.m. Fluid is clear in flows are good. He is sleepy today. COVID-19 test was negative. Exam Narrative: General: WD/WN male in NAD Heart: normal S1 and S2; no rub Lungs: clear anteriorly; decreased at bases Abdomen: soft, nontender, nondistended, positive bowel sounds Extremities: no edema Skin: no rash Objective Data Vital Signs Vital Signs: Vital Signs - 24 hr 06/27/21 18:06 06/27/21 18:40 06/27/21 22:00 Temperature 36.2 C L 37.0 C Pulse Rate 50 L Respiratory Rate 12 18 Blood Pressure 106/42 L 109/48 L Pulse Oximetry 90 06/28/21 06:00 06/28/21 09:10 06/28/21 10:25 Temperature 36.4 C Pulse Rate 50 L 50 L Respiratory Rate 18 Blood Pressure 126/49 L 124/42 L Pulse Oximetry 92 90 90 06/28/21 10:31 06/28/21 10:32 Temperature Pulse Rate 59 L 59 L Respiratory Rate Blood Pressure Pulse Oximetry Intake/Output Intake/Output: Intake & Output 06/25/21 06/26/21 06/27/21 06/28/21 23:59 23:59 23:59 23:59 Intake Total 950 1520 800 480 Output Total 0 2100 Balance 950 1520 -1300 480 Meds/Results Medications: Active Medications Generic Name Dose Route Start Last Admin Trade Name Freq PRN Reason Stop Dose Admin Hydrocodone Bitart/Acetaminophen 1 tab 06/20/21 22:11 06/25/21 13:40 Hydrocodone/Acetaminophen (*Crx) 5-325 Mg Tablet PO 1 tab TID PRN
[2021-06-28 16:39] LABS: Glucose Point of Care 289 mg/dl (65-105)
[2021-06-28] MEDS: FUROSEMIDE 80 MG TABLET PO (17:27)
[2021-06-28] MEDS: HYDROcodone/acetaminophen (*CRX) 5-325 MG TABLET 1 TAB PO ×2 (18:41→23:01)
[2021-06-28] MEDS: CEFEPIME 0.5 GM in DEXTROSE 5% IN WATER 50 ML IVPB (23:14)
[2021-06-28] MEDS: INSULIN GLARGINE (*BKC) 100 UNITS/ML 18 UNITS SUB-Q (23:21)
[2021-06-28 23:37] LABS: Glucose Point of Care 432 mg/dl (65-105)
[2021-06-28 23:37] LABS: Glucose Point of Care 449 mg/dl (65-105)
[2021-06-29] VITALS (10 sets, daily range): BP systolic 90–152; BP diastolic 45–66; PULSE 55–82; RESP 16–18; TEMP 36.3–36.9; O2SAT 96–98
[2021-06-29] MEDS: HYDROcodone/acetaminophen (*CRX) 5-325 MG TABLET 1 TAB PO ×3 (05:12→21:46)
[2021-06-29] MEDS: GABAPENTIN 100 MG CAPSULE 200 MG PO ×3 (05:12→21:31)
[2021-06-29 06:49] LABS: Hematocrit 28.2 % (42.0-52.0); Hemoglobin 8.2 g/dL (14.0-18.0); Mean Corpuscular HGB Conc 29.1 g/dl (32-36); Mean Corpuscular Hemoglobin 30.5 pg (26-34); Mean Corpuscular Volume 104.8 fl (80-100); Mean Platelet Volume 11.3 fl (7.4-10.4); Platelet Count Result 620 k/mm3 (150-375); Red Blood Count 2.69 M/mm3 (4.6-6.20); Red Cell Distribution Width 17.2 % (11.5-14.5); White Blood Count 15.5 K/mm3 (4.5-10.0)
[2021-06-29 06:51] LABS: Anion Gap 17 mmol/L (8-16); Blood Urea Nitrogen 62 mg/dL (9-20); Calcium 8.6 mg/dL (8.4-10.2); Carbon Dioxide 31 mmol/L (22-30); Chloride 92 mmol/L (98-107); Estimated CRCL calculation 5 ml/min; Estimated Glomerular Filt Rate 4; Glucose 396 mg/dL (65-110); Potassium 3.6 mmol/L (3.4-5.0); Sodium 140 mmol/L (137-145)
[2021-06-29 08:26] LABS: Glucose Point of Care 271 mg/dl (65-105)
[2021-06-29] MEDS: CALCIUM ACETATE 667 MG TABLET 1334 MG PO ×3 (08:41→18:50)
[2021-06-29] MEDS: ISOSORBIDE MONONITRATE 30 MG TAB.ER.24H PO (08:43)
[2021-06-29] MEDS: APIXABAN 2.5 MG TABLET PO (08:43)
[2021-06-29] MEDS: PANTOPRAZOLE 40 MG TABLET PO ×2 (08:43→18:50)
[2021-06-29] MEDS: OPTI-GEN TAB 1 TABLET PO ×2 (08:43→18:50)
[2021-06-29] MEDS: ASPIRIN 81 MG ENTERIC TABLET PO (08:43)
[2021-06-29] MEDS: levETIRAcetam 250 MG TABLET PO ×2 (08:44→21:30)
[2021-06-29] MEDS: INSULIN ASPART (*BKC) 100 UNITS/ML SUB-Q ×2 (08:50→12:25)
--- NOTE | 2021-06-29 09:11 | PCSTNOTE ---
Please refer to the Bedside Swallow Evaluation in the EMR. Please note, silent aspiration cannot be ruled out at bedside.
[2021-06-29 10:15] LABS: Lactic Acid Reflex 1.5 mmol/L (0.7-2.1)
[2021-06-29 10:20] LABS: Beta-Hydroxybutyrate/Acetoacetate 0.15 mmol/L (0.02-0.27)
[2021-06-29 10:34] LABS: Glucose Point of Care 271 mg/dl (65-105)
[2021-06-29] MEDS: FUROSEMIDE 80 MG TABLET 160 MG PO (12:24)
[2021-06-29] MEDS: INSULIN ASPART (*BKC) 100 UNITS/ML 8 UNITS SUB-Q (12:25)
[2021-06-29 12:58] LABS: Glucose Point of Care 227 mg/dl (65-105)
[2021-06-29 14:25] LABS: Glucose Point of Care 140 mg/dl (65-105)
--- NOTE | 2021-06-29 16:19 | P.PNNP_ITS ---
Progress Note: A&P Assessment and Plan (1) End stage renal disease: Code(s): N18.6 - End stage renal disease Status: Chronic Assessment and Plan: * continue CCPD while hospitalized * volume status looks better, But still has pulmonary infiltrates and hypoxia. COVID test was negative. Fluid is still a possibility. * I talked with the PD nurse and he got 3L off last night. Will repeat the same treatment tonight and then go back to [facility] tomorrow. * Electrolytes are okay (2) Seizure: Code(s): R56.9 - Unspecified convulsions Status: Acute Assessment and Plan: * unclear if this is a true issue/event or not * s/p initiation of keppra * Neurology following * mentation back to baseline (3) Pneumonia: Code(s): J18.9 - Pneumonia, unspecified organism Status: Acute Assessment and Plan: * suggestive by admission CXR * febrile on admission * Fevers have gone away and a white cell count has decreased. * Repeat chest x-ray shows some worsening. * On cefepime and now vancomycin. (4) Atrial fibrillation: Qualifiers: Atrial fibrillation type: unspecified Qualified Code(s): I48.91 - Unspecified atrial fibrillation Code(s): I48.91 - Unspecified atrial fibrillation Status: Resolved Assessment and Plan: * heart rate under good control * on anticoagulation (5) Hypertension: Code(s): I10 - Essential (primary) hypertension Status: Chronic Assessment and Plan: * Blood pressure is well controlled. 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 * His pain might be partly neuropathy but I think vascular disease is also involved. Subjective Date/time seen: 06/29/21 16:19 Interval history: Patient is on PD Fluid clear in flows good. Output not recorded by dialysis nurse. Fluid is clear in flows are good. He is sleepy today. Still complaining of pain in the feet. Will check vascular studies. Exam Narrative: General: WD/WN male in NAD Heart: normal S1 and S2; no rub Lungs: clear anteriorly; decreased at bases Abdomen: soft, nontender, nondistended, positive bowel sounds Extremities: no edema Some eschar on the toes. Skin: no rash Objective Data Vital Signs Vital Signs: Vital Signs - 24 hr 06/28/21 22:00 06/29/21 06:00 06/29/21 08:14 Temperature 36.4 C L 36.3 C L 36.3 C L Pulse Rate 51 L 55 L Respiratory Rate 18 18 18 Blood Pressure 122/42 L 139/45 L Pulse Oximetry 90 98
--- NOTE | 2021-06-29 16:19 | PM.PNNEP ---
Progress Note: A&P Assessment and Plan (1) End stage renal disease: Code(s): N18.6 - End stage renal disease Status: Chronic Assessment and Plan: continue CCPD while hospitalized volume status looks better, But still has pulmonary infiltrates and hypoxia. COVID test was negative. Fluid is still a possibility. I talked with the PD nurse and he got 3L off last night. Will repeat the same treatment tonight and then go back to [facility] tomorrow. Electrolytes are okay (2) Seizure: Code(s): R56.9 - Unspecified convulsions Status: Acute Assessment and Plan: unclear if this is a true issue/event or not s/p initiation of keppra Neurology following mentation back to baseline (3) Pneumonia: Code(s): J18.9 - Pneumonia, unspecified organism Status: Acute Assessment and Plan: suggestive by admission CXR febrile on admission Fevers have gone away and a white cell count has decreased. Repeat chest x-ray shows some worsening. On cefepime and now vancomycin. (4) Atrial fibrillation: Qualifiers: Atrial fibrillation type: unspecified Qualified Code(s): I48.91 - Unspecified atrial fibrillation Code(s): I48.91 - Unspecified atrial fibrillation Status: Resolved Assessment and Plan: heart rate under good control on anticoagulation (5) Hypertension: Code(s): I10 - Essential (primary) hypertension Status: Chronic Assessment and Plan: Blood pressure is well controlled. (6) Anemia: Code(s): D64.9 - Anemia, unspecified Status: Chronic Assessment and Plan: related to ESRD and acute illness Epogen 3x/seek follow trend of H/H (7) Diabetes: Qualifiers: Diabetes mellitus type: type 2 Diabetes mellitus rat exterminator insulin use: with rat exterminator use Diabetes mellitus complication status: with kidney complications Diabetes mellitus complication detail: with chronic kidney disease Chronic kidney disease stage: on chronic dialysis Qualified Code(s): E11.22 - Type 2 diabetes mellitus with diabetic chronic kidney disease; N18.6 - End stage renal disease; Z79.4 - terminal gauger (current) use of insulin; Z99.2 - Dependence on renal dialysis Code(s): E11.9 - Type 2 diabetes mellitus without complications Status: Chronic Assessment and Plan: follow accuchecks on Lantus and SSI he probably has diabetic neuropathy. His pain might be partly neuropathy but I think vascular disease is also involved. Subjective Date/time seen: 06/29/21 16:19 Interval history: Patient is on PD Fluid clear in flows good. Output not recorded by dialysis nurse. Fluid is clear in flows are good. He is sleepy today. Still complaining of pain in the feet. Will check vascular studies. Exam Narrative: General: WD/WN male in NAD Heart: normal S1 and S2; no rub Lungs: clear anteriorly; decreased at bases Abdomen: soft, nontender, nondistended, positive bowel sounds Extremities: no edema Some eschar on the toes. Skin: no rash Objective Data Vital Signs Vital Signs: Vital Signs - 24 hr 06/28/21 22:00 06/29/21 06:00 06/29/21 08:14 Temperature 36.4 C L 36.3 C L 36.3 C L Pulse Rate 51 L 55 L Respiratory Rate 18 18 18 Blood Pressure 122/42 L 139/45 L Pulse Oximetry 90 98 06/29/21 08:40 06/29/21 08:50 06/29/21 10:00 Temperature Pulse Rate Respiratory Rate Blood Pressure 90/48 L 100/50 L Pulse Oximetry 96 06/29/21 11:45 06/29/21 14:00 Temperature 36.9 C Pulse Rate 65 Respiratory Rate 16 Blood Pressure 128/48 L 132/66 Pulse Oximetry 98 Intake/Output Intake/Output: Intake & Output 06/26/21 06/27/21 06/28/21 06/29/21 23:59 23:59 23:59 23:59 Intake Total 7271 879 8081 800 Output Total 0 2100 Balance 1520 -1250 1290 800 Meds/Results Medications: Active Medications Generic Name Dose Route Start Last Ad
--- NOTE | 2021-06-29 16:31 | PM.IMPN ---
Progress Note: A&P Assessment and Plan (1) Altered mental status: Code(s): R41.82 - Altered mental status, unspecified Status: Resolved Assessment and Plan: Resolved. Presented with increased confusion after seizure -CT head is negative -Most likely acute metabolic encephalopathy secondary to seizure and infection -Neurology was consulted patient was given loading dose of Keppra patient currently on Keppra 500 mg twice a day. -Neurology following -He is A&O x4 on my encounter (2) Seizure: Code(s): R56.9 - Unspecified convulsions Status: Acute Assessment and Plan: Noted to have 45 seconds of seizure-like activity by his -he was loaded with Keppra, remains on Keppra 500 mg b.i.d. -EEG reviewed, compatible with postictal state -seizure precautions in place -appreciate neurology consultation (3) Fall: Code(s): W19.XXXA - Unspecified fall, initial encounter Status: Acute Assessment and Plan: Likely secondary to seizure. -PT OT evaluation -seizure precautions -fall precautions (4) Pneumonia: Code(s): J18.9 - Pneumonia, unspecified organism Status: Acute Assessment and Plan: Concern for pneumonia from cxr -rapid COVID-19 is negative/PCR negative -pt is on iv cefepime #8 and vancomycin (started 06/26) -concern for aspiration given seizure history. Will add Flagyl. bedside swallow study done today with no obvious aspiration, MBS tomorrow -BC negative -fevers and tachycardia have resolved. leukocytosis initially improving, now trending upward -repeat CXR 06/26 w/ worsened opacities in the mid and lower lung zones with a peripheral predominance, consistent with pulmonary edema versus pneumonia. -MRSA swab negative -continue incentive spirometer, supportive care (5) Peripheral vascular disease of extremity with claudication: Code(s): I73.9 - Peripheral vascular disease, unspecified Status: Acute Assessment and Plan: Chronic, longstanding issue. He does have pain of the feet -Continue aspirin -KARAN performed in July 2020 reviewed consistent with arterial disease -continue outpatient follow up; no need at this time for urgent vascular evaluation -Patient established with vascular surgeon Dr. Alejo. Reportedly had a bypass with infection complications sometime last year but cannot recall when. -Arterial duplex pending. -Consider contacting patients vascular surgeon for recommendations based on results of above. -no acute ischemia. Will monitor for ischemic changes -supportive care. Pain control -evaluated by wound care. Continue dry dressings (6) Diabetic neuropathy: Code(s): E11.40 - Type 2 diabetes mellitus with diabetic neuropathy, unspecified Status: Acute Assessment and Plan: Chronic predatory animal exterminator problem -Continue gabapentin at increased dose of 200 mg TID (7) Cardiomyopathy: Code(s): I42.9 - Cardiomyopathy, unspecified Status: Acute Assessment and Plan: Patient has ejection fraction 40-45% most likely chronic systolic CHF -repeat CXR w/ worsened opacities in the mid and lower lung zones with a peripheral predominance, consistent with pulmonary edema versus pneumonia. Cardiomegaly. - change Lasix to 80 mg b.i.d. given soft BP. He was Receiving extremely high doses, however he appears euvolemic on exam -receiving PD dialysis daily (8) Type 2 diabetes mellitus with hyperglycemia: Qualifiers: Diabetes mellitus predatory animal exterminator insulin use: with predatory animal exterminator use Qualified Code(s): E11.65 - Type 2 diabetes mellitus with hyperglycemia; Z79.4 - detention (current) use of insulin Code(s): E11.65 - Type 2 diabetes mellitus with hyperglycemia Status: Acute Assessment and Plan: blood sugars poorly controlled in the 400s yesterday. Mildly elevated anion gap. -No evidence of DKA. Lactic within normal limits. Beta hydroxybutyrate normal - contin
[2021-06-29 18:29] LABS: Glucose Point of Care 84 mg/dl (65-105)
[2021-06-29] MEDS: metroNIDAZOLE 250 MG TABLET 500 MG PO ×2 (18:49→21:30)
[2021-06-29] MEDS: FUROSEMIDE 80 MG TABLET PO (18:50)
[2021-06-29] MEDS: EPOETIN ALFA-EPBX 10,000 UNITS/ML VIAL 10000 UNITS SUB-Q (18:55)
[2021-06-29 21:01] LABS: Glucose Point of Care 196 mg/dl (65-105)
[2021-06-29] MEDS: METOPROLOL TARTRATE 50 MG TAB PO (21:31)
[2021-06-29] MEDS: lisinopriL 20 MG TABLET PO (21:31)
[2021-06-29] MEDS: CEFEPIME 0.5 GM in DEXTROSE 5% IN WATER 50 ML IVPB (21:32)
[2021-06-29] MEDS: INSULIN GLARGINE (*BKC) 100 UNITS/ML 25 UNITS SUB-Q ×2 (21:41→21:42)
[2021-06-30] VITALS (8 sets, daily range): BP systolic 101–134; BP diastolic 55–57; PULSE 62–95; RESP 14–18; TEMP 35.9–36.9; O2SAT 91–99
[2021-06-30] MEDS: HYDROcodone/acetaminophen (*CRX) 5-325 MG TABLET 1 TAB PO (05:42)
[2021-06-30] MEDS: GABAPENTIN 100 MG CAPSULE 200 MG PO ×3 (05:45→21:14)
[2021-06-30] MEDS: metroNIDAZOLE 250 MG TABLET 500 MG PO ×3 (05:46→21:15)
[2021-06-30 06:44] LABS: Basophils Absolute Auto 0.1 K/mm3 (0.0-0.1); Basophils Percent Auto 0.4 % (0.2-1.2); Eosinophils Absolute Auto 0.4 K/mm3 (0-0.3); Eosinophils Percent Auto 2.3 % (0-4.4); Hematocrit 30.2 % (42.0-52.0); Hemoglobin 8.9 g/dL (14.0-18.0); Immature Granulocyte Absolute 0.13 K/mm3 (0.00-0.031); Immature Granulocyte Percent A 0.7 % (0-0.5); Lymphocytes Absolute Auto 0.66 K/mm3 (0.9-3.2); Lymphocytes Percent Auto 3.7 % (18.3-44.2); Mean Corpuscular HGB Conc 29.5 g/dl (32-36); Mean Corpuscular Hemoglobin 30.2 pg (26-34); Mean Corpuscular Volume 102.4 fl (80-100); Monocytes Absolute Auto 1.1 K/mm3 (0.1-0.6); Monocytes Percent Auto 5.8 % (2.6-8.5); Neutrophils Absolute Auto 15.6 K/mm3 (1.3-6.7); Neutrophils Percent Auto 87.1 % (45.5-73.1); Platelet Count Result 712 k/mm3 (150-375); Red Blood Count 2.95 M/mm3 (4.6-6.20)
[2021-06-30 06:54] LABS: Anion Gap 22 mmol/L (8-16); Blood Urea Nitrogen 63 mg/dL (9-20); Calcium 9.6 mg/dL (8.4-10.2); Carbon Dioxide 28 mmol/L (22-30); Chloride 91 mmol/L (98-107); Estimated CRCL calculation 4 ml/min; Estimated Glomerular Filt Rate 4; Glucose 243 mg/dL (65-110); Potassium 3.7 mmol/L (3.4-5.0); Sodium 141 mmol/L (137-145)
[2021-06-30 07:54] LABS: Glucose Point of Care 232 mg/dl (65-105)
[2021-06-30] MEDS: INSULIN ASPART (*BKC) 100 UNITS/ML 8 UNITS SUB-Q ×2 (08:29→12:01)
[2021-06-30] MEDS: INSULIN ASPART (*BKC) 100 UNITS/ML SUB-Q (08:29)
[2021-06-30] MEDS: levETIRAcetam 250 MG TABLET PO ×2 (08:33→21:16)
[2021-06-30] MEDS: LACTULOSE 20 GM/30 ML UDC PO (08:33)
[2021-06-30] MEDS: CALCIUM ACETATE 667 MG TABLET 1334 MG PO ×3 (08:34→16:44)
[2021-06-30] MEDS: APIXABAN 2.5 MG TABLET PO (08:34)
[2021-06-30] MEDS: AMIODARONE HCL 200 MG TABLET PO (08:34)
[2021-06-30] MEDS: METOPROLOL TARTRATE 50 MG TAB PO ×2 (08:34→21:17)
[2021-06-30] MEDS: ASPIRIN 81 MG ENTERIC TABLET PO (08:34)
[2021-06-30] MEDS: ISOSORBIDE MONONITRATE 30 MG TAB.ER.24H PO (08:34)
[2021-06-30] MEDS: PANTOPRAZOLE 40 MG TABLET PO ×2 (08:34→16:44)
[2021-06-30] MEDS: OPTI-GEN TAB 1 TABLET PO ×2 (08:34→16:45)
[2021-06-30] MEDS: lisinopriL 20 MG TABLET PO ×2 (08:34→21:16)
[2021-06-30] MEDS: FUROSEMIDE 80 MG TABLET PO ×2 (08:35→16:45)
[2021-06-30 08:37] LABS: Anisocytosis 1+ (NORMAL); Macrocytosis 1+ (NORMAL); Platelet Estimate Increased (Adequate)
--- NOTE | 2021-06-30 10:02 | PCSTNOTE ---
Please refer to the Modified Barium Swallow Evaluation in the EMR.
--- NOTE | 2021-06-30 11:12 | PM.IMPN ---
Progress Note: A&P Assessment and Plan (1) Altered mental status: Code(s): R41.82 - Altered mental status, unspecified Status: Resolved Assessment and Plan: Resolved. Presented with increased confusion after seizure -CT head is negative -Most likely acute metabolic encephalopathy secondary to seizure and infection -Neurology was consulted patient was given loading dose of Keppra patient currently on Keppra 500 mg twice a day. -Neurology following -He is A&O x4 on my encounter (2) Seizure: Code(s): R56.9 - Unspecified convulsions Status: Acute Assessment and Plan: Noted to have 45 seconds of seizure-like activity by his -he was loaded with Keppra, remains on Keppra 500 mg b.i.d. -EEG reviewed, compatible with postictal state -seizure precautions in place -appreciate neurology consultation (3) Fall: Code(s): W19.XXXA - Unspecified fall, initial encounter Status: Acute Assessment and Plan: Likely secondary to seizure. -PT OT evaluation -seizure precautions -fall precautions (4) Pneumonia: Code(s): J18.9 - Pneumonia, unspecified organism Status: Acute Assessment and Plan: CXXR on presentation concerning for pneumonia with left lower lobe opacity -COVID negative -Continue IV cefepime #9, Vancomycin (started 06/26, renally dosed), PO Flagyl (06/29) -concern for aspiration pneumonia given seizure history. Bedside swallow study 06/28 with no obvious aspiration, MBS negative (06/30) -BC negative, MRSA swab negative -Fevers and tachycardia have resolved. Leukocytosis initially improving, now trending upward with thrombocytosis, unclear etiology -repeat CXR 06/26 w/ worsened opacities in the mid and lower lung zones with a peripheral predominance, consistent with pulmonary edema versus pneumonia. -continue incentive spirometer, supportive care -he has been weaned to room air today and maintaining adequate O2 sats (5) Peripheral vascular disease of extremity with claudication: Code(s): I73.9 - Peripheral vascular disease, unspecified Status: Acute Assessment and Plan: Chronic, longstanding issue. -Continue aspirin -KARAN performed in July 2020 reviewed consistent with arterial disease -continue outpatient follow up; no need at this time for urgent vascular evaluation -Patient established with vascular surgeon Dr. Alejo. Reportedly had a bypass with infection and grafting complications sometime last year but cannot recall when. -Arterial duplex of bilateral lower extremities pending. -Consider contacting patients vascular surgeon for recommendations based on results of above. -monitor for ischemic changes -supportive care. Pain control -evaluated by wound care. Continue dry dressings (6) Diabetic neuropathy: Code(s): E11.40 - Type 2 diabetes mellitus with diabetic neuropathy, unspecified Status: Acute Assessment and Plan: Chronic buttermaker continuous churn problem -Continue gabapentin at increased dose of 200 mg TID (7) Cardiomyopathy: Code(s): I42.9 - Cardiomyopathy, unspecified Status: Acute Assessment and Plan: Patient has ejection fraction 40-45% most likely chronic systolic CHF -repeat CXR w/ worsened opacities in the mid and lower lung zones with a peripheral predominance, consistent with pulmonary edema versus pneumonia. Cardiomegaly. - change Lasix to 80 mg b.i.d. given soft BP. He was on extremely high doses, however he appears euvolemic on exam -receiving PD dialysis daily (8) Type 2 diabetes mellitus with hyperglycemia: Qualifiers: Diabetes mellitus [facility] insulin use: with [facility] use Qualified Code(s): E11.65 - Type 2 diabetes mellitus with hyperglycemia; Z79.4 - termite inspector (current) use of insulin Code(s): E11.65 - Type 2 diabetes mellitus with hyperglycemia Status: Acute Assessment and Plan: Blood sugars poorly controlled in the
[2021-06-30 11:41] LABS: Glucose Point of Care 127 mg/dl (65-105)
--- NOTE | 2021-06-30 11:44 | PCOTNOTE ---
Attempted to see patient this am. Pt sleeping upon entering, difficult to arouse, and kept eyes closed when answering questions. Pt unable to participate in functional OT at this time. Will continue treatment as pertains to plan of care.
--- NOTE | 2021-06-30 12:18 | PM.PNNEP ---
Progress Note: A&P Assessment and Plan (1) End stage renal disease: Code(s): N18.6 - End stage renal disease Status: Chronic Assessment and Plan: continue CCPD while hospitalized volume status looks better with more aggressive peritoneal dialysis electrolytes and clearance better/stable will adjust PD Rx tonight (use all 2.5% dianeal) (2) Seizure: Code(s): R56.9 - Unspecified convulsions Status: Acute Assessment and Plan: unclear if this is a true issue/event or not s/p initiation of [facility] Neurology following mentation back to baseline (3) Pneumonia: Code(s): J18.9 - Pneumonia, unspecified organism Status: Acute Assessment and Plan: suggestive by admission CXR febrile on admission fevers have gone away and a white cell count has decreased on cefepime and now vancomycin. (4) Atrial fibrillation: Qualifiers: Atrial fibrillation type: unspecified Qualified Code(s): I48.91 - Unspecified atrial fibrillation Code(s): I48.91 - Unspecified atrial fibrillation Status: Resolved Assessment and Plan: heart rate under good control on anticoagulation (5) Hypertension: Code(s): I10 - Essential (primary) hypertension Status: Chronic Assessment and Plan: blood pressure is well controlled follow trend of hemodynamics (6) Anemia: Code(s): D64.9 - Anemia, unspecified Status: Chronic Assessment and Plan: related to ESRD and acute illness Epogen 3x/seek follow trend of H/H (7) Diabetes: Qualifiers: Chronic kidney disease stage: on chronic dialysis Diabetes mellitus complication detail: with chronic kidney disease Diabetes mellitus complication status: with kidney complications Diabetes mellitus correction insulin use: with correction use Diabetes mellitus type: type 2 Qualified Code(s): E11.22 - Type 2 diabetes mellitus with diabetic chronic kidney disease; N18.6 - End stage renal disease; Z79.4 - jail (current) use of insulin; Z99.2 - Dependence on renal dialysis Code(s): E11.9 - Type 2 diabetes mellitus without complications Status: Chronic Assessment and Plan: follow accuchecks on Lantus and SSI Will continue to follow. Subjective Date/time seen: 06/30/21 12:18 Chart reviewed since last seen - assuming care from Dr. Venegas; better ultrafiltration/fluid removal with CCPD overnight with more aggressive dialysis; still has quite severe pain in his lower extremities/feet; pain is present at rest and worse with any movement/ambulation; no other acute issues/problems voiced. Exam Narrative: General: WD/WN male in NAD Heart: normal S1 and S2; no rub Lungs: clear anteriorly; decreased at bases Abdomen: soft, nontender, nondistended, positive bowel sounds Extremities: no edema present Skin: eschar on toes noted Objective Data Vital Signs Vital Signs: Vital Signs Temp Pulse Resp BP Pulse Ox 06/30/21 09:09 92 06/30/21 08:34 95 06/30/21 07:10 35.9 C L 18 06/30/21 06:00 35.9 C L 94 18 134/57 L 99 06/29/21 22:00 36.4 C L 60 18 152/59 H 96 06/29/21 21:31 82 06/29/21 20:00 96 Intake/Output Intake/Output: Intake & Output 06/27/21 06/28/21 06/29/21 06/30/21 23:59 23:59 23:59 23:59 Intake Total 850 1340 1340 830 Output Total 2100 1100 550 Balance -1250 1340 240 280 Meds/Results Medications: Active Medications Generic Name Dose Route Start Last Admin Trade Name Freq PRN Reason Stop Dose Admin Hydrocodone Bitart/Acetaminophen 1 tab 06/20/21 22:11 06/30/21 05:42 Hydrocodone/Acetaminophen (*Crx) 5-325 Mg Tablet PO 1 tab TID PRN Administration Pain Rated 4-6 Amiodarone HCl 200 mg 06/21/21 08:00 06/30/21 08:34 Amiodarone Hcl 200 Mg Tablet PO 200 mg DAILY@0800 PARISH Administration Amlodipine Besylate 10 mg 06/21/21 09:00 06/28/21 11:40
--- NOTE | 2021-06-30 12:18 | P.PNNP_ITS ---
Progress Note: A&P Assessment and Plan (1) End stage renal disease: Code(s): N18.6 - End stage renal disease Status: Chronic Assessment and Plan: * continue CCPD while hospitalized * volume status looks better with more aggressive peritoneal dialysis * electrolytes and clearance better/stable * will adjust PD Rx tonight (use all 2.5% dianeal) (2) Seizure: Code(s): R56.9 - Unspecified convulsions Status: Acute Assessment and Plan: * unclear if this is a true issue/event or not * s/p initiation of keppra * Neurology following * mentation back to baseline (3) Pneumonia: Code(s): J18.9 - Pneumonia, unspecified organism Status: Acute Assessment and Plan: * suggestive by admission CXR * febrile on admission * fevers have gone away and a white cell count has decreased * on cefepime and now vancomycin. (4) Atrial fibrillation: Qualifiers: Atrial fibrillation type: unspecified Qualified Code(s): I48.91 - Unspecified atrial fibrillation Code(s): I48.91 - Unspecified atrial fibrillation Status: Resolved Assessment and Plan: * heart rate under good control * on anticoagulation (5) Hypertension: Code(s): I10 - Essential (primary) hypertension Status: Chronic Assessment and Plan: * blood pressure is well controlled * follow trend of hemodynamics (6) Anemia: Code(s): D64.9 - Anemia, unspecified Status: Chronic Assessment and Plan: * related to ESRD and acute illness * Epogen 3x/seek * follow trend of H/H (7) Diabetes: Qualifiers: Chronic kidney disease stage: on chronic dialysis Diabetes mellitus complication detail: with chronic kidney disease Diabetes mellitus complication status: with kidney complications Diabetes mellitus care home insulin use: with manager terminal use Diabetes mellitus type: type 2 Qualified Code(s): E11.22 - Type 2 diabetes mellitus with diabetic chronic kidney disease; N18.6 - End stage renal disease; Z79.4 - terminal carman (current) use of insulin; Z99.2 - Dependence on renal dialysis Code(s): E11.9 - Type 2 diabetes mellitus without complications Status: Chronic Assessment and Plan: * follow accuchecks * on Lantus and SSI Will continue to follow. Subjective Date/time seen: 06/30/21 12:18 Chart reviewed since last seen - assuming care from Dr. Venegas; better ultrafil tration/fluid removal with CCPD overnight with more aggressive dialysis; still has quite severe pain in his lower extremities/feet; pain is present at rest and worse with any movement/ambulation; no other acute issues/problems voiced. Exam Narrative: General: WD/WN male in NAD Heart: normal S1 and S2; no rub Lungs: clear anteriorly; decreased at bases Abdomen: soft, nontender, nondistended, positive bowel sounds Extremities: no edema present Skin: eschar on toes noted Objective Data Vital Signs Vital Signs: Vital Signs Temp Pulse Resp BP Pulse Ox 06/30/21 09:09 92 06/30/21 08:34 95 06/30/21 07:10 35.9 C L 18 06/30/21 06:00 35.9 C L 94 18 134/57 L 99 06/29/21 22:00 36.4 C L 60 18 152/59 H 96 06/29/21 21:31 82 06/29/21 20:00 96 Intake/Output Intake/Output: Intake & Output 06/27/21 06/28/21
[2021-06-30] MEDS: TAMSULOSIN HCL 0.4 MG CAPSULE PO (12:25)
--- NOTE | 2021-06-30 14:23 | PC.NURSE ---
This nurse got 180 ml from the bladder scan. Pt has not peed for me today. Peritoneal dialysis pt every day.
[2021-06-30 15:10] LABS: Creatine Kinase 24 U/L (55-170)
[2021-06-30 16:37] LABS: Glucose Point of Care 45 mg/dl (65-105)
[2021-06-30 17:19] LABS: Glucose Point of Care 86 mg/dl (65-105)
[2021-06-30] MEDS: CEFEPIME 0.5 GM in DEXTROSE 5% IN WATER 50 ML IVPB (21:12)
[2021-06-30 23:30] LABS: Glucose Point of Care 238 mg/dl (65-105)
[2021-07-01 06:00] VITALS: BP 105/61; PULSE 69; RESP 16; TEMP 36.8; O2SAT 97
[2021-07-01] MEDS: GABAPENTIN 100 MG CAPSULE 200 MG PO ×2 (06:16→14:44)
[2021-07-01] MEDS: metroNIDAZOLE 250 MG TABLET 500 MG PO ×2 (06:16→14:45)
[2021-07-01 06:32] LABS: Hematocrit 28.9 % (42.0-52.0); Hemoglobin 8.4 g/dL (14.0-18.0); Mean Corpuscular HGB Conc 29.1 g/dl (32-36); Mean Corpuscular Hemoglobin 30.3 pg (26-34); Mean Corpuscular Volume 104.3 fl (80-100); Mean Platelet Volume 11.3 fl (7.4-10.4); Platelet Count Result 636 k/mm3 (150-375); Red Blood Count 2.77 M/mm3 (4.6-6.20); Red Cell Distribution Width 17.4 % (11.5-14.5); White Blood Count 17.2 K/mm3 (4.5-10.0)
[2021-07-01 06:58] LABS: Anion Gap 20 mmol/L (8-16); Blood Urea Nitrogen 67 mg/dL (9-20); Calcium 9.3 mg/dL (8.4-10.2); Carbon Dioxide 27 mmol/L (22-30); Chloride 93 mmol/L (98-107); Estimated CRCL calculation 4 ml/min; Estimated Glomerular Filt Rate 4; Glucose 342 mg/dL (65-110); Potassium 3.8 mmol/L (3.4-5.0); Sodium 140 mmol/L (137-145)
[2021-07-01 07:16] LABS: Vancomycin Random 20.3 ug/mL (10-20)
[2021-07-01 08:00] VITALS: O2SAT 97
[2021-07-01 08:08] LABS: Glucose Point of Care 308 mg/dl (65-105)
[2021-07-01 08:46] LABS: Alanine Aminotransferase 13 U/L (4-50); Albumin Level 3.7 g/dL (3.5-5.1); Alkaline Phosphatase 101 U/L (38-126); Aspartate Amino Transferase 27 U/L (17-59); Bilirubin,Total 0.5 mg/dL (0.2-1.3)
[2021-07-01 08:51] LABS: Lipase 18 U/L (23-300)
[2021-07-01] MEDS: INSULIN ASPART (*BKC) 100 UNITS/ML SUB-Q (09:29)
[2021-07-01] MEDS: INSULIN ASPART (*BKC) 100 UNITS/ML 8 UNITS SUB-Q ×2 (09:30→12:07)
[2021-07-01 09:31] VITALS: PULSE 69
[2021-07-01] MEDS: levETIRAcetam 250 MG TABLET PO (09:31)
[2021-07-01] MEDS: AMIODARONE HCL 200 MG TABLET PO (09:31)
[2021-07-01] MEDS: ASPIRIN 81 MG ENTERIC TABLET PO (09:31)
[2021-07-01] MEDS: APIXABAN 2.5 MG TABLET PO (09:31)
[2021-07-01] MEDS: TAMSULOSIN HCL 0.4 MG CAPSULE PO (09:31)
[2021-07-01 09:32] VITALS: PULSE 69
[2021-07-01] MEDS: OPTI-GEN TAB 1 TABLET PO ×2 (09:32→16:26)
[2021-07-01] MEDS: METOPROLOL TARTRATE 50 MG TAB PO (09:32)
[2021-07-01] MEDS: ISOSORBIDE MONONITRATE 30 MG TAB.ER.24H PO (09:32)
[2021-07-01] MEDS: PANTOPRAZOLE 40 MG TABLET PO ×2 (09:32→16:26)
[2021-07-01] MEDS: lisinopriL 20 MG TABLET PO (09:32)
[2021-07-01] MEDS: FUROSEMIDE 80 MG TABLET PO ×2 (09:32→16:26)
[2021-07-01] MEDS: CALCIUM ACETATE 667 MG TABLET 1334 MG PO ×3 (09:32→16:26)
[2021-07-01] MEDS: LACTULOSE 20 GM/30 ML UDC PO (09:33)
[2021-07-01] MEDS: HYDROcodone/acetaminophen (*CRX) 5-325 MG TABLET 1 TAB PO (09:36)
[2021-07-01 11:32] LABS: Glucose Point of Care 195 mg/dl (65-105)
--- NOTE | 2021-07-01 11:48 | PM.IMPN ---
Progress Note: A&P Assessment and Plan (1) Altered mental status: Code(s): R41.82 - Altered mental status, unspecified Status: Resolved Assessment and Plan: Resolved. Presented with increased confusion after seizure -CT head is negative -Most likely acute metabolic encephalopathy secondary to seizure and infection -Neurology was consulted patient was given loading dose of Keppra patient currently on Keppra 500 mg twice a day. -Neurology following -He is A&O x4 on my encounter; that is not really participate in questions (2) Seizure: Code(s): R56.9 - Unspecified convulsions Status: Acute Assessment and Plan: Noted to have 45 seconds of seizure-like activity by his -he was loaded with Keppra, remains on Keppra 500 mg b.i.d. -EEG reviewed, compatible with postictal state -seizure precautions in place -appreciate neurology consultation (3) Fall: Code(s): W19.XXXA - Unspecified fall, initial encounter Status: Acute Assessment and Plan: Likely secondary to seizure. -PT OT eval and treat -seizure precautions -fall precautions (4) Pneumonia: Code(s): J18.9 - Pneumonia, unspecified organism Status: Acute Assessment and Plan: CXR on presentation concerning for pneumonia with left lower lobe opacity -COVID negative -Continue IV cefepime #10, Vancomycin (started 06/26, renally dosed), PO Flagyl (started 06/29) -concern for aspiration pneumonia given seizure history. Bedside swallow study 06/28 with no obvious aspiration, MBS negative (06/30) -BC negative, MRSA swab negative -Fevers and tachycardia have resolved -repeat CXR 06/26 w/ worsened opacities in the mid and lower lung zones with a peripheral predominance, consistent with pulmonary edema versus pneumonia. -continue incentive spirometer, supportive care -he has been weaned to room air and is maintaining adequate O2 sats (5) Peripheral vascular disease of extremity with claudication: Code(s): I73.9 - Peripheral vascular disease, unspecified Status: Acute Assessment and Plan: Chronic, longstanding issue. -Continue aspirin -KARAN performed in July 2020 reviewed consistent with arterial disease -arterial Doppler 1224 showed severe occlusive disease with severely decreased ABIs and no discernible pulses -I spoke with vascular surgeon, Dr. Vicente, partner of patient's vascular surgeon Dr. Gamboa. Reviewed US. He reports prompt outpatient follow up is appropriate. No need for urgent evaluation/transfer -Patient established with vascular surgeon Dr. Alejo. Reportedly had a bypass with infection and grafting complications sometime last year but cannot recall when. -monitor for ischemic changes -supportive care. Pain control -evaluated by wound care. 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 Cardiomegaly. -Continue Lasix 80 mg b.i.d. He was on extremely high doses, however was having soft BP so was decreased. He appears euvolemic on exam -Receiving PD dialysis daily -Will obtain repeat CXR to reassess (8) Type 2 diabetes mellitus with hyperglycemia: Qualifiers: Diabetes mellitus retirement insulin use: with oysterman use Qualified Code(s): E11.65 - Type 2 diabetes mellitus with hyperglycemia; Z79.4 - care home (current) use of insulin Code(s): E11.65 - Type 2 diabetes mellitus with hyperglycemia
--- NOTE | 2021-07-01 12:29 | PM.PNNEP ---
Progress Note: A&P Assessment and Plan (1) End stage renal disease: Code(s): N18.6 - End stage renal disease Status: Chronic Assessment and Plan: continue CCPD while hospitalized volume status looks better with more aggressive peritoneal dialysis electrolytes and clearance better/stable continue supportive therapy (2) Seizure: Code(s): R56.9 - Unspecified convulsions Status: Acute Assessment and Plan: unclear if this is a true issue/event or not s/p initiation of [facility] Neurology following mentation back to baseline (3) Pneumonia: Code(s): J18.9 - Pneumonia, unspecified organism Status: Acute Assessment and Plan: suggestive by admission CXR febrile on admission fevers have gone away and a white cell count has decreased on cefepime and now vancomycin. (4) Bilateral foot pain: Code(s): M79.671 - Pain in right foot; M79.672 - Pain in left foot Status: Acute Assessment and Plan: quite severe and limiting mobility presumably secondary to diabetic neuropathy but suspect vascular disease/ischemia playing a role on gabapentin currently (unclear if really helping) Vascular Surgery (from [facility]) recommends outpatient follow-up continue supportive therapy (5) Atrial fibrillation: Qualifiers: Atrial fibrillation type: unspecified Qualified Code(s): I48.91 - Unspecified atrial fibrillation Code(s): I48.91 - Unspecified atrial fibrillation Status: Resolved Assessment and Plan: heart rate under good control on anticoagulation (6) Hypertension: Code(s): I10 - Essential (primary) hypertension Status: Chronic Assessment and Plan: blood pressure is well controlled follow trend of hemodynamics (7) Anemia: Code(s): D64.9 - Anemia, unspecified Status: Chronic Assessment and Plan: related to ESRD and acute illness Epogen 3x/seek follow trend of H/H (8) Diabetes: Qualifiers: Chronic kidney disease stage: on chronic dialysis Diabetes mellitus complication detail: with chronic kidney disease Diabetes mellitus complication status: with kidney complications Diabetes mellitus intermediate accountant insulin use: with residential use Diabetes mellitus type: type 2 Qualified Code(s): E11.22 - Type 2 diabetes mellitus with diabetic chronic kidney disease; N18.6 - End stage renal disease; Z79.4 - supervisor intermediates (current) use of insulin; Z99.2 - Dependence on renal dialysis Code(s): E11.9 - Type 2 diabetes mellitus without complications Status: Chronic Assessment and Plan: follow accuchecks on Lantus and SSI Will continue to follow. Subjective Date/time seen: 07/01/21 12:29 Still complaining of severe discomfort/pain in his feet despite current therapy/interventions to date; doing well with peritoneal dialysis treatment overnight; no other acute issues/events overnight voiced. Exam Narrative: General: WD/WN male in NAD Heart: normal S1 and S2; no rub Lungs: clear anteriorly; decreased at bases Abdomen: soft, nontender, nondistended, positive bowel sounds Extremities: no edema Skin: eschar on toes apparent Objective Data Vital Signs Vital Signs: Vital Signs Temp Pulse Resp BP Pulse Ox 07/01/21 09:32 69 07/01/21 09:31 69 07/01/21 08:00 97 07/01/21 06:00 36.8 C 69 16 105/61 97 06/30/21 22:00 36.9 C 72 16 101/55 L 96 06/30/21 21:17 62 06/30/21 20:35 62 14 91 Intake/Output Intake/Output: Intake & Output 06/28/21 06/29/21 06/30/21 07/01/21 23:59 23:59 23:59 23:59 Intake Total 1340 1390 2170 720 Output Total 1100 550 Balance 0887 673 7875 720 Meds/Results Medications: Active Medications Generic Name Dose Route Start Last Admin Trade Name Freq PRN Reason Stop Dose Admin Hydrocodone Bitart/Acetaminophen 1 tab 06/20/21 22:11 07/01/21 09:36 Hydroc
--- NOTE | 2021-07-01 12:29 | P.PNNP_ITS ---
Progress Note: A&P Assessment and Plan (1) End stage renal disease: Code(s): N18.6 - End stage renal disease Status: Chronic Assessment and Plan: * continue CCPD while hospitalized * volume status looks better with more aggressive peritoneal dialysis * electrolytes and clearance better/stable * continue supportive therapy (2) Seizure: Code(s): R56.9 - Unspecified convulsions Status: Acute Assessment and Plan: * unclear if this is a true issue/event or not * s/p initiation of keppra * Neurology following * mentation back to baseline (3) Pneumonia: Code(s): J18.9 - Pneumonia, unspecified organism Status: Acute Assessment and Plan: * suggestive by admission CXR * febrile on admission * fevers have gone away and a white cell count has decreased * on cefepime and now vancomycin. (4) Bilateral foot pain: Code(s): M79.671 - Pain in right foot; M79.672 - Pain in left foot Status: Acute Assessment and Plan: * quite severe and limiting mobility * presumably secondary to diabetic neuropathy but suspect vascular disease/ischemia playing a role * on gabapentin currently (unclear if really helping) * Vascular Surgery (from [facility]) recommends outpatient follow-up * continue supportive therapy (5) Atrial fibrillation: Qualifiers: Atrial fibrillation type: unspecified Qualified Code(s): I48.91 - Unspecified atrial fibrillation Code(s): I48.91 - Unspecified atrial fibrillation Status: Resolved Assessment and Plan: * heart rate under good control * on anticoagulation (6) Hypertension: Code(s): I10 - Essential (primary) hypertension Status: Chronic Assessment and Plan: * blood pressure is well controlled * follow trend of hemodynamics (7) Anemia: Code(s): D64.9 - Anemia, unspecified Status: Chronic Assessment and Plan: * related to ESRD and acute illness * Epogen 3x/seek * follow trend of H/H (8) Diabetes: Qualifiers: Chronic kidney disease stage: on chronic dialysis Diabetes mellitus complication detail: with chronic kidney disease Diabetes mellitus complication status: with kidney complications Diabetes mellitus intermediate frame tender insulin use: with residential use Diabetes mellitus type: type 2 Qualified Code(s): E11.22 - Type 2 diabetes mellitus with diabetic chronic kidney disease; N18.6 - End stage renal disease; Z79.4 - jail (current) use of insulin; Z99.2 - Dependence on renal dialysis Code(s): E11.9 - Type 2 diabetes mellitus without complications Status: Chronic Assessment and Plan: * follow accuchecks * on Lantus and SSI Will continue to follow. Subjective Date/time seen: 07/01/21 12:29 Still complaining of severe discomfort/pain in his feet despite current therapy/interventions to date; doing well with peritoneal dialysis treatment overnight; no other acute issues/events overnight voiced. Exam Narrative: General: WD/WN male in NAD Heart: normal S1 and S2; no rub Lungs: clear anteriorly; decreased at bases Abdomen: soft, nontender, nondistended, positive bowel sounds Extremities: no edema Skin: eschar on toes apparent Objective Data Vital Signs Vital Signs: Vital Signs Temp Pulse Resp BP Pulse Ox 07/01/21 09:32 69 07/01/21 09:31 69
[2021-07-01 14:28] VITALS: BP 110/63; PULSE 81; RESP 16; TEMP 36.7; O2SAT 98
[2021-07-01] MEDS: EPOETIN ALFA-EPBX 10,000 UNITS/ML VIAL 10000 UNITS SUB-Q (16:26)
[2021-07-01] MEDS: DEXTROSE 50% 25 GM/50 ML SYRINGE IV PUSH ×2 (17:34→18:25)
[2021-07-01 17:36] LABS: Glucose Point of Care 55 mg/dl (65-105)
[2021-07-01 18:01] LABS: Glucose Point of Care 48 mg/dl (65-105)
[2021-07-01 18:01] LABS: Glucose Point of Care 61 mg/dl (65-105)
[2021-07-01 19:00] LABS: Glucose Point of Care 117 mg/dl (65-105)
[2021-07-01 19:00] LABS: Glucose Point of Care 54 mg/dl (65-105)
[2021-07-01 20:48] LABS: Glucose Point of Care 123 mg/dl (65-105)
--- NOTE | 2021-07-01 20:53 | ED.PROCEDURE ---
Procedures Intubation Intubation Date: 07/01/21 Intubation Time: 20:24 A pre-procedural Time-Out was completed immediately before starting the procedure and confirmed: Patient Identification, Site, Procedure, Patient Position and the Availability of Requisite Equipment: No Sedative: none Laryngoscope: Graciela (3) ET tube size: cuffed Tube secured depth (cm): 23 Tube secured location: lips Tube placement confirmation: visualized tube passing through cords, equal breath sounds bilaterally, no breath sounds over epigastrium and confirmation by capnometry Patient tolerated procedure: well Intubation complications: none Other Procedures Procedure 1: Other Procedure: CODE BLUE note: MARIO DIALLO called at 2018 for 70-year-old male. He had been undergoing peritoneal dialysis. Patient unresponsive with aspirating airway. Chest compressions and progress. Emesis suctioned. Intubation performed. See note above. Patient received 6 rounds of epinephrine, 1 dose of bicarbonate. He received some IV D50 due to earlier blood sugar of 50 however Accu-Chek just prior to administration of D50 was 127. Pulse checks with asystole. Last pulse check with slow PEA with a wide-complex QRS occurring approximately 10 bpm. No pulses dopplered or palpated. Patient pronounced at 2037. GENERAL: Chronically ill-appearing, unresponsive. HEAD: Normocephalic, atraumatic. EYES: Pupils equal and nonreactive. ENT: Mucous membranes moist. CHEST: No spontaneous respirations. Equal breath sounds with bagging. HEART: Pulseless with poor capillary refill. ABDOMEN: Soft, nondistended, dialysis catheter in lower abdomen without evidence of surrounding infection. EXTREMITIES: No spontaneous movements. SKIN: Warm, dry, no rash. NEURO: GCS 3
--- NOTE | 2021-07-02 07:52 | PM.DDS ---
Discharge Summary Date and Time Date of : 07/01/21 Time of : 20:36 Provider Pronounced By: Dr. Moulton Probable Cause of Probable Cause of : Aspiration Summary Hospital Course: Date of admission: 06/20/2021 Date of : 07/01/2021 Cristi Adams is a 70-year-old male with extensive medical history and multiple comorbidities including CKD on peritoneal dialysis, severe peripheral arterial disease, hypertension, type 2 diabetes mellitus complicated by neuropathy, cardiomyopathy and several other medical problems who was hospitalized for altered mental status following new onset seizure. His hospital course was complicated by pneumonia, suspected secondary to aspiration given seizure, poorly controlled diabetes mellitus with extremely labile blood sugars, and PAD with bilateral lower extremity pain. On 07/01/21 he was found unresponsive. Code was initiated. Appeared the patient had aspirated with visible emesis in the airway. His blood sugar was 127 at time of event. He received epinephrine and bicarbonate, as well as D50. He was intubated however had no pulse and was pronounced at [address] Moulton. I was not present at time of code/. Additional Data Confirmation of as documented by pronouncing clinician: Pupillary Reflex, Palpable Pulses, Response to Stimuli, Heart Tones and Breath Sounds Name of Provider Notified: Dr. Hobbs Time Provider Notified: 20:36 Provider Requests Autopsy: No Family Requests Autopsy: No Multimedia Educational Specialist Notified: Yes Date [facility] Notified of : 07/01/21 Time [facility] Notified of : 21:30
== END 2021-07-01 20:36 | disposition expired | DRG 871 ==
LOC: ANHED 06:33 → ANH2MED 12:53 → ANH3MEDSUR 06-26 18:02
PROVIDERS: Emergency Medicine; Internal Medicine; Internal Medicine Nephrology; Physician Assistant; Admitting Provider Internal Medicine; Emergency Provider Emergency Medicine; PCP Family Medicine; Visit Provider Physician Assistant
DX: A41.9 Sepsis, unspecified organism (principal); N18.6 End stage renal disease; J18.9 Pneumonia, unspecified organism; I12.0 Hypertensive chronic kidney disease with stage 5 chronic kidney disease or end stage renal disease; I42.9 Cardiomyopathy, unspecified; J44.0 Chronic obstructive pulmonary disease with (acute) lower respiratory infection; T17.918A Gastric contents in respiratory tract, part unspecified causing other injury, initial encounter; R41.82 Altered mental status, unspecified; Z20.822 Contact with and (suspected) exposure to COVID-19; I48.91 Unspecified atrial fibrillation; E11.22 Type 2 diabetes mellitus with diabetic chronic kidney disease; Z99.2 Dependence on renal dialysis; D63.1 Anemia in chronic kidney disease; N25.0 Renal osteodystrophy; E87.6 Hypokalemia; E11.65 Type 2 diabetes mellitus with hyperglycemia; R56.9 Unspecified convulsions; E11.51 Type 2 diabetes mellitus with diabetic peripheral angiopathy without gangrene; E11.42 Type 2 diabetes mellitus with diabetic polyneuropathy; E87.8 Other disorders of electrolyte and fluid balance, not elsewhere classified; D72.829 Elevated white blood cell count, unspecified; M79.672 Pain in left foot; M79.671 Pain in right foot; R33.9 Retention of urine, unspecified; W19.XXXA Unspecified fall, initial encounter; Z28.21 Immunization not carried out because of patient refusal; Z79.01 Long term (current) use of anticoagulants; Z79.4 Long term (current) use of insulin; Z79.82 Long term (current) use of aspirin; Z79.899 Other long term (current) drug therapy; Z87.891 Personal history of nicotine dependence; Z98.62 Peripheral vascular angioplasty status
CPT/HCPCS: 31500; 36415; 36600; 51701; 70450; 71045; 72100; 73590; 73630; 74177; 80048; 80053; 80069; 80076; 80202; 80307; 81001; 82010; 82140; 82375; 82550; 82805; 82948; 83036; 83050; 83605; 83690; 83880; 84132; 84146; 85025; 85027; 85610; 85730; 86140; 86704; 86706; 87040; 87070; 87075; 87081; 87086; 87205; 87340; 87426; 89051; 90945; 92610; 92611; 92950; 93005; 93923; 95816; 96365; 96366; 96367; 96375; 97110; 97161; 97166; 97530; 97535; 99285; A9270; C9803; G0378; J0131; J0171; J0692; J1815; J1953; J2060; J2543; J3370; J7040; Q5105; Q5106; Q9967; U0003; U0005